=== PATIENT | female | born 2005 | race Caucasian/White ===

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

== ENCOUNTER 2023-01-01 15:17 | Outpatient (REF) | payer MEDICAID, SELFPAY | END 2023-01-01 15:18 | disposition home or self-care (01) | LOC: LBN 15:17 | PROVIDERS: PCP Pediatrics; Referring Provider Pediatrics; Visit Provider Pediatrics | DX: R30.0 Dysuria (principal) | CPT/HCPCS: 87086 ==

== ENCOUNTER 2023-01-19 23:36 | Emergency (ER) | payer MEDICAID, SELFPAY ==
--- NOTE | 2023-01-19 23:30 | RT.EKG_ITS ---
APPROVED REPORT Exam: Resting ECG Reason for Exam: Chest pain Patient Location: E HR:103 bpm ECG Measurements Heart Rate 103 AXIS NC 112 P 60 QRSd 69 QRS 40 QT 315 T 59 QTc 412 Conclusion Sinus tachycardia...rate> 99
[2023-01-19 23:39] VITALS: O2SAT 62
[2023-01-19 23:40] VITALS: PULSE 115; RESP 27; O2SAT 99
[2023-01-19 23:41] VITALS: BP 101/55; BP 164/132; PULSE 105; PULSE 107; PULSE 108; RESP 18; TEMP 37.1
[2023-01-19 23:46] VITALS: BP 101/55; PULSE 103; PULSE 105; RESP 16; O2SAT 100
[2023-01-19 23:48] VITALS: RESP 24
[2023-01-19 23:50] VITALS: PULSE 115; RESP 25
[2023-01-19] MEDS: LORazepam 2 MG/ML VIAL 1 MG IVP (23:58)
[2023-01-19] MEDS: Normal Saline 1,000 ML 1000 ML IV (23:58)
[2023-01-20] VITALS (20 sets, daily range): BP systolic 83–120; BP diastolic 33–80; PULSE 76–105; RESP 16–28; O2SAT 96–99
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
[2023-01-20 00:20] LABS: Abs Immature Grans 0.03 10^3/uL (0.0-0.06); Absolute Basophil Count 0.07 10^3/uL (0.0-0.2); Absolute Eosinophil Count 0.37 10^3/uL (0.0-0.7); Absolute Lymphocyte Count 3.67 10^3/uL (1.2-3.4); Absolute Monocyte Count 0.63 10^3/uL (0.1-0.8); Absolute Neutrophil Count 6.48 10^3/uL (1.2-6.7); Basophils % 0.6; Eosinophils % 3.3; HCT 37.9 % (36.0-46.0); HGB 13.3 g/dL (11.2-15.7); Immature Grans % 0.3; Lymphocytes % 32.6; MCH 31.7 pg (27.0-33.0); MCHC 35.1 % (32.0-36.0); MCV 91 fL (80-95); MPV 9.6 fL (8.0-11.0); Monocytes % 5.6; Neutrophils % 57.6; Platelet Count 318 10^3/uL (130-400); RBC 4.19 10^6/uL (3.93-5.22); RDW 11.9 % (11.7-14.6); RDW-SD 39.2 fL; WBC 11.25 10^3/uL (4.4-10.8)
[2023-01-20 00:30] LABS: ETHANOL BLOOD < 3.0 mg/dL (<10)
[2023-01-20 00:34] LABS: HCG Qual (Serum) Negative
[2023-01-20 00:38] LABS: ALT 14 U/L (14-59); AST 14 U/L (15-37); Alkaline Phosphatase 86 U/L (46-116); BUN 10 mg/dL (7-18); Bilirubin, Total 0.5 mg/dL (0.2-1.0); CREATININE 0.7 mg/dL (0.55-1.02); Calcium 9.7 mg/dL (8.5-10.1); Chloride 100 mmol/L (98-107); Glucose 133 mg/dL (74-106); Lipase 22 U/L (16-77); Magnesium 1.8 mg/dL (1.8-2.4); Potassium 3.2 mmol/L (3.5-5.1); Sodium 136 mmol/L (136-145); Total Protein 7.7 g/dL (6.4-8.2)
[2023-01-20 00:39] LABS: Troponin I < 50 ng/L (<or=60)
[2023-01-20 00:52] LABS: D-Dimer 232 ng/mlFEU (<500)
[2023-01-20 01:08] LABS: Bilirubin Negative (Negative); Blood Negative (Negative); Clarity Clear (Clear); Glucose Negative (Negative); Ketones Negative (Negative); Leukocyte Esterase Negative (Negative); Nitrite Negative (Negative); Urobilinogen 0.2 mg/dL (Up to 0.2); pH 5.5 (5-8)
[2023-01-20 01:17] LABS: *AMPHETAMINES SCREEN URINE Negative (Negative); *BARBITURATES SCREEN URINE Negative (Negative); *BENZODIAZEPINES SCREEN URINE Negative (Negative); Cannabinoids THC Positive (Negative); Cocaine Screen,Urine Negative (Negative); METHADONE URINE SCREEN Negative (Negative); OPIATES URINE SCREEN Negative (Negative)
[2023-01-20 01:18] LABS: Tricyclic Antidepressants Negative (Negative)
== END 2023-01-20 01:40 | disposition home or self-care (01) ==
LOC: ER 01-20 01:59
PROVIDERS: Emergency Provider Emergency Medicine; PCP Pediatrics
DX: E87.6 Hypokalemia (principal); T50.905A Adverse effect of unspecified drugs, medicaments and biological substances, initial encounter; F41.0 Panic disorder [episodic paroxysmal anxiety]
CPT/HCPCS: 80053; 80307; 83690; 93005; 96360; 96374; 99284; 80320; 81003; 83735; 84484; 84703; 85025; 85379; 93010; J2060

== ENCOUNTER 2023-01-25 09:35 | Outpatient (REF) | payer MEDICAID, SELFPAY | END 2023-01-25 09:36 | disposition home or self-care (01) | LOC: LBN 09:35 | PROVIDERS: PCP Pediatrics; Visit Provider Pediatrics | DX: R30.0 Dysuria (principal) | CPT/HCPCS: 87086 ==

== ENCOUNTER 2023-01-27 10:34 | Emergency (ER) | payer MEDICAID, SELFPAY ==
[2023-01-27 10:39] VITALS: BP 121/91; PULSE 93; RESP 18; TEMP 37.2; O2SAT 98
[2023-01-27 10:42] VITALS: BP 121/91; PULSE 93; RESP 18; TEMP 37.2; O2SAT 98
[2023-01-27] MEDS: Erythromycin Ophth Oint 3.5 GM TUBE OD (11:07)
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
== END 2023-01-27 11:05 | disposition home or self-care (01) ==
PROVIDERS: Emergency Provider Physician Assistant; PCP Pediatrics
DX: H01.004 Unspecified blepharitis left upper eyelid (principal); F17.290 Nicotine dependence, other tobacco product, uncomplicated
CPT/HCPCS: 99282; 99283

== ENCOUNTER 2023-02-05 16:43 | Outpatient (REF) | payer MEDICAID, SELFPAY | END 2023-02-05 16:44 | disposition home or self-care (01) | LOC: LBN 16:43 | PROVIDERS: PCP Pediatrics; Referring Provider Pediatrics; Visit Provider Pediatrics | DX: R30.0 Dysuria (principal); N30.90 Cystitis, unspecified without hematuria | CPT/HCPCS: 87086 ==

== ENCOUNTER → 2023-02-18 00:56 | Outpatient (CLI) | payer MEDICAID, SELFPAY ==
--- NOTE | 2023-02-18 | DI.CT_ITS ---
Exam(s) CT CHEST/ABD/PEL W EXAM: CT CHEST/ABD/PEL W CLINICAL HISTORY: BEHCET'S DISEASE M35.2 WEIGHT LOSS. TECHNIQUE: Imaging Protocol: Axial computed tomography images with coronal and sagittal reformatted images were created and reviewed CONTRAST MATERIAL: Intravenous: Omnipaque 350 Contrast volume:100 ml Oral: None COMPARISON: CT CT CHEST PE CTA from 10/13/2022 FINDINGS: CHEST: LUNGS: There are no infiltrates nor pleural effusions and there are no significant pulmonary nodules. No evidence of significant interstitial disease. No focal findings evident in the trachea and main stem bronchi. No bronchiectasis.. MEDIASTINUM: There is abnormal density filling the anterior mediastinal fat triangle. May represent thymus tissue versus more concerning finding. This is immediately exhibits normal size. there is no hilar adenopathy. No Damaris tracheal adenopathy. No subcarinal adenopathy. There is no supraclavicul ar adenopathy. There is no axillary adenopathy. CARDIAC: Heart size is normal. There is no pericardial effusion.Caliber of thoracic aorta is within normal limits. OSSEOUS: No significant osseous lesions.No fractures.. ABDOMEN: There is no ascites. No mesenteric masses. LIVER: There are no focal hepatic lesions nor dilatation of intrahepatic ducts. Some fatty parenchym al change is noted in the medial right hepatic lobe adjacent to the inter lobar fissure, a common fin ding. There is no generalized steatosis of the liver. GALLBLADDER/BILIARY: No obvious gallbladder pathology. zz PANCREAS: No evidence of pancreatic mass nor dilatation of the pancreatic duct. SPLEEN: Spleen is not enlarged. There are no intrasplenic lesions. Splenic and portal veins are laguna nt. ADRENALS: There are no significant adrenal masses. KIDNEYS: No calculi nor hydronephrosis. No solid renal masses. No cysts evident. ABDOMINAL AORTA: Abdominal aorta is not enlarged. LYMPH NODES: There is no retroperitoneal nor paraaortic adenopathy. ABDOMINAL WALL: No evidence of significant anterior abdominal wall nor inguinal hernia. GI: There is abnormal appearance of the sigmoid colon which exhibits a continuous colitis pattern thr oughout its length. This does not appear to affect the proximal 2/3 of the colon. There also a few intrapelvic small bowel loops which appear slightly irregular, possible enteritis. There is no free fluid. No free air. No abscess. There is no evidence of small-bowel obstruction.. PELVIS: LYMPH NODES: There is no intrapelvic nor inguinal adenopathy. GI: No evidence of appendicitis.No evidence of sigmoid diverticulitis. URINARY BLADDER: No calculi nor masses evident REPRODUCTIVE: Uterus size is normal. No ovarian masses seen. OSSEOUS: No for fractures. No osseous lesions. There is anterolisthesis L5 upon S1 related to bilat eral pars defects at the L5 level. IMPRESSION: 1. The main finding here is a severe colitis pattern involving the entire sigmoid; with less involvem ent of the colon above this level. There may also be a mild enteritis pattern involving small bowel loops in the pelvis. There is no evidence of small-bowel obstruction. There is no obvious ascites. 2. There is abnormal density in the anterior mediastinal fat triangle. In this age this may probably represent thymus remnant tissue. There is no hilar, paratracheal, nor subcarinal adenopathy. 3. No pulmonary findings nor pleural effusions. 4. Anterolisthesis L5 upon S1 due to bilateral pars defects at L5 level RADIATION DOSE DELIVERED: Total DLP DATA REPOSITORY: All CT scans at this facility are submitted to the National Radiology Data Registry (NRDR) Dose Index Registry (DIR) with the [employer] ([employer]). RADIATION OPTIMIZATION: All CT scans at this facility use at least one of these dose optimization te chniques: automated exposure control; mA and/or kV adjustment per patient size (includes targeted exa ms where dose is matched to clinical indication); or iterative reconstruction.
[2023-02-18] MEDS: Barium Sulfate 2% W/V-Berry Smoothie 450 ML BTL 900 ML PO (09:41)
[2023-02-18] MEDS: Omnipaque 350 MG/ML 100 ML BTL IJ (11:45)
== END ==
PROVIDERS: PCP Pediatrics; Visit Provider Internal Medicine Rheumatology
DX: K52.89 Other specified noninfective gastroenteritis and colitis (principal); M43.16 Spondylolisthesis, lumbar region
CPT/HCPCS: 74177; 71260; J3490

== ENCOUNTER 2023-04-09 07:25 | Outpatient (REF) | payer MEDICAID, SELFPAY ==
[2023-04-10 08:07] LABS: Clarity Sl Cloudy (Clear)
[2023-04-10 08:12] LABS: Specific Gravity 1.035 (1.005-1.025)
[2023-04-10 08:14] LABS: Bacteria Negative HPF (Negative); C & S Indicated? C&S Done As Ordered; Casts Negative LPF (Negative); Crystals Many Amorphous HPF (Negative); Epithelial Cells Few HPF (Negative); Mucus Trace (Negative); WBC 20-50 HPF (0-5)
== END 2023-04-09 07:26 | disposition home or self-care (01) ==
LOC: LBN 07:25
PROVIDERS: PCP Pediatrics; Visit Provider Pediatrics
DX: R30.0 Dysuria (principal); N30.80 Other cystitis without hematuria
CPT/HCPCS: 81003; 81015; 87086

== ENCOUNTER 2023-10-18 12:37 | Outpatient (CLI) | payer MEDICAID, SELFPAY ==
[2023-10-18 12:28] LABS: Abs Immature Grans 0.02 10^3/uL (0.0-0.06); Absolute Basophil Count 0.05 10^3/uL (0.0-0.2); Absolute Eosinophil Count 0.25 10^3/uL (0.0-0.7); Absolute Monocyte Count 0.87 10^3/uL (0.1-0.8); Absolute Neutrophil Count 5.25 10^3/uL (1.2-6.7); Basophils % 0.5 %; Eosinophils % 2.6 %; HCT 39.7 % (36.0-46.0); HGB 13.3 g/dL (11.2-15.7); Immature Grans % 0.2 %; Lymphocytes % 33.2 %; MCH 30.7 pg (27.0-33.0); MCHC 33.5 % (32.0-36.0); MCV 92 fL (80-95); MPV 9.1 fL (8.0-11.0); Neutrophils % 54.5 %; Platelet Count 287 10^3/uL (130-400); RBC 4.33 10^6/uL (3.93-5.22); RDW 12.9 % (11.7-14.6); RDW-SD 43.6 fL; WBC 9.64 10^3/uL (4.4-10.8)
[2023-10-18 12:43] LABS: *AMPHETAMINES SCREEN URINE Negative (Negative); *BARBITURATES SCREEN URINE Negative (Negative); *BENZODIAZEPINES SCREEN URINE Negative (Negative); Cannabinoids THC Positive (Negative); Cocaine Screen,Urine Positive (Negative); METHADONE URINE SCREEN Negative (Negative); OPIATES URINE SCREEN Negative (Negative)
[2023-10-18 12:44] LABS: Tricyclic Antidepressants Negative (Negative)
[2023-10-18 13:08] LABS: Hemoglobin A1C 5.5 % (<5.7)
[2023-10-18 13:16] LABS: ALT 18 U/L (14-59); AST 14 U/L (15-37); Albumin 3.8 g/dL (3.4-5.0); Alkaline Phosphatase 92 U/L (46-116); Anion Gap 8.3 mmol/L (3-11); BUN 6 mg/dL (7-18); Bilirubin, Total 0.57 mg/dL (0.2-1.0); CO2 28.7 mmol/L (21.0-32.0); CREATININE 0.7 mg/dL (0.55-1.02); Calcium 9.7 mg/dL (8.5-10.1); Calculated LDL 87 mg/dL (<100); Chloride 102 mmol/L (98-107); Cholesterol 152 mg/dL (<200); Glucose 96 mg/dL (74-106); HDL Cholesterol 57 mg/dL (40-60); Potassium 3.8 mmol/L (3.5-5.1); Sodium 139 mmol/L (136-145); TSH (W/Ref FT4) 1.68 uIU/mL (0.36-3.74); Total Protein 7.7 g/dL (6.4-8.2); Triglyceride 43 mg/dL (<150); Vitamin B12 472 pg/mL (193-986); Vitamin D 25 Total 33.7 ng/mL (30-100)
[2023-10-19 10:37] LABS: Syphilis Serology (RPR) Negative (Negative)
[2023-10-19 15:10] LABS: Fentanyl Scr w/Rfx Confirm Positive ng/mL (<1)
[2023-10-25 13:12] LABS: Fentanyl Confirmation >40 ng/mL (<2); Norfentanyl Confirmation >200 ng/mL (<10)
== END 2023-10-18 12:38 | disposition home or self-care (01) ==
LOC: LBO 12:37
PROVIDERS: PCP Pediatrics; Visit Provider Nurse Practitioner Family
DX: F11.90 Opioid use, unspecified, uncomplicated (principal); I10 Essential (primary) hypertension; E78.5 Hyperlipidemia, unspecified; Z00.00 Encounter for general adult medical examination without abnormal findings
CPT/HCPCS: 36415; 80053; 80061; 80307; 80354; 82306; 82607; 83036; 84443; 85025; 86592

== ENCOUNTER 2023-11-17 14:54 | Emergency (ER) | payer MEDICAID, SELFPAY ==
[2023-11-17 15:02] VITALS: BP 113/91; PULSE 116; RESP 12; TEMP 37; O2SAT 98
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
[2023-11-17] MEDS: Polymyxin B/Trimethoprim Ophth Soln 10 ML BTL OU (15:17)
--- OUTSIDE RECORDS SUMMARY | 2023-11-17 15:26 | XMS_ITS | Encounter Summary ---
Author Organization [facility] [place] [address] Care Team Providers Care Information Clerk Cashier Name Role Phone Ben Nevarez MD Primary Care Provider Encounter Details Date Type Department Care Team (Latest Contact Info) Description 11/26/2022 7:00 AM EDT - 11/26/2022 11:59 PM EDT Hospital En[place] [id number] Mild intermittent asthma without complication Discharge Disposition: Home Social History Tobacco Use Types Packs/Day Years Used Date Smoking Tobacco: Never Smokeless Tobacco: Never Comments:smokes marajuana Sex and Gender Information Value Date Recorded Sex Assigned at Not on file Gender Identity Not on file Sexual Orientation Not on file documented as of this encounter Medications at Time of Discharge Medication Sig Dispensed Refills Start Date End Date acetaminophen (Tylenol) 500 mg Tablet Take 1,000 mg by mouth every 6 hours as needed for Pain. albuteroL (Ventolin HFA) 90 mcg/actuation HFA Aerosol InhalerIndications:Mild intermittent asthma without complication Inhale 2 puffs into the lungs every 4 hours as needed for Wheezing. 1 each 1 11/10/2022 triamcinolone acetonide (KENALOG) 0.1 % Paste Place 1 each onto teeth 2 times daily. 5 g 12 04/10/2020 buPROPion SR (Wellbutrin SR) 100 mg SR 12 hr tablet Take 100 mg by mouth daily. 10/23/2022 05/06/2023 sucralfate (Carafate) 100 mg/mL Suspension Take 10 mLs by mouth 4 times daily. 420 mL 11/05/2022 05/06/2023 melatonin 10 mg Tablet, Multiphasic Release Bedtime 02/08/2020 05/06/19 24 Vyvanse 30 mg Capsule TAKE ONE CAPSULE BY MOUTH EVERY MORNING 02/03/2021 05/06/2023 omeprazole (PriLOSEC) [address] capsuleIndications:Mild intermittent asthma without complication Take 1 capsule by mouth daily. 30 capsule 1 11/10/2022 02/12/2023 lidocaine (Xylocaine) 5 % Ointment Three times a day 04/24/2020 05/06/2023 ondansetron ODT (Zofran-ODT) 4 mg Tablet, Rapid Dissolve Every 8 hours, as needed 05/24/2020 05/06/2023 sertraline (ZOLOFT) 100 mg Tablet TAKE ONE TABLET BY MOUTH ONCE DAILY 01/23/2021 05/06/2023 methylPREDNISolone (Medrol, Filiberto,) 4 mg Tablets, Dose Pack Use as directed on product package. 21 tablet 11/27/2020 05/06/2023 Diclofenac Sodium (VOLTAREN XR) 100 mg Tablet Sustained Release 24 hr Take 1 tablet by mouth daily. 30 tablet 3 06/04/2020 05/06/2023 gabapentin (Neurontin) 300 mg Capsule Take 1 capsule by mouth 3 times daily. 90 capsule 12 05/14/2020 05/06/2023 predniSONE (Deltasone) 10 mg Tablet Take 1 tablet by mouth daily. For 3 days then 5mg for 3 days then stop 100 tablet 1 04/30/2020 05/06/2023 gabapentin (Neurontin) 100 mg Capsule Take 2 capsules by mouth 3 times daily. 180 capsule 12 04/30/2020 05/06/2023 gabapentin (Neurontin) 100 mg Capsule Take 1 capsule by mouth 3 times daily. 90 capsule 12 04/10/2020 05/06/2023 Xarelto 15 mg Tablet TK 1 T PO BID FOR 20 DAYS 02/12/2020 05/06/2023 documented as of this encounter Plan of Treatment Not on file documented as of this encounter Procedures Procedure Name Priority Date/Time Associated Diagnosis Comments COMMON PULMONARY FUNCTION TEST Routine 11/26/2022 7:14 AM EDT Mild intermittent asthma without complication documented in this encounter Results * Pulmonary Function Testing (11/26/2022 7:14 AM EDT) FVC Actual Pre-BD 4.39 L COMPAS PFT FVC Pre-BD % of Predicted 135 % COMPAS PFT FVC Predicted 3.26 L COMPAS PFT FVC Pre-BD Z-Score 2.73 COMPAS PFT FVC Lower Limits of Normal 2.61 L COMPAS PFT FEV1 Actual Pre-BD 3.77 L COMPAS PFT FEV1 Pre-BD % of Predicted 130 % COMPAS PFT FEV1 Predicted 2.89 L COMPAS PFT FEV1 Pre-BD Z-Score 2.67 COMPAS PFT FEV1 Lower Limits of Normal 2.32 L COMPAS PFT FEV1 / FVC Actual Pre-BD 86 % COMPAS PFT FEV1/FVC Pre-BD Z-Score -0.48 COMPAS PFT FEV1 / FVC LLN 78 % COMPAS PFT FYT14-17 Actual Pre-BD 4.32 L/s COMPAS PFT [id number] Pre-BD % of Predicted 120 % COMPAS PFT [id number] Predicted 3.59 L/s COMPAS PFT [id number] Pre-BD Z-Score 0.92 COMPAS PFT FVC Actual Post-BD 4.37 L COMPAS PFT FVC Post-BD % of Predicted 134 % COMPAS PFT FVC Post-BD Z-Score 2.68 COMPAS PFT FEV1 Actual Post-BD 3.88 L COMPAS PFT FEV1 Post-BD % of Predicted 134 % COMPAS PFT FEV1 Post-BD Z-Score 3.01 COMPAS PFT FEV1 / FVC Actual Post-BD 89 % COMPAS PFT FEV1 / FVC LLN 78 % COMPAS PFT [id number] Actual Post-BD 4.94 L/s COMPAS PFT [id number] Post-BD % of Predicted 138 % COMPAS PFT [id number] Post-BD Z-Score 1.66 COMPAS PFT DLCO Hb Actual Pre-BD 22.72 mL/min/mmHg COMPAS PFT DLCO Hb Pre-BD % of Predicted 119 % COMPAS PFT DLCO Hb Pre-BD Z-Score 1.10 COMPAS PFT DLCO Hb Predicted 19.02 mL/min/mmHg COMPAS PFT DLCO UNC ACT PRE-BD 22.72 mL/min/mmHg COMPAS PFT DLCO UNC PRE-BD % of PRED 119 % COMPAS PFT DLCO UNC PRE-BD Z-SCORE 1.10 % COMPAS PFT DLCO UNC Predicted 19.02 mL/min/mmHg COMPAS PFT DLCO/VA Actual Pre-BD 4.46 mL/min/mmHg /L COMPAS PFT DLCO/VA Pre-BD % of Predicted 90 % COMPAS PFT DLCO/VA Pre-BD Z-Score -0.72 COMPAS PFT DLCO/VA Predicted 4.97 mL/min/mmHg /L COMPAS PFT Narrative COMPAS PFT - 11/26/2022 7:14 AM EDT FINDINGS: FEV1, FVC, and FEV1/VC are within normal limits. After administration of bronchodilator the FVC and FEV1 are not significantly changed. Diffusion capacity is normal. IMPRESSION: Normal spirometry. No significant response to inhaled bronchodilator. No diffusion impairment. Procedure Note Toño Meyer MD - 11/26/2022 FINDINGS: FEV1, FVC, and FEV1/VC are within normal limits. Afteradministration of bronchodilator the FVC and FEV1 are not significantly changed. Diffusioncapacity is normal. IMPRESSION: Normal spirometry. No significant response to inhaledbronchodilator. No diffusion impairment. Kayleigh Joselito [place] PFT ORDERABLES COMPAS PFT documented in this encounter Visit Diagnoses Diagnosis Mild intermittent asthma without complication Unspecified asthma documented in this encounter Care Teams Information Clerk Cashier Relationship Specialty Start Date End Date Ben Nevarez MD [address] [place] [address] PCP - General Pediatrics 11/20/15 documented as of this encounter
--- OUTSIDE RECORDS SUMMARY | 2023-11-17 15:26 | XMS_ITS | Clinical Summary ---
Author Organization [facility] [address] Care Team Providers Care Scholastic Aptitude Test Grader Name Role Phone Ben Nevarez MD Primary Care Provider Allergies Active Allergy Reactions Criticality Noted Date Comments Penicillins Rash 05/12/2011 Unclassified Drug Medium 09/08/2011 Dial soap gives her a burn on her skin at contact Medications Medication Sig Dispensed Refills Start Date End Date Status acetaminophen (Tylenol) 500 mg Tablet Take 1,000 mg by mouth every 6 hours as needed for Pain. Active triamcinolone acetonide (KENALOG) 0.1 % Paste Place 1 each onto teeth 2 times daily. 5 g 12 04/10/2020 Active Additional Information Patient taking differently: (No dose reported), Dental 2 TIMES DAILY, Reported on 05/06/2023 albuteroL (Ventolin HFA) 90 mcg/actuation HFA Aerosol InhalerIndications:Mi ld intermittent asthma without complication Inhale 2 puffs into the lungs every 4 hours as needed for Wheezing. 1 each 1 11/10/2022 Active Additional Information Patient not taking.Reported on 04/15/2023 Vyvanse 50 mg capsule Take 50 mg by mouth every morning. Active ferrous sulfate EC (FeroSul) 325 mg (65 mg iron) DR tablet Take 1 tablet by mouth daily. 04/01/2023 Active cyanocobalamin, vitamin B-12, (Vitamin B-12) 2,500 mcg tablet Take 1 tablet by mouth daily. chewable Active EX-LAX, SENNOSIDES, ORAL Take by mouth. coated Active methadone (Dolophine) 10 mg tablet Take 50 mg by mouth every 8 hours. Active Active Problems Problem Noted Date Diagnosed Date Behcet's syndrome 11/26/2022 Assessment & Plan (11/26/2022 1:50 PM EDT): I have done a literature review today regarding cardiac involvement in Bechet syndrome. While cardiac involvement is rare, it can manifest as disease in the epicardial vessels or in the microvasculature. Myocardial infarction is less common and accelerated atherosclerosis is not characterized as an aspect of the disease as it would be in other autoimmune syndromes. I discussed options for evaluation. While there is every chance that this is noncardiac, I do think we need to exclude a cardiac etiology. The most likely lesion would be in the microvasculature. I have ordered a PET stress test which will assess for epicardial disease in the perfusion imaging and assess for microvascular disease through flow reserve. If this is positive I will refer the patient back to rheumatology for intensification of therapy for Behcet's. If negative, she can be reassured. Follow-up will be as needed. GERD (gastroesophageal reflux disease) 2 Overview (09/08/2011): Primary manifestations are cough and pneumonia Much better since being on Zantac History of migraine headaches 06/16/2011 Overview (06/16/2011): Controlled with Singulair Cough 05/12/2011 Overview (09/08/2011): Persistent despite appropriate asthma therapy Resolved with treatment of GERD Asthma 05/12/2011 Nasal congestion 05/12/2011 Immunizations Name Administration Dates Next Due Influenza Trivalent w/Preservative 01/01/2012, Social History Tobacco Use Types Packs/Day Years Used Date Smoking Tobacco: Never Smokeless Tobacco: Never Tobacco Cessation:Counseling Given: Not Answered Comments:smokes marajuana Sex and Gender Information Value Date Recorded Sex Assigned at Not on file Gender Identity Not on file Sexual Orientation Not on file Last Filed Vital Signs Vital Sign Reading Time Taken Comments Blood Pressure 100/73 04/15/2023 1:37 PM EST Pulse 78 04/15/2023 1:37 PM EST Temperature 36.8 ??C (98.2 ??F) 01/20/2023 8:02 AM ED T Respiratory Rate 16 11/09/2022 9:56 AM EDT Oxygen Saturation 97% 04/15/2023 1:37 PM EST Inhaled Oxygen Concentration - - Weight 49.9 kg (110 lb) 05/06/2023 1:24 PM EST Height 149.9 cm (4' 11.02) 04/15/2023 1:[address] Body Mass Index 22.21 04/15/2023 1:37 PM EST Plan of Treatment Health Maintenance Due Date Last Done Comments Pneumococcal Vaccine: At-Ris k 5-64yrs (1 of 2 - PCV) 2009 Chlamydia Screening 2018 HPV vaccine (1 - 3-dose series) 2018 HIV screen 2021 Hepatitis C Screening 2021 Hepatitis B vaccine (0-59 yrs) (1) 2022 Tdap adult 2022 Tetanus vaccine 2022 Covid-19 Vaccine (1 - 2022- season) 2022 Influenza (Flu) vaccine (1 o f 1 - Influenza standard series) 12/12/2023 01/01/2012, 04/28/2011 Care Teams Scholastic Aptitude Test Grader Relationship Specialty Start Date End Date Ben Nevarez MD [address] [place] [address] PCP - General Pediatrics 11/20/15
--- OUTSIDE RECORDS SUMMARY | 2023-11-17 15:26 | XMS_ITS | Encounter Summary ---
[place] [address] Care Team Providers Care Clinical Pharmacist Name Role Phone Ben Nevarez MD Primary Care Provider [phone] Encounter Details Date Type Department Care Team (Late st Contact Info) Description 02/18/2023 Ancillary Procedure [place] [id number] Ben Nevarez MD [address] [place] [address] [place] [address] Social History Tobacco Use Types Packs/Day Years Used Date Smoking Tobacco: Never Smokeless Tobacco: Never Comments:smokes marajuana Sex and Gender Information Value Date Recorded Sex Assigned at Not on file Gender Identity Not on file Sexual Orientation Not on file documented as of this encounter Plan of Treatment Not on file documented as of this encounter Procedures Procedure Name Priority Date/Time Associated Diagnosis Comments FILM LIBRARY STORAGE ONLY CT CHEST ABDOMEN PELVIS Routine 02/18/2023 12:00 AM EST documented in this encounter Results * Film Library- Storage Only CT Chest Abdomen Pelvis (02/18/2023 12:00 AM EST) Narrative [facility] - 02/19/2023 2:56 AM EST This exam is auto-finalizing. It's purpose is for storage only. Ben Nevarez MD IMG FILM LIBRARY OR DERABLES Performing Organization Address City/State/[facility] Co de Phone Number [place], [place] documented in this encounter Visit Diagnoses Not on filedocumented in this encounter Care Teams Clinical Pharmacist Relationship Specialty Start Date End Date Ben Nevarez MD [address] [place] [address] PCP - General Pediatrics 11/20/15 documented as of this encounter
--- OUTSIDE RECORDS SUMMARY | 2023-11-17 15:26 | XMS_ITS | Encounter Summary ---
Author Organization [facility] [place] [address] Care Team Providers Care Social Secretary Name Role Phone Ben Nevarez MD Primary Care Provider Encounter Details Date Type Department Care Team (Latest Contact Info) Description 04/15/2023 Travel Social History Tobacco Use Types Packs/Day Years Used Date Smoking Tobacco: Never Smokeless Tobacco: Never Comments:smokes marajuana Sex and Gender Information Value Date Recorded Sex Assigned at Not on file Gender Identity Not on file Sexual Orientation Not on file documented as of this encounter Plan of Treatment Not on file documented as of this encounter Visit Diagnoses Not on filedocumented in this encounter Care Teams Social Secretary Relationship Specialty Start Date End [place] [address] PCP - General Pediatrics 11/20/15 documented as of this encounter
--- OUTSIDE RECORDS SUMMARY | 2023-11-17 15:26 | XMS_ITS | Encounter Summary ---
[place] [address] Care Team Providers Care Director Weights And Measures Name Role Phone Ben Nevarez MD Primary Care Provider [phone] Encounter Details Date Type Department Care Team (Latest Contact Info) Description 12/29/2022 Travel Social History Tobacco Use Types Packs/Day [...] on filedocumented in this encounter Care Teams Director Weights And Measures Relationship Specialty Start Date End Date [place] [address] PCP - General Pediatrics 11/20/15 documented as of this encounter
--- OUTSIDE RECORDS SUMMARY | 2023-11-17 15:26 | XMS_ITS | Encounter Summary ---
[place] [address] Care Team Providers Care Nitroglycerin Supervisor Name Role Phone Ben Nevarez MD Primary Care Provider [phone] Reason for Visit * Reason Onset Date Comments Other 11/10/2022 Pulmonary Rxs Encounter Details Date Type Department Care Team (Late st Contact Info) Description 11/10/2022 [place] [phone] Nae Reina RN Other (Pulmonary Rxs) Social History Tobacco Use Types Packs/Day Years Used Date Smoking Tobacco: Never Smokeless Tobacco: Never Comments:smokes marajuana Sex and Gender Information Value Date Recorded Sex Assigned at Not on file Gender Identity Not on file Sexual Orientation Not on file documented as of this encounter Miscellaneous Notes * Telephone Encounter - Nae Reina RN - 11/10/2022 4:33 PM EDT New Rx sent, x2, to pharmacy under Dr. Yee's name for insurance purposes: Albuterol HFA Omeprazole Attempted to call pt to notify. No answer. Nae Reina RN Department of Pulmonary 5C, [facility] / Pager: [phone] * Telephone Encounter - Nae Reina RN - 11/10/2022 4:33 PM EDT Copied from CRM #[id number]. Topic: Specialty Dept CRMs - Medication Issues >> Nov 09, 2022 2:27 PM Taylor Sofia wrote: Medication Issues Specialist Joselito/ Mejia Relationship (if other than patient-full name): Tino Rodrigues- brooks Reason for call: Medication Issue (if symptom based used Triage Subtopic) Message/information for the nurse: Need new script with provider approved for [place] medicaid. Name of Medication: albuteroL (Ventolin HFA) 90 mcg/actuation HFA Aerosol Inhaler Issue with the medication: Dr Ba cannot order for [place] medicaid per pharmacy. documented in this encounter Plan of Treatment Not on file documented as of this encounter Visit Diagnoses Not on filedocumented in this encounter Care Teams Nitroglycerin Supervisor Relationship Specialty Start Date End Date Ben Nevarez MD [address] [place] [address] PCP - General Pediatrics 11/20/15 documented as of this encounter
--- OUTSIDE RECORDS SUMMARY | 2023-11-17 15:26 | XMS_ITS | Encounter Summary ---
Author Organization [facility] Address [place] [id number] Care Team Providers Care Skein Straightener Name Role Phone Ben Nevarez MD Primary Care Provider Reason for Referral * Diagnostic Test (Routine) - Closed Specialty Diagnoses / Procedures Referred By Contac t Referred To Contact Radiology Diagnoses Chest pain, unspecified type Procedures NM PET CT Cardiac Pharmacologic Stress and Rest Dexter Mullen MD [facility] [place] [address] [place] [address] Referral ID Status Reason Start Date Expiration Date V isits Requested Visits Authorized [id number] Closed Specialty Service Requested 11/26/2022 05/25/2024 1 1 * Diagnostic Test (Routine) - Closed Specialty Diagnoses / Procedures Referred By Contac t Referred To Contact Radiology Diagnoses Chest pain, unspecified type Procedures NM PET CT Cardiac Pharmacologic Stress CT Component Dexter Mullen MD [facility] [place] [address] [facility] [email or web address] [address] Referral ID Status Reason Start Date Expiration Date V isits Requested Visits Authorized [id number] Closed Specialty Service Requested 11/26/2022 05/25/2024 1 1 * Diagnostic Test (Routine) - Closed Specialty Diagnoses / Procedures Referred By Brendan moore Referred To Contact Cardiology Diagnoses Chest pain, unspecified type Procedures Nuclear Pharmacologic Stress Cardiology (PET CT Mobile) Dexter Mullen MD [facility] [place] [address] [facility] [place] [address] Referral ID Status Reason Start Date Expiration Date V isits Requested Visits Authorized [id number] Closed Specialty Service Requested 11/26/2022 11/26/2023 1 1 Reason for Visit * Consultation (Urgent) - Closed Specialty Diagnoses / Procedures Referred By Brendan moore Referred To Contact Cardiology Diagnoses Chest pain 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 Arpit Cormier MD [facility] [place] [address] [facility] [address] [place] [phone] Referral ID Status Reason Start Date Expiration Date V isits Requested Visits Authorized [id number] Closed Consult, Test & Treat 11/05/2022 11/05/2023 1 1 Encounter Details Date Type Department Care Team (Late st Contact Info) Description 11/26/2022 1:00 PM EDT Office Visit Cardiology at [address] [phone] Dexter Mullen MD [facility] [place] [address] Chest pain, unspecified type; Behcet's syndrome Social History Tobacco Use Types Packs/Day Years Used Date Smoking Tobacco: Never Smokeless Tobacco: Never Tobacco Cessation:Counseling Given: Not Answered Comments:smokes socorro Sex and Gender Information Value Date Recorded Sex Assigned at Not on file Gender Identity Not on file Sexual Orientation Not on file documented as of this encounter Last Filed Vital Signs Vital Sign Reading Time Taken Comments Blood Pressure 113/80 11/26/2022 1:10 PM EDT Pulse 72 11/26/2022 1:10 PM EDT Temperature - - Respiratory Rate - - Oxygen Saturation 99% 11/26/2022 1:10 PM EDT Inhaled Oxygen Concentration - - Weight 51.7 kg (114 lb) 11/26/2022 1:10 PM EDT Height 149.9 cm (4' 11) 11/26/2022 1:10 PM EDT Body Mass Index 23.03 11/26/2022 1:10 PM EDT documented in this encounter Patient Instructions * Patient Instructions* Dexter Mullen MD - 11/26/2022 1:00 PM EDT I have ordered a PET stress test for you. We should have results available the following day documented in this encounter Progress Notes * Dexter Mullen MD - 11/26/2022 1:00 PM EDT Images from the original note were not included. [facility] [id number] CARDIOLOGY OUTPATIENT PROGRESS NOTE PRIMARY CARE PROVIDER: Ben Nevarez MD REFERRING PROVIDER: Arpit Cormier PROBLEM LIST: Patient Active Problem List Diagnosis Behcet's syndrome GERD (gastroesophageal reflux disease) Primary manifestations are cough and pneumonia Much better since being on Zantac History of migraine headaches Controlled with Singulair Cough Persistent despite appropriate asthma therapy Resolved with treatment of GERD Asthma Nasal congestion MEDICATIONS: Current Outpatient Medications Medication Sig Dispense Refill albuteroL (Ventolin HFA) 90 mcg/actuation HFA Aerosol Inhaler Inhale 2 puffs into the lungs every 4hours as needed for Wheezing. 1 each 1 omeprazole (PriLOSEC) [address] capsule Take 1 capsule by mouth daily. 30 capsule 1 Vyvanse 30 mg Capsule TAKE ONE CAPSULE BY MOUTH EVERY MORNING acetaminophen (Tylenol) 500 mg Tablet Take 1,000 mg by mouth every 6 hours as needed for Pain. buPROPion SR (Wellbutrin SR) 100 mg SR 12 hr tablet Take 100 mg by mouth daily. sucralfate (Carafate) 100 mg/mL Suspension Take 10 mLs by mouth 4 times daily. (Patient not taking:Reported on 11/26/2022) 420 mL 0 lidocaine (Xylocaine) 5 % Ointment Three times a day melatonin 10 mg Tablet, Multiphasic Release Bedtime ondansetron ODT (Zofran-ODT) 4 mg Tablet, Rapid Dissolve Every 8 hours, as needed sertraline (ZOLOFT) 100 mg Tablet TAKE ONE TABLET BY MOUTH ONCE DAILY methylPREDNISolone (Medrol, Filiberto,) 4 mg Tablets, Dose Pack Use as directed on product package. (Patient not taking: Reported on 03/03/2021) 21 tablet 0 Diclofenac Sodium (VOLTAREN XR) 100 mg Tablet Sustained Release 24 hr Take 1 tablet by mouth daily.(Patient not taking: Reported on 03/03/2021) 30 tablet 3 gabapentin (Neurontin) 300 mg Capsule Take 1 capsule by mouth 3 times daily. (Patient not taking: Reported on 07/02/2020) 90 capsule 12 predniSONE (Deltasone) 10 mg Tablet Take 1 tablet by mouth daily. For 3 days then 5mg for 3 days then stop (Patient not taking: Reported on 05/14/2020) 100 tablet 1 gabapentin (Neurontin) 100 mg Capsule Take 2 capsules by mouth 3 times daily. (Patient not taking: Reported on 07/02/2020) 180 capsule 12 gabapentin (Neurontin) 100 mg Capsule Take 1 capsule by mouth 3 times daily. (Patient not taking: Reported on 05/14/2020) 90 capsule 12 triamcinolone acetonide (KENALOG) 0.1 % Paste Place 1 each onto teeth 2 times daily. (Patient not taking: Reported on 07/02/2020) 5 g 12 Xarelto 15 mg Tablet TK 1 T PO BID FOR 20 DAYS No current facility-administered medications for this visit. Subjective: Patient ID: Elvia Rodrigues is a 17 y.o. patient of Ben Nevarez MD. HPI: This is a 17-year-old female whom I am asked to see for possible involvement of coronary arteries based on Behcet's syndrome and manifested by chest pain. She has been seen in the past by multiple medical specialists including rheumatology who have confirmed the presence of Behcet's syndrome. Her main manifestation in the past has been vaginal ulcers which have been characteristic of the disease. She has fairly minimal oral ulcers. She has had some skin nodules as well. Recently she has had worsening shortness of breath and chest discomfort. She was seen in the emergency room for this. CT scan showed cysts in the lungs, which been felt by pulmonary to be consistent with a manifestation of Behcet's. She has been seen by cardiology in the past as well. This was for shortness of breath and for general assessment. 2 years ago she had an echocardiogram that was entirely normal. Her pain is present primarily nocturnally and often at rest. It manifests as chest pain at times. It can occur with exertion. She does not exercise at all despite being only 17 years old. She does not go to school. 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 She is otherwise not worked recently. She unfortunately smokes and vapes. She has been instructed by pulmonary medicine in no uncertain terms to stop thisbehavior and I have amplified their advice. Her pain can last as long as several hours or short as a few seconds. It is worse when laying down and sitting up. It does not vary with the breathing cycle. It is made mildly worse with exertion but this is complicated by the fact that she usually feels better when she stands or sits. In the emergency room EKG and troponin were unremarkable. REVIEW OF SYSTEMS: Vaginal ulcers, chest pain, shortness of breath, skin rashes Family History: No family history on file. Social History: Social History Socioeconomic History Marital status: Single Spouse name: Not on file Number of children: Not on file Years of education: Not on file Highest education level: Not on file Occupational History Not on file Tobacco Use Smoking status: Never Smokeless tobacco: Never Tobacco comments: smokes marajuana Vaping Use Vaping Use: Some days Substances: Nicotine Devices: Disposable, Pre-filled or refillable cartridge Substance and Sexual Activity Alcohol use: Not on file Drug use: Not on file Sexual activity: Not on file Other Topics Concern Not on file Social History Narrative Not on file Social Determinants of Health Financial Resource Strain: Not on file Food Insecurity: Not on file Transportation Needs: Not on file Physical Activity: Not on file Housing Stability: Not on file Objective: PHYSICAL EXAM: BP 113/80 (BP Location (NBP): Left arm, Patient Position: Sitting, BP Cuff Sizes: Adult (25-34 cm)) Pulse 72 Ht 149.9 cm (4' 11) Wt 51.7 kg (114 lb) SpO2 99% BMI 23.03 kg/m?? , Body mass index is 23.03 kg/m??. General: Pleasant. No distress. Skin: Warm and dry. HEENT: Anicteric sclera. Neck: JVP not elevated. No AJR. No carotid bruits. Chest: Clear to auscultation Heart: No heave. Regularly regular rhythm. Normal S1 and S2. No gallops. No murmurs. Abdomen: Nondistended. Soft. Nontender. Extremities: No edema. PNEUMATIC TESTER: Normal mentation. Psych: Appropriate affect. Labs: Lab Results Component Value Date WBC 9.0 11/05/2022 WBC 9.0 04/10/2020 WBC 9.0 04/10/2020 HGB 14.0 11/05/2022 HGB 12.6 02/14/2020 PLATELET 305 11/05/2022 PLATELET 420 (H) 02/14/2020 NA 140 04/08/2021 NA 136 02/14/2020 K 4.1 04/08/2021 K 4.2 02/14/2020 CL 106 04/08/2021 CL 104 02/14/2020 CO2 23 04/08/2021 CO2 22 02/14/2020 BUN 11 04/08/2021 BUN 16 02/14/2020 CREATININE 0.84 04/08/2021 CREATININE 0.95 (H) 02/14/2020 I have reviewed her EKG and troponins. They are normal. Assessment and Plan: Behcet's syndrome I have done a literature review today regarding cardiac involvement in Bechet syndrome. While cardiac involvement is rare, it can manifest as disease in the epicardial vessels or in the microvasculature. Myocardial infarction is less common and accelerated atherosclerosis is not characterized as anaspect of the disease as it would be [...] be reassured. Follow-up will be as needed. Patient Instructions I have ordered a PET stress test for you. We should have results available the following day Thank you for the opportunity to participate in this patient's cardiovascular care. All questions were answered and I look forward to the next visit. Dexter Mullen MD A total of 60 minutes were spent on this visit including preparation, record review, time with the patient and documentation. documented in this encounter Miscellaneous Notes * Assessment & Plan Note - Dexter Mullen MD - 11/26/2022 1:50 PM EDT Associated Problem(s): Behcet's syndrome I have done a literature review today regarding cardiac involvement in Bechet syndrome. While cardiac involvement is rare, it can manifest as disease in the epicardial vessels or in the microvasculature. Myocardial infarction is less common and accelerated atherosclerosis is not characterized as anaspect of the disease as it would be [...] be reassured. Follow-up will be as needed. documented in this encounter Plan of Treatment Not on file documented as of this encounter Results * NM PET CT Cardiac Pharmacologic Stress and Rest (12/29/2022 9:03 AM EDT) Anatomical Region Laterality Modality Positron Emissio n Tomography (PET) Impressions 12/29/2022 6:05 PM EDT No ischemia or scar. ?? Normal coronary flow reserve. Left ventricular function is normal. Preliminary report signed by: Brooklyn Bennett at 12/29/2022 5:39 PM I have personally reviewed the image(s) and the resident's interpretation and agree with the findings, Ventura Abbasi MD at 12/29/2022 6:05 PM Thank you for letting us participate in the care of this patient. ??If you are a health care provider and have any questions regarding this report, please contact the number below. ??For patients who have questions please contact the health medicare coordinator that requested your imaging first. ? Electronically signed by: Ventura Abbasi MD, [facility] ([phone]), at 12/29/2022 6:05 PM Narrative 12/29/2022 6:05 PM EDT EXAMINATION: NM PET CT CARDIAC PHARMACOLOGIC STRESS AND REST, NM PET CT CARDIAC PHARMACOLOGIC STRESS CT COMPONENT CLINICAL HISTORY: chest pain,possible vasculitis TECHNIQUE: During rest, 30 mCi of Rubidium-82 was administered intravenously. PET images of the heart were obtained with reconstruction in the short, vertical long and horizontal long axis. The patient then received regadenoson intravenously at a dose of 0.4 mg. Immediately following, 30 mCi of Rubidium-82 was administered intravenously. Images of the heart were then again obtained with PET reconstruction. A low-dose CT scan was acquired for the purpose of attenuation correction COMPARISON: CTA chest 10/13/2022 FINDINGS: No fixed or reversible perfusion defects are present. Functional analysis: Myocardial function: There is normal wall thickening and wall motion. Rest Left ventricular ejection fraction: 55% Stress Left ventricular ejection fraction: 62% Coronary flow reserve LAD territory: 2.85 Coronary flow reserve Circumflex territory: 2.37 Coronary flow reserve RCA territory: 3.05 Coronary flow reserve total: 2.[address] FINDINGS: Normal CT within the limitations of this noncontrast study. Procedure Note Ventura Abbasi MD - 12/29/2022 EXAMINATION: NM PET CT CARDIAC PHARMACOLOGIC STRESS AND REST, NM PET CTCARDIAC PHARMACOLOGIC STRESS CT COMPONENT CLINICAL HISTORY: chest pain,possible vasculitis TECHNIQUE: During rest, 30 mCi of Rubidium-82 was administeredintravenously. PET images of the heart were obtained with reconstruction in the short,vertical long and horizontal long axis. The patient then received regadenoson intravenously at a dose of 0.4 mg. Immediately following, 30 mCi of Rubidium-82 was administeredintravenously. Images of the heart were then again obtained with PET reconstruction. A low-dose CT scan was acquired for the purpose of attenuationcorrection COMPARISON: CTA chest 10/13/2022 FINDINGS: No fixed or reversible perfusion defects are present. Functional analysis: Myocardial function: There is normal wall thickening and wall motion. Rest Left ventricular ejection fraction: 55% Stress Left ventricular ejection fraction: 62% Coronary flow reserve LAD territory: 2.85 Coronary flow reserve Circumflex territory: 2.37 Coronary flow reserve RCA territory: 3.05 Coronary flow reserve total: 2.[address] FINDINGS: Normal CT within the limitations of this noncontrast study. IMPRESSION No ischemia or scar. Normal coronary flow reserve. Left ventricular function is normal. Preliminary report signed by: Brooklyn Bennett at 12/29/2022 5:39 PM I have personally reviewed the image(s) and the resident's interpretationand agree with the findings, Ventura Abbasi MD at 12/29/2022 6:05 PM Thank you for letting us participate in the care of this patient. If youare a health care provider and have any questions regarding this report,please contact the number below. For patients who have questions please contactthe health medicare coordinator that requested your imaging first. Electronically signed by: Ventura Abbasi MD, [facility]([phone]), at 12/29/2022 6:05 PM Dexter Mullen MD IMG PET ORDERABLES * NM PET CT Cardiac Pharmacologic Stress CT Component (12/29/2022 9:03 AM EDT) Anatomical Region Laterality Modality Positron Emissio n Tomography (PET) Impressions 12/29/2022 6:05 PM EDT No ischemia or scar. ?? Normal coronary flow reserve. Left ventricular function is normal. Preliminary report signed by: Brooklyn Bennett at 12/29/2022 5:39 PM I have personally reviewed the image(s) and the resident's interpretation and agree with the findings, Ventura Abbasi MD at 12/29/2022 6:05 PM Thank you for letting us participate in the care of this patient. ??If you are a health care provider and have any questions regarding this report, please contact the number below. ??For patients who have questions please contact the health medicare coordinator that requested your imaging first. ? Electronically signed by: Ventura Abbasi MD, [facility] ([phone]), at 12/29/2022 6:05 PM Narrative 12/29/2022 6:05 PM EDT EXAMINATION: NM PET CT CARDIAC PHARMACOLOGIC STRESS AND REST, NM PET CT CARDIAC PHARMACOLOGIC STRESS CT COMPONENT CLINICAL HISTORY: chest pain,possible vasculitis TECHNIQUE: During rest, 30 mCi of Rubidium-82 was administered intravenously. PET images of the heart were obtained with reconstruction in the short, vertical long and horizontal long axis. The patient then received regadenoson intravenously at a dose of 0.4 mg. Immediately following, 30 mCi of Rubidium-82 was administered intravenously. Images of the heart were then again obtained with PET reconstruction. A low-dose CT scan was acquired for the purpose of attenuation correction COMPARISON: CTA chest 10/13/2022 FINDINGS: No fixed or reversible perfusion defects are present. Functional analysis: Myocardial function: There is normal wall thickening and wall motion. Rest Left ventricular ejection fraction: 55% Stress Left ventricular ejection fraction: 62% Coronary flow reserve LAD territory: 2.85 Coronary flow reserve Circumflex territory: 2.37 Coronary flow reserve RCA territory: 3.05 Coronary flow reserve total: 2.[address] FINDINGS: Normal CT within the limitations of this noncontrast study. Procedure Note Ventura Abbasi MD - 12/29/2022 EXAMINATION: NM PET CT CARDIAC PHARMACOLOGIC STRESS AND REST, NM PET CTCARDIAC PHARMACOLOGIC STRESS CT COMPONENT CLINICAL HISTORY: chest pain,possible vasculitis TECHNIQUE: During rest, 30 mCi of Rubidium-82 was administeredintravenously. PET images of the heart were obtained with reconstruction in the short,vertical long and horizontal long axis. The patient then received regadenoson intravenously at a dose of 0.4 mg. Immediately following, 30 mCi of Rubidium-82 was administeredintravenously. Images of the heart were then again obtained with PET reconstruction. A low-dose CT scan was acquired for the purpose of attenuationcorrection COMPARISON: CTA chest 10/13/2022 FINDINGS: No fixed or reversible perfusion defects are present. Functional analysis: Myocardial function: There is normal wall thickening and wall motion. Rest Left ventricular ejection fraction: 55% Stress Left ventricular ejection fraction: 62% Coronary flow reserve LAD territory: 2.85 Coronary flow reserve Circumflex territory: 2.37 Coronary flow reserve RCA territory: 3.05 Coronary flow reserve total: 2.[address] FINDINGS: Normal CT within the limitations of this noncontrast study. IMPRESSION No ischemia or scar. Normal coronary flow reserve. Left ventricular function is normal. Preliminary report signed by: Brooklyn Bennett at 12/29/2022 5:39 PM I have personally reviewed the image(s) and the resident's interpretationand agree with the findings, Ventura Abbasi MD at 12/29/2022 6:05 PM Thank you for letting us participate in the care of this patient. If youare a health care provider and have any questions regarding this report,please contact the number below. For patients who have questions please contactthe health medicare coordinator that requested your imaging first. Electronically signed by: Ventura Abbasi MD, [facility]([phone]), at 12/29/2022 6:05 PM Dexter Mullen MD IMG PET ORDERABLES * Nuclear Pharmacologic Stress Cardiology (PET CT Mobile) (12/29/2022 8:52 AM EDT) Anatomical Region Laterality Modality Other Dexter Mullen MD CARDIAC SERVICES O RDERABLES documented in this encounter Visit Diagnoses Diagnosis Chest pain, unspecified type Behcet's syndrome Chest pain, unspecified type documented in this encounter Care Teams Skein Straightener Relationship Specialty Start Date End Date Ben Nevarez MD [address] [place] [address] PCP - General Pediatrics 11/20/15 documented as of this encounter
--- OUTSIDE RECORDS SUMMARY | 2023-11-17 15:26 | XMS_ITS | Encounter Summary ---
Author Organization [facility] Address [facility] [place] [address] Care Team Providers Care Reverse Unit Operator Name Role Phone Ben Nevarez MD Primary Care Provider [phone] Reason for Referral * Consultation (Routine) - Closed Specialty Diagnoses / Procedures Referred By Contac t Referred To Contact Neurology Diagnoses Hypermobility arthralgia Arpit Cormier MD [facility] [place] [address] Referral ID Status Reason Start Date Expiration Date V isits Requested Visits Authorized [id number] Closed Consult, Test & Treat 04/15/2023 10/12/2023 1 1 * Physical Therapy (Routine) - Closed Specialty Diagnoses / Procedures Referred By Contac t Referred To Contact Physical Therapy Diagnoses Hypermobility arthralgia Arpit Cormier MD [facility] [place] [address] Referral ID Status Reason Start Date Expiration Date V isits Requested Visits Authorized [id number] Closed Evaluate and Treat 04/15/2023 10/12/2023 1 1 Encounter Details Date Type Department Care Team (Latest Contact Info) Description 04/15/2023 1:30 PM EST Office Visit Pediatric Rheumatology at [facility] [place] [address] Arpit Cormier MD [facility] [place] [address] Hypermobility arthralgia Social History Tobacco Use Types Packs/Day Years [...] Pulse 78 04/15/2023 1:37 PM EST Temperature - - Respiratory Rate - - Oxygen Saturation 97% 04/15/2023 1:37 PM EST Inhaled Oxygen Concentration - - Weight 50.7 kg (111 lb 12.8 oz) 04/15/2023 1:37 PM EST Height 149.9 cm (4' 11.02) 04/15/2023 1:[address] Body Mass Index 22.57 04/15/2023 1:37 PM EST documented in this encounter Progress Notes * Arpit Cormier MD - 04/15/2023 1:30 PM EST Is a [facility] The patient is a 18-year-old female with 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 I saw her last for chest pain in October 2022 that I thought was esophageal spasm and treated with Carafate that problem resolved but now she is seeing me for a series of other problems She has poor sleep and profound fatigue and is scheduled for sleep study in [facility] My exam was notable for hypermobility since her last visit she has been been symptomatic with bilateral knee pain that is preventing her from long distance walking and uses a wheelchair when it is available she also has woken up up to 3 times a night with numbness and tingling in her hands which responds to maneuvers that changed in the orientation of her hands but she does not shake them and thenumbness extends up her forearm On exam she is hypermobile but has normal strength sensation and reflexes Tinel's is negative as isPhalen's test I also did Adson's test for thoracic outlet and that was negative I referred her to physical therapy locally I referred her to [facility] for neurologic evaluation I think she either has carpal tunnel that I could not demonstrate or thoracic outlet but she would benefitfrom either imaging or EMG or both. In the interim I started her on 50 mg of Lyrica at bedtime withthe possibility of adjusting the dose either up or down I will follow-up by video in 3 months and hopefully we can get her functionally capable of holding a job documented in this encounter Plan of Treatment Scheduled Referrals Name Type Priority Associated Diagnoses Orde r Schedule Referral to Physical Therapy Outpatient Referral Routine Hypermobility arthralgia Ordered: 04/15/2023 Referral to Neurology Outpatient Referral Routine Hypermobility arthralgia Ordered: 04/15/2023 documented as of this encounter Visit Diagnoses Diagnosis Hypermobility arthralgia Pain in joint, site unspecified documented in this encounter Care Teams Reverse Unit Operator Relationship Specialty Start Date End Date Ben Nevarez MD [address] [place] [address] PCP - General Pediatrics 11/20/15 documented as of this encounter
--- OUTSIDE RECORDS SUMMARY | 2023-11-17 15:26 | XMS_ITS | Encounter Summary ---
Author Organization [facility] Address [facility] [place] [address] Care Team Providers Care Employment Program Representative Name Role Phone Ben Nevarez MD Primary Care Provider [phone] Reason for Visit * Reason Onset Date Comments Medication Refill 03/24/2023 Encounter Details Date Type Department Care Team (Late st Contact Info) Description 03/24/2023 Refill [place] [address] Arpit Cormier MD [facility] [place] [address] Social History Tobacco Use Types Packs/Day Years Used Date Smoking Tobacco: Never Smokeless Tobacco: Never Comments:smokes marajuana Sex and Gender Information Value Date Recorded Sex Assigned at Not on file Gender Identity Not on file Sexual Orientation Not on file documented as of this encounter Miscellaneous Notes * Telephone Encounter - Bailee Hernández - 03/24/2023 4:06 PM EST NAME OF MEDICATION AND DOSE: potassium chloride ER (Klor-Con, K-Tab) 10 mEq ER tablet - dose and frequency as stated in medication list. Must be a 90 day supply for insurance to cover prescription PHARMACY NAME:[id number] - [place] - [address] [facility] PHONE: [phone] Caller/Patient aware of 1-2 business day process. documented in this encounter Plan of Treatment Not on file documented as of this encounter Visit Diagnoses Not on filedocumented in this encounter Care Teams Employment Program Representative Relationship Specialty Start Date End Date Ben Nevarez MD [address] [facility] [place] [address] PCP - General Pediatrics 11/20/15 documented as of this encounter
--- OUTSIDE RECORDS SUMMARY | 2023-11-17 15:26 | XMS_ITS | Encounter Summary ---
Author Organization Replaced By [facility] Address [place] [id number] Care Team Providers Care Email Marketing Manager Name Role Phone Ben Nevarez MD Primary Care Provider [phone] Reason for Referral * Diagnostic Test (Routine) - Closed Specialty Diagnoses / Procedures Referred By Contac t Referred To Contact Cardiology Diagnoses Chest pain, unspecified type Procedures Nuclear Pharmacologic Stress Cardiology (PET CT Mobile) Dexter Mullen MD [facility] [place] [address] [facility] [place] [address] Referral ID Status Reason Start Date Expiration Date V isits Requested Visits Authorized [id number] Closed Specialty Service Requested 11/26/2022 11/26/2023 1 1 Reason for Visit * Diagnostic Test (Routine) - Closed Specialty Diagnoses / Procedures Referred By Contac t Referred To Contact Cardiology Diagnoses Chest pain, unspecified type Procedures Nuclear Pharmacologic Stress Cardiology (PET CT Mobile) Dexter Mullen MD [facility] [place] [address] [facility] [place] [address] Referral ID Status Reason Start Date Expiration Date V isits Requested Visits Authorized [id number] Closed Specialty Service Requested 11/26/2022 11/26/2023 1 1 Encounter Details Date Type Department Care Team (Latest Contact Info) Description 12/29/2022 8:10 AM EDT - 12/29/2022 11:59 PM EDT Hospital Encounter [place] [id number] Dexter Mullen MD [facility] [place] [address] Chest pain, unspecified type Discharge Disposition: Home Social History Tobacco Use Types Packs/Day Years Used Date Smoking Tobacco: Never Smokeless Tobacco: Never Comments:smokes marajuana Sex and Gender Information Value Date Recorded Sex Assigned at Not on file Gender Identity Not on file Sexual Orientation Not on file documented as of this encounter Last Filed Vital Signs Vital Sign Reading Time Taken Comments Blood Pressure 106/77 12/29/2022 8:10 AM EDT Pulse 77 12/29/2022 8:10 AM EDT Temperature - - Respiratory Rate - - Oxygen Saturation 100% 12/29/2022 8:10 AM EDT Inhaled Oxygen Concentration - - Weight 51.7 kg (114 lb) 12/29/2022 8:10 AM EDT Height 149.9 cm (4' 11.02) 12/29/2022 8:10 AM E DT Body Mass Index 23.01 12/29/2022 8:10 AM EDT documented in this encounter Medications at Time of Discharge [...] Procedure Name Priority Date/Time Associated Diagnosis Comments NUCLEAR PHARMACOLOGIC STRESS CARDIOLOGY (PET CT MOBILE) Routine 12/29/2022 8:52 AM EDT Chest pain, unspecified type documented in this encounter Results * Nuclear Pharmacologic Stress Cardiology (PET CT Mobile) (12/29/2022 8:52 AM EDT) Anatomical Region Laterality Modality Other Dexter Mullen MD [facility] documented in this encounter Visit Diagnoses Diagnosis Chest pain, unspecified type documented in this encounter Care Teams Email Marketing Manager Relationship Specialty Start Date End Date Ben Nevarez MD [address] [place] [address] PCP - General Pediatrics 11/20/15 documented as of this encounter
--- OUTSIDE RECORDS SUMMARY | 2023-11-17 15:26 | XMS_ITS | Encounter Summary ---
Author Organization [facility] Address [facility] [place] [address] Care Team Providers Care Hydroelectric Systems Technician Name Role Phone Ben Nevarez MD Primary Care Provider [phone] Encounter Details Date Type Department Care Team (Late st Contact Info) Description 05/06/2023 1:30 PM EST Office [place] [address] Jillian Valladares APRN [facility] [place] [address] Hand numbness; Behcet's syndrome; Hypermobility of joint Social History Tobacco Use Types Packs/Day Years Used Date Smoking Tobacco: Never Smokeless Tobacco: Never Comments:smokes marajuana Sex and Gender Information Value Date Recorded Sex Assigned at Not on file Gender Identity Not on file Sexual Orientation Not on file documented as of this encounter Last Filed Vital Signs Vital Sign Reading Time Taken Comments Blood Pressure - - Pulse - - Temperature - - Respiratory Rate - - Oxygen Saturation - - Inhaled Oxygen Concentration - - Weight 49.9 kg (110 lb) 05/06/2023 1:24 PM EST Height - - Body Mass Index 22.21 04/15/2023 1:37 PM EST documented in this encounter Progress Notes * Jillian Valladares APRN - 05/06/2023 1:30 PM EST Rheumatology Follow-Up Visit ID: Elvia Rodrigues is 18 y.o. female presenting for follow up of Behcet's and hypermobility arthralgias and transfer of care. 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 Chronic constipation currently treated with Ex-Lax and MiraLAX. CT abdomen pelvis 12/2022 at [facility] for evaluation of extensive weight loss showed findings consistent with sigmoid colitis which Elvia and her mom attributed to recurrent use of fleets enema which has been discontinued. Last OV: 04/15/2023 Arpit Cormier MD. Interval History: This is my first meeting with this patient. She is accompanied by her mother. Overall doing well regarding shots. No recurrence of oral or vaginal ulcers. 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 Primary issue at this time is left hand numbness and tingling which is positional with laying down and dramatically affects her sleep. No other sleep issues. Dr. Cormier ordered PT for her hand. She has wrist braces that she tries to wear at night but they are big, bulky, and uncomfortable. Ankle brace for hypermobility. PT appointment next week at [facility] for her hands. Neuro eval at [facility] pending and I gave Arjun's mother a copy of the referral. The other AM woke with greyish ashy cold left hand. Painful, couldn't use it well. Fingers were swollen. 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 She is followed by pulmonology at [facility]. Recurrent UTIs but also some component of interstitial cystitis by history. Social history: Elvia is adopted and reports a large percentage . She graduated from high school and currently works for [employer]. She loves to swim. Review of Systems: General: Denies fever, chills, night sweats, fatigue, malaise. HEENT: Denies dysphagia, dysphonia, swollen glands. Cardiovascular: Denies chest pain, palpitations Pulmonary: Denies shortness of breath, hemoptysis GI: Denies nausea, vomiting, abdominal pain, melena, stephany blood in stool. Chronic constipation. : Denies hematuria. See interval history. MS: See Interval History Neuro: Denies focal deficits except as noted in interval history. Skin: Denies rheumatologic rash Psych: Stable mood, sleeps reasonably well Physical Examination: Wt 49.9 kg (110 lb) BMI 22.21 kg/m?? General: Well developed, well nourished, alert and oriented female in no acute distress HEENT: No scleral injection, no icterus Neck: Supple, no lymphadenopathy Heart: Regular rate and rhythm, no murmur/rub/gallop Lungs: Clear to auscultation (no wheezes, rales, rubs) with expected respiratory excursion Neuro: Gait even and co-ordinated. Speech clearly articulated. No obvious deficits. Skin: no rheumatologic rashes Extremities: Hands: No synovitis, tenderness, swelling; full fist and claw; no MCP compression tenderness. I wasunable to reproduce pain or numbness or tingling during exam. Wrists: No synovitis, tenderness, swelling Elbows: no tenderness or swelling Cervical Spine: Nontender. Gentle traction of the septal bones while supine reported as feeling very good in her neck. No muscle tenderness.. Knees: No tenderness or swelling Ankles: No tenderness or swelling Feet: No MTP compression tenderness Assessment/Recommendations: History of Behcet's: This is a quiet and no treatment indicated at this time. Hypermobility: There were some features of EDS type III with widespread hypermobility, stretch cornejo, and flat feet. Reviewed options for physical activity with focus on swimming which she enjoys. Paresthesias L>R hand: Neuro referral and PT referral in process per Josue Cormier MD. She has from wrist splints that are somewhat bulky and I recommended she try using some light neoprene compression gloves or wristlets at bedtime. Neck traction pillow may be helpful. C-spine x-ray ordered with requisition provided and she will get this done at [facility] at her convenience. Follow-up 4 months via telehealth, sooner as needed. Minutes spent today associated with the office visit including during the visit, chart review, consultation with Josue Cormier MD, and documentation: 50 Jillian Valladares APRN CC: Ben Nevarez MD documented in this encounter Plan of Treatment Scheduled Orders Name Type Priority Associated Diagnoses Orde r Schedule XR Cervical Spine 2 or 3 Views Imaging Routine Hand numbness Expected: 05/06/2023, Expires: 11/05/2023 documented as of this encounter Visit Diagnoses Diagnosis Hand numbness Disturbance of skin sensation Behcet's syndrome Hypermobility of joint Other joint derangement, not elsewhere classified, unspecified site documented in this encounter Care Teams Hydroelectric Systems Technician Relationship Specialty Start Date End Date Ben Nevarez MD [address] [place] [address] [place] [address] PCP - General Pediatrics 11/20/15 documented as of this encounter
--- OUTSIDE RECORDS SUMMARY | 2023-11-17 15:26 | XMS_ITS | Encounter Summary ---
Author Organization [facility] Address [facility] [place] [address] Care Team Providers Care Coke Handling Supervisor Name Role Phone Ben Nevarez MD Primary Care Provider [phone] Encounter Details Date Type Department Care Team (Late st Contact Info) Description 01/20/2023 8:00 AM EDT Office Visit [place] [address] Arpit Cormier MD [facility] [place] [address] Behcet's disease Social History Tobacco Use Types Packs/Day Years Used Date Smoking Tobacco: Never Smokeless Tobacco: Never Comments:smokes marajuana Sex and Gender Information Value Date Recorded Sex Assigned at Not on file Gender Identity Not on file Sexual Orientation Not on file documented as of this encounter Last Filed Vital Signs Vital Sign Reading Time Taken Comments Blood Pressure 112/78 01/20/2023 8:02 AM EDT Pulse 94 01/20/2023 8:02 AM EDT Temperature 36.8 ??C (98.2 ??F) 01/20/2023 8:02 AM ED T Respiratory Rate - - Oxygen Saturation - - Inhaled Oxygen Concentration - - Weight 49.9 kg (109 lb 14.4 oz) 01/20/2023 8:02 AM EDT Height 149.9 cm (4' 11.02) 01/20/2023 8:02 AM E DT Body Mass Index 22.19 01/20/2023 8:02 AM EDT documented in this encounter Progress Notes * Arpit Cormier MD - 01/20/2023 8:00 AM EDT Is a [facility] The patient is a 18-year-old [...] and is scheduled for sleep study in [facility] She has a cough that is mildly productive hot and cold flashes and on physical exam she has wheezescrackles and rhonchi mainly on the left side I sent her for a chest x-ray and prescribed a Z-Filiberto. Labs yesterday revealed an elevated white blood cell count which I think is probably related to this She also has a 40 pound weight loss which is unexplained her appetite is good and she eats unrestricted. Because of this I ordered a CT chest abdomen and pelvis but I wanted it done after the currentpulmonary infection is resolved She also had mild hypokalemia of 3.2 I prescribed 10 mEq of potassium but I do not have an explanation for it lastly I refilled her Zofran to have as a rescue if she needs it She denies oral or vaginal ulcers On exam she is relatively healthy looking BP 112/78 Pulse 94 Temp 36.8 ??C (98.2 ??F) Ht 149.9 cm (02.11) Wt 49.9 kg (109 lb 14.4oz) BMI 22.19 kg/m?? 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 which probably adds to the joint pain that she complains of I will follow-up in 3 months unless she needs a sooner evaluation documented in this encounter Miscellaneous Notes * Addendum Note - Arpit Cormier MD - 01/20/2023 8:00 AM EDTAddended by: ARPIT CORMIER on: 01/20/2023 09:13 AM Modules accepted: Orders documented in this encounter Plan of Treatment Not on file documented as of this encounter Procedures Procedure Name Priority Date/Time Associated Diagnosis Comments DRAEK AB BY IFA Routine 01/20/2023 9:22 AM EDT Behcet's disease CRP, ACUTE INFLAMMATION Routine 01/20/2023 9:22 AM EDT Behcet's disease HC MELISSA PANEL Routine 01/20/2023 9:22 AM EDT Behcet's disease HEMOGRAM Routine 01/20/2023 9:22 AM EDT Behcet's disease DIFFERENTIAL, AUTOMATED Routine 01/20/2023 9:22 AM EDT Behcet's disease IRON AND TIBC Routine 01/20/2023 9:22 AM EDT Behcet's disease SEDIMENTATION RATE Routine 01/20/2023 9: 22 AM EDT Behcet's disease CBC (WITH DIFF) Routine 01/20/2023 9:22 AM EDT Behcet's disease COMPREHENSIVE METABOLIC PANEL Routine 01/20/2023 9:22 AM EDT Behcet's disease documented in this encounter Results * (ABNORMAL) Differential, Automated (01/20/2023 9:22 AM EDT) Neutrophil % 60.8 % [facility] Neutrophil Absolute 6.83(H) 1.70 - 6.10 x10(3)/[facility] Lymph % 28.9 % [facility] Lymphocytes Abs 3.2 0.9 - 3.2 x10(3)/[facility] Monocyte % 7.2 % [facility] Monocyte Abs 0.8 0.3 - 0.9 x10(3)/[facility] Eos % 2.4 % [facility] Eosinophils Abs 0.3 0.0 - 0.4 x10(3)/[facility] Basophil % 0.5 % [facility] Baso Absolute 0.1 0.0 - 0.1 x10(3)/[facility] Immature Gran % 0.20 % [facility] Comment: Immature granulocytes(IG's)percentage and absolute count will include metamyelocytes, myelocytes, and promyelocytes. Blood smears from CBCs yielding IG's will be scanned manually for concordance. If this scan disagrees with the automated IG or if promyelocytes are noted, a manual differential will be performed. Immature Gran Absolute 0.02 0.00 - 0.04 x10(3)/[facility] Blood 01/20/2023 9:22 AM EDT 01/20/2023 9:26 AM EDT Narrative Resulting Agency Comment Spec In Lab Arpit Cormier MD HEMATOLOGY ORDERABLE S [facility] [place] [address] * (ABNORMAL) Hemogram (01/20/2023 9:22 AM EDT) White Blood Cell 11.2(H) 4.0 - 9.5 x10(3)/ L [facility] Red Blood Cell 4.07 4.00 - 5.21 x10(6)/[facility] Hemoglobin 12.8 11.7 - 15.5 g/dL [facility] Hematocrit 37.4 35.7 - 45.8 % [facility] Mean Cell Volume 91.9 82.6 - 94.4 fL [facility] Mean Cell Hemoglobin 31.4 27.1 - 32.0 pg [facility] Mean Cell Hemoglobin Concentration 34.2 31.7 - 35.0 g/dL [facility] Platelet 341 145 - 357 x10(3)/mc L [facility] RDW Standard Deviation 40.7 37.0 - 46.0 fL [facility] RDW coefficient of variation 11.9 11.5 - 14.1 % [facility] Mean Platelet Volume 9.4 7.6 - 12.9 fL [facility] NRBC% auto 0.0 % [facility] NRBC Absolute 0.000 0.000 - 0.000 x10(3)/mc L [facility] Blood 01/20/2023 9:22 AM EDT 01/20/2023 9:26 AM EDT Narrative Resulting Agency Comment Spec In Lab Arpit Cormier MD HEMATOLOGY ORDERABLE S [facility] [place] [address] * Extractable Nuclear Antigen (MELISSA) Ab (01/20/2023 9:22 AM EDT) SS-A/Ro Ab 0.50 <=10.00 unit/mL [facility] Comment: <7 negative 7-10 equivocal >10 positive The SS-A antibody result was generated using fluoroenzyme immunoassay on the Maxtaa 250 analyzer. the semi-quantitative test is designed to detect IgG antibodies in human serum that are reactive to the SS-A (Ro) protein. Please note that as of 02/03/2022 that this testing is performed by the [facility] Laboratory at [facility]. This change in testing location is associated with a change in testing method and reference intervals. Please review the results of this test in association with the posted reference intervals. SS-B/La Ab <0.40 <=10.00 unit/mL [facility] Comment: <7 negative 7-10 equivocal >10 positive The SS-B antibody result was generated using fluoroenzyme immunoassay on the Phadia 250 analyzer. the semi-quantitative test is designed to detect IgG antibodies in human serum that are reactive to the SS-B (La) protein. Please note that as of 02/03/2022 that this testing is performed by the [facility] Laboratory at [facility]. This change in testing location is associated with a change in testing method and reference intervals. Please review the results of this test in association with the posted reference intervals. Scl-70 Ab <0.60 <=10.00 unit/mL [facility] Comment: <7 negative 7-10 equivocal >10 positive The Scl-70 antibody result was generated using fluoroenzyme immunoassay on the Phadia 250 analyzer. the semi-quantitative test is designed to detect IgG antibodies in human serum that are reactive to the Scl-70 protein. Please note that as of 02/03/2022 that this testing is performed by the [facility] Laboratory at [facility]. This change in testing location is associated with a change in testing method and reference intervals. Please review the results of this test in association with the posted reference intervals. Sm (Hernández) Ab <0.70 <=10.00 unit/mL [facility] Comment: <7 negative 7-10 equivocal >10 positive The Sm antibody result was generated using fluoroenzyme immunoassay on the Phadia 250 analyzer. the semi-quantitative test is designed to detect IgG antibodies in human serum that are reactive to the Sm protein. Please note that as of 02/03/2022 that this testing is performed by the [facility] Laboratory at [facility]. This change in testing location is associated with a change in testing method and reference intervals. Please review the results of this test in association with the posted reference intervals. U1RNP Ab 1.20 <=10.00 unit/mL [facility] Comment: <5 negative 5-10 equivocal >10 positive The U1RNP antibody result was generated using fluoroenzyme immunoassay on the Phadia 250 analyzer. the semi-quantitative test is designed to detect IgG antibodies in human serum that are reactive to the U1RNP protein. Please note that as of 02/03/2022 that this testing is performed by the [facility] Laboratory at [facility]. This change in testing location is associated with a change in testing method and reference intervals. Please review the results of this test in association with the posted reference intervals. Centromere Ab 0.40 <=10.00 unit/mL [facility] Comment: <7 negative 7-10 equivocal >10 positive The CENP antibody result was generated using fluoroenzyme immunoassay on the Maxtaa 250 analyzer. the semi-quantitative test is designed to detect IgG antibodies in human serum that are reactive to the Centromere B protein. Please note that as of 02/03/2022 that this testing is performed by the [facility] Laboratory at [facility]. This change in testing location is associated with a change in testing method and reference intervals. Please review the results of this test in association with the posted reference intervals. Sheila-1 Ab <0.30 <=10.00 unit/mL [facility] Comment: <7 negative 7-10 equivocal >10 positive The Sheila-1 antibody result was generated using fluoroenzyme immunoassay on the Maxtaa 250 analyzer. the semi-quantitative test is designed to detect IgG antibodies in human serum that are reactive to the Sheila-1 protein. Please note that as of 02/03/2022 that this testing is performed by the [facility] Laboratory at [facility]. This change in testing location is associated with a change in testing method and reference intervals. Please review the results of this test in association with the posted reference intervals. Blood 01/20/2023 9:22 AM EDT 01/20/2023 12:00 PM EDT Narrative Resulting Agency Comment Spec In Lab Arpit Cormier MD LAB SEND OUT ORDERAB LES [facility] [place] [address] * DRAKE Ab by IFA (01/20/2023 9:22 AM EDT) DRAKE Ab Screen Test ?Result ? Flag ??Unit ??RefValue Antinuclear Ab, HEp-2 ? <1:80 (Negative) ? <1:80 (Negative) ??Substrate, S ? ADDITIONAL INFORMATION --------- ?Method: Immunofluorescence using HEp-2 cellular substrate. ?Test Performed by: ?[facility] ?[address] [place] [address] ?Plier Worker: Alen Schmitt M.D. Ph.D.; CLIA# [id number] [facility] Blood 01/20/2023 9:22 AM EDT 01/20/2023 11:16 AM EDT Narrative Resulting Agency Comment Spec In Lab Arpit Cormier MD CHEMISTRY ORDERABLES Performing Organization Address [facility] Co de Phone Number [facility] [place] [address] * CRP, acute inflammation (01/20/2023 9:22 AM EDT) Pathologist [facility] C-Reactive Protein 4.1 <=4.9 mg/L [facility] Blood 01/20/2023 9:22 AM EDT 01/20/2023 9:26 AM EDT Narrative Resulting Agency Comment Spec In Lab Arpit Cormier MD CHEMISTRY ORDERABLES Performing Organization Address [facility] Co de Phone Number [facility] [place] [address] * Sedimentation rate (01/20/2023 9:22 AM EDT) Pathologist [facility] Sedimentation Rate Automated 12 2 - 37 mm/hr [facility] Comment: Effective March 22, 2019 new capillary photometric technology has resulted in a change in reference ranges. It is recommended that each ESR result be reviewed with its own age appropriate reference range. Blood 01/20/2023 9:22 AM EDT 01/20/2023 9:26 AM EDT Narrative Resulting Agency Comment Spec In Lab Arpit Cormier MD HEMATOLOGY ORDERABLE S [facility] [place] [address] * Iron and TIBC (01/20/2023 9:22 AM EDT) Iron 85 30 - 150 mcg/dL [facility] TIBC 267 250 - 450 mcg/dL [facility] Iron Saturation 32 20 - 50 % [facility] Blood 01/20/2023 9:22 AM EDT 01/20/2023 9:26 AM EDT Narrative Resulting Agency Comment Spec In Lab Arpit Cormier MD CHEMISTRY ORDERABLES Performing Organization Address [facility] Co de Phone Number [facility] [place] [address] * (ABNORMAL) Comprehensive metabolic panel (non-fasting) (01/20/2023 9:22 AM EDT) Glucose 106 65 - 199 mg/dL [facility] Comment:Diabetes: >=200 mg/d L plus symptoms Blood Urea Nitrogen 8 8 - 18 mg/dL [facility] Creatinine 0.64(L) 0.70 - 1.20 mg/dL [facility] Sodium 136 135 - 145 mmol/L [facility] Potassium 3.5 3.5 - 5.0 mmol/L [facility] Comment: Please note: ??Patients with WBC >100,000 may have falsely elevated Potassium levels. ??For accurate Potassium quantification in these patients send serum separator tube (gold top) for subsequent determinations. ??Contact the Clinical Chemistry Laboratory if there are any questions. Chloride 100 98 - 107 mmol/L [facility] Carbon Dioxide 24 22 - 31 mmol/L [facility] Anion Gap 12 5 - 15 mmol/L [facility] Calcium 9.4 8.5 - 10.5 mg/dL [facility] Protein, Total 6.9 6.1 - 8.0 g/dL [facility] Albumin 4.6 3.2 - 5.2 g/dL [facility] Aspartate Aminotransferase 12 0 - 30 unit/L [facility] Alanine Aminotransferase 9 0 - 30 unit/L [facility] Alkaline Phosphatase 79 35 - 105 unit/L [facility] Bilirubin, Total 0.5 0.2 - 1.3 mg/dL [facility] Est Glomerular Filtration Rate 130 >=60 mL/min/1. 73 m?? [facility] Comment: This patient's estimated GFR was calculated using the 2020 CKD-EPI equation. The estimated GFR can vary from the measured GFR by up to 30% in the absence of rapidly changing kidney function. Assessment of the estimated GFR is not appropriate when creatinine concentrations are rapidly changing. For clinical situations in which a more precise estimate of GFR is necessary, consider alternative methods of GFR estimation such as a 24-hour urine creatinine clearance. Assignment of CKD stage 1-5 for patients with an eGFR near the transition point between stages may be based on clinical assessment of muscle mass and symptoms in addition to eGFR. Blood 01/20/2023 9:22 AM EDT 01/20/2023 9:26 AM EDT Narrative Resulting Agency Comment Spec In Lab Arpit Cormier MD CHEMISTRY ORDERABLES Performing Organization Address City/State/[facility] Co de Phone Number [facility] [place] [address] * XR Chest PA & Lateral (Generic) (01/20/2023 9:15 AM EDT) Anatomical Region Laterality Modality Chest N/A Digital Radiogra phy Impressions 01/20/2023 10:19 AM EDT No acute cardiopulmonary findings. I have personally reviewed the image(s) and the resident's interpretation and agree with the findings, Cheri Colorado MD at 01/20/2023 10:19 AM Thank you for letting us participate in the care of this patient. ??If you are a health care provider and have any questions regarding this report, please contact the number below. ??For patients who have questions please contact the health primary health care nurse that requested your imaging first. ? Electronically signed by: Cheri Colorado MD, [facility] ??([phone]), at 01/20/2023 10:19 AM Narrative 01/20/2023 10:19 AM EDT EXAMINATION: XR CHEST PA AND LATERAL (GENERIC) CLINICAL HISTORY: pneumonia TECHNIQUE: PA and lateral views of the chest COMPARISON: CT chest PE 10/13/2022 FINDINGS: No pneumothorax or pleural effusion. Lungs are clear. Cardiomediastinal silhouette is stable when compared to prior. Procedure Note Cheri Colorado MD - 01/20/2023 EXAMINATION: XR CHEST PA AND LATERAL (GENERIC) CLINICAL HISTORY: pneumonia TECHNIQUE: PA and lateral views of the chest COMPARISON: CT chest PE 10/13/2022 FINDINGS: No pneumothorax or pleural effusion. Lungs are clear. Cardiomediastinal silhouette is stable when compared to prior. IMPRESSION No acute cardiopulmonary findings. I have personally reviewed the image(s) and the resident's interpretationand agree with the findings, Cheri Colorado MD at 01/20/2023 10:19 AM Thank you for letting us participate in the care of this patient. If youare a health care provider and have any questions regarding this report,please contact the number below. For patients who have questions please contactthe health primary health care nurse that requested your imaging first. 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
--- OUTSIDE RECORDS SUMMARY | 2023-11-17 15:26 | XMS_ITS | Encounter Summary ---
Author Organization [facility] Address [facility] [place] [address] Care Team Providers Care Vat House Laborer Name Role Phone Ben Nevarez MD Primary Care Provider Encounter Details Date Type Department Care Team (Latest Contact Info) Description 01/20/2023 8:59 AM EDT - 01/20/2023 11:59 PM EDT Hospital Encounter XRay at [address] [place] [address] Arpit Cormier MD [facility] [place] [address] Behcet's disease Discharge Disposition: Home Social History Tobacco Use [...] CAPSULE BY MOUTH EVERY MORNING 02/03/2021 05/06/2023 triamcinolone acetonide (Kenalog) 0.1 % Paste Place 1 each onto teeth 2 times daily. 5 g 12 01/20/2023 05/06/2023 ondansetron ODT (Zofran-ODT) 4 mg disintegrating tablet Take 1 tablet by mouth every 8 hours as needed for Nausea. 20 tablet 01/20/2023 05/06/2023 potassium chloride ER (Klor-Con, K-Tab) 10 mEq ER tablet Take 1 tablet by mouth daily. 30 tablet 3 01/20/2023 03/24/2023 azithromycin (Zithromax Z-Filiberto) 250 mg tablet Take 1 tablet by mouth daily. Day1:take 2 tablets daily, Day 2-5:Take one tablet daily 6 tablet 01/20/2023 05/06/2023 cyclobenzaprine (Flexeril) 5 mg tablet Take 1 tablet by mouth nightly. May increase to 2 tablets if needed 30 tablet 01/20/2023 05/06/2023 omeprazole (PriLOSEC) [address] capsuleIndications:Mild [...] Procedure Name Priority Date/Time Associated Diagnosis Comments XR CHEST PA AND LATERAL Routine 01/20/2023 9:15 AM EDT Behcet's disease documented in this encounter Results * XR Chest PA & Lateral (Generic) [...] who have questions please contact the health special needs caregiver that requested your imaging first. ? Electronically signed by: Cheri Colorado MD, [facility] ??([phone]), at 01/20/2023 10:19 AM Narrative 01/20/2023 10:19 [...] patients who have questions please contactthe health special needs caregiver that requested your imaging first. Electronically signed by: Cheri Colorado MD, [facility]([phone]), at 01/20/2023 10:19 AM Arpit Cormier MD IMG DX ORDERABLES documented in this encounter Visit Diagnoses Diagnosis Behcet's disease Behcet's syndrome documented in this encounter Care Teams Vat House Laborer Relationship Specialty Start Date End Date Ben Nevarez MD [address] [place] [address] [place] [address] PCP - General Pediatrics 11/20/15 documented as of this encounter
--- OUTSIDE RECORDS SUMMARY | 2023-11-17 15:26 | XMS_ITS | Encounter Summary ---
Author Organization [facility] Address [facility] [place] [address] Care Team Providers Care Housing Court Judge Name Role Phone Ben Nevarez MD Primary Care Provider [phone] Reason for Visit * Reason Comments Medication Refill omeprazole Encounter Details Date Type Department Care Team (Late st Contact Info) Description 02/06/2023 [place] [address] Kayleigh Yee MD [facility] [place] [address] Mild intermittent asthma without complication Social History Tobacco Use Types Packs/Day Years Used Date Smoking Tobacco: Never Smokeless Tobacco: Never Comments:smokes marajuana Sex and Gender Information Value Date Recorded Sex Assigned at Not on file Gender Identity Not on file Sexual Orientation Not on file documented as of this encounter Miscellaneous Notes * Telephone Encounter - John Manjarrez - 02/09/2023 12:59 PM EDT Mother of patient calling in she states patient is out of medication , and is going out of town tomorrow please call once completed documented in this encounter Plan of Treatment Not on file documented as of this encounter Visit Diagnoses Diagnosis Mild intermittent asthma without complication Unspecified asthma documented in this encounter Care Teams Housing Court Judge Relationship Specialty Start Date End Date Ben Nevarez [place] [address] PCP - General Pediatrics 11/20/15 documented as of this encounter
--- OUTSIDE RECORDS SUMMARY | 2023-11-17 15:26 | XMS_ITS | Encounter Summary ---
[place] [address] Care Team Providers Care Billing Machine Operator Name Role Phone Ben Nevarez MD Primary Care Provider [phone] Encounter Details Date Type Department Care Team (Late st Contact Info) Description 01/20/2023 Telephone [place] [address] Irina Childers RN Social History Tobacco Use Types Packs/Day Years Used Date Smoking Tobacco: Never Smokeless Tobacco: Never Comments:smokes marajuana Sex and Gender Information Value Date Recorded Sex Assigned at Not on file Gender Identity Not on file Sexual Orientation Not on file documented as of this encounter Miscellaneous Notes * Telephone Encounter - Irina Childers RN - 01/20/2023 11:24 AM EDT Call returned to Kristina from [facility] radiology regarding message left with the call center. Kristina was informed that per Dr. Cormier, he wants to keep that order as is because he ordered the imaging for a 40lb weight loss. Kristina verbalized understanding. * Telephone Encounter - Irina Childers RN - 01/20/2023 10:42 AM EDT Copied from [facility] #[id number]. Topic: Specialty Dept CRMs - Orders >> Jan 20, 2023 10:01 AM Bentley Salmon wrote: Orders Request Specialist: Dr. Cormier Relationship (if other than patient-full name): Kristina [facility] states the radiologist looked at the diagnosis for the abdomen pelvis with contrast and would like it changed to a CTA of the chestfor pulmonary embolism. Kristina [place] CT[place] 83097 and the CPT code for the abdomen pelvisis 80024 Type of Request: [x] Send orders Type/Name of Order: Imaging If Labs and Imaging list name of specific test(s): CTA of the chest for pulmonary embolism Date of Lab/Imaging/Testing Appt: n/a Date of Provider Appt: n/a Appt Type with Provider: Other: n/a Patient Requesting to Have Orders Sent to Facility Outside of D-H: Yes If Yes, Name of Facility: [facility] Address: [address] [place] [address] Phone #:[phone] Fax #: [phone] documented in this encounter Plan of Treatment Not on file documented as of this encounter Visit Diagnoses Not on filedocumented in this encounter Care Teams Billing Machine Operator Relationship Specialty Start Date End Date Ben Nevarez MD [address] [place] [address] PCP - General Pediatrics 11/20/15 documented as of this encounter
--- OUTSIDE RECORDS SUMMARY | 2023-11-17 15:26 | XMS_ITS | Encounter Summary ---
[place] [address] Care Team Providers Care Sander Machine Name Role Phone Ben Nevarez MD Primary Care Provider [phone] Reason for Visit * Reason Onset Date Comments Triage 01/15/2023 Encounter Details Date Type Department Care Team (Late st Contact Info) Description 01/15/2023 Telephone [place] [address] Jose Angel Ferris, intake coordinator Social History Tobacco Use Types Packs/Day Years Used Date Smoking Tobacco: Never Smokeless Tobacco: Never Comments:smokes marajuana Sex and Gender Information Value Date Recorded Sex Assigned at Not on file Gender Identity Not on file Sexual Orientation Not on file documented as of this encounter Miscellaneous Notes * Telephone Encounter - Jose Angel Ferris RN - 01/15/2023 10:23 AM EDT Copied from [facility] #[id number]. Topic: Specialty Dept CRMs - Triage >> Jan 15, 2023 9:33 AM Norman Stearns wrote: Triage Message Specialist: Arpit Cormier MD-------[facility] Relationship (if other than patient-full name): Tino Rodirgues - [facility] Symptom: really bad bad and cold flashes Has patient experienced symptom before yes If patient has experienced symptom before, when was the last time this occurred since last visit Is patient currently having symptom yes When did symptom begin last night again 01/14/23 Additional Comments: MOC states she has also lost a lot of weight over the summer , when summer started she was 126 and now she is 109, I would also like to discuss with the provider the recent test results from her hot braider and lead simulation modeling engineer and we recently saw her PCP who said she needs to FUV with MD Cormier rather soon - [facility] also explains that 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 Mom calls back and we discussed the message above. She states Elvia was seen last Wednesday by PCP and she was advised that she should see Dr. 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 Mom reports that Elvia is having Hot and Cold Flashes, Night Sweats, and significant Fatigue. Reports all occur on a daily basis. Reports weight down to 109#. Reports that Elvia does seem stressed and anxious and [facility]. Mom would like Elvia to see Dr. Cormier. I advised that I will check with Dr. Cormier for his availability and how soon he thinks Elvia should be seen. Reports Cardiovascular work up was ok as far as she is aware. Reports Pulmonary not ok, PFT's and CT ok. Arpit Cormier MD sent to Jose Angel Ferris RN Caller: Unspecified (Today, 9:34 AM) I asked Nazanin to put her on for 8AM on RTC and LM for Mom to make sure Elvia was scheduled. documented in this encounter Plan of Treatment Not on file documented as of this encounter Visit Diagnoses Not on filedocumented in this encounter Care Teams Sander Machine Relationship Specialty Start Date End Date Ben Nevarez MD [address] [place] [address] PCP - General Pediatrics 11/20/15 documented as of this encounter
--- OUTSIDE RECORDS SUMMARY | 2023-11-17 15:26 | XMS_ITS | Encounter Summary ---
[place] [address] Care Team Providers Care Art Educator Name Role Phone Ben Nevarez MD Primary Care Provider Encounter Details Date Type Department Care Team (Late st Contact Info) Description 05/25/2023 Telephone [place] [address] Irina Childers, RN Social History Tobacco Use Types Packs/Day Years Used Date Smoking Tobacco: Never Smokeless Tobacco: Never Comments:smokes marajuana Sex and Gender Information Value Date Recorded Sex Assigned at Not on file Gender Identity Not on file Sexual Orientation Not on file documented as of this encounter Miscellaneous Notes * Telephone Encounter - Jillian Valladares APRN - 05/25/2023 11:00 AM EST Order re-written again and epic chat to [facility] to resend. [facility] radiology and patient rescheduled to another day. Jillian Valladares APRN * Telephone Encounter - Irina Childers RN - 05/25/2023 8:56 AM EST Copied from [facility] #[id number]. Topic: Specialty Dept CRMs - Orders >> May 25, 2023 8:49 AM Phillip Yadav wrote: Orders Request Specialist: Jillian Valladares Relationship (if other than patient-full name): Radiology at [facility] Type of Request: [x] Input orders Type/Name of Order: Imaging If Labs and Imaging list name of specific test(s): XR cervical spine 4 to 5 views (per [facility] protocol) Date of Lab/Imaging/Testing Appt: NA Date of Provider Appt:09/14/23 Appt Type with Provider: AJYDA Patient Requesting to Have Orders Sent to Facility Outside of D-H: Yes If Yes, Name of Facility: [facility] Address: [place], [place] Phone #: [phone] Fax #: [phone] Orders were written incorrectly as 6 or more views. Orders need to read XR cervical spine 4 to 5 views (per [facility] protocol). Please re-send as soon as possible documented in this encounter Plan of Treatment Scheduled Orders Name Type Priority Associated Diagnoses Orde r Schedule XR Cervical Spine 4 or 5 Views Imaging Routine Hand numbness Hypermobility of joint Expected: 05/25/2023, Expires: 11/24/2023 documented as of this encounter Visit Diagnoses Diagnosis Hand numbness Disturbance of skin sensation Hypermobility of joint Other joint derangement, not elsewhere classified, unspecified site documented in this encounter Care Teams Art Educator Relationship Specialty Start Date End Date Ben Nevarez MD [address] [place] [address] PCP - General Pediatrics 11/20/15 documented as of this encounter
--- OUTSIDE RECORDS SUMMARY | 2023-11-17 15:26 | XMS_ITS | Encounter Summary ---
[place] [address] Care Team Providers Care Hydrogen Power Plant Manager Name Role Phone Ben Nevarez MD Primary Care Provider [phone] Encounter Details Date Type Department Care Team (Latest Contact Info) Description 01/20/2023 Travel Social History Tobacco Use Types Packs/Day [...] on filedocumented in this encounter Care Teams Hydrogen Power Plant Manager Relationship Specialty Start Date End Date [place] [address] PCP - General Pediatrics 11/20/15 documented as of this encounter
--- OUTSIDE RECORDS SUMMARY | 2023-11-17 15:26 | XMS_ITS | Encounter Summary ---
[place] [address] Care Team Providers Care Technology Education Teacher Name Role Phone Ben Nevarez MD Primary Care Provider Reason for Visit * Reason Onset Date Comments Other 05/24/2023 Encounter Details Date Type Department Care Team (Late st Contact Info) Description 05/24/2023 Telephone [place] [address] Irina Childers RN Other Social History Tobacco Use Types Packs/Day Years Used Date Smoking Tobacco: Never Smokeless Tobacco: Never Comments:smokes marajuana Sex and Gender Information Value Date Recorded Sex Assigned at Not on file Gender Identity Not on file Sexual Orientation Not on file documented as of this encounter Miscellaneous Notes * Telephone Encounter - Jillian Valladares APRN - 05/25/2023 8:39 AM EST New order written. Radiology at [facility] notified to expect the order. * Telephone Encounter - Iman Delaney - 05/25/2023 8:09 AM EST Jennifer from [facility] Radiology called to ask the corrected order be paper faxed, not electronic, as soon as possible. Patient has a 10:00 am appointment today. * Telephone Encounter - Irina Childers RN - 05/24/2023 1:57 PM EST Copied from [facility] #[id number]. Topic: Specialty Dept CRMs - Orders >> May 24, 2023 1:48 PM Kylie Leigh wrote: Orders Request Specialist: Jillian Valladares APRN Relationship (if other than patient-full name): Karan, Radiology at [facility] Type of Request: [x] Input orders (correct current orders) Type/Name of Order: Imaging If Labs and Imaging list name of specific test(s): XR Cervical Spine 4 or 5 views (per [facility] protocol) Date of Lab/Imaging/Testing Appt: n/a Date of Provider Appt: 09.14.23 Appt Type with Provider: JAYDA Patient Requesting to Have Orders Sent to Facility Outside of D-H: Yes If Yes, Name of Facility: [facility] Address: [place], [place] Phone #: [phone] Fax #: [phone] documented in this encounter Plan of Treatment Scheduled Orders Name Type Priority Associated Diagnoses Orde r Schedule XR Cervical Spine 6 or More Views Imaging Routine Hand numbness Hypermobility of joint Expected: 05/25/2023, Expires: 11/24/2023 documented as of this encounter Visit Diagnoses Diagnosis Hand numbness Disturbance of skin sensation Hypermobility of joint Other joint derangement, not elsewhere classified, unspecified site documented in this encounter Care Teams Technology Education Teacher Relationship Specialty Start Date End Date Ben Nevarez MD [address] [address] PCP - General Pediatrics 11/20/15 documented as of this encounter
--- OUTSIDE RECORDS SUMMARY | 2023-11-17 15:26 | XMS_ITS | Encounter Summary ---
Author Organization Pending [facility] [place] [address] Care Team Providers Care Director Of Loss Prevention Name Role Phone Ben Nevarez MD Primary Care Provider Encounter Details Date Type Department Care Team (Latest Contact Info) Description 05/06/2023 Travel Social History Tobacco Use Types Packs/Day [...] filedocumented in this encounter Care Teams Director Of Loss Prevention Relationship Specialty Start Date End [place] [address] PCP - General Pediatrics 11/20/15 documented as of this encounter
--- OUTSIDE RECORDS SUMMARY | 2023-11-17 15:26 | XMS_ITS | Encounter Summary ---
Author Organization [facility] Address [place] [address] Care Team Providers Care Decommissioning Well Site Manager Name Role Phone Ben Nevarez MD Primary Care Provider Reason for Referral * Diagnostic Test (Routine) - Closed Specialty Diagnoses / Procedures Referred By Contac t Referred To Contact Radiology Diagnoses Chest pain, unspecified type Procedures NM PET CT Cardiac Pharmacologic Stress and Rest Dexter Mullen MD [facility] [place] [address] [place] [address] Referral ID Status Reason Start Date Expiration Date V isits Requested Visits Authorized [id number] Closed Specialty Service Requested 11/26/2022 05/25/2024 1 1 * Diagnostic Test (Routine) - Closed Specialty Diagnoses / Procedures Referred By Contac t Referred To Contact Radiology Diagnoses Chest pain, unspecified type Procedures NM PET CT Cardiac Pharmacologic Stress CT Component Dexter Mullen MD [facility] [place] [address] [facility] [place] [address] Referral ID Status Reason Start Date Expiration Date V isits Requested Visits Authorized [id number] Closed Specialty Service Requested 11/26/2022 05/25/2024 1 1 Reason for Visit * Diagnostic Test (Routine) - Closed Specialty Diagnoses / Procedures Referred By Contac t Referred To Contact Radiology Diagnoses Chest pain, unspecified type Procedures NM PET CT Cardiac Pharmacologic Stress and Rest Dexter Mullen MD [facility] [place] [address] [place] [address] Referral ID Status Reason Start Date Expiration Date V isits Requested Visits Authorized [id number] Closed Specialty Service Requested 11/26/2022 05/25/2024 1 1 Encounter Details Date Type Department Care Team (Latest Contact Info) Description 12/29/2022 7:13 AM EDT - 12/29/2022 8:09 AM EDT Hospital Encounter [place] [address] Dexter Mullen MD [facility] [place] [address] Chest pain, unspecified type Discharge Disposition: Home [...] Procedure Name Priority Date/Time Associated Diagnosis Comments NM PET CT CARDIAC PHARMACOLOGIC STRESS CT COMPONENT Routine 12/29/2022 9:03 AM EDT Chest pain, unspecified type NM PET CT CARDIAC PHARMACOLOGIC STRESS Routine 12/29/2022 9:03 AM EDT Chest pain, unspecified type documented in this encounter Results * NM PET CT [...] who have questions please contact the health career law clerk that requested your imaging first. ? Electronically signed by: Ventura Abbasi MD, [facility] ([phone]), at 12/29/2022 6:05 PM Narrative 12/29/2022 6:05 [...] Note Ventura Abbasi MD - 12/29/2022 EXAMINATION: MS PET CT CARDIAC PHARMACOLOGIC STRESS AND REST, MS PET CTCARDIAC PHARMACOLOGIC STRESS CT COMPONENT CLINICAL [...] patients who have questions please contactthe health career law clerk that requested your imaging first. Electronically signed by: Ventura Abbasi MD, [facility]([phone]), at 12/29/2022 6:05 PM Dexter Mullen MD [...] who have questions please contact the health career law clerk that requested your imaging first. ? Electronically signed by: Ventura Abbasi MD, [facility] ([phone]), at 12/29/2022 6:05 PM Narrative 12/29/2022 6:05 PM EDT EXAMINATION: MS PET CT CARDIAC PHARMACOLOGIC STRESS AND REST, MS PET CT CARDIAC PHARMACOLOGIC STRESS CT COMPONENT [...] Note Ventura Abbasi MD - 12/29/2022 EXAMINATION: MS PET CT CARDIAC PHARMACOLOGIC STRESS AND REST, MS PET CTCARDIAC PHARMACOLOGIC STRESS CT COMPONENT CLINICAL [...] patients who have questions please contactthe health career law clerk that requested your imaging first. Electronically signed by: Ventura Abbasi MD, [facility]([phone]), at 12/29/2022 6:05 PM Dexter Mullen MD IMG PET ORDERABLES documented in this encounter Visit Diagnoses Diagnosis Chest pain, unspecified type documented in this encounter Administered Medications Inactive Administered Medications - up to 3 most recent administrations Medication Order MAR Action Action Date Dose Rate Site regadenoson (Lexiscan) injection 0.4 mg 0.4 mg, Intravenous, ONCE, 1 dose, On Wed12/29/22 at 0845, Radiology Contrast, Routine Given 12/29/2022 8:37 AM EDT 0.4 mg rubidium (Rb-82) (Cardiogen) injection 1-50 mCi 1-50 mCi, Intravenous, 2 TIMES DAILY PRN, Starting on Wed12/29/22 at 0828, Until Wed12/30/22 at 0435, Per Protocol, Radiology Contrast, Routine Given 12/29/2022 8:38 AM EDT 30.1 mCi Right Arm Given 12/29/2022 8:27 AM EDT 30 mCi Ri ght Arm documented in this encounter Care Teams Decommissioning Well Site Manager Relationship Specialty Start Date End Date Ben Nevarez MD [address] [place] [address] PCP - General Pediatrics 11/20/15 documented as of this encounter
--- OUTSIDE RECORDS SUMMARY | 2023-11-17 15:26 | XMS_ITS | Encounter Summary ---
Author Organization [facility] Address [facility] [place] [address] Care Team Providers Care Die Stamping Press Operator Name Role Phone Ben Nevarez MD Primary Care Provider [phone] Reason for Referral * Consultation (Routine) - Closed Specialty Diagnoses / Procedures Referred By Brendan moore Referred To Contact Rheumatology Diagnoses Behcet's disease Hypermobility arthralgia Arpit Cormier MD [facility] [place] [address] Garland Pérez MD [facility] [place] [address] Referral ID Status Reason Start Date Expiration Date V isits Requested Visits Authorized [id number] Closed Consult, Test & Treat 04/16/2023 04/15/2024 1 1 Encounter Details Date Type Department Care Team (Late st Contact Info) Description 04/16/2023 Orders Only [place] [address] Arpit Cormier MD [facility] [place] [address] Behcet's disease; Hypermobility arthralgia Social History Tobacco Use Types Packs/Day Years Used Date Smoking Tobacco: Never Smokeless Tobacco: Never Comments:smokes marajuana Sex and Gender Information Value Date Recorded Sex Assigned at Not on file Gender Identity Not on file Sexual Orientation Not on file documented as of this encounter Plan of Treatment Scheduled Referrals Name Type Priority Associated Diagnoses Order Schedule Referral to Rheumatology Outpatient Referral Routine Behcet's disease Hypermobility arthralgia Ordered: 04/16/2023 documented as of this encounter Visit Diagnoses Diagnosis Behcet's disease Behcet's syndrome Hypermobility arthralgia Pain in joint, site unspecified documented in this encounter Care Teams Die Stamping Press Operator Relationship Specialty Start Date End Date Ben Nevarez MD [address] [place] [address] PCP - General Pediatrics 11/20/15 documented as of this encounter
--- OUTSIDE RECORDS SUMMARY | 2023-11-17 15:26 | XMS_ITS | Encounter Summary ---
[place] [address] Care Team Providers Care Freedom Of Information Officer Name Role Phone Ben Nevarez MD Primary Care Provider [phone] Reason for Visit * Reason Onset Date Comments Medication Problem 04/16/2023 Encounter Details Date Type Department Care Team (Late st Contact Info) Description 04/16/2023 [place] [id number] Jose Angel Ferris fisher swordfish Problem Social History Tobacco Use Types Packs/Day Years Used Date Smoking Tobacco: Never Smokeless Tobacco: Never Comments:smokes marajuana Sex and Gender Information Value Date Recorded Sex Assigned at Not on file Gender Identity Not on file Sexual Orientation Not on file documented as of this encounter Miscellaneous Notes * Telephone Encounter - Jose Angel Ferris RN - 04/23/2023 11:58 AM EST Patient referred to Dr. Pérez. * Telephone Encounter - Iman Delaney Felipe - 04/16/2023 2:42 PM EST The patient and the patients Mom, Tino, called to check the status on a call back. Tino stated they would really like to get an answer before the weekend. ++++++++++++++++++++++++++++++++++++++++++++++++++++++++++++++++++++++++++++++++ ++++++++++++++++++++++++++++++++++++++++++++ I discussed this patient with Dr. Cormier and he feels that [place] would be best served in Adult Rheumatology. Dr. Cormier advises to cancel the Lyrica order. I called Jese to cancel the order for Lyrica. Ysabel took the verbal order to cancel. Mom states 5 capsules were released to them, I advised to destroy the medication as there could be an interaction with Lyrica and Methadone. I advised Mom that will place referral to Adult Rheumatology. Mom asks if they should move forward with Neurology referral, I advised her to follow through with it at this time. Mom wonders if there is a replacement for Lyrica and I advised I will check with Dr. Cormier. Mom would like to know when the referral will be reviewed by a new [employer] Manager? I advised I do not know the answer to this question. * Telephone Encounter - Jose Angel Ferris RN - 04/16/2023 9:17 AM EST Copied from [facility] #[id number]. Topic: Specialty Dept CRMs - Medication Issues >> Apr 16, 2023 8:54 AM Norman Storey wrote: Medication Issues Specialist Arpit Cormier MD------ [facility] Rheumatology Relationship (if other than patient-full name): Tino Rodrigues MOC with No NH on file at this time, MOC was advised on NH form information Reason for call: Medication Issue (if symptom based used Triage Subtopic) Message/information for the nurse: the FOC picked up the medication and didn't ask [facility] forpossible interaction matters also states Patient goes to a Methadone clinic in [facility] daily to get medication Name of Medication: pregabalin (Lyrica) 50 mg capsule [[id number]---- & Methadone 40 Mg from Issue with the medication: Patients and MOC states they are concerned that there may be a possible negative interaction are looking it up ++++++++++++++++++++++++++++++++++++++++++++++++++++++++++++++++++++++++++++++++ ++++++++++++++++++++ +++++++++++++++++++++++++++++++++++++++++++++++++++++++++++++++++++++++++++++ Reviewed EMR and [facility]. See below. Opioid Agonists: MANAGER LEASING Depressants may enhance the MANAGER LEASING depressant effect of Opioid Agonists. Management: Avoid concomitant use of opioid agonists and benzodiazepines or other MANAGER LEASING depressants when possible. These agents should only be combined if alternative treatment options are inadequate. If combined, limit the dosages and duration of each drug. Risk D: Consider therapy modification Will ask Dr. Cormier if he wishes to make any changes to treatment at this time. Arpit Cormier MD sent to Jose Angel Ferris RN Caller: Unspecified (Today, 8:55 AM) I was unaware she was on methadone. It is not in her chart. I called and spoke with Elvia and she states she is on the Methadone for Substance Abuse Recovery [facility]. She advised when nurse checked her in, that information was given to the nurse. Elvia states she hopes to be tapering off the Methadone in the next few months. Elvia would like me to share information with her Mom as well. I advised I will need a personal registration representative form in EMR in order to do that. I will ask [employer] to send form to Elvia via [facility] if this is possible. Advised I will ask Dr. Cormier if she can take the Lyrica while taking Methadone. Elvia states she spoke with Pediatric nurse today and was advised it was ok to take the Lyrica. Elvia has not taken any Lyrica yet. documented in this encounter Plan of Treatment Not on file documented as of this encounter Visit Diagnoses Not on filedocumented in this encounter Care Teams Freedom Of Information Officer Relationship Specialty Start Date End Date Ben Nevarez MD [address] [place] [address] PCP - General Pediatrics 11/20/15 documented as of this encounter"
--- OUTSIDE RECORDS SUMMARY | 2023-11-17 15:26 | XMS_ITS | Encounter Summary ---
Author Organization [place] [address] Care Team Providers Care Locomotive Switch Operator Name Role Phone Ben Nevarez MD Primary Care Provider [phone] Encounter Details Date Type Department Care Team (Latest Contact Info) Description 11/26/2022 Travel Social History Tobacco Use Types Packs/Day [...] on filedocumented in this encounter Care Teams Locomotive Switch Operator Relationship Specialty Start Date End Date [place] [address] PCP - General Pediatrics 11/20/15 documented as of this encounter
--- OUTSIDE RECORDS SUMMARY | 2023-11-17 15:27 | XMS_ITS | Encounter Summary ---
Author Organization [facility] Address [facility] [place] [address] Care Team Providers Care Senior Accounts Payable Specialist Name Role Phone Ben Nevarez MD Primary Care Provider [phone] Reason for Referral * Consultation (Routine) - Duplicate Referral Specialty Diagnoses / Procedures Referred By Contac t Referred To Contact Dermatology Diagnoses Genital ulcer, female Arpit Cormier MD [facility] [place] [address] Cierra López MD [facility] [address] [facility] [address] Referral ID Status Reason Start Date Expiration Date Visits Requested Visits Authorized [id number] Duplicate Referral Consult, Test & Treat 0 03/22/2021 1 1 Encounter Details Date Type Department Care Team (Late st Contact Info) Description 03/22/2020 [place] [address] Arpit Cormier MD [facility] [place] [address] Genital ulcer, female Social History Tobacco Use Types Packs/Day Years Used Date Smoking Tobacco: Never Smokeless Tobacco: Never Comments:no ETS exposure Sex and Gender Information Value Date Recorded Sex Assigned at Not on file Gender Identity Not on file Sexual Orientation Not on file documented as of this encounter Plan of Treatment Scheduled Referrals Name Type Priority Associated Diagnoses Order Schedule Referral to Dermatology Outpatient Referral Routine Genital ulcer, female Ordered: 03/22/2020 documented as of this encounter Visit Diagnoses Diagnosis Genital ulcer, female Other specified disorders of female genital organs documented in this encounter Care Teams Senior Accounts Payable Specialist Relationship Specialty Start Date End Date Ben Nevarez MD [address] [place] [address] PCP - General Pediatrics 11/20/15 documented as of this encounter
--- OUTSIDE RECORDS SUMMARY | 2023-11-17 15:27 | XMS_ITS | Encounter Summary ---
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 Arpit Cormier MD [facility] [place] [address] [facility] Pedi Nephrology [address] [place] [phone] Referral ID Status Reason Start Date Expiration Date V isits Requested Visits Authorized [id number] Closed Consult, Test & Treat 11/27/2020 11/27/2021 1 1 Encounter Details Date Type Department Care Team (Late st Contact Info) Description 11/27/2020 Orders [place] [address] Arpit Cormier MD [facility] [place] [address] Behcet's disease Social History Tobacco Use Types Packs/Day Years Used Date Smoking Tobacco: Never Smokeless Tobacco: Never Comments:no ETS exposure Sex and Gender Information Value Date Recorded Sex Assigned at Not on file Gender Identity Not on file Sexual Orientation Not on file documented as of this encounter Plan of Treatment Scheduled Referrals Name Type Priority Associated Diagnoses Order Schedule Referral to Pediatric Nephrology Outpatient Referral Routine Behcet's disease Ordered: 11/27/2020 documented as of this encounter 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
--- OUTSIDE RECORDS SUMMARY | 2023-11-17 15:27 | XMS_ITS | Encounter Summary ---
Author Organization [facility] Address [facility] [place] [address] Care Team Providers Care Mother Superior Name Role Phone Ben Nevarez MD Primary Care Provider [phone] Reason for Visit * Consultation (Urgent) - Closed Specialty Diagnoses / Procedures Referred By Contact Referred To Contact Pediatric Rheumatology Diagnoses Single subsegmental pulmonary embolism without acute cor pulmonale Other specified noninflammatory disorders of vulva and perineum Ben Nevarez MD [address] [place] [address] [place] [address] [facility] [address] [place] [address] Referral ID Status Reason Start Date Expiration Date V isits Requested Visits Authorized [id number] Closed Consult, Test & Treat Connection Center PCP Updated and/or Approved 02/12/2020 02/11/2021 6 6 Encounter Details Date Type Department Care Team (Latest Contact Info) Description 02/14/2020 10:00 AM EST Office Visit [place] [address] Arpit Cormier MD [facility] [place] [address] Pulmonary embolism, unspecified chronicity, unspecified pulmonary embolism type, unspecified whether acute cor pulmonale present Social History Tobacco Use Types Packs/Day Years Used Date Smoking Tobacco: Never Smokeless Tobacco: Never Comments:no ETS exposure Sex and Gender Information Value Date Recorded Sex Assigned at Not on file Gender Identity Not on file Sexual Orientation Not on file documented as of this encounter Last Filed Vital Signs Vital Sign Reading Time Taken Comments Blood Pressure 105/74 02/14/2020 10:10 AM EST Pulse 101 02/14/2020 10:10 AM EST Temperature - - Respiratory Rate - - Oxygen Saturation - - Inhaled Oxygen Concentration - - Weight 65.5 kg (144 lb 6.4 oz) 02/14/20 20 10:10 AM EST Height 151.6 cm (4' 11.69) 02/14/2020 10:10 AM EST Body Mass Index 28.5 02/14/2020 10:10 AM EST Body Mass Index Percentile 93.49% 02/13 10:10 AM EST Growth Chart: [facility] (Girls, 2- 20 Years) documented in this encounter Progress Notes * Arpit Cormier MD - 02/14/2020 10:00 AM EST Is a new patient consultation seen at the request of Ben Nevarez on [facility] birthdate 2005 The patient is a 15-year-old adopted female who is been cared for by her adoptive parents since age1 months with 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 About 10 days ago she developed fever to 102.7 along with myalgias arthralgias and headache mild runny nose and a cough which was evaluated with a Covid test that was negative subsequent to that she developed vaginal pain with blistering and inflammation that is been followed by [facility] [facility] they treated her with Valtrex and Bactrim for vulvovaginal cellulitis On of last week she was admitted to the hospital because of acute shortness of breath and palpitations and found to have an elevated D-dimer and a CT angiogram was read as a probable subsegmental PE she was treated with Lovenox and then Xarelto and discharged home at home she was well except for one episode of pink eye that was not very uncomfortable Her family history is unknown her past medical history is otherwise unremarkable ??? Xarelto 15 mg Tablet ??? sulfamethoxazole-trimethoprim DS (Bactrim DS) 800-160 mg Tablet ??? lidocaine (XYLOCAINE) 5 % Ointment ??? valACYclovir (VALTREX) 1 gram Tablet ??? acetaminophen (Tylenol) 500 mg Tablet ??? montelukast (SINGULAIR) 5 mg chewable tablet ??? Levalbuterol Tartrate (XOPENEX HFA) 45 mcg/Actuation inhaler ??? Budesonide (PULMICORT FLEXHALER) 90 mcg/Inhalation AePB ??? ranitidine (ZANTAC) 75 mg tablet ??? pediatric multivitamin (FLINTSTONES MULTIVITAMIN) chewable tablet ??? polyethylene glycol (MIRALAX) 17 gram packet On exam she is healthy-appearing but very uncomfortable from the vaginal lesions necessitating a wheelchair to get here BP 105/74 Pulse 101 Ht 151.6 cm (4' 11.69) Wt 65.5 kg (144 lb 6.4 oz) BMI 28.50 kg/m?? 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 her neck was unremarkable back exam was negative chest she had a loud P2 or a widely split S2 I am not sure her abdomen was benign her extremities were hypermobile and there was mild erythema of both toes with the operated one being obviously postop Laboratory data that came with her included elevated white blood cell counts on several occasions to 16,000 with a mild left shift elevated sedimentation rate to 22 elevated CRP to 7 but otherwise a negative work-up She is referred for the possibility of Behcet's which is a very rare disease in children and usually has oral ulcers is a prominent manifestation and more chronic vaginal ulcers rather than vulvar cellulitis but I do believe she has an underlying autoimmune disease I just do not know which one and I am going to do extensive blood testing She is scheduled to see hematology oncology presumably for the clotting disorder and I think she probably should have an echocardiogram I will follow-up by my DH in 2 weeks or earlier if the labs are abnormal and then in person in 1 month I did not put her on any medication documented in this encounter Plan of Treatment Not on file documented as of this encounter Procedures Procedure Name Priority Date/Time Associated Diagnosis Comments HC COVID-19 IGG Routine 02/14/2020 11:18 AM EST Pulmonary embolism, unspecified chronicity, unspecified pulmonary embolism type, unspecified whether acute cor pulmonale present HC C-REACTIVE PROTEIN Routine 02/14/2020 11:18 AM EST Pulmonary embolism, unspecified chronicity, unspecified pulmonary embolism type, unspecified whether acute cor pulmonale present HC DRVVT RATIO Routine 02/14/2020 11:18 AM EST Pulmonary embolism, unspecified chronicity, unspecified pulmonary embolism type, unspecified whether acute cor pulmonale present SILICA CLOTTING TIME Routine 02/14/2020 11:18 AM EST Pulmonary embolism, unspecified chronicity, unspecified pulmonary embolism type, unspecified whether acute cor pulmonale present DRVVT Routine 02/14/2020 11:18 AM EST Pulmonary embolism, unspecified chronicity, unspecified pulmonary embolism type, unspecified whether acute cor pulmonale present HC LYME DISEASE, KIKE Routine 0 11:18 AM EST Pulmonary embolism, unspecified chronicity, unspecified pulmonary embolism type, unspecified whether acute cor pulmonale present HC PCH EXTRACTABLE NUCLEAR ANTIGEN Routine 02/14/2020 11:18 AM EST Pulmonary embolism, unspecified chronicity, unspecified pulmonary embolism type, unspecified whether acute cor pulmonale present HC PCH ANTINEUTROPHIL CYTOPLASMIC ABS Routine 02/14/2020 11:18 AM EST Pulmonary embolism, unspecified chronicity, unspecified pulmonary embolism type, unspecified whether acute cor pulmonale present HC VENIPUNCTURE Routine 02/14/2020 11:18 AM EST Pulmonary embolism, unspecified chronicity, unspecified pulmonary embolism type, unspecified whether acute cor pulmonale present HC MYELOPEROXIDASE AUTOANTIBODIES Routine 02/14/2020 11:18 AM EST Pulmonary embolism, unspecified chronicity, unspecified pulmonary embolism type, unspecified whether acute cor pulmonale present HEMOGRAM Routine 02/14/2020 11:18 AM EST Pulmonary embolism, unspecified chronicity, unspecified pulmonary embolism type, unspecified whether acute cor pulmonale present DIFFERENTIAL, AUTOMATED Routine 02/14/20 20 11:18 AM EST Pulmonary embolism, unspecified chronicity, unspecified pulmonary embolism type, unspecified whether acute cor pulmonale present HC CARDIOLIPIN ANTIBODIES Routine 02/14/2020 11:18 AM EST Pulmonary embolism, unspecified chronicity, unspecified pulmonary embolism type, unspecified whether acute cor pulmonale present HC ESR-SEDIMENTATION RATE, BLOOD Routine 02/14/2020 11:18 AM EST Pulmonary embolism, unspecified chronicity, unspecified pulmonary embolism type, unspecified whether acute cor pulmonale present HC CBC,PLT & AUTO DIFF Routine 0 11:18 AM EST Pulmonary embolism, unspecified chronicity, unspecified pulmonary embolism type, unspecified whether acute cor pulmonale present HC COMPLEMENT,C3 SERUM Routine 0 11:18 AM EST Pulmonary embolism, unspecified chronicity, unspecified pulmonary embolism type, unspecified whether acute cor pulmonale present HC COMPLEMENT C4, PLASMA Routine 02/14/2020 11:18 AM EST Pulmonary embolism, unspecified chronicity, unspecified pulmonary embolism type, unspecified whether acute cor pulmonale present HC ANTINUCLEAR ANTIBODY,SERUM Routine 02/14/2020 11:18 AM EST Pulmonary embolism, unspecified chronicity, unspecified pulmonary embolism type, unspecified whether acute cor pulmonale present HC CREATINE PHOSPHOKINASE, SERUM Routine 02/14/2020 11:18 AM EST Pulmonary embolism, unspecified chronicity, unspecified pulmonary embolism type, unspecified whether acute cor pulmonale present COMPREHENSIVE METABOLIC PANEL Routine 02/14/2020 11:18 AM EST Pulmonary embolism, unspecified chronicity, unspecified pulmonary embolism type, unspecified whether acute cor pulmonale present documented in this encounter Results * (ABNORMAL) Differential, Automated (02/14/2020 11:18 AM EST) Neutrophil % 52.9 % [facility] Neutrophil Absolute 4.63 1.50 - 8.00 x10(3)/mc L [facility] Lymph % 34.7 % [facility] Lymphocytes Abs 3.0 1.2 - 5.2 x10(3)/mc L [facility] Monocyte % 8.7 % [facility] Monocyte Abs 0.8 0.2 - 1.0 x10(3)/mc L [facility] Eos % 1.4 % [facility] Eosinophils Abs 0.1 0.0 - 0.4 x10(3)/mc L [facility] Basophil % 0.6 % [facility] Baso Absolute 0.0 0.0 - 0.1 x10(3)/mc L [facility] Immature Gran % 1.70 % [facility] Comment: Immature granulocytes(IG's)percentage and absolute count will include metamyelocytes, myelocytes, and promyelocytes. Blood smears from CBCs yielding IG's will be scanned manually for concordance. If this scan disagrees with the automated IG or if promyelocytes are noted, a manual differential will be performed. Immature Gran Absolute 0.15(H) 0.00 - 0.04 x10(3)/mc L [facility] Blood specimen (specimen) 02/14/2020 11:18 AM EST 02/14/2020 11:29 AM EST Narrative Resulting Agency Comment Spec In Lab Arpit Cormier MD HEMATOLOGY ORDERABLE S [facility] [place] [address] * (ABNORMAL) Hemogram (02/14/2020 11:18 AM EST) White Blood Cell 8.7 4.5 - 13.0 x10(3)/mc L [facility] Red Blood Cell 4.18 4.10 - 5.10 x10(6)/mc L [facility] Hemoglobin 12.6 12.0 - 16.0 gm/dL [facility] Hematocrit 37.7 36.0 - 46.0 % [facility] Mean Cell Volume 90.2 76.0 - 98.0 fL [facility] Mean Cell Hemoglobin 30.1 25.0 - 35.0 pg [facility] Mean Cell Hemoglobin Concentration 33.4 32.0 - 36.5 gm/dL [facility] Platelet 420(H) 145 - 370 x10(3)/mc L [facility] RDW Standard Deviation 41.2 37.0 - 46.0 fL [facility] RDW coefficient of variation 12.7 0.0 - 14.5 % [facility] Mean Platelet Volume 8.6 7.6 - 12.9 fL [facility] NRBC% auto 0.0 % [facility] NRBC Absolute 0.000 0.000 - 0.000 x10(3)/mc L [facility] Blood specimen (specimen) 02/14/2020 11:18 AM EST 02/14/2020 11:29 AM EST Narrative Resulting Agency Comment Spec In Lab Arpit Cormier MD HEMATOLOGY ORDERABLE S Performing Organization Address City/[facility]/ZIP Co de Phone Number [facility] [place] [address] * Silica Clotting Time (02/14/2020 11:18 AM EST) Silica Clotting Time 0.90 <=1.16 ratio [facility] Comment: A result greater than 1.16 TR is consistent with the presence of lupus anticoagulant. Values of 1.16 to 1.24 in this assay are not definitively positive or negative for the presence of a lupus anticoagulant. The SCT ratio may be falsely elevated in patients on anticoagulants, especially heparins and direct oral anticoagulants. An abnormal test result in an anticoagulated patient must therefore be interpreted with caution, and repeat testing after discontinuing anticoagulation may be appropriate. Blood specimen (specimen) 02/14/2020 11:18 AM EST 02/14/2020 11:29 AM EST Narrative Resulting Agency Comment Spec In Lab Arpit Cormier MD HEMATOLOGY ORDERABLE S Performing Organization Address [facility]/ZIP Co de Phone Number [facility] [place] [address] * (ABNORMAL) dRVVT (02/14/2020 11:18 AM EST) Pathologist [facility] dRVVT 1.96(H) <=1.20 IU/mL [facility] Blood specimen (specimen) 02/14/2020 11:18 AM EST 02/14/2020 11:29 AM EST Narrative Resulting Agency Comment Spec In Lab Arpit Cormier MD HEMATOLOGY ORDERABLE S [facility] [place] [address] * Proteinase-3 Antibody (02/14/2020 11:18 AM EST) Proteinase 3 Antibody <2.0 <=20.0 unit(s) [facility] Blood specimen (specimen) 02/14/2020 11:18 AM EST 02/14/2020 2:00 PM EST Narrative Resulting Agency Comment Spec In Lab Arpit Cormier MD IMMUNOLOGY ORDERABLE S Performing Organization Address [facility] Co de Phone Number [facility] [place] [address] * Myeloperoxidase Ab (02/14/2020 11:18 AM EST) Myeloperoxidase Antibody <2.0 <=20.0 unit(s) [facility] Blood specimen (specimen) 02/14/2020 11:18 AM EST 02/14/2020 2:00 PM EST Narrative Resulting Agency Comment Spec In Lab Arpit Cormier MD IMMUNOLOGY ORDERABLE S Performing Organization Address [facility] de Phone Number [facility] [place] [address] * Cytoplasmic Neutrophilic Ab (02/14/2020 11:18 AM EST) Pathologist [facility] C-Anca (AUGUST) Negative Negative [facility] Comment: Test Performed by: [facility] [place] [address] Policy Manager: Alen Schmitt M.D. Ph.D.; CLIA# [id number] P-Anca (AUGUST) Negative Negative [facility] Comment: Negative for cANCA and pANCA patterns by immunofluorescence. ADDITIONAL INFORMATION This test was developed and its performance characteristics determined by [facility] in a manner consistent with CLIA requirements. This test has not been cleared or approved by the U.S. Food and Drug Administration. Test Performed by: [facility] [place] [address] Policy Manager: Alen Schmitt M.D. Ph.D.; CLIA# [id number] Blood specimen (specimen) 02/14/2020 11:18 AM EST 02/14/2020 2:12 PM EST Narrative Resulting Agency Comment Spec In Lab Arpit Cormier MD LAB SEND OUT ORDERAB LES [facility] [place] [address] * C4 Complement (02/14/2020 11:18 AM EST) Complement C4 26 8 - 44 mg/dL [facility] Blood specimen (specimen) 02/14/2020 11:18 AM EST 02/14/2020 11:29 AM EST Narrative Resulting Agency Comment Spec In Lab Arpit Cormier MD CHEMISTRY ORDERABLES Performing Organization Address City/[facility]/ZIP Co de Phone Number [facility] [place] [address] * C3 Complement (02/14/2020 11:18 AM EST) Complement C3 155 90 - 161 mg/dL [facility] Blood specimen (specimen) 02/14/2020 11:18 AM EST 02/14/2020 11:29 AM EST Narrative Resulting Agency Comment Spec In Lab Arpit Cormier MD CHEMISTRY ORDERABLES Performing Organization Address [facility]/ZIP Co de Phone Number [facility] [place] [address] * CK (02/14/2020 11:18 AM EST) Creatine Kinase 44 0 - 250 unit/L [facility] Blood specimen (specimen) 02/14/2020 11:18 AM EST 02/14/2020 11:29 AM EST Narrative Resulting Agency Comment Spec In Lab Arpit Cormier MD CHEMISTRY ORDERABLES Performing Organization Address City/[facility]/ZIP Co de Phone Number [facility] [place] [address] * COVID-19 Antibody (02/14/2020 11:18 AM EST) SARS-CoV-2 Nucleocap Ab Not Detected Not Detected [facility] Comment: Results cannot be used to diagnose acute SARS-CoV-2 (Severe acute respiratory syndrome coronavirus 2, also known as 2019 novel coronavirus or 2019-nCoV) infection. A ? Not Detected? result does not rule out SARS-CoV-2 infection, particularly in those who have been in contact with the virus. Follow-up testing with a molecular diagnostic test to SARS-CoV-2 should be considered for individuals with symptoms of active SARS-CoV-2 infection. A ? Detected? result cannot be interpreted as conclusive evidence of protective immunity to the SARS-CoV-2 virus. Detection may be due to past or present infection with nxp-BGGC-XdY-2 coronavirus strains, such as coronavirus HKU1, NL63, OC43, or 229E. This test was performed using the Elecsys Jmki-UPLA-RmZ-2 total antibody test on the [employer] Cisco e801 analyzer. This serology test is available following FDA Emergency Use Authorization, however it has not been reviewed by the FDA, nor is it FDA cleared or approved. The performance characteristics of this test were determined by the Department of Pathology and Laboratory Medicine at [facility]. The laboratory is certified under the Clinical Laboratory Improvement Amendments of 1988 (CLIA), 42 U.S.C. ?? 263a, to perform high complexity tests. Results should not be used as the sole basis to diagnose or exclude SARS-CoV-2 infection, to inform infection status, or to screen donated blood. Blood specimen (specimen) 02/14/2020 11:18 AM EST 02/14/2020 11:29 AM EST Arpit Cormier MD CHEMISTRY ORDERABLES Performing Organization Address City/[facility]/ZIP Co de Phone Number [facility] [place] [address] * Lyme IgG & IgM Antibody (02/14/2020 11:18 AM EST) Lyme Antibody Neg Neg [facility] Blood specimen (specimen) 02/14/2020 11:18 AM EST 02/15/2020 7:55 AM EST Narrative Resulting Agency Comment Spec In Lab Arpit Cormier MD IMMUNOLOGY ORDERABLE S [facility] [place] [address] * (ABNORMAL) Cardiolipin Antibody Screen (02/14/2020 11:18 AM EST) Cardiolipin Antibody IgG <9.4 <=14.9 GPL unit(s) [facility] Comment: Ranges ?? GPL ------ ?? --- Negative ?? <=14.9 Indeterminate ??15.0 - 20.0 Low/Medium Positive 20.1 - 80.0 High Positive ??>80.0 Cardiolipin Antibody IgM 20.8(H) <=12.5 MPL unit(s) [facility] Comment: Ranges ?? MPL ------ ?? --- Negative ?? <=12.5 Indeterminate ??12.6 - 20.0 Low/Medium Positive 20.1 - 80.0 High Positive ??>80.0 Blood specimen (specimen) 02/14/2020 11:18 AM EST 02/14/2020 2:00 PM EST Narrative Resulting Agency Comment Spec In Lab Arpit Cormier MD IMMUNOLOGY ORDERABLE S [facility] [place] [id number] * Extractable Nuclear Antigen (MELISSA) Ab (02/14/2020 11:18 AM EST) MELISSA Ab Test ?Result ?Flag ??Unit ??RefValue Ab to Extractable Nuclear Ag Eval,S ??SS-A/Ro Ab, IgG, S ?<0.2 ?U ? <1.0 (Negative) ??SS-B/La Ab, IgG, S ?<0.2 ?U ? <1.0 (Negative) ??Sm Ab, IgG, S ? <0.2 ?U ? <1.0 (Negative) ??ROCK WORKER Ab, IgG, S ?<0.2 ?U ? <1.0 (Negative) ??Scl 70 Ab, IgG, S ? <0.2 ?U ? <1.0 (Negative) ??Sheila 1 Ab, IgG, S ? <0.2 ?U ? <1.0 (Negative) ?Test Performed by: ?[facility] [address] ?[address] [place] [address] ?Policy Manager: Alen Schmitt M.D. Ph.D.; IA# [id number] [facility] Blood specimen (specimen) 02/14/2020 11:18 AM EST 02/14/2020 2:12 PM EST Narrative Resulting Agency Comment Spec In Lab Arpit Cormier MD LAB SEND OUT ORDERAB LES [facility] [place] [address] * DRAKE (MC/CGP/APD/NLH) (02/14/2020 11:18 AM EST) DRAKE Neg Neg [facility] Comment:Anti-nuclear antibod ies were tested using an indirect immunofluorescent assay. Blood specimen (specimen) 02/14/2020 11:18 AM EST 02/14/2020 2:00 PM EST Narrative Resulting Agency Comment Spec In Lab Arpit Cormier MD LAB SEND OUT ORDERAB LES Performing Organization Address [facility] de [facility] Number [facility] [place] [address] * CRP, acute inflammation (02/14/2020 11:18 AM EST) C-Reactive Protein 4.2 <=4.9 mg/L [facility] Blood specimen (specimen) 02/14/2020 11:18 AM EST 02/14/2020 11:29 AM EST Narrative Resulting Agency Comment Spec In Lab Arpit Cormier MD CHEMISTRY ORDERABLES Performing Organization Address [facility] de [facility] Number [facility] [place] [address] * Sedimentation rate (02/14/2020 11:18 AM EST) Sedimentation Rate Automated 29 2 - 37 mm/hr [facility] Comment: Effective March 22, 2019 new capillary photometric technology has resulted in a change in reference ranges. It is recommended that each ESR result be reviewed with its own age appropriate reference range. Blood specimen (specimen) 02/14/2020 11:18 AM EST 02/14/2020 11:29 AM EST Narrative Resulting Agency Comment Spec In Lab Arpit Cormier MD HEMATOLOGY ORDERABLE S Performing Organization Address [facility] Co de Phone Number [facility] [place] [address] * (ABNORMAL) Comprehensive metabolic panel (non-fasting) (02/14/2020 11:18 AM EST) Glucose 118 65 - 199 mg/dL [facility] Comment:Diabetes: >=200 mg/d L plus symptoms Blood Urea Nitrogen 16 10 - 20 mg/dL [facility] Creatinine 0.95(H) 0.50 - 0.89 mg/dL [facility] Sodium 136 135 - 145 mmol/L [facility] Potassium 4.2 3.5 - 5.0 mmol/L [facility] Comment: Please note: ??Patients with WBC >100,000 may have falsely elevated Potassium levels. ??For accurate Potassium quantification in these patients send serum separator tube (gold top) for subsequent determinations. ??Contact the Clinical Chemistry Laboratory if there are any questions. Chloride 104 98 - 107 mmol/L [facility] Carbon Dioxide 22 22 - 31 mmol/L [facility] Anion Gap 10 5 - 15 mmol/L [facility] Calcium 9.4 8.5 - 10.5 mg/dL [facility] Protein, Total 7.3 6.4 - 8.3 gm/dL [facility] Albumin 4.2 3.2 - 5.2 gm/dL [facility] Aspartate Aminotransferase 35(H) 5 - 30 unit/L [facility] Alanine Aminotransferase 64(H) 0 - 25 unit/L [facility] Alkaline Phosphatase 82 45 - 87 unit/L [facility] Bilirubin, Total 0.3 <=1.0 mg/dL [facility] Est Glomerular Filtration Rate See note >=60 mL/min/1. 73 m?? [facility] Comment: The eGFR for patients less than 18 years of age should be calculated using the Quiroz formula. GFR = (0.413 x Height in cm)/serum creatinine. The eGFR was calculated using the CKD-EPI equation. As with all creatinine based estimates of kidney function, eGFR values calculated with the CKD-EPI equation are not accurate in patients with acute kidney failure, extremes of body mass or the acutely ill. http://Visitar/[email or web address] eGFR See note >=60 mL/min/1. 73 m?? [facility] Comment: The eGFR for patients less than 18 years of age should be calculated using the Quiroz formula. GFR = (0.413 x Height in cm)/serum creatinine. The eGFR was calculated using the CKD-EPI equation. As with all creatinine based estimates of kidney function, eGFR values calculated with the CKD-EPI equation are not accurate in patients with acute kidney failure, extremes of body mass or the acutely ill. [email or web address] Blood specimen (specimen) 02/14/2020 11:18 AM EST 02/14/2020 11:29 AM EST Narrative Resulting Agency Comment Spec In Lab Arpit Cormier MD CHEMISTRY ORDERABLES Performing Organization Address City/State/[facility] Co de Phone Number [facility] [place] [phone] documented in this encounter Visit Diagnoses Diagnosis Pulmonary embolism, unspecified chronicity, unspecified pulmonary embolism type, unspecified whether acute cor pulmonale present documented in this encounter Care Teams Mother Superior Relationship Specialty Start Date End Date Ben Nevarez MD [address] [place] [address] PCP - General Pediatrics 11/20/15 documented as of this encounter
--- OUTSIDE RECORDS SUMMARY | 2023-11-17 15:27 | XMS_ITS | Encounter Summary ---
Author Organization [facility] Address [facility] [place] [address] Care Team Providers Care Door Machine Operator Name Role Phone Ben Nevarez MD Primary Care Provider [phone] Encounter Details Date Type Department Care Team (Latest Contact Info) Description 05/14/2020 11:30 AM EST TH Visit (TeleHealth) Pediatric [place] [address] Arpit Cormier MD [facility] [place] [address] [address] Chronic midline low back pain, unspecified whether sciatica present Social History Tobacco Use Types Packs/Day Years Used Date Smoking Tobacco: Never Smokeless Tobacco: Never Comments:no ETS exposure Sex and Gender Information Value Date Recorded Sex Assigned at Not on file Gender Identity Not on file Sexual Orientation Not on file documented as of this encounter Progress Notes * Arpit Cormier MD - 05/14/2020 11:30 AM EST Is a follow-up appointment for Elvia??Lilia??birthdate 2005 ?? 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 Today the had the following issues first she had multiple oral ulcers for which I prescribed Kenalog and Orabase after reviewing the pictures on their cell phone which were fairly characteristic of Behcet's with a well-circumscribed border that was pale and an excavated crater they did not leave scars ?? She saw hematology oncology at the thought she had a provoked PE and recommended Xarelto for 3 months with a repeat CT and evaluation for possible further therapy. ??My work-up included a positive IgM anticardiolipin which is typically found in an infectious circumstance ?? She had an echocardiogram which was entirely normal ?? She saw dermatology but was unable to connect with Dr. López and the appointment will be made by video in the near future. ??Since her vaginal source of healed the photographs that they have on their cell phone will be useful ?? In the interim since I saw her last she had another flare of vaginal/perineal inflammation that wastreated with 20 mg of prednisone for which she is still on. It generated a prompt resolution but she remains on nitrofurantoin for a urinary tract infection and metronidazole to prevent fungal infection with the prednisone she only has 1 more day of prednisone 20 and I suggested that she taper moregradually. She remains on Xarelto and MiraLAX as needed ?? Her major complaint was back pain which is been constant and 3/8 the vaginal/perineal issues. She had a work-up which included x-rays that I do not have access to but they were read as normal she is B 27 - I asked them to do an MRI of her pelvis which was read is entirely normal they only commented on the soft tissue so I decided to repeat her imaging that I never had access to including a lumbar spinesacroiliac joints and coccygeal views since her pain is now significant to the point where she is needing 900 mg of gabapentin a day at least She had one episode of watery diarrhea for no apparent reason no blood or mucus in it does not haveconstipation or constant abdominal pain so I thought about GI consultation but she wanted to wait till her mother was available to make that decision I increased her gabapentin to 303 times a day and as above did the imaging and I will have her return visit in 3 weeks video documented in this encounter Plan of Treatment Not on file documented as of this encounter Visit Diagnoses Diagnosis Chronic midline low back pain, unspecified whether sciatica present documented in this encounter Care Teams Door Machine Operator Relationship Specialty Start Date End Date Ben Nevarez MD [address] [address] PCP - General Pediatrics 11/20/15 documented as of this encounter
--- OUTSIDE RECORDS SUMMARY | 2023-11-17 15:27 | XMS_ITS | Encounter Summary ---
[place] [address] Care Team Providers Care Enterostomal Therapy Nurse Name Role Phone Ben Nevarez MD Primary Care Provider [phone] Reason for Visit * Reason Onset Date Comments Follow-up 12/02/2020 Encounter Details Date Type Department Care Team (Late st Contact Info) Description 12/02/2020 Telephone [place] [phone] Jose Angel Ferris, RN Follow-up Social History Tobacco Use Types Packs/Day Years Used Date Smoking Tobacco: Never Smokeless Tobacco: Never Comments:no ETS exposure Sex and Gender Information Value Date Recorded Sex Assigned at Not on file Gender Identity Not on file Sexual Orientation Not on file documented as of this encounter Miscellaneous Notes * Telephone Encounter - Jose Angel Ferris RN - 12/02/2020 9:35 AM EDT Images from the original note were not included. Mom calls to update that Elvia is doing much better after starting Steroid. I spoke with Mom and Elvia is still doing well. Steroids are done. She will check in weekly overnext 2 weeks or sooner if symptoms return. Still waiting for Nephrology appointment. December 03, 2020 Arpit Cormier MD to Me ?? 12:18 PM Excellent. I think the nephrology is not urgent. 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
--- OUTSIDE RECORDS SUMMARY | 2023-11-17 15:27 | XMS_ITS | Encounter Summary ---
Author Organization [facility] [address] Care Team Providers Care Corporate Executive Name Role Phone Ben Nevarez MD Primary Care Provider [phone] Reason for Visit * Reason Onset Date Comments Follow-up 11/27/2020 Encounter Details Date Type Department Care Team (Late st Contact Info) Description 11/27/2020 [place] [phone] Jose Angel Ferris, RN Follow-up Social History Tobacco Use Types Packs/Day Years Used Date Smoking Tobacco: Never Smokeless Tobacco: Never Comments:no ETS exposure Sex and Gender Information Value Date Recorded Sex Assigned at Not on file Gender Identity Not on file Sexual Orientation Not on file documented as of this encounter Miscellaneous Notes * Telephone Encounter - Jose Angel Ferris RN - 11/27/2020 2:35 PM EDT Mom calls to advise that Elvia is having some issues that may be related to Behcet's. Reports for last month Elvia has been having pain with Urination and blood in her urine. ReportsU/A was not conclusive and she was treated with Bactrim for a week, with no resolution of symptoms. Reports another U/A was done and urine showed blood and now elevated wbc's . States was put on another antibiotic but again results not conclusive. Provider was going to discuss with PCP about Nephrology referral for Elvia. Ultrasound of Bladder was negative per Mom. Mom would like to know what Dr. Cormier thinks of this situation, and does he need to see her beforeshe gets sent off to Nephrology or is Nephrology where she needs to go? Arpit Cormier MD sent to Jose Angel Ferris RN Caller: Unspecified (Today, ??9:45 AM) She doesn't have an appt to nephrology yet. Does she want to try a course of steroids? I spoke with Mom and she will have Elvia try the steroids if that's what Dr. Cormier thinks is needed. Would like Rx to go to [facility] in [place]. Mom will have her start right away and check in with me on Wednesday. Mom wants to know if Nephrology appointment needed at this time. Mom also reports that Urine output is good and she is encouraging Elvia to drink more fluids. Denies any fevers or chills. Arpit Cormier MD sent to Jose Angel Ferris RN Caller: Unspecified (Yesterday, ??9:45 AM) Rx medrol dose pack referral to ped nephrology placed Notified Mom and she will check in on Wednesday. documented in this encounter Plan of Treatment Not on file documented as of this encounter Visit Diagnoses Not on filedocumented in this encounter Care Teams Corporate Executive Relationship Specialty Start Date End Date Ben Nevarez [place] [address] PCP - General Pediatrics 11/20/15 documented as of this encounter
--- OUTSIDE RECORDS SUMMARY | 2023-11-17 15:27 | XMS_ITS | Encounter Summary ---
Author Organization [facility] Address [facility] [place] [address] Care Team Providers Care Irradiated Fuel Handler Name Role Phone Ben Nevarez MD Primary Care Provider [phone] Reason for Visit * Reason Comments Allergy Testing Encounter Details Date Type Department Care Team (Late st Contact Info) Description 03/03/2021 4:00 PM EST [place] [address] Jillian Chew MD [facility] [address] [place] [address] Need for COVID-19 vaccine; Adverse effect of vaccine, initial encounter Social History Tobacco Use Types Packs/Day Years Used Date Smoking Tobacco: Never Smokeless Tobacco: Never Comments:smokes marajuana Sex and Gender Information Value Date Recorded Sex Assigned at Not on file Gender Identity Not on file Sexual Orientation Not on file documented as of this encounter Last Filed Vital Signs Vital Sign Reading Time Taken Comments Blood Pressure - - Pulse 65 03/03/2021 4:12 PM EST Temperature - - Respiratory Rate - - Oxygen Saturation 100% 03/03/2021 4:12 PM EST Inhaled Oxygen Concentration - - Weight - - Height - - Body Mass Index - - documented in this encounter Progress Notes * Ben Lau MD - 03/03/2021 4:00 PM EST Allergy/Immunology Clinic Note CC: Vaccine reaction (Pfizer #2) HPI: Elvia Rodrigues is a 16 y.o. 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 Patient received Pfizer #1 on 06/29/20 without complication. After Pfizer #2 (07/20/2020), she was initially fine, then developed acute onset dizziness with presyncope, palpitations, and general malaise while eating ~45 minutes after immunization. Given concern for pulmonary embolism given recent history, she presented with mom to ED at [facility]. There, she reports ongoing palpitations and low BP (does not recall specific BP) but EKG was normal and she was discharged after several hours of observation. Since this, denies ongoing symptoms and has received meningococcal and flu vaccines without complication. Otherwise has been well and at baseline, no recent illness, injury, or health status change. Behcet's has been well-controlled with no flares since August 2020. Previous health problems including PE without evidence of DVT in 01/2020 as well as possible UTI prompting hospitalization in 05/2020 have resolved. No other complaints or concerns noted at this time. ROS (bolded are positive) fever, chills, night sweats, weight loss, vision changes, itchy eyes, ear pain, runny nose, cough, SOB, CP, palpitations, abd pain, n/v/d/c, hematuria, dysuria, hematochezia, melena, rash, joint pains, numbness, tingling, anxiety, depression, difficulty sleeping. ENVIRONMENTAL HISTORY Occupation: Student Exposed to chemicals or hazardous fumes at work: No Type of home: House Heating system: Forced hot air Central A/C: No Wood stove: Yes Pests inside home: No Known mold, mildew, or water damage: No Pets: 1 cat, 2 dogs Farm animals on property: 2 chickens PMH notable for asthma, mild, no current action plan. Other PMH and PSH non-contributory. ??? sertraline (ZOLOFT) 100 mg Tablet ??? acetaminophen (Tylenol) 500 mg Tablet ??? Vyvanse 30 mg Capsule ??? methylPREDNISolone (Medrol, Filiberto,) 4 mg Tablets, Dose Pack ??? Diclofenac Sodium (VOLTAREN XR) 100 mg Tablet Sustained Release 24 hr ??? gabapentin (Neurontin) 300 mg Capsule ??? predniSONE (Deltasone) 10 mg Tablet ??? gabapentin (Neurontin) 100 mg Capsule ??? gabapentin (Neurontin) 100 mg Capsule ??? triamcinolone acetonide (KENALOG) 0.1 % Paste ??? Xarelto 15 mg Tablet Allergies Allergen Reactions ??? Unknown [Unclassified Drug] Dial soap gives her a burn on her skin at contact ??? Penicillins Rash No family history on file. Patient is adopted and is not aware of family history. Social History Socioeconomic History ??? Marital status: Single Spouse name: Not on file ??? Number of children: Not on file ??? Years of education: Not on file ??? Highest education level: Not on file Occupational History ??? Not on file Tobacco Use ??? Smoking status: Never Smoker ??? Smokeless tobacco: Never Used ??? Tobacco comment: smokes marajuana Vaping Use ??? Vaping Use: Some days Substance and Sexual Activity ??? Alcohol use: Not on file ??? Drug use: Not on file ??? Sexual activity: Not on file Other Topics Concern ??? Not on file Social History Narrative ??? Not on file Social Determinants of Health Financial Resource Strain: Not on file Food Insecurity: Not on file Transportation Needs: Not on file Physical Activity: Not on file Housing Stability: Not on file PHYSICAL EXAM: Pulse 65 SpO2 100% Gen: awake, alert, no acute distress HEENT: normocephalic, atraumatic. Conjunctiva not injected or icteric. No discharge. No eyelid edema. CVS: RRR, no m/r/g LUNGS: CTAB, no wheezing or rales, breathing unlabored ABD: soft, non-tender, non-distended, bowel sounds present SKIN: no rashes, normal color, no mottling EXTREMITIES: warm and well-perfused, normal bulk, symmetric ROM, no edema NEURO: EOMI, no dysarthria PSYCH: normal grooming, appropriate mood and affect, normal volume/quantity/tone of speech, normal thought process and content ASSESSMENT AND PLAN: 16 y.o. female with Behcet's disease c/b PE w/out DVT who presents for reaction to Pfizer #2 in 07/2020. Suspect vasovagal reaction 2/2 noxious stimuli of vaccination as opposed to true allergic reaction, in the absence of anaphylaxis, rash, or respiratory symptoms. Patient can receive booster at [facility] or other site per preference (would recommend medical center with nursing and/or physician present), given low risk of severe reaction. Plan: - No contraindication to Pfizer booster. - Patient can schedule with vaccine clinic at [facility] if desired. - Otherwise can receive booster elsewhere per preference. Recommend medical center. MD note provided. Follow-up: As needed Orders: No orders of the defined types were placed in this encounter. Ben Lau MD PGY-1, Internal Medicine 03/03/21 * Jillian Chew MD - 03/03/2021 4:00 PM EST I have seen and examined the patient and reviewed the resident's above history and physical exam and I agree with the details as written. The assessment and plan were formulated in discussion with meand I agree with them as documented. Will also add: A/P: 16 yo F with dizziness, presyncope, palpitations, malaise after Pfizer COVID vaccine dose #1. I think her symptoms are most c/w either a vasovagal or reflex response vs nonspecific inflammatory response that we sometimes see with COVID vaccines. She did not have associated symptoms of rash, hives, itching, feeling hot and flushed, SOB, wheezing, angioedema that typically accompany an allergic or anaphylactoid response. She was counseled that most patients with these nonspecific sort of inflammatory reactions to COVIDvaccination have gone on to tolerate subsequent doses of the vaccine and offered to provide her 2ndPfizer vaccine in the Allergy clinic for monitoring. I would not recommend any allergy testing based on these symptoms and testing to the vaccines is not known to be reliable. With her symptoms pattern we would only recommend that she can receive future vaccines under observation. Pt would prefer not to drive all the way to our clinic for this and would prefer to do this locally. Her symptoms were not severe enough that I think she must get her booster in the allergy clinic - I think any medical center would be fine for her to get her booster (such as a local hospital or pcpclinic) as long as she can be monitored for sx for one hour after. Provided note allowing patient to get vaccine locally. Jillian Chew MD documented in this encounter Plan of Treatment Not on file documented as of this encounter Visit Diagnoses Diagnosis Need for COVID-19 vaccine Adverse effect of vaccine, initial encounter documented in this encounter Care Teams Irradiated Fuel Handler Relationship Specialty Start Date End Date Ben Nevarez MD [address] [place] [address] PCP - General Pediatrics 11/20/15 documented as of this encounter
--- OUTSIDE RECORDS SUMMARY | 2023-11-17 15:27 | XMS_ITS | Encounter Summary ---
Author Organization [facility] Address [facility] [place] [address] Care Team Providers Care Dietetic Assistant Name Role Phone Ben Nevarez MD Primary Care Provider [phone] Reason for Visit * Consultation (Urgent) - Closed Specialty Diagnoses / Procedures Referred By Brendan moore Referred To Contact Pulmonology Diagnoses Behcet's disease Arpit Cormier MD [facility] [place] [address] [facility] [address] [place] [id number] Referral ID Status Reason Start Date Expiration Date V isits Requested Visits Authorized [id number] Closed Consult, Test & Treat 11/05/2022 11/05/2023 1 1 Encounter Details Date Type Department Care Team (Late st Contact Info) Description 11/09/2022 10:00 AM EDT [place] [phone] Kayleigh Yee MD [facility] [place] [address] Behcet's disease; Mild intermittent asthma without complication; Abnormal CT scan of lung; History of nicotine vaping; Mild cannabis use disorder Social History Tobacco Use Types Packs/Day Years Used Date Smoking Tobacco: Never Smokeless Tobacco: Never Comments:smokes socorro Sex and Gender Information Value Date Recorded Sex Assigned at Not on file Gender Identity Not on file Sexual Orientation Not on file documented as of this encounter Last Filed Vital Signs Vital Sign Reading Time Taken Comments Blood Pressure 99/66 11/09/2022 9:56 AM EDT Pulse 85 11/09/2022 9:56 AM EDT Temperature 35.6 ??C (96.1 ??F) 11/09/2022 9:56 AM ED T Respiratory Rate 16 11/09/2022 9:56 AM EDT Oxygen Saturation 100% 11/09/2022 9:56 AM EDT Inhaled Oxygen Concentration - - Weight 51.9 kg (114 lb 6.4 oz) 11/09/2022 9:56 A M EDT Height - - Body Mass Index 22.46 11/05/2022 3:59 PM EDT documented in this encounter Progress Notes * Britt Ba MD - 11/09/2022 10:00 AM EDT Images from the original note were not included. PULMONARY AND CRITICAL CARE MEDICINE PATIENT NAME: Elvia Rodrigues : 2005 MEDICAL RECORD: [id number] DATE OF SERVICE: 11/09/2022 PRIMARY CARE PHYSICIAN: Ben Nevarez MD OUTPATIENT NEW PATIENT NOTE Chief Complaint: Chest discomfort in the setting of abnormal CT chest imaging. Subjective: Elvia Rodrigues is a 17 y.o. female with a past medical history of Behcets, h/o PE s/p anticoagulation, anxiety/ depression, GERD, and asthma who was referred to pulmonology clinic for abnormal CTchest imaging. She states that she began to feel chest tightness with L arm numbness/ tingling and presyncope. She presented to the ED in early September with work up negative including abnormal vitals, EKG, and labs. CT PE negative for embolism but noted multiple small bilateral pulmonary cysts. Placedon low dose PO prednisone without relief and has since stopped. She has since continued to have episodes of chest discomfort/ tightness at night. She denies associated dyspnea, wheezing, cough, reflux, or daytime symptoms. She has not identified a pattern and may go days to weeks without an episodeto having them nightly. Denies provoking or relieving factors but has not tried OTC analgesics nor applying heat/ ice to her chest. Denies anxiety triggers. She does endorse vaping nicotine and smoking marijuana daily. She is without environmental or occupational exposures to chemicals or fumes. Prior history of asthma from a young age on nebulizers with transition to inhaled Pulmicort and albuterol. Symptoms with great improvement around age 12 and was placed ranitidine for reflux symptoms during that time. She has since not required and inhalers, no longer on ranitidine, and was very recently started Carafate QID for reflux. Follows with Dr. Cormier for Behcets and is not currently on therapies. Notable Past Family/Social/Medical/Surgical History: None Review of Systems: General: No fevers/chills no weight gain/loss. Skin: No rash or eruptions. HEENT: No headache or vision changes. Lymph: no glandular swelling or pain in the neck, or armpits. CV: Denies chest pain but endorses chest tightness without palpitations. Notes lightheadedness withpresyncope on initial episode but not subsequent. Respiratory: No cough, shortness of breath or pleuritic pain. GI: No Nausea or vomiting, no abdominal pain, no diarrhea or constipation, no bleeding. : No dysuria or hematuria. Endo: No change in thirst. No polyuria, no change in temperature tolerance. Neuro: No further numbness other than above or weakness. Psych: Notes fluctuant mood for the past few weeks since initiating Welbutrin. Allergies: Allergies Allergen Reactions Unknown [Unclassified Drug] Dial soap gives her a burn on her skin at contact Penicillins Rash Medications: Current Outpatient Medications Medication Sig Dispense Refill buPROPion SR (Wellbutrin SR) 100 mg SR 12 hr tablet Take 100 mg by mouth daily. sucralfate (Carafate) 100 mg/mL Suspension Take 10 mLs by mouth 4 times daily. 420 mL 0 melatonin 10 mg Tablet, Multiphasic Release Bedtime Vyvanse 30 mg Capsule TAKE ONE CAPSULE BY MOUTH EVERY MORNING acetaminophen (Tylenol) 500 mg Tablet Take 1,000 mg by mouth every 6 hours as needed for Pain. lidocaine (Xylocaine) 5 % Ointment Three times a day ondansetron ODT (Zofran-ODT) 4 mg Tablet, Rapid [...] No current facility-administered medications for this visit. Objective: Patient Vitals for the past 24 hrs: Temp Pulse Resp BP SpO2 11/09/22 0956 35.6 ??C (96.1 ??F) 85 16 99/66 100 % Gen: Well developed in no acute distress. HEENT: Eye movements intact. Mucus membranes moist. Pulm: Without work of breathing or accessory muscle use. Lung sounds clear to auscultation bilaterally. No wheezes, crackles, or rhonci. Card: normal rate, regular rhythm, no murmurs, rubs, or gallops. Extremities: Warm, without edema. Neuro: Grossly intact. Facial movements are symmetrical. Pt moves all extremities. PFTS: Without prior for review. Imaging: (Images personally reviewed) CT chest 10/2022 with multiple small peripheral cysts bilaterally in R middle/ lower and left lower lung lobes new in comparison to CT chest 01/2020. Without evident pulmonary embolism. Assessment: Elvia Rodrigues is a 17 y.o. female with a past medical history of Behcets, h/o PE, anxiety/ depression, GERD, and asthma who was referred to pulmonology clinic for abnormal CT chest imaging. Her symptoms have been without consistent pattern or identified triggers leading a broad differential. CT chest without PE on imaging but has suffered prior vascular complications from Behcets and unable to fully assess possible pulmonary aneurysm on imaging. Same imaging with new pulmonary cysts which are not significant enough to explain symptoms but are abnormal. Reported daily vaping and marijuanause which could be explanatory for their existance. She also notes a history of asthma as a child without current wheeze or coughing, is not currently utilizing inhalers, but may manifest as chest tightness. Lastly, her history of reflux may be contributing as well and only recently started Carafate with prior success of ranitidine. Plan: Will order PFTs with pre and post bronchodilator Prescribed Albuterol inhaler PRN for symptoms to assess responsiveness and support of asthma contribution Trial daily PPI Will have re-evaluation of CT chest by radiology with close pulmonary vasculature evaluation for aneurysm in the setting of Behcet's Discussed in length complete cessation of vaping and marijuana use. Continue to follow pulmonary cysts and monitor for progression. Note to be sent to Ben Nevarez MD and Arpit Cormier MD Follow-up with me in 6 months Britt Ba MD Pulmonary and Critical Care PGY-4 Pager [phone] 11/09/2022 10:09 AM * Kayleigh Yee MD - 11/09/2022 10:00 AM EDT I have seen and examined the patient, providing iverson components as outlined below. I have reviewed the fellow note by Dr. Britt Ba below; my evaluation of the patient is below and includes any corrections or additions: Briefly, Elvia is a 17-year-old female with past medical history of Behcet's disease who presents today for an initial evaluation of chest tightness. The patient's chest tightness has been fairly sporadic without any precipitating factors. She denies any associated wheezing or trouble breathing with this. She does not describe any chest pains. Interestingly, she has a history of asthma which was diagnosed when she was a child and was on scheduled nebulizer therapy till 6 years of age after which she was switched to inhaler treatment. She thinks she was only on albuterol as needed once the switch was made. She did well from an asthma standpoint and eventually outgrew it completely. She has also had issues with acid reflux in the past which has been well controlled on ranitidine in the past but after her symptoms resolved, the medication was stopped altogether without any issues. On review of her CT chest today, I was able to see some scattered pulmonary cysts which are unlikely contributing to her current symptoms. I do think that the cysts noted on her CT chest are likely related to her history of vaping and marijuana inhalation. We did recommend getting PFTs pre and postbronchodilators and diffusion to make sure that her lung function is normal. On review of literature, I was unable to find any cystic lung disease associated with Behcet's disease. Common pulmonary manifestations with Behcet's disease including pulmonary thrombosis and pulmonary artery aneurysms were not noted on the current CTPA. However, we will get a second radiology read to confirm that. Other known pulmonary manifestations from Behcet's disease could include organizing pneumonia, though, no evidence of that was seen on the CT chest either. We have strongly recommended quitting vaping andmarijuana use. Her current symptoms of sporadic chest tightness could be related to heartburn/acid reflux and hence I recommended starting Prilosec for a trial period of 1 month. The other possibility is mild intermittent asthma and hence we will also prescribe an albuterol inhaler which she will use during these episodes to see if it is beneficial. Though, coronary thrombosis seems less likely given her symptomatology, she already has an urgent referral placed to cardiology for further evaluation. She will follow-up with in 6 months to make sure that her symptoms have not worsened. Vitals stable On my exam, the patient was well-appearing. Pulmonary exam was unremarkable with clear breath sounds bilaterally. S1-S2 were normal. No murmurs. Abdomen was soft, nontender, bowel sounds were present. No lower extremity edema was noted. No clubbing or cyanosis. Neurologically she was alert, awake, oriented x3. No focal deficits. Acute Problems Abnormal CT chest Chest tightness History of pulmonary embolism (was on anticoagulation in the past) Bechet's disease History of nicotine vaping History of marijuana use Kayleigh Yee MD Staff Physician Pulmonary and Critical Care Medicine 11:25 AM 11/09/2022 documented in this encounter Plan of Treatment Not on file documented as of this encounter Results * Pulmonary Function Testing [...] / FVC LLN 78 % COMPAS PFT [id number] Actual Pre-BD 4.32 L/s COMPAS PFT [id number] Pre-BD % of Predicted 120 % COMPAS PFT [id number] Predicted 3.59 L/s COMPAS PFT [id number] Pre-BD Z-Score 0.92 COMPAS PFT FVC Actual [...] / FVC LLN 78 % COMPAS PFT [id number] Actual Post-BD 4.94 L/s COMPAS PFT [id number] Post-BD % of Predicted 138 % COMPAS PFT [id number] Post-BD Z-Score 1.66 COMPAS PFT DLCO Hb [...] Kayleigh Joselito [place] PFT ORDERABLES COMPAS PFT * Request For 2nd Read CT Chest (11/09/2022 12:10 PM EDT) Anatomical Region Laterality Modality Chest SO Impressions 11/09/2022 12:36 PM EDT No pulmonary artery aneurysm Thank you for letting us participate in the care of this patient. ??If you are a health care provider and have any questions regarding this report, please contact the number below. ??For patients who have questions please contact the health critical care nurse practitioner that requested your imaging first. ? Electronically signed by: Dexter Sanchez MD, [facility] ??([phone]), at 11/09/2022 12:36 PM Narrative 11/09/2022 12:36 PM EDT EXAMINATION: REQUEST FOR 2ND READ CT CHEST CLINICAL HISTORY: CT chest negative for PE. Requesting re-evaluation for the presence pulmonary aneurysm in the setting of Behcets.; [place] [facility] [place] of exam [id number]; I believe a reinterpretation of this exam may alter care of Patient. Yes TECHNIQUE: Chest CTA with intravenous contrast. Sagittal and coronal multiplanar reformations and 3-D MIP images were submitted COMPARISON: None FINDINGS: CTA: The contrast bolus is satisfactory. No filling defect in the pulmonary artery or its branches. No pulmonary artery aneurysm. The heart is normal in size. No pericardial effusion. Aorta normal in course and caliber. There is a common trunk of the brachiocephalic and left common carotid arteries. The lungs are clear. Scattered nonspecific air trapping in the lower lobes. Central bronchi are patent. No pleural effusion or pneumothorax. Bones and soft tissues are unremarkable. Procedure Note Dexter Sanchez MD - 11/09/2022 EXAMINATION: REQUEST FOR 2ND READ CT CHEST CLINICAL HISTORY: CT chest negative for PE. Requesting re-evaluation forthe presence pulmonary aneurysm in the setting of Behcets.; [facility] Date of exam 20221013; I believe a reinterpretation of this exam mayalter care of Patient. Yes TECHNIQUE: Chest CTA with intravenous contrast. Sagittal and coronal multiplanar reformations and 3-D MIP images were submitted COMPARISON: None FINDINGS: CTA: The contrast bolus is satisfactory. No filling defect in thepulmonary artery or its branches. No pulmonary artery aneurysm. The heart is normalin size. No pericardial effusion. Aorta normal in course and caliber. Thereis a common trunk of the brachiocephalic and left common carotid arteries. The lungs are clear. Scattered nonspecific air trapping in the lowerlobes. Central bronchi are patent. No pleural effusion or pneumothorax. Bones and soft tissues are unremarkable. IMPRESSION No pulmonary artery aneurysm Thank you for letting us participate in the care of this patient. If youare a health care provider and have any questions regarding this report,please contact the number below. For patients who have questions please contactthe health critical care nurse practitioner that requested your imaging first. Kayleigh Joselito [facility] OUTSIDE INTERPRE TATION ORDERABLES documented in this encounter Visit Diagnoses Diagnosis Behcet's disease Behcet's syndrome Mild intermittent asthma without complication Unspecified asthma Abnormal CT scan of lung Other nonspecific abnormal finding of lung field History of nicotine vaping Mild cannabis use disorder Behcet's disease Behcet's syndrome Mild intermittent asthma without complication Unspecified asthma documented in this encounter Care Teams Dietetic Assistant Relationship Specialty Start Date End Date Ben Nevarez MD [address] [place] [address] PCP - General Pediatrics 11/20/15 documented as of this encounter
--- OUTSIDE RECORDS SUMMARY | 2023-11-17 15:27 | XMS_ITS | Encounter Summary ---
Author Organization [place] [address] Care Team Providers Care Openstack Developer Name Role Phone Ben Nevarez MD Primary Care Provider [phone] Reason for Referral * Consultation (Urgent) - Closed Specialty Diagnoses / Procedures Referred By Brendan moore Referred To Contact Pulmonology Diagnoses Behcet's disease Arpit Cormier MD [facility] [address] [facility] Pulmonology [address] [place] [phone] Referral ID Status Reason Start Date Expiration Date V isits Requested Visits Authorized [id number] Closed Consult, Test & Treat 11/05/2022 11/05/2023 1 1 * Consultation (Urgent) - Closed Specialty Diagnoses / Procedures Referred By Brendan moore Referred To Contact Cardiology Diagnoses Chest pain 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 Arpit Cormier MD [facility] [address] [facility] Cardiology [address] [place] [phone] Referral ID Status Reason Start Date Expiration Date V isits Requested Visits Authorized [id number] Closed Consult, Test & Treat 11/05/2022 11/05/2023 1 1 Encounter Details Date Type Department Care Team (Late st Contact Info) Description 11/05/2022 4:00 PM EDT Office Visit Pediatric [place] [phone] [facility] [place] [address] Behcet's disease Social History Tobacco Use Types [...] Sign Reading Time Taken Comments Blood Pressure 86/60 11/05/2022 3:59 PM EDT Pulse 85 11/05/2022 3:59 PM EDT Temperature 36.9 ??C (98.4 ??F) 11/05/2022 3:59 PM ED T Respiratory Rate - - Oxygen Saturation 98% 11/05/2022 3:59 PM EDT RA Inhaled Oxygen Concentration - - Weight 52.4 kg (115 lb 8 oz) 11/05/2022 3:59 PM EDT Height 152 cm (4' 11.84) 11/05/2022 3:59 PM EDT Body Mass Index 22.68 11/05/2022 3:59 PM EDT documented in this encounter Progress Notes * Arpit Cormier MD - 11/05/2022 4:00 PM EDT Is a follow-up appointment for Elvia Rodrigues birthdate 2005 The patient is a 17-year-old female with 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 She is now in physical therapy and is taking 300 mg three times a day of gabapentin without improvement so it was tapered off Pediatric hematology has discontinued her Xarelto She has been asymptomatic for 2 years from her Bechet's but in September she developed an intercurrent illness characterized by nausea and vomiting and then on September 17 she developed chest pain the chest pain was intermittent and that resolved for several weeks and then she had a flare of it in October associated with near syncope diaphoresis radiation to her left arm which precipitated a ER visit during which she had an EKG that was normal and a CT PE protocol which was negative for PE but apparently onthe CT scan they saw a lesion that they think is assessed she was not treated and was referred to pulmonary and cardiology neither of which the appointments have happened yet since that episode she has had some polyarthralgias a rash on her lower extremities fatigue and a 4 pound weight loss. She has also had some burning when she urinates but no vaginal ulcers nor any oral ulcers nor any eye symptoms. The vast majority of her chest pain occurs when she is recumbent and trying to go to sleep and her sleep has been disturbed by this Her interim history includes an episode of Bartonella (cat scratch fever) from a kitten that involved her right cervical lymph nodes and periorbital area and resolved On exam she is healthy-appearing not in discomfort now BP (!) 86/60 (BP Location (NBP): Right arm, Patient Position: Sitting, BP Cuff Sizes: Adult (25-34 cm)) Pulse 85 Temp 36.9 ??C (98.4 ??F) (Oral) Ht 152 cm (4' 11.84) Wt 52.4 kg (115 lb 8 oz) SpO2 98% Comment: RA BMI 22.68 kg/m?? Her HEENT exam showed normal conjunctiva and sclera her funduscopic exam was entirely normal bilaterally her pharynx was benign there is no erythema her mucous membranes were moist there is no lymphadenopathy or thyromegaly her chest is clear heart exam was unremarkable her abdomen was benign and her extremities are hypermobile she had mild folliculitis but no synovitis or enthesitis Pressure over her costochondral margins did not generate pain or reproduce the symptoms that she was having she had no fibromyalgia tender points and epigastric tenderness was not elicited Her meds currently are bupropion and Vyvanse but neither of them can be implicated in her current symptoms While it is possible that she has coronary artery disease or even a coronary artery thrombus or a pulmonary embolism that was not seen on the CT scan I think those are unlikely my best guess is that this is esophageal spasm and has a diagnostic test I gave her a trial of Carafate. Because she wantsher care to be centralized at her request I put in an urgent consult to cardiology and pulmonary here She will message me with the results of the Carafate and I had her do some labs today that are pending at the time of this dictation documented in this encounter Plan of Treatment Scheduled Referrals Name Type Priority Associated Diagnoses Order Schedule Referral to Cardiology Outpatient Referral Urgent Behcet's disease Ordered: 11/05/2022 Referral to Pulmonology Outpatient Referral Urgent Behcet's disease Ordered: 11/05/2022 documented as of this encounter Procedures Procedure Name Priority Date/Time Associated Diagnosis Comments CRP, ACUTE INFLAMMATION Routine 11/05/2022 5:09 PM EDT Behcet's disease HEMOGRAM Routine 11/05/2022 5:09 PM EDT Behcet's disease DIFFERENTIAL, AUTOMATED Routine 11/05/2022 5:09 PM EDT Behcet's disease CARDIOLIPIN ANTIBODY SCREEN Routine 11/05/2022 5:09 PM EDT Behcet's disease SEDIMENTATION RATE Routine 11/05/2022 5: 09 PM EDT Behcet's disease CBC (WITH DIFF) Routine 11/05/2022 5:09 PM EDT Behcet's disease TSH Routine 11/05/2022 5:09 PM EDT Behcet's disease T4, FREE Routine 11/05/2022 5:09 PM EDT Behcet's disease documented in this encounter Results * Differential, Automated (11/05/2022 5:09 PM EDT) Neutrophil % 54.4 % [facility] Neutrophil Absolute 4.91 1.70 - 6.10 x10(3)/[facility] Lymph % 32.9 % [facility] Lymphocytes Abs 3.0 0.9 - 3.2 x10(3)/[facility] Monocyte % 7.2 % [facility] Monocyte Abs 0.6 0.3 - 0.9 x10(3)/[facility] Eos % 4.5 % [facility] Eosinophils Abs 0.4 0.0 - 0.4 x10(3)/[facility] Basophil % 0.7 % [facility] Baso Absolute 0.1 0.0 - 0.1 x10(3)/[facility] Immature Gran % 0.30 % [facility] Comment: Immature granulocytes(IG's)percentage and absolute count will include metamyelocytes, myelocytes, and promyelocytes. Blood smears from CBCs yielding IG's will be scanned manually for concordance. If this scan disagrees with the automated IG or if promyelocytes are noted, a manual differential will be performed. Immature Gran Absolute 0.03 0.00 - 0.04 x10(3)/[facility] Blood 11/05/2022 5:09 PM EDT 11/05/2022 5:16 PM EDT Narrative Resulting Agency Comment Spec In Lab Arpit Cormier MD HEMATOLOGY ORDERABLE S [facility] [place] [address] * Hemogram (11/05/2022 5:09 PM EDT) White Blood Cell 9.0 4.0 - 9.5 x10(3)/[facility] Red Blood Cell 4.39 4.00 - 5.21 x10(6)/[facility] Hemoglobin 14.0 11.7 - 15.5 g/dL [facility] Hematocrit 41.0 35.7 - 45.8 % [facility] Mean Cell Volume 93.4 82.6 - 94.4 fL [facility] Mean Cell Hemoglobin 31.9 27.1 - 32.0 pg [facility] Mean Cell Hemoglobin Concentration 34.1 31.7 - 35.0 g/dL [facility] Platelet 305 145 - 357 x10(3)/[facility] RDW Standard Deviation 41.8 37.0 - 46.0 fL [facility] RDW coefficient of variation 12.1 11.5 - 14.1 % [facility] Mean Platelet Volume 9.0 7.6 - 12.9 fL [facility] NRBC% auto 0.0 % [facility] NRBC Absolute 0.000 0.000 - 0.000 x10(3)/[facility] Blood 11/05/2022 5:09 PM EDT 11/05/2022 5:16 PM EDT Narrative Resulting Agency Comment Spec In Lab Arpit Cormier MD HEMATOLOGY ORDERABLE S Performing Organization Address City/[facility]/ZIP Co de Phone Number [facility] [address] * Cardiolipin Antibody Screen (11/05/2022 5:09 PM EDT) Cardiolipin Antibody IgG <0.5 <=9.9 GPL-U/mL [facility] Cardiolipin Antibody IgM 4.5 <=9.9 MPL-U/mL [facility] Blood 11/05/2022 5:09 PM EDT 11/06/2022 7:28 AM EDT Narrative Resulting Agency Comment Spec In Lab Arpit Cormier MD IMMUNOLOGY ORDERABLE S [facility] [address] * T4, free (11/05/2022 5:09 PM EDT) Free T4 1.08 0.93 - 1.70 ng/dL [facility] Comment: Reference Interval (ng/dL): Females: ??First Trimester: 0.97-1.68 ??Second Trimester: 0.77-1.51 ??Third Trimester: 0.77-1.49 Blood 11/05/2022 5:09 PM EDT 11/05/2022 5:16 PM EDT Narrative Resulting Agency Comment Spec In Lab Arpit Cormier MD CHEMISTRY ORDERABLES [facility] [address] * TSH (11/05/2022 5:09 PM EDT) [facility] Thyroid Stimulating Hormone 0.68 0.27 - 4.20 mcIU/mL [facility] Comment: Reference Interval (mcIU/mL): Females: ??First Trimester: 0.23-3.88 ??Second Trimester: 0.22-3.90 ??Third Trimester: 0.44-4.66 Blood 11/05/2022 5:09 PM EDT 11/05/2022 5:16 PM EDT Narrative Resulting Agency Comment Spec In Lab Arpit Cormier MD CHEMISTRY ORDERABLES Performing Organization Address [facility] Co de Phone Number [facility] [address] * CRP, acute inflammation (11/05/2022 5:09 PM EDT) [facility] C-Reactive Protein <3.0 <=4.9 mg/L [facility] Blood 11/05/2022 5:09 PM EDT 11/05/2022 5:16 PM EDT Narrative Resulting Agency Comment Spec In Lab Arpit Cormier MD CHEMISTRY ORDERABLES Performing Organization Address City/[facility]/ZIP Co de Phone Number [facility] [address] * Sedimentation rate (11/05/2022 5:09 PM EDT) Sedimentation Rate Automated <3 2 - 37 mm/hr [facility] Comment: Effective March 22, 2019 new capillary photometric technology has resulted in a change in reference ranges. It is recommended that each ESR result be reviewed with its own age appropriate reference range. Blood 11/05/2022 5:09 PM EDT 11/05/2022 5:16 PM EDT Narrative Resulting Agency Comment Spec In Lab Arpit Cormier MD HEMATOLOGY ORDERABLE S [facility] [address] documented in this encounter Visit Diagnoses Diagnosis Behcet's disease Behcet's syndrome documented in this encounter Care Teams Openstack Developer Relationship Specialty Start Date End Date Ben Nevarez MD [address] [place] [address] PCP - General Pediatrics 11/20/15 documented as of this encounter
--- OUTSIDE RECORDS SUMMARY | 2023-11-17 15:27 | XMS_ITS | Encounter Summary ---
[place] [address] Care Team Providers Care Associate Faculty Name Role Phone Ben Nevarez MD Primary Care Provider [phone] Encounter Details Date Type Department Care Team (Late st Contact Info) Description 09/02/2021 Telephone Hematology [place] [phone] Kelli Person RN Social History Tobacco Use Types Packs/Day Years Used Date Smoking Tobacco: Never Smokeless Tobacco: Never Comments:smokes marajuana Sex and Gender Information Value Date Recorded Sex Assigned at Not on file Gender Identity Not on file Sexual Orientation Not on file documented as of this encounter Miscellaneous Notes * Telephone Encounter - Kelli Person RN - 09/02/2021 3:30 PM EDT TC to Dr. Nevarez regarding patient's pending wisdom teeth extractions. Elvia has a history of pulmonary embolus in 2019 that was thought to be provoked secondary to infection with an underlying diagnosis of Bechets and followed by Rheumatology. She completed a course of AC therapy with Xarelto in May 2020. Per Dr. Nevarez, she's been doing well from thrombosis standpoint with no further VTE events noted. No empiric therapy from hematology standpoint indicated for this procedure. Will review with Dr. Thakkar and forward any further recommendations to Dr. Nevarez. Kelli Person RN MSN From: Damien Rico < > Sent: Thursday, September 02, 2021 10:25 AM To: Kelli Person < > Subject: S Lilia [address] Maico Nevarez from [facility] a call in regards to Elvia. She is needing her wisdom teeth out and he is looking for some guidance on her. He can be reached on his cell# [phone]. Thanks, Damien documented in this encounter Plan of Treatment Not on file documented as of this encounter Visit Diagnoses Not on filedocumented in this encounter Care Teams Associate Faculty Relationship Specialty Start Date End Date Ben Nevarez MD [address] [place] [address] [address] [facility] [facility] [address] PCP - General Pediatrics 11/20/15 documented as of this encounter
--- OUTSIDE RECORDS SUMMARY | 2023-11-17 15:27 | XMS_ITS | Encounter Summary ---
Author Organization [place] [address] Care Team Providers Care Department Traffic Freight Router Name Role Phone Ben Nevarez MD Primary Care Provider [phone] Reason for Referral * Diagnostic Test (Routine) - Closed Specialty Diagnoses / Procedures Referred By Contac t Referred To Contact Cardiology Diagnoses Arthralgia, unspecified joint Procedures Echocardiogram Transthoracic([facility]) Ventura Thakkar [facility] [place] [address] [facility] [place] [address] Referral ID Status Reason Start Date Expiration Date V isits Requested Visits Authorized [id number] Closed Specialty Service Requested 03/13/2020 03/13/2021 1 1 Reason for Visit * Diagnostic Test (Routine) - Closed Specialty Diagnoses / Procedures Referred By Contac t Referred To Contact Cardiology Diagnoses Arthralgia, unspecified joint Procedures Echocardiogram Transthoracic([facility] or [place]) Ventura Thakkar [facility] [place] [address] [facility] [place] [address] Referral ID Status Reason Start Date Expiration Date V isits Requested Visits Authorized [id number] Closed Specialty Service Requested 03/13/2020 03/13/2021 1 1 Encounter Details Date Type Department Care Team (Latest Contact Info) Description 03/13/2020 1:00 PM EST - 03/13/2020 11:59 PM EST Hospital Encounter Non-Invasive Cardiology Lab [facility] [place] [id number] Ventura Thakkar, [facility] [place] [address] Arthralgia, unspecified joint Discharge Disposition: Home Social History Tobacco Use [...] every 6 hours as needed for Pain. melatonin 10 mg Tablet, Multiphasic Release Bedtime 02/08/2020 05/06/19 24 Xarelto 15 mg Tablet TK 1 T PO BID FOR 20 DAYS 02/12/2020 05/06/2023 documented as of this encounter Plan of Treatment Not on file documented as of this encounter Procedures Procedure Name Priority Date/Time Associated Diagnosis Comments ECHO COMPLETE Routine 03/13/2020 2:25 PM EST Arthralgia, unspecified joint documented in this encounter Results * ECHO COMPLETE (03/13/2020 2:25 PM EST) Anatomical Region Laterality Modality Other 03/15/2020 Narrative 03/15/2020 7:09 PM EST Procedure: ?Pediatric Echocardiogram Patient: ?ELODIA Jama ?(Age): 2005(15y) ? Med Rec#: ? [id number] ?Sex: ?F ? Site Loc: ? DH ?Ht / Wt: ??152(cm)/65(kg) Pt. Loc: ?Echo Lab ?BSA: ?1.68 ([facility]) Study Date: ?? 03/13/2020 ?Pt. Type: Study Quality: ? Referring: JUNIE Reading: Giovani Campbell ([id number]) Inorganic Chemistry Professor: Corrie Flores RDCS, FASE Diagnosis: *Personal history of pulmonary embolism (Z86.711) Rhythm: ? Sinus BP: ? 93/59 SUMMARY: 1. No anatomic abnormality was seen with complete standard exam. Right ventricular systolic pressure is normal and there are no signs of right ventricular strain. 2. Left and right ventricular chamber size, wall thickness and systolic performance appear normal. 3. The estimated right ventricular systolic pressure by the tricuspid regurgitation is 15 mm Hg plus right atrial pressure (RAP). 4. Normal valvar structure and function. 5. The main and branch pulmonary arteries are normal in size and configuration, without narrowing or dilatation. 6. The aortic arch is normal in size, intact, without narrowing, dilatation or a coarctation. 7. There is no pericardial or pleural effusion noted. 8. See remainder of report for additional findings. FINDINGS: ? 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 Venous Connections ?Three veins drain normally to the left atrium; the left upper pulmonary vein is not well visualized. Atrial Septum ?The interatrial septum is intact with no evidence of an atrial septal defect or patent foramen ovale. Atria ?The right and left atria are of normal size. Av Valves ?The tricuspid valve annulus is normal size. ?There is laminar flow through the tricuspid valve. ?There is physiologic tricuspid regurgitation. ?The estimated right ventricular systolic pressure by the tricuspid regurgitation is 15 mm Hg plus right atrial pressure (RAP). ?The mitral valve is normal in structure with no stenosis or regurgitation. Outflow Tracts ?The right and left ventricular outflow tracts have normal size and geometry, without obstruction or narrowing. Ventricles ?The right ventricle has normal chamber size, wall thickness and systolic function. ?The left ventricle has normal chamber size, wall thickness and systolic function. Ventricular Septum ?The interventricular septum is intact with no evidence of a ventricular septal defect. Semilunar Valves ?The pulmonary valve annulus size is normal. ?There is physiologic pulmonary valve insufficiency. ?The aortic valve is normal with three leaflets, no stenosis, or insufficiency. Aortic Pulmonary Root ?The pulmonary root and sinuses are normal without dilatation or stenosis. ??The aorta sinuses of Valsalva and sinotubular junction are normal without stenosis or dilation. Thoracic Arteries ?The main and branch pulmonary arteries are normal in size and configuration, without narrowing or dilatation. ?There is no patent ductus arteriosus. ?The aortic arch is normal in size, intact, without narrowing, dilatation or a coarctation. ?There is a left sided aortic arch. Coronary Arteries ?The left main coronary artery originates normally from the left coronary sinus. ?The right coronary artery originates normally from the right coronary sinus. Not confirmed with color flow. Effusion ?There is no pericardial or pleural effusion noted. Chambers MM ? Value(Units) ?? Range ? Z Score IVSd MM ?7 ??mm ?(6.50 - 12.02) ?-1.6 ?? LVPWd MM ? 7 ??mm ?(6.38 - 11.01) ?- 1.5 ?? LVEDd dim MM ? 41 ??mm ? (41.77 - 55.71) ?-2.2 ?? LVEDd dim MM / BSA ? 24.43 ??mm/m2 ?? -?? LVEDs dim MM ? 26 ??mm ? (24.88 - 38.07) ?-1.7 ?? LVEDs dim MM / BSA ? 15.49 ??mm/m2 ?? -?? LV FS MM ? 36.59 ??% ? -?? EF (Teichholz) MM ?66.85 ??% ? -?? [place] / Sys Function ? Value(Units) ?? Range ? Z Score MV E-wave Vmax ? 0.9 ??cm/s ?-?? MV dec time ?198 ??ms ?-?? MV A-wave Vmax ? 0.4 ??cm/s ?-?? MV E:A ratio ? 2.25 ??ratio ?-?? LV septal e' Vmax ?0.15 ??cm/s ? -?? LV lateral e' Vmax ? 0.26 ??cm/s ? -?? LV average e' Vmax ? 0.21 ??cm/s ? -?? LV E:e' septal ratio ? 6 ??ratio ? -?? LV E:e' lateral ratio ?3.46 ??ratio ?-?? LV average E:e' ratio ?4.39 ??ratio ?-?? Aortic Valve ? Value(Units) ?? Range ? Z Score AV peak gradient ? 1.14 ??mm Hg ?-?? LVOT Vmax ?1 ??m/s ? -?? LVOT peak gradient ? 4 ??mm Hg ? -?? Tricuspid Valve ? Value(Units) ?? Range ? Z Score TR Vmax ?1.9 ??m/s ? -?? TR peak gradient ? 14.44 ??mm Hg ?? -?? RVSP ? 15 ? mm Hg ? Pulmonary Valve / RV ? Value(Units) ?? Range ? Z Score PV monse diam 2D ? 20.8 ??mm ? (17.39 - 34.24) ?-1.2 ?? PAEDP ?1 ??mm Hg ? -?? Aorta ? Value(Units) ?? Range ? Z Score AV monse diam 2D ? 16.9 ??mm ? (16.79 - 23.40) ?-1.9 ?? Ao root diam 2D ?26 ??mm ? (21.59 - 32.56) ?-0.4 ?? Ao root diam (2D) / BSA ??15.49 ??mm/m2 ?? -?? Ao STJ diam ?22.4 ??mm ? (18.02 - 26.45) ?0.1 ?? Asc Ao diam (LAX) ?29 ??mm ? (19.28 - 29.37) ?1.9 ?? All Z scores are estimated Measurement Trending Name ? 03/13/2020 ? PAEDP ?1 This report has been electronically signed by: Giovani Campbell MD ? 03/15/2020 19:08:22 Images reviewed and interpretation verified [facility] Cardiac Ultrasound Laboratory Procedure Note Giovani Campbell DO - 03/15/2020 Procedure: Pediatric Echocardiogram Patient: ELODIA Jama (Age): 2005(15y) Med Rec#: [id number] Sex: F [place] Loc[place] [facility] [place] Ht / Wt: 152(cm)/65(kg) Pt. Loc: Echo Lab BSA: 1.68 ([facility]) Study Date: 03/13/2020 Pt. Type: Study Quality: Referring: JUNIE Reading: Giovani Campbell ([id number]) Inorganic Chemistry Professor: Corrie Flores RDCS, FASE Diagnosis: *Personal history of pulmonary embolism (Z86.711) Rhythm: Sinus BP: 93/59 SUMMARY: 1. No anatomic abnormality was seen with complete standard exam. Right ventricular systolic pressure is normal and there are no signs of right ventricular strain. 2. Left and right ventricular chamber size, wall thickness and systolic performance appear normal. 3. The estimated right ventricular systolic pressure by the tricuspid regurgitation is 15 mm Hg plus right atrial pressure (RAP). 4. Normal valvar structure and function. 5. The main and branch pulmonary arteries are normal in size and configuration, without narrowing or dilatation. 6. The aortic arch is normal in size, intact, without narrowing, dilatation or a coarctation. 7. There is no pericardial or pleural effusion noted. 8. See remainder of report for additional findings. 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 Venous Connections Three veins drain normally to the left atrium; the left upper pulmonary vein is not well visualized. Atrial Septum The interatrial septum is intact with no evidence of an atrial septal defect or patent foramen ovale. Atria The right and left atria are of normal size. Av Valves The tricuspid valve annulus is normal size. There is laminar flow through the tricuspid valve. There is physiologic tricuspid regurgitation. The estimated right ventricular systolic pressure by the tricuspid regurgitation is 15 mm Hg plus right atrial pressure (RAP). The mitral valve is normal in structure with no stenosis or regurgitation. Outflow Tracts The right and left ventricular outflow tracts have normal size and geometry, without obstruction or narrowing. Ventricles The right ventricle has normal chamber size, wall thickness and systolic function. The left ventricle has normal chamber size, wall thickness and systolic function. Ventricular Septum The interventricular septum is intact with no evidence of a ventricular septal defect. Semilunar Valves The pulmonary valve annulus size is normal. There is physiologic pulmonary valve insufficiency. The aortic valve is normal with three leaflets, no stenosis, or insufficiency. Aortic Pulmonary Root The pulmonary root and sinuses are normal without dilatation or stenosis. The aorta sinuses of Valsalva and sinotubular junction are normal without stenosis or dilation. Thoracic Arteries The main and branch pulmonary arteries are normal in size and configuration, without narrowing or dilatation. There is no patent ductus arteriosus. The aortic arch is normal in size, intact, without narrowing, dilatation or a coarctation. There is a left sided aortic arch. Coronary Arteries The left main coronary artery originates normally from the left coronary sinus. The right coronary artery originates normally from the right coronary sinus. Not confirmed with color flow. Effusion There is no pericardial or pleural effusion noted. Chambers MM Value(Units) Range Z Score IVSd MM 7 mm (6.50 - 12.02) ??-1.6 LVPWd MM 7 mm (6.38 - 11.01) ??-1.5 LVEDd dim MM 41 mm (41.77 - 55.71) -2.2 LVEDd dim MM / BSA 24.43 mm/m2 -?? LVEDs dim MM 26 mm (24.88 - 38.07) -1.7 LVEDs dim MM / BSA 15.49 mm/m2 -?? LV FS MM 36.59 % -?? EF (Teichholz) MM 66.85 % -?? [place] / Sys Function Value(Units) Range Z Score MV E-wave Vmax 0.9 cm/s -?? MV dec time 198 ms -?? MV A-wave Vmax 0.4 cm/s -?? MV E:A ratio 2.25 ratio -?? LV septal e' Vmax 0.15 cm/s -?? LV lateral e' Vmax 0.26 cm/s -?? LV average e' Vmax 0.21 cm/s -?? LV E:e' septal ratio 6 ratio -?? LV E:e' lateral ratio 3.46 ratio -?? LV average E:e' ratio 4.39 ratio -?? Aortic Valve Value(Units) Range Z Score AV peak gradient 1.14 mm Hg -?? LVOT Vmax 1 m/s -?? LVOT peak gradient 4 mm Hg -?? Tricuspid Valve Value(Units) Range Z Score TR Vmax 1.9 m/s -?? TR peak gradient 14.44 mm Hg -?? RVSP 15 mm Hg Pulmonary Valve / RV Value(Units) Range Z Score PV monse diam 2D 20.8 mm (17.39 - 34.24) -1.2 PAEDP 1 mm Hg -?? Aorta Value(Units) Range Z Score AV monse diam 2D 16.9 mm (16.79 - 23.40) -1.9 Ao root diam 2D 26 mm (21.59 - 32.56) -0.4 Ao root diam (2D) / BSA 15.49 mm/m2 -?? Ao STJ diam 22.4 mm (18.02 - 26.45) 0.1 Asc Ao diam (LAX) 29 mm (19.28 - 29.37) 1.9 All Z scores are estimated Measurement Trending Name 03/13/2020 PAEDP 1 This report has been electronically signed by: Giovani Campbell MD 03/15/2020 19:08:22 Images reviewed and interpretation verified [facility] Cardiac Ultrasound Laboratory Ventura Thakkar DO ECHO ORDERABLES documented in this encounter Visit Diagnoses Diagnosis Arthralgia, unspecified joint documented in this encounter Care Teams Department Traffic Freight Router Relationship Specialty Start Date End Date [place] [address] PCP - General Pediatrics 11/20/15 documented as of this encounter
--- OUTSIDE RECORDS SUMMARY | 2023-11-17 15:27 | XMS_ITS | Encounter Summary ---
[place] [address] Care Team Providers Care Fountain Supervisor Name Role Phone Ben Nevarez MD Primary Care Provider [phone] Encounter Details Date Type Department Care Team (Late st Contact Info) Description 05/14/2020 Telephone [place] [address] Jose Angel Ferris RN Social History Tobacco Use Types Packs/Day Years Used Date Smoking Tobacco: Never Smokeless Tobacco: Never Comments:no ETS exposure Sex and Gender Information Value Date Recorded Sex Assigned at Not on file Gender Identity Not on file Sexual Orientation Not on file documented as of this encounter Miscellaneous Notes * Telephone Encounter - Jose Angel Ferris RN - 05/14/2020 9:26 AM EST Message MRI negative ----- Message ----- From: Department, Radiology Sent: 05/13/2020 ??11:02 AM EST To: Arpit Cormier MD I sent a [facility] message to Dad. documented in this encounter Plan of Treatment Not on file documented as of this encounter Visit Diagnoses Not on filedocumented in this encounter Care Teams Fountain Supervisor Relationship Specialty Start Date End Date Ben Nevarez MD [address] [place] [address] PCP - General Pediatrics 11/20/15 documented as of this encounter
--- OUTSIDE RECORDS SUMMARY | 2023-11-17 15:27 | XMS_ITS | Encounter Summary ---
Author Organization [facility] Address [facility] [place] [address] Care Team Providers Care Business Banking Sales Assistant Name Role Phone Ben Nevarez MD Primary Care Provider [phone] Reason for Referral * Consultation (Urgent) - Closed Specialty Diagnoses / Procedures Referred By Contac t Referred To Contact Dermatology Diagnoses Genital ulcer, female Arpit Cormier MD [facility] [place] [address] Cierra López MD [facility] DR KENTRELL [place] [address] Referral ID Status Reason Start Date Expiration Date V isits Requested Visits Authorized [id number] Closed Consult, Test & Treat 04/24/2020 04/24/2021 1 1 Encounter Details Date Type Department Care Team (Late st Contact Info) Description 04/24/2020 Orders [place] [address] Arpit Cormier MD [facility] [place] [address] Genital ulcer, female Social History Tobacco Use [...] Outpatient Referral Routine Genital ulcer, female Ordered: 04/24/2020 documented as of this encounter Visit Diagnoses Diagnosis Genital ulcer, female Other specified disorders of female genital organs documented in this encounter Care Teams Business Banking Sales Assistant Relationship Specialty Start Date End Date [place] Nevarez [place] [address] PCP - General Pediatrics 11/20/15 documented as of this encounter
--- OUTSIDE RECORDS SUMMARY | 2023-11-17 15:27 | XMS_ITS | Encounter Summary ---
[place] [address] Care Team Providers Care Instrumentation Specialist Name Role Phone Ben Nevarez MD Primary Care Provider [phone] Encounter Details Date Type Department Care Team (Late st Contact Info) Description 04/15/2021 Telephone Pediatric Nephrology at [address] [address] Samantha Meek RN Social History Tobacco Use Types Packs/Day Years Used Date Smoking Tobacco: Never Smokeless Tobacco: Never Comments:smokes marajuana Sex and Gender Information Value Date Recorded Sex Assigned at Not on file Gender Identity Not on file Sexual Orientation Not on file documented as of this encounter Miscellaneous Notes * Telephone Encounter - Samantha Meek RN - 04/15/2021 10:37 AM EST Result letter sent to home address. * Telephone Encounter - Samantha Meek RN - 04/15/2021 10:24 AM EST ----- Message from Jim Moses DO sent at 04/12/2021 9:13 AM EST ----- Labs are stable. No iron at this time Thanks Simon documented in this encounter Plan of Treatment Not on file documented as of this encounter Visit Diagnoses Not on filedocumented in this encounter Care Teams Instrumentation Specialist Relationship Specialty Start Date End Date Ben Nevarez MD [address] [facility] [place] [address] PCP - General Pediatrics 11/20/15 documented as of this encounter
--- OUTSIDE RECORDS SUMMARY | 2023-11-17 15:27 | XMS_ITS | Encounter Summary ---
[place] [address] Care Team Providers Care Production Maintenance Mechanic Name Role Phone Ben Nevarez MD Primary Care Provider [phone] Encounter Details Date Type Department Care Team (Late st Contact Info) Description 11/29/2020 Telephone Pediatric Nephrology at [address] [address] January Barnes RN Social History Tobacco Use Types Packs/Day Years Used Date Smoking Tobacco: Never Smokeless Tobacco: Never Comments:no ETS exposure Sex and Gender Information Value Date Recorded Sex Assigned at Not on file Gender Identity Not on file Sexual Orientation Not on file documented as of this encounter Miscellaneous Notes * Telephone Encounter - January Barnes RN - 11/29/2020 4:22 PM EDT 11/29/20 Return call to Tino (mother) who was calling to make sure that Pediatric Nephrology had all information necessary to get Elvia scheduled for an appointment. Mother is advised that PCP was contacted today and they will be forwarding lab and imaging reports. Once all information is reviewed mother will be contacted to schedule appointment with Dr. Moses. Mother verbalizes understanding and is without further questions at this time. Evonne Barnes RN * Telephone Encounter - January Barnes RN - 11/29/2020 4:20 PM EDT ----- Message from Seda Goldstein sent at 11/29/2020 3:56 PM EDT ----- Regarding: referral Tino called, worried about her daughters referral. She is hoping a nurse could reach out and talk to her briefly about what you may need for the referral and just to calm her nerves about her daughter. Tino can be reached at [phone]. Would really like to talk before the weekend wait documented in this encounter Plan of Treatment Not on file documented as of this encounter Visit Diagnoses Not on filedocumented in this encounter Care Teams Production Maintenance Mechanic Relationship Specialty Start Date End Date [place] Nev[place] [address] PCP - General Pediatrics 11/20/15 documented as of this encounter
--- OUTSIDE RECORDS SUMMARY | 2023-11-17 15:27 | XMS_ITS | Encounter Summary ---
Author Organization [facility] [place] [address] Care Team Providers Care Garage Door Service Technician Name Role Phone Ben Nevarez MD Primary Care Provider +1 [phone] Reason for Referral * Diagnostic Test (Routine) - Closed Specialty Diagnoses / Procedures Referred By Contac t Referred To Contact Radiology Diagnoses Genital ulcer, female Procedures MRI Pelvis Soft Tissue (GI KERFER MACHINE OPERATOR) wwo Contrast MRI Pelvis Soft Tissue (GI KERFER MACHINE OPERATOR) w Contrast Arpit Cormier MD [facility] [address] [place] [address] Referral ID Status Reason Start Date Expiration Date V isits Requested Visits Authorized [id number] Closed Specialty Service Requested 04/30/2020 10/28/2021 1 1 Encounter Details Date Type Department Care Team (Latest Contact Info) Description 04/30/2020 11:30 AM EST TH Visit (TeleHealth) [place] [address] Arpit Cormier MD [facility] [place] [address] Genital ulcer, female Social History Tobacco Use Types Packs/Day Years Used Date Smoking Tobacco: Never Smokeless Tobacco: Never Comments:no ETS exposure Sex and Gender Information Value Date Recorded Sex Assigned at Not on file Gender Identity Not on file Sexual Orientation Not on file documented as of this encounter Progress Notes * Arpit Cormier MD - 04/30/2020 11:30 AM EST Is a follow-up appointment for Elvia Rodrigues birthdate 2005 ?? The patient is a 15-year-old [...] CT and evaluation for possible further therapy. My work-up included a positive IgM anticardiolipin which is typically found in an infectious circumstance ?? She had an echocardiogram which was entirely normal ?? She saw dermatology but was unable to connect with Dr. López and the appointment will be made by video in the near future. Since her vaginal source of healed the photographs that they have on their cell phone will be useful In the interim since I saw her [...] remains on Xarelto and MiraLAX as needed Her major complaint was back pain which is been constant and 3/8 the vaginal/perineal issues. She had a work-up which included x-rays that I do not have access to but they were read as normal she is B 27 - I decided to pursue this with an MRI of her pelvis. I do have a concern that it might be Crohn's that can present similarly especially since she is HLA B 51 - She saw ophthalmology and aside from astigmatism she had no inflammation in her eyes All follow-up after the MRI by message and she has an appointment in May by video documented in this encounter Plan of Treatment Not on file documented as of this encounter Results * MRI Pelvis Soft Tissue (GI KERFER MACHINE OPERATOR) wwo Contrast (05/10/2020 7:10 PM EST) Anatomical Region Laterality Modality Pelvis Magnetic Resonan ce Impressions 05/13/2020 10:57 AM EST 1. ??No inflammatory process in the pelvis. 2. ??Trace free fluid in the pelvis, likely physiologic. I have personally reviewed the image(s) and the resident's interpretation and agree with the findings, Jim Live MD at 05/13/2020 10:57 AM Thank you for letting us participate in the care of this patient. For questions regarding this report, please contact the number below. ? 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 COMPARISON: None FINDINGS: Reproductive structures: Normal uterus, cervix and vagina. No adnexal masses. Trace fluid in the endometrial cavity and free fluid in the pelvis, likely physiologic. GI tract: No bowel or rectal wall thickening or dilatation. No adjacent inflammation. No perianal fistula. Perineum and ischioanal fossa: Normal signal; no fluid collection. Lymph nodes: No adenopathy. Marrow signal: Normal for age. The sacroiliac joints are partially imaged but appear normal as well. Procedure Note Jim Live MD - 05/13/2020 EXAMINATION: MRI PELVIS SOFT TISSUE (GI KERFER MACHINE OPERATOR) WWO CONTRAST CLINICAL HISTORY: back pain pelvic inflammation oral ulcers Behcetsversus Crohns TECHNIQUE: Multisequence, multiplanar high-resolution MRI of the pelviswas performed prior to and following the intravenous administration of 13mlDotarem. COMPARISON: None FINDINGS: Reproductive structures: Normal uterus, cervix and vagina. No adnexalmasses. Trace fluid in the endometrial cavity and free fluid in the pelvis,likely physiologic. GI tract: No bowel or rectal wall thickening or dilatation. No adjacent inflammation. No perianal fistula. Perineum and ischioanal fossa: Normal signal; no fluid collection. Lymph nodes: No adenopathy. Marrow signal: Normal for age. The sacroiliac joints are partially imagedbut appear normal as well. IMPRESSION 1. No inflammatory process in the pelvis. 2. Trace free fluid in the pelvis, likely physiologic. I have personally reviewed the image(s) and the resident's interpretationand agree with the findings, Jim Live MD at 05/13/2020 10:57 AM Thank you for letting us participate in the care of this patient. Forquestions regarding this report, please contact the number below. Arpit Cormier MD IM MRI ORDERABLES documented in this encounter Visit Diagnoses Diagnosis Genital ulcer, female Other specified disorders of female genital organs Genital ulcer, female Other specified disorders of female genital organs documented in this encounter Care Teams Garage Door Service Technician Relationship Specialty Start Date End Date Ben Nevarez MD [address] [place] [address] [place] [address] PCP - General Pediatrics 11/20/15 documented as of this encounter
--- OUTSIDE RECORDS SUMMARY | 2023-11-17 15:27 | XMS_ITS | Encounter Summary ---
[place] [address] Care Team Providers Care Dog Licenser Name Role Phone Ben Nevarez MD Primary Care Provider [phone] Encounter Details Date Type Department Care Team (Late st Contact Info) Description 02/06/2021 Telephone Psychiatry [place] [phone] Carolyn Magdaleno Social History Tobacco Use Types Packs/Day Years Used Date Smoking Tobacco: Never Smokeless Tobacco: Never Comments:no ETS exposure Sex and Gender Information Value Date Recorded Sex Assigned at Not on file Gender Identity Not on file Sexual Orientation Not on file documented as of this encounter Miscellaneous Notes * Telephone Encounter - Carolyn Magdaleno - 02/06/2021 2:53 PM EDT [facility] [place] confirm that we received the intake packet via fax today. She was also interested in scheduling. Callback is [phone]. She is in a meeting until 4 this afternoon. Thank you documented in this encounter Plan of Treatment Not on file documented as of this encounter Visit Diagnoses Not on filedocumented in this encounter Care Teams Dog Licenser Relationship Specialty Start Date End Date Ben Nevarez MD [address] [place] [address] PCP - General Pediatrics 11/20/15 documented as of this encounter
--- OUTSIDE RECORDS SUMMARY | 2023-11-17 15:27 | XMS_ITS | Encounter Summary ---
Author Organization [facility] [place] [address] Care Team Providers Care Vehicle Trimmer Name Role Phone Ben Nevarez MD Primary Care Provider [phone] Encounter Details Date Type Department Care Team (Latest Contact Info) Description 11/09/2022 Travel Social History Tobacco Use Types Packs/Day [...] on filedocumented in this encounter Care Teams Vehicle Trimmer Relationship Specialty Start Date End Date [place] [address] PCP - General Pediatrics 11/20/15 documented as of this encounter
--- OUTSIDE RECORDS SUMMARY | 2023-11-17 15:27 | XMS_ITS | Encounter Summary ---
Author Organization [facility] Address [facility] [place] [address] Care Team Providers Care Straightener Gun Parts Name Role Phone Ben Nevarez MD Primary Care Provider [phone] Encounter Details Date Type Department Care Team (Latest Contact Info) Description 06/04/2020 1:00 PM EST TH Visit (TeleHealth) Pediatric [place] [address] Arpit Cormier MD [facility] [place] [address] Behcet's disease; Chronic midline low back pain, unspecified whether sciatica present Social History Tobacco Use Types Packs/Day Years Used Date Smoking Tobacco: Never Smokeless Tobacco: Never Comments:no ETS exposure Sex and Gender Information Value Date Recorded Sex Assigned at Not on file Gender Identity Not on file Sexual Orientation Not on file documented as of this encounter Progress Notes * Arpit Cormier MD - 06/04/2020 1:00 PM EST Is a follow-up appointment for Elvia Rodrigues birthdate 2005 The patient is a 15-year-old female with a 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
--- OUTSIDE RECORDS SUMMARY | 2023-11-17 15:27 | XMS_ITS | Encounter Summary ---
[place] [address] Care Team Providers Care Business Operations Consultant Name Role Phone Ben Nevarez MD Primary Care Provider Encounter Details Date Type Department Care Team (Late st Contact Info) Description 06/25/2020 Telephone [place] [address] Zarina Silvestre Social History Tobacco Use Types Packs/Day Years Used Date Smoking Tobacco: Never Smokeless Tobacco: Never Comments:no ETS exposure Sex and Gender Information Value Date Recorded Sex Assigned at Not on file Gender Identity Not on file Sexual Orientation Not on file documented as of this encounter Miscellaneous Notes * Telephone Encounter - Zarina Silvestre - 06/25/2020 8:49 AM EDT VM left with pt's mother to discuss setting up appt for pt documented in this encounter Plan of Treatment Not on file documented as of this encounter Visit Diagnoses Not on filedocumented in this encounter Care Teams Business Operations Consultant Relationship Specialty Start Date End Date Ben Nevarez MD [address] [place], [place] [address] [address] PCP - General Pediatrics 11/20/15 documented as of this encounter
--- OUTSIDE RECORDS SUMMARY | 2023-11-17 15:27 | XMS_ITS | Encounter Summary ---
[place] [address] Care Team Providers Care Staffing Executive Name Role Phone Ben Nevarez MD Primary Care Provider Encounter Details Date Type Department Care Team (Late st Contact Info) Description 11/06/2022 Telephone [place] [phone] Dotty Kamara Social History Tobacco Use Types Packs/Day Years [...] on filedocumented in this encounter Care Teams Staffing Executive Relationship Specialty Start Date End [place] [address] PCP - General Pediatrics 11/20/15 documented as of this encounter
--- OUTSIDE RECORDS SUMMARY | 2023-11-17 15:27 | XMS_ITS | Encounter Summary ---
Author Organization [facility] Address [facility] [place] [address] Care Team Providers Care Dairy Feed Worker Name Role Phone Ben Nevarez MD Primary Care Provider [phone] [phone] Encounter Details Date Type Department Care Team (Late st Contact Info) Description 07/02/2020 2:00 PM EDT TH Visit (TeleHealth) [place] [address] Arpit Cormier MD [facility] [place] [address] Behcet's disease Social History Tobacco Use Types Packs/Day Years Used Date Smoking Tobacco: Never Smokeless Tobacco: Never Comments:no ETS exposure Sex and Gender Information Value Date Recorded Sex Assigned at Not on file Gender Identity Not on file Sexual Orientation Not on file documented as of this encounter Progress Notes * Arpit Cormier MD - 07/02/2020 2:00 PM EDT Is a follow-up appointment for Elvia Rodrigues birthdate 2005 ?? 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 ?? 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 She is now in physical therapy and is taking 300 mg three times a day of gabapentin without improvement so it was tapered off ?? Pediatric hematology has discontinued her Xarelto ?? Her Behcet's appears to be inactive she has no oral or vaginal ulcers ?? And I started her on diclofenac now that she is off the anticoagulation ?? We discussed Otezla (apremilast) and they were a bit reluctant because of history of depression Christina was reluctant because she is having no active disease at present ?? On the diclofenac and physical therapy she is doing much better from her back and she has had no recurrences of her Behcet's specifically no oral or vaginal ulcers. Lastly she has had no cough chest pain or shortness of breath We will follow-up in 4 months documented in this encounter Plan of Treatment Not on file documented as of this encounter Visit Diagnoses Diagnosis Behcet's disease Behcet's syndrome documented in this encounter Care Teams Dairy Feed Worker Relationship Specialty Start Date End Date Ben Nevarez MD [address] [place] [address] PCP - General Pediatrics 11/20/15 documented as of this encounter
--- OUTSIDE RECORDS SUMMARY | 2023-11-17 15:27 | XMS_ITS | Encounter Summary ---
Author Organization [facility] [place] [address] Care Team Providers Care Bmw Sales Consultant Name Role Phone Ben Nevarez MD Primary Care Provider Encounter Details Date Type Department Care Team (Latest Contact Info) Description 04/10/2020 2:41 PM EST - 04/10/2020 11:59 PM EST [place] [phone] Discharge Disposition: Home Social History Tobacco Use [...] every 6 hours as needed for Pain. triamcinolone acetonide (KENALOG) 0.1 % Paste Place 1 each onto teeth 2 times daily. 5 g 12 04/10/2020 melatonin 10 mg Tablet, Multiphasic Release Bedtime 02/08/2020 05/06/19 gabapentin (Neurontin) 100 mg Capsule Take 1 capsule by mouth 3 times daily. 90 capsule 12 04/10/2020 05/06/2023 Xarelto 15 mg Tablet TK 1 T PO BID FOR 20 DAYS 02/12/2020 05/06/2023 documented as of this encounter Plan of Treatment Not on file documented as of this encounter Visit Diagnoses Not on filedocumented in this encounter Care Teams Bmw Sales Consultant Relationship Specialty Start Date End [place] [address] PCP - General Pediatrics 11/20/15 documented as of this encounter
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
--- OUTSIDE RECORDS SUMMARY | 2023-11-17 15:27 | XMS_ITS | Encounter Summary ---
[place] [address] Care Team Providers Care Material Dispatcher Name Role Phone Ben Nevarez MD Primary Care Provider Encounter Details Date Type Department Care Team (Late st Contact Info) Description 06/16/2021 Telephone Psychiatry [place] [phone] Radha Ann Social History Tobacco Use Types Packs/Day Years [...] on filedocumented in this encounter Care Teams Material Dispatcher Relationship Specialty Start Date End Date [place] [address] PCP - General Pediatrics 11/20/15 documented as of this encounter
--- OUTSIDE RECORDS SUMMARY | 2023-11-17 15:27 | XMS_ITS | Encounter Summary ---
Author Organization [facility] [place] [address] Care Team Providers Care Stacker And Sorter Operator Name Role Phone Ben Nevarez MD Primary Care Provider [phone] Reason for Visit * Reason Onset Date Comments Results 05/21/2020 Encounter Details Date Type Department Care Team (Late st Contact Info) Description 05/21/2020 Telephone [place] [phone] [place] Thakkar DO [facility] [place] [address] Results Social History Tobacco Use Types Packs/Day Years Used Date Smoking Tobacco: Never Smokeless Tobacco: Never Comments:no ETS exposure Sex and Gender Information Value Date Recorded Sex Assigned at Not on file Gender Identity Not on file Sexual Orientation Not on file documented as of this encounter Miscellaneous Notes * Telephone Encounter - [place] Thakkar DO - 05/21/2020 12:03 PM EST Pediatric Hematology/Oncology Telephone Encounter Date of encounter: 05/21/20 Caller/Called: Tino mother I also called and left a message with PMD. 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 She has been on xarelto since January 2020. Repeat CT completed on 05/14/20 has been reviewed by meka results will be scanned into eD. The CT shows no evidence of pulmonary embolus and discussed that she can discontinue anticoagulation. At this time, there is no indication to do further workup, but advised mother to discuss with Elvia and father and call our clinic if desires a follow up visit. Reviewed signs and symptoms of DVT and PE that would warrant prompt evaluation. Also encouraged to continue healthy lifestyle with exercise, plenty of water for hydration, and taking breaks during long travel >2 hours. I also encouraged to avoid use of tobacco products. At this time, OCPs is nota complete contraindication, but advised if desires hormonal control for menses or contraceptives to avoid estrogen containing options. A/P: ?? Discontinue anticoagulation ?? No follow up at this time; if family desires further workup they will call for appointment ?? Advised to call if any questions or concerns Betty Thakkar Pediatric Hematology/Oncology Pager: [phone] documented in this encounter Plan of Treatment Not on file documented as of this encounter Visit Diagnoses Not on filedocumented in this encounter Care Teams Stacker And Sorter Operator Relationship Specialty Start Date End Date Ben Nevarez MD [address] [place] [address] PCP - General Pediatrics 11/20/15 documented as of this encounter
--- OUTSIDE RECORDS SUMMARY | 2023-11-17 15:27 | XMS_ITS | Encounter Summary ---
[place] [address] Care Team Providers Care Boilermaker Name Role Phone Ben Nevarez MD Primary Care Provider [phone] [phone] Encounter Details Date Type Department Care Team (Late st Contact Info) Description 08/13/2020 Tele[place] [address] Zarina Silvestre Social History Tobacco Use Types Packs/Day Years Used Date Smoking Tobacco: Never Smokeless Tobacco: Never Comments:no ETS exposure Sex and Gender Information Value Date Recorded Sex Assigned at Not on file Gender Identity Not on file Sexual Orientation Not on file documented as of this encounter Miscellaneous Notes * Telephone Encounter - Zarina Silvestre - 08/13/2020 10:42 AM EDT Patient's mother calling to let Dr. Cormier know patient is having a flare up, just in her mouth andthey do have the paste and they will use it but wanted to let him know as he previously requested they do - stated its only in her mouth CB # [phone] documented in this encounter Plan of Treatment Not on file documented as of this encounter Visit Diagnoses Not on filedocumented in this encounter Care Teams Boilermaker Relationship Specialty Start Date End Date Ben Nevarez MD [address] [place] [address] PCP - General Pediatrics 11/20/15 documented as of this encounter
--- OUTSIDE RECORDS SUMMARY | 2023-11-17 15:27 | XMS_ITS | Encounter Summary ---
[place] [address] Care Team Providers Care Public Housing Manager Name Role Phone Ben Nevarez MD Primary Care Provider [phone] Encounter Details Date Type Department Care Team (Late st Contact Info) Description 06/26/2020 Telephone [place] [address] Jose Angel Ferris RN Social History Tobacco Use Types Packs/Day Years Used Date Smoking Tobacco: Never Smokeless Tobacco: Never Comments:no ETS exposure Sex and Gender Information Value Date Recorded Sex Assigned at Not on file Gender Identity Not on file Sexual Orientation Not on file documented as of this encounter Miscellaneous Notes * Telephone Encounter - Jose Angel Ferris RN - 06/26/2020 4:18 PM EDT Drafted a letter for this patient for Covid Vaccine. documented in this encounter Plan of Treatment Not on file documented as of this encounter Visit Diagnoses Not on filedocumented in this encounter Care Teams Public Housing Manager Relationship Specialty Start Date End Date Ben Nevarez MD [address] [place], [place] [address] [address] PCP - General Pediatrics 11/20/15 documented as of this encounter
--- OUTSIDE RECORDS SUMMARY | 2023-11-17 15:27 | XMS_ITS | Encounter Summary ---
[place] [address] Care Team Providers Care Azure Architect Name Role Phone Ben Nevarez MD Primary Care Provider [phone] Reason for Referral * Diagnostic Test (Routine) - Closed Specialty Diagnoses / Procedures Referred By Contac t Referred To Contact Cardiology Diagnoses Arthralgia, unspecified joint Procedures Echocardiogram Transthoracic([facility]) Ventura Th[place]kar [place] [address] Health [place] [address] Referral ID Status Reason Start Date Expiration Date V isits Requested Visits Authorized [id number] Closed Specialty Service Requested 03/13/2020 03/13/2021 1 1 Reason for Visit * Consultation (Urgent) - Closed Specialty Diagnoses / Procedures Referred By Contac t Referred To Contact Pediatric Oncology Diagnoses Single subsegmental pulmonary embolism without acute cor pulmonale [place] [address] [facility]c [address] [place] [address] Referral ID Status Reason Start Date Expiration Date V isits Requested Visits Authorized [id number] Closed Consult, Test & Treat Connection Center PCP Updated and/or Approved 02/12/2020 02/11/2021 1 1 Encounter Details Date Type Department Care Team (Late st Contact Info) Description 03/13/2020 11:00 AM EST Office Visit Pediatric Oncology at [facility] [place] [address] Ventura Thakkar [place] [address] Kelli Person RN Arthralgia, unspecified joint (Primary Dx) Social History Tobacco Use Types Packs/Day Years Used Date Smoking Tobacco: Never Smokeless Tobacco: Never Comments:no ETS exposure Sex and Gender Information Value Date Recorded Sex Assigned at Not on file Gender Identity Not on file Sexual Orientation Not on file documented as of this encounter Last Filed Vital Signs Vital Sign Reading Time Taken Comments Blood Pressure - - Pulse 91 03/13/2020 11:02 AM EST Temperature 36.7 ??C (98.1 ??F) 03/13/2020 1 1:02 AM EST Respiratory Rate 20 03/13/2020 11:0 2 AM EST Oxygen Saturation 100% 03/13/2020 11: 02 AM EST Inhaled Oxygen Concentration - - Weight 65.4 kg (144 lb 2.9 oz) 03/13/20 20 11:02 AM EST Height 152 cm (4' 11.84) 03/13/2020 11 :02 AM EST Body Mass Index 28.31 03/13/2020 11:02 AM EST Body Mass Index Percentile 93.11% 03/13 11:02 AM EST Growth Chart: CDC (Girls, 2- 20 Years) documented in this encounter Progress Notes * Ventura Thakkar DO - 03/13/2020 11:00 AM EST Images from the original note were not included. Pediatric Hematology Outpatient Note Date of Encounter: Referral: Ben Nevarez MD [place] [facility] [place] [address] Chief Complaint: Zafar Rodrigues is a/an 15 y.o. female with pulmonary embolus that is currently on anticoagulation medication that presents for follow up visit. History Zafar is present with her mother for today's visit. She was diagnosed with PE after having imaging completed at [facility] that was read as, essentially negative CT angiogram of the chest, indeterminate findings probably artifactual regarding a couple of subsegmental vessels in left lower lobe, small emboli not absolutelyexcluded. Subsequent ultrasound of lower extremities and upper extremities bilaterally were completed and negative for deep venous thrombosis. She has been on anticoagulation therapy for approximately 1 month now and denies any complications.She denies any shortness of breath, no increased work of breathing, no chest pains, no increased bruising, and no bleeding. Findings on chest CT were after having chest pains in the setting of fever, labial ulcerations, myalgias, headaches, and fatigue. 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 She denies any recent fevers and that the ulcerations have completely resolved. She denies any complications taking her medications: Xarelto. Review of Symptoms: Review of Systems Constitutional: Negative. Respiratory: Negative. Genitourinary: Negative. Gastrointestinal: Negative. HENT: Negative. Psychiatric/Behavioral: Negative. Hematologic/Lymphatic: Negative. Allergic/Immunologic: Negative. Musculoskeletal: Negative. Endocrine: Negative. Cardiovascular: Negative. Neurological: Negative. Skin: Negative. Medical History: No past medical history on file. 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 Unknown [Unclassified Drug] Dial soap gives her a burn on her skin at contact ??? Penicillins Rash Medications: Current Outpatient Medications: ??? Xarelto 15 mg Tablet, TK 1 T PO BID FOR 20 DAYS, Disp: , Rfl: ??? acetaminophen (Tylenol) 500 mg Tablet, Take 1,000 mg by mouth every 6 hours as needed for Pain., Disp: , Rfl: Family History: No family history on file. Physical Exam: Vitals Office Visit from 03/13/[address] On[address] at [facility] Weight - Scale 65.4 kg (144 lb 2.9 oz) Height 152 cm (4' 11.84) BSA (Calculated - sq m) 1.66 sq meters BMI (Calculated) 28.3 Temp 36.7 ??C (98.1 ??F) Temp src Temporal Heart Rate 91 Heart Rate Source Monitor Resp 20 BP Location Right arm Patient Position Sitting SpO2 100 % Physical Exam General: Alert and well appearing with no clinical signs of distress; cooperative on exam HEENT: Normocephalic; EOMI, PERRL; nares patent; moist mucus membranes with no oral lesions; Neck is supple with no palpable adenopathy CV: Regular rate and rhythm; no murmur appreciated Pulm: Clear to auscultation bilaterally; No wheezing, rales, or rhonchi GI: Abdomen is soft and non-tender; no masses, no HSM; good bowel sounds Skin: warm and well perfused; no skin lesions; no bleeding or bruising MSK: full range of motion in upper and lower extremities; no abnormal gait; no edema Neuro: Cranial nerves are intact with no noted focal deficits Labs/Imaging: No new labs Assessment/Plan: Zafar Rodrigues is a/an 15 y.o. female that presents today for follow up after start of anticoagulation medication for PE. She is doing well with no acute concerns today. Discussed this is likely provoked from illness that preceded incident. 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 As per last note from Dr. Cormier, an ECHO was recommended. I put in order for ECHO and scheduled following today's visit as the family does not live close to hospital/clinic campus. Advised to avoid tobacco products, no NSAIDs, and no OCPs. Discussed importance to hydration and stopping to take breaks with long travel. Blood clots may form in blood vessels in the arms, legs, lungs, or head. Symptoms of blood clots may include swelling, pain or redness in the arms or legs, shortness of breath, chest pain or tightness, fast heart rate, headaches, numbness in your face, eye pain or swelling, and changes in vision. Discussed to call and seek prompt medical attention if development of these symptoms. Plan: - Continue xarelto for minimum 3 months duration - Family will work with PMD to coordinate follow up CT in ~ 2 months locally and fax results to me - Discussed follow up plan based on imaging; if CT is clear will likely advise to discontinue anticoagulation Follow Up: - No current follow; will arrange based on results of Chest CT in ~ 2 months at which time she would have completed 3 months of anticoagulation. - Advised to call clinic office if any concerns or questions. 45 of this 60 minute visit was spent in face to face discussion as reflected above. documented in this encounter Plan of Treatment Not on file documented as of this encounter Results * ECHO COMPLETE (03/13/2020 2:25 PM EST) Anatomical Region Laterality Modality Other 03/15/2020 Narrative 03/15/2020 7:09 PM EST Procedure: ?Pediatric Echocardiogram Patient: ?ELODIA BENRALCarrington Jama ?(Age): 2005(15y) ? Med Rec#: ? [id number] ?Sex: ?F ? Site Loc: ? [facility] ?Ht / Wt: ??152(cm)/65(kg) Pt. Loc: ?Echo Lab ?BSA: ?1.68 ([facility]) Study Date: ?? 03/13/2020 ?Pt. Type: Study Quality: ? Referring: JUNIE Reading: Giovani Campbell ([id number]) Administrative Judge: Corrie Flores RDCS, FASE Diagnosis: *Personal history [...] Value(Units) ?? Range ? Z Score PV mones diam 2D ? 20.8 ??mm ? (17.39 [...] 03/15/2020 19:08:22 Images reviewed and interpretation verified [facility]ound [facility] Procedure Note Giovani Campbell DO - 03/15/2020 Procedure: Pediatric Echocardiogram Patient: ELODIA Jama DOB(Age): 2005(15y) Med Rec#: [id number] Sex: F Site Loc: [facility] Ht / Wt: 152(cm)/65(kg) Pt. Loc: Echo Lab BSA: 1.68 ([facility] Study Date: 03/13/2020 Pt. Type: Study Quality: Referring: CHELYDJ Reading: Giovani Campbell ([id number]) Administrative Judge: Corrie Flores RDCS, FASE Diagnosis: *Personal history [...] 03/15/2020 19:08:22 Images reviewed and interpretation verified [facility] Ventura Thakkar DO ECHO ORDERABLES documented in this encounter Visit Diagnoses Diagnosis Arthralgia, unspecified joint- Primary Arthralgia, unspecified joint documented in this encounter Care Teams Azure Architect Relationship Specialty Start Date End Date Ben Nevarez MD [address] [place] [address] PCP - General Pediatrics 11/20/15 documented as of this encounter
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
--- OUTSIDE RECORDS SUMMARY | 2023-11-17 15:27 | XMS_ITS | Encounter Summary ---
Author Organization [facility] Address [facility] [place] [address] Care Team Providers Care Sterile Processing Technologist Name Role Phone Ben Nevarez MD Primary Care Provider [phone] Encounter Details Date Type Department Care Team (Late st Contact Info) Description 10/13/2022 Ancillary Procedure [place] [id number] Kayleigh Yee MD [facility] [place] [address] Social History Tobacco Use Types Packs/Day Years [...] Comments FILM LIBRARY STORAGE ONLY CT CHEST Routine 10/13/2022 12:00 AM EDT documented in this encounter Results * Film Library- Storage Only CT Chest (10/13/2022 12:00 AM EDT) Narrative [facility] - 11/06/2022 12:53 PM EDT This exam is auto-finalizing. It's purpose is for storage only. Kayleigh Yee MD IM FILM LIBRARY ORD ERABLES [place], [place] documented in this encounter Visit Diagnoses Not on filedocumented in this encounter Care Teams Sterile Processing Technologist Relationship Specialty Start Date End Date Ben Nevarez MD [address] [place] [address] PCP - General Pediatrics 11/20/15 documented as of this encounter
--- OUTSIDE RECORDS SUMMARY | 2023-11-17 15:27 | XMS_ITS | Encounter Summary ---
[place] [address] Care Team Providers Care First Line Production Supervisor Name Role Phone Ben Nevarez MD Primary Care Provider [phone] Encounter Details Date Type Department Care Team (Late st Contact Info) Description 09/02/2021 [place] [address] Emily Drake Social History Tobacco Use Types Packs/Day Years Used Date Smoking Tobacco: Never Smokeless Tobacco: Never Comments:smokes marajuana Sex and Gender Information Value Date Recorded Sex Assigned at Not on file Gender Identity Not on file Sexual Orientation Not on file documented as of this encounter Miscellaneous Notes * Telephone Encounter - Emily Drake - 09/02/2021 8:58 AM EDT Patients primary care Dr Nevarez calls to consult about patient having hx of PE and she needs surgery. Looking to confirm plan of care. documented in this encounter Plan of Treatment Not on file documented as of this encounter Visit Diagnoses Not on filedocumented in this encounter Care Teams First Line Production Supervisor Relationship Specialty Start Date End Date Ben Nevarez MD [address] [place] [address] [place] [address] PCP - General Pediatrics 11/20/15 documented as of this encounter
--- OUTSIDE RECORDS SUMMARY | 2023-11-17 15:27 | XMS_ITS | Encounter Summary ---
Author Organization Formerly [facility] Address [facility] [place] [address] Care Team Providers Care Needle Leader Name Role Phone Ben Nevarez MD Primary Care Provider [phone] Encounter Details Date Type Department Care Team (Late st Contact Info) Description 11/27/2020 Orders [place] [address] Arpit Cormier MD [facility] [place] [address] Social History Tobacco Use Types Packs/Day Years [...] on filedocumented in this encounter Care Teams Needle Leader Relationship Specialty Start Date End Date Ben Nevarez MD [address] [place] [address] [address] [place], [place] [id number] PCP - General Pediatrics 11/20/15 documented as of this encounter
--- OUTSIDE RECORDS SUMMARY | 2023-11-17 15:27 | XMS_ITS | Encounter Summary ---
Author Organization Formerly [facility] [place] [address] Care Team Providers Care Web Content Producer Name Role Phone Ben Nevarez MD Primary Care Provider [phone] Reason for Visit * Consultation (Routine) - Closed Specialty Diagnoses / Procedures Referred By Brendan moore Referred To Contact Pediatric Nephrology Diagnoses Behcet's disease Arpit Cormier MD [facility] [place] [address] [place] [address] [facility] [address] [place] [address] Referral ID Status Reason Start Date Expiration Date V isits Requested Visits Authorized [id number] Closed Consult, Test & Treat 11/27/2020 11/27/2021 1 1 Encounter Details Date Type Department Care Team (Late st Contact Info) Description 04/08/2021 9:30 AM EST Office [place] [address] Jim Moses, DO [address] [facility] [place] [address] Behcets syndrome Social History Tobacco Use Types Packs/Day Years Used Date Smoking Tobacco: Never Smokeless Tobacco: Never Comments:smokes socorro Sex and Gender Information Value Date Recorded Sex Assigned at Not on file Gender Identity Not on file Sexual Orientation Not on file documented as of this encounter Last Filed Vital Signs Vital Sign Reading Time Taken Comments Blood Pressure 90/66 04/08/2021 9:24 AM EST Pulse 90 04/08/2021 9:24 AM EST Temperature - - Respiratory Rate - - Oxygen Saturation - - Inhaled Oxygen Concentration - - Weight 59.2 kg (130 lb 9.6 oz) 04/08/2021 9:24 A M EST Height 151.6 cm (4' 11.69) 04/08/2021 9:[address] Body Mass Index 25.78 04/08/2021 9:24 AM EST Body Mass Index Percentile 85.05% 04/08/2021 9:2 4 AM EST Growth Chart: [facility] (Girls, 2- 20 Years) documented in this encounter Patient Instructions * Patient Instructions* Jim Moses, DO - 04/08/2021 9:30 AM EST Elvia's Plan: Will send off renal function and iron levels today Will get urine when not around menses, can to it locally. Well check for crystals, protein and calcium Will follow for urinary changes, high blood pressure and change in renal function The anti-inflammatory diet (See sheets). I would recommend increasing fruits and vegetables up to at least 5 servings per day, use olive oil or canola oil only, increase grains and keep noodles al dente. Smoothies are a great way to increase your fruit intake. You could add ground flax seed to it to add the [place] 3???s. We can discuss the elimination diet in the future if you would like or see no improvement. Elimination diet includes avoiding foods you may be sensitive to and don't digest well. Foods to avoid include those with wheat (gluten), dairy, soy, and corn. You may also avoid nuts, citrus and eggs too. Avoid these foods for 4-6 weeks, during which time also avoid sugars, coffee and tea; and alcohol. After the elimination period, restart one of the foods for one week at a time, then move on tothe next for the next week.. Remember to think of your food as part of your healing process. Vitamin D3: 2000 Units/day Fish oil/krill oil/flaxseed: If possible take 2-4grams per day. We want the highest dose of DHA/EPAas possible, as close to 1-2gms per day. Therefore, I would start with about 2 caps per day and increase to twice a day if tolerated or about 1 tsp of the oil. KiddOmega from Cal[employer], 1 tsp a day, from nDreams or Health Warrior, ClearGistomeHuupy Utuado-3 (350 mg of EPA and 230 mg of DHA per packet) are ones I commonly used in children. Also consider Barleans flavored omega 3???s or [employer] Jorge chewables. If you choose to use flaxseed oil, you will need to double the dose. Also, you can add 2 teaspoons to 2 tablespoons of ground flaxseed to your food every day. To avoid GI side effe cts, freeze the capsules, get enteric coated capsules and /or take with food. Do not get gummies, they have very little to no fish oil in them. Exercise every day as previously discussed, in particular yoga/yovany chi/walking/dancing. For yoga there are a number of videos or teachers. If you need help finding a teacher please call the office. To start, I usually recommend one full class a week and practice 10 to 15 min. a day. Remember to thank your body for all of its wellness as you start your daily training. See the following books: Driven to Distraction by Dr. Brian Torrez and ADHD without Drugs by Dr. Glenn Redmond. Relaxation online and CD resources http://www.mindfulnesstapes.com/ Dr Ignacio George's mindfulness meditation tapes http://www.NetScaler.[employer]/pmr.htm Guide to progressive muscle relaxation http://www.MeriTaleem.[employer]/health/yoga/ME33477 5 Yoga poses for stress management http://www.PathoQuestchinetwork.org/ Connecting students with teachers in the area. www.Ro[employer]i [employer].com Search for meditation, relaxation, guided visualization or yoga. Keep sifting through until you find what you like and then write it down so you can revisit. http://www.[facility].edu/files/webfm-uploads/documents/outreach/im/module_medi tation_patient.pdf Handout on types of meditation/CDs: Breathing: the Master Og to Self-Healing (Dago Bergman) Relieve Anxiety (Gustavo Coffman), also Deep Sleep (Meghna) For Breath work consider: http://doasone.com/Default.aspx Botanicals/Supplements can be beneficial in treating the above. Please see the botanical and supplement recommendations as indicated below. Botanicals/Supplements Recommend Zinc 20-50 mg a day. It comes in Lozenges, pils and chewable. I commonly use Immune Z from [employer] Recommend iron levels and possible Iron 2 mg/kg per day with Vitamin C 250-500 mg a day based on Ferritin and transferrin saturation Recommend: L-Theanine, 100-400 mg twice a day. I commonly use Calm by [employer] as a fruit punch flavored spray. or If you want to consider CBD oil, I typically start with a low dose. For younger children it's about2-1/2-5 mg twice a day and increase from there. For older children I start with 5-10 mg twice a day. Two of the more common ones I use are called AlertMe or Elite Daily. You need to give it some time, at least 1-2 weeks to see the response, and then adjust the dose accordingly. A website that I use as a straightforward teaching website on CBD/hemp is below. https://www.Ingenic.com/articles/cydj-bnl-jqvm-and-benefits Or Valerian root, hops lemon balm and chamomile tea can be helpful. For a Valerian root combination, Iwould recommend Good Night or Ex stress by [address] at [employer]. Start with 1/2 the adult dose. For a tincture I commonly use Hop to Bed from [employer] documented in this encounter Progress Notes * Jim Moses DO - 04/08/2021 9:30 AM EST Pediatric Nephrology/Integrative Medicine Consult Elvia Rodrigues is an 16 y.o. female with behcet, ADHD, anxiety/depression and hematuria/dysuria/possible UTI who we are seeing for integrative techniques regarding the above. Referred by Ben Nevarez MD * Please note: speech recognition soft underwood was used to generate this report. Although it is proofed for any obvious mistakes, please excuse any spelling or incorrect grammar that may have been missed. HISTORY OF PRESENT ILLNESS Elvia comes in in referred consultation regarding the above. She has an interesting history. 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 Her condition has gone into a remission. For the most part things have improved dramatically. She is also grappling with some degree of depression and ADHD. She was sent to us because of possible urinary tract infections, some pain with urination, and some degree of hematuria. The symptoms have improved significantly.We had extensive discussion today regarding her underlying condition, the hematuria and urinary tract infections. We talked about nutrition, exercise and movement, stress reduction techniques, and how to improve her long-term outcome. At this point all of her other symptoms have improved. We will monitor her closely for any signs of infections or hematuria. Her underlying condition can have some degree of hematuria from ulcers in the genitourinary area. It can also cause quite a bit of dysuria.So far we have not seen any active nephritis or other concerns. Denies any other neurologic, rheumatologic, GI, pulmonary, cardiac, urologic, or musculoskeletal issues. Past Medical History: Past Medical History: Diagnosis Date ??? ADHD ??? Behcet's disease ??? Depression ??? Pulmonary embolism Patient Active Problem List Diagnosis Code ??? Cough R05.9 ??? Asthma J45.909 ??? Nasal congestion R09.81 ??? History of migraine headaches Z86.69 ??? GERD (gastroesophageal reflux disease) K21.9 Family History No family history on file. Current Outpatient Medications on File Prior to Visit Medication Sig Dispense Refill ??? lidocaine (Xylocaine) 5 % Ointment Three times a day ??? melatonin 10 mg Tablet, Multiphasic Release Bedtime ??? ondansetron ODT (Zofran-ODT) 4 mg Tablet, Rapid Dissolve Every 8 hours, as needed ??? Vyvanse 30 mg Capsule TAKE ONE CAPSULE BY MOUTH EVERY MORNING ??? sertraline (ZOLOFT) 100 mg Tablet TAKE ONE TABLET BY MOUTH ONCE DAILY ??? acetaminophen (Tylenol) 500 mg Tablet Take 1,000 mg by mouth every 6 hours as needed for Pain. ??? methylPREDNISolone (Medrol, Filiberto,) 4 mg Tablets, Dose Pack Use as directed on product package. (Patient not taking: Reported on 03/03/2021) 21 tablet 0 ??? Diclofenac Sodium (VOLTAREN XR) 100 mg Tablet Sustained Release 24 hr Take 1 tablet by mouth daily. (Patient not taking: Reported on 03/03/2021) 30 tablet 3 ??? gabapentin (Neurontin) 300 mg Capsule Take 1 capsule by mouth 3 times daily. (Patient not taking: Reported on 07/02/2020) 90 capsule 12 ??? predniSONE (Deltasone) 10 mg Tablet Take 1 tablet by mouth daily. For 3 days then 5mg for 3 days then stop (Patient not taking: Reported on 05/14/2020) 100 tablet 1 ??? gabapentin (Neurontin) 100 mg Capsule Take 2 capsules by mouth 3 times daily. (Patient not taking: Reported on 07/02/2020) 180 capsule 12 ??? gabapentin (Neurontin) 100 mg Capsule Take 1 capsule by mouth 3 times daily. (Patient not taking: Reported on 05/14/2020) 90 capsule 12 ??? triamcinolone acetonide (KENALOG) 0.1 % Paste Place 1 each onto teeth 2 times daily. (Patient not taking: Reported on 07/02/2020) 5 g 12 ??? Xarelto 15 mg Tablet TK 1 T PO BID FOR 20 DAYS No current facility-administered medications on file prior to visit. The above Medications and Supplements Are As per Report from the Family and the Patient. Allergies Allergen Reactions ??? Unknown [Unclassified Drug] Dial soap gives her a burn on her skin at contact ??? Penicillins Rash PHYSICAL EXAM Constitutional: BP 90/66 Pulse 90 Ht 151.6 cm (4' 11.69) Wt 59.2 kg (130 lb 9.6 oz) BMI 25.78 kg/m?? General Appearance: alert, well appearing and in no distress HEENT: normocephalic, atrumatic, conjunctiva clear, no periorbital edema, moist mucous membranes and oropharynx clear Neck: supple and no adenopathy or masses, no thyroid enlargement Examination of Abdomen: soft, nontender, non-distended, no masses, bowel sounds normal and no hepatosplenomegaly Extremities: no edema, warm and well perfused, bilaterally and pulses full and equal all extremities Neurologic: no gross deficit Skin: normal ASSESSMENT Elvia is a 16 y.o. female with Patient Active Problem List Diagnosis Code ??? Cough R05.9 ??? Asthma J45.909 ??? Nasal congestion R09.81 ??? History of migraine headaches Z86.69 ??? GERD (gastroesophageal reflux disease) K21.9 Sent to us for hematuria and possible UTI's Elvia comes in in referred consultation regarding the above. She has an interesting history. 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 Her condition has gone into a remission. For the most part things have improved dramatically. She is also grappling with some degree of depression and ADHD. She was sent to us because of possible urinary tract infections, some pain with urination, and some degree of hematuria. The symptoms have improved significantly.We had extensive discussion today regarding her underlying condition, the hematuria and urinary tract infections. We talked about nutrition, exercise and movement, stress reduction techniques, and how to improve her long-term outcome. At this point all of her other symptoms have improved. We will monitor her closely for any signs of infections or hematuria. Her underlying condition can have some degree of hematuria from ulcers in the genitourinary area. It can also cause quite a bit of dysuria.So far we have not seen any active nephritis or other concerns. Anxiety: Anxiety has become widespread in the pediatric population. Ultimately, some degree of anxiety is expected and healthy. The symptoms associated with anxiety can be quite variable and include fatigue, headaches, abdominal pain, irritability, shortness of breath, tachycardia, and a myriad of other complaints. We are seeing that somewhere between 20 and 30% of all children are dealing with significant anxiety. Our approach is to use stress reduction techniques such as mind-body therapies, breathing exercises, and stress reducing exercises such as yoga and walking. In addition, we will use nutrition to help improve the symptoms. There are a number of herbs and supplements such as omega-3 fats, Vitamin D, B vitamins, and what are known as nervine herbs that can be incorporated into thetherapy. Sleep can be affected and we will work on good sleep hygiene. I strongly recommend the useof stress reducing exercises like yoga and yovany chi. There are also a number of other options as indicated below. Attention deficit/hyperactivity disorder: Attention deficit has been much more frequently diagnosedrecently. The numbers of patients who have been diagnosed since the 1970s has increased exponentially. There clearly is a genetic predisposition and environmental factors very likely also play a role. These factors include nutrition, electronics, and changes/stressors in children's day-to-day livesthat have increased or changed more recently. Our goal is to have the children see that attention deficit is actually a gift that allows them to think differently and can actually have a very positive impact in life. One of the major issues the children deal with is the ADD/OCD conflict that occurs commonly within school systems, with parents, and in the child's day-to-day life. These children commonly also have anxiety, depression, learning disabilities, and difficulty with social interactions. We take a multifaceted approach to try and improve/kuldip their attention deficit rather than tryingto get rid of it. We work with nutrition (in particular increasing the phytonutrients and decreasing the glycemic load), stress reduction exercise, mind-body therapies to decreased anxiety, supplements such as omega-3 fats, vitamin D, zinc, iron, ginseng plus ginkgo combinations and occasionally herbal combinations to help them with sleep at night. We also look at other integrative approaches such as the use of acupuncture and neurofeedback. Please see below. From an integrative standpoint, we take a mind body spirit approach and we look at multiple principles including treatment of the acute process, decreasing chronic flares, changing from a disease to a wellness model, and decreasing side effects of medications. Obviously there are multiple approaches that we can take for Elvia regarding all of her different illnesses. Fortunately some of these overlap. We have multiple modalities available to us including conventional medicine, whole systems such as traditional [place] medicine, Ayurvedic medicine, Western medicine and homeopathy, nutrition, exercise, supplements, botanical medicine, mind body therapies, energy medicine, manual manipulation, and spirituality. I think there are a number of things that we can do for Elvia to help as indicated below. PLAN I recommend the following plan for Elvia: Elvia's Plan: Will send off renal function and iron levels today Will get urine when not around menses, can to it locally. Well check for crystals, protein and calcium Will follow for urinary changes, high blood pressure and change in renal function The anti-inflammatory diet (See sheets). I would recommend increasing fruits and vegetables up to at least 5 servings per day, use olive oil or canola oil only, increase grains and keep noodles al dente. Smoothies are a great way to increase your fruit intake. You could add ground flax seed to it to add the [place] 3???s. We can discuss the elimination diet in the future if you would like or see no improvement. Elimination diet includes avoiding foods you may be sensitive to and don't digest well. Foods to avoid include those with wheat (gluten), dairy, soy, and corn. You may also avoid nuts, citrus and eggs too. Avoid these foods for 4-6 weeks, during which time also avoid sugars, coffee and tea; and alcohol. After the elimination period, restart one of the foods for one week at a time, then move on tothe next for the next week.. Remember to think of your food as part of your healing process. Vitamin D3: 2000 Units/day Fish oil/krill oil/flaxseed: If possible take 2-4grams per day. We want the highest dose of DHA/EPAas possible, as close to 1-2gms per day. Therefore, I would start with about 2 caps per day and increase to twice a day if tolerated or about 1 tsp of the oil. KiddOmega from [employer], 1 tsp a day, from [employer]Dreams or [employer], [employer] Utu[place]-3 (350 mg of EPA and 230 mg of DHA per packet) are ones I commonly used in children. Also consider [place] flavored omega 3???s or [employer] chewables. If you choose to use flaxseed oil, you will need to double the dose. Also, you can add 2 teaspoons to 2 tablespoons of ground flaxseed to your food every day. To avoid GI side effe cts, freeze the capsules, get enteric coated capsules and /or take with food. Do not get gummies, they have very little to no fish oil in them. Exercise every day as previously discussed, in particular yoga/yovany chi/walking/dancing. For yoga there are a number of videos or teachers. If you need help finding a teacher please call the office. To start, I usually recommend one full class a week and practice 10 to 15 min. a day. Remember to thank your body for all of its wellness as you start your daily training. See the following books: Driven to Distraction by Dr. Brian Torrez and ADHD without Drugs by Dr. Glenn Redmond. Relaxation online and CD resources http://www.mindfulnesstapes.com/ Dr Ignacio George's mindfulness meditation tapes http://www.[employer]/pmr.htm Guide to progressive muscle relaxation http://www.[employer]/health/yoga/BY50417 5 Yoga poses for stress management http://www.[employer].org/ Connecting students with teachers in the area. www.[employer].com Search for meditation, relaxation, guided visualization or yoga. Keep sifting through until you find what you like and then write it down so you can revisit. http://www.[facility].edu/files/webfm-uploads/documents/outreach/im/module_medi tation_patient.pdf Handout on types of meditation/CDs: Breathing: the Master Og to Self-Healing (Dago Bergman) Relieve Anxiety (Gustavo Coffman), also Deep Sleep (Meghna) For Breath work consider: http://doasone.com/Default.aspx Botanicals/Supplements can be beneficial in treating the above. Please see the botanical and supplement recommendations as indicated below. Botanicals/Supplements Recommend Zinc 20-50 mg a day. It comes in Lozenges, pils and chewable. I commonly use Immune Z from Cynthia Vera Sian's Plan Recommend iron levels and possible Iron 2 mg/kg per day with Vitamin C 250-500 mg a day based on Ferritin and transferrin saturation Recommend: L-Theanine, 100-400 mg twice a day. I commonly use Calm by Cynthia [employer] as a fruit punch flavored spray. or If you want to consider CBD oil, I typically start with a low dose. For younger children it's about2-1/2-5 mg twice a day and increase from there. For older children I start with 5-10 mg twice a day. Two of the more common ones I use are called AlertMe or Elite Daily. You need to give it some time, at least 1-2 weeks to see the response, and then adjust the dose accordingly. A website that I use as a straightforward teaching website on CBD/hemp is below. https://www.[employer]genic.[employer]/articles/ebew-pbm-qbrw-and-benefits Or Valerian root, hops lemon balm and chamomile tea can be helpful. For a Valerian root combination, Iwould recommend Good Night or Ex stress by [employer] [address] at [employer]. Start with 1/2 the adult dose. For a tincture I commonly use Hop to Bed from [employer] I had an extensive visit (90 minutes) with Elvia and her family. I outlined the above issues. 80minutes of the time was spent counseling regarding the above. They appear to understand and agree with the plan. I asked them to come back in 3-6 months. Jim Moses, DO CC:Ben Nevarez MD ADD Ref. Range 02/14/2020 11:18 04/10/2020 11:14 04/10/2020 11:14 05/10/2020 19:10 11/22/2020 00:00 04/08/2021 10:53 WBC Latest Ref Range: 4.5 - 13.0 x10(3)/mcL 8.7 9.0 9.0 RBC Latest Ref Range: 4.10 - 5.10 x10(6)/mcL 4.18 Hemoglobin Latest Ref Range: 12.0 - 16.0 gm/dL 12.6 Hematocrit Latest Ref Range: 36.0 - 46.0 % 37.7 MCV Latest Ref Range: 76.0 - 98.0 fL 90.2 MCH Latest Ref Range: 25.0 - 35.0 pg 30.1 MCHC Latest Ref Range: 32.0 - 36.5 gm/dL 33.4 RDWSD Latest Ref Range: 37.0 - 46.0 fL 41.2 RDWCV Latest Ref Range: 0.0 - 14.5 % 12.7 Platelets Latest Ref Range: 145 - 370 x10(3)/mcL 420 (H) MPV Latest Ref Range: 7.6 - 12.9 fL 8.6 nRBC % Auto Latest Units: % 0.0 nRBC Abs Auto Latest Ref Range: 0.000 - 0.000 x10(3)/mcL 0.000 Neutr Abs (ANC) Latest Ref Range: 1.50 - 8.00 x10(3)/mcL 4.63 Neutrophils % Latest Units: % 52.9 Immature Gran % Latest Units: % 1.70 Lymphocytes % Latest Units: % 34.7 Monocytes % Latest Units: % 8.7 Eosinophils % Latest Units: % 1.4 Basophils % Latest Units: % 0.6 Doris Gran Abs Latest Ref Range: 0.00 - 0.04 x10(3)/mcL 0.15 (H) Lymphocytes Abs Latest Ref Range: 1.2 - 5.2 x10(3)/mcL 3.0 Monocyte Abs Latest Ref Range: 0.2 - 1.0 x10(3)/mcL 0.8 Eosinophils Abs Latest Ref Range: 0.0 - 0.4 x10(3)/mcL 0.1 Basophils Abs Latest Ref Range: 0.0 - 0.1 x10(3)/mcL 0.0 Sed Rate Latest Ref Range: 2 - 37 mm/hr 29 dRVVT Latest Ref Range: <=1.20 IU/mL 1.96 (H) Silica Clotting Time Latest Ref Range: <=1.16 ratio 0.90 Cardiolipin IgG Latest Ref Range: <=14.9 GPL unit(s) <9.4 Cardiolipin IgM Latest Ref Range: <=12.5 MPL unit(s) 20.8 (H) Sodium Latest Ref Range: 135 - 145 mmol/L 136 140 Potassium Latest Ref Range: 3.5 - 5.0 mmol/L 4.2 4.1 Chloride Latest Ref Range: 98 - 107 mmol/L 104 106 CO2 Latest Ref Range: 22 - 31 mmol/L 22 23 Anion Gap Latest Ref Range: 5 - 15 mmol/L 10 11 BUN Latest Ref Range: 10 - 20 mg/dL 16 11 Creatinine Latest Ref Range: 0.50 - 0.89 mg/dL 0.95 (H) 0.84 Estimated GFR Latest Ref Range: >=60 mL/min/1.73 m?? See note 101 eGFR Latest Ref Range: >=60 mL/min/1.73 m?? See note Calcium Latest Ref Range: 8.5 - 10.5 mg/dL 9.4 9.3 Glucose Lvl Latest Ref Range: 65 - 199 mg/dL 118 79 CK, Total Latest Ref Range: 0 - 250 unit/L 44 Total Protein Latest Ref Range: 6.1 - 8.0 g/dL 7.3 7.1 Albumin Latest Ref Range: 3.2 - 5.2 g/dL 4.2 4.5 Total Bilirubin Latest Ref Range: 0.2 - 1.3 mg/dL 0.3 0.4 Alk Phos Latest Ref Range: 45 - 87 unit/L 82 82 AST Latest Ref Range: 5 - 30 unit/L 35 (H) 9 ALT Latest Ref Range: 0 - 25 unit/L 64 (H) 6 Iron Latest Ref Range: 20 - 160 mcg/dL 98 TIBC Latest Ref Range: 194 - 372 mcg/dL 272 Iron Saturation Latest Ref Range: 20 - 50 % 36 Ferritin Latest Ref Range: 36 - 92 ng/mL 116 (H) DRAKE Latest Ref Range: Neg Neg C-ANCA Latest Ref Range: Negative Negative P-ANCA Latest Ref Range: Negative Negative MPO Ab Latest Ref Range: <=20.0 unit(s) <2.0 PR3 Ab Latest Ref Range: <=20.0 unit(s) <2.0 C3 Complement Latest Ref Range: 90 - 161 mg/dL 155 C4 Complement Latest Ref Range: 8 - 44 mg/dL 26 MELISSA Ab Unknown ... HLA-B27 Unknown Negative HLA-B27 Interp Unknown HLA B27 antigen w... CRP Latest Ref Range: <=4.9 mg/L 4.2 Lyme Screening Antibody Latest Ref Range: Neg Neg SARS-CoV-2 Nucleocap Ab Latest Ref Range: Not Detected Not Detected Misc Quest Unknown FLEXITEST 2 MRI PELVIS SOFT TISSUE (GI WINDOWS SECURITY ANALYST) WWO CONTRAST Unknown Rpt FILM LIBRARY STORAGE ONLY ULTRASOUND STUDY Unknown Rpt documented in this encounter Plan of Treatment Not on file documented as of this encounter Procedures Procedure Name Priority Date/Time Associated Diagnosis Comments HC VENIPUNCTURE Routine 04/08/2021 10:53 AM EST Behcets syndrome HC FERRITIN, SERUM Routine 04/08/2021 10 :53 AM EST Behcets syndrome COMPREHENSIVE METABOLIC PANEL Routine 04/08/2021 10:53 AM EST Behcets syndrome documented in this encounter Results * Iron and TIBC (04/08/2021 10:53 AM EST) Iron 98 20 - 160 mcg/dL [facility] TIBC 272 194 - 372 mcg/dL [facility] Iron Saturation 36 20 - 50 % [facility] Blood 04/08/2021 10:5 3 AM EST 04/08/2021 11:13 AM EST Narrative Resulting Agency Comment Spec In Lab Jim Jauergui [employer] CHEMISTRY ORDERABLES Performing Organization Address [facility] Co de Phone Number [facility] [place] [address] * (ABNORMAL) Ferritin (04/08/2021 10:53 AM EST) Pathologist [facility] Ferritin 116(H) 36 - 92 ng/mL [facility] Comment: Pediatric reference ranges not verified at [facility] [place], interpret with caution. Reference ranges for females greater than 50 years of age approach values for men, i.e., 30-400 ng/mL. Blood 04/08/2021 10:5 3 AM EST 04/08/2021 11:13 AM EST Narrative Resulting Agency Comment Spec In Lab Jim Jauregui [employer] CHEMISTRY ORDERABLES Performing Organization Address [facility] Co de Phone Number [facility] [place] [address] * Comprehensive metabolic panel (non-fasting) (04/08/2021 10:53 AM EST) Pathologist [facility] Glucose 79 65 - 199 mg/dL [facility] Comment:Diabetes: >=200 mg/d L plus symptoms Blood Urea Nitrogen 11 10 - 20 mg/dL [facility] Creatinine 0.84 0.50 - 0.89 mg/dL [facility] Sodium 140 135 - 145 mmol/L [facility] Potassium 4.1 3.5 - 5.0 mmol/L [facility] Comment: Please note: ??Patients with WBC >100,000 may have falsely elevated Potassium levels. ??For accurate Potassium quantification in these patients send serum separator tube (gold top) for subsequent determinations. ??Contact the Clinical Chemistry Laboratory if there are any questions. Chloride 106 98 - 107 mmol/L [facility] Carbon Dioxide 23 22 - 31 mmol/L [facility] Anion Gap 11 5 - 15 mmol/L [facility] Calcium 9.3 8.5 - 10.5 mg/dL [facility] Protein, Total 7.1 6.1 - 8.0 g/dL [facility] Albumin 4.5 3.2 - 5.2 g/dL [facility] Aspartate Aminotransferase 9 5 - 30 unit/L [facility] Alanine Aminotransferase 6 0 - 25 unit/L [facility] Alkaline Phosphatase 82 45 - 87 unit/L [facility] Bilirubin, Total 0.4 0.2 - 1.3 mg/dL [facility] Est Glomerular Filtration Rate 101 >=60 mL/min/1. 73 m?? [facility] Comment: This patient? s estimated glomerular filtration rate (eGFR) is between 101 mL/min/1.73 m2 (patients with less muscle mass) and 118 mL/min/1.73 m2 (patients with more muscle mass) as determined by the CKD-EPI equation. Assessment of eGFR is not appropriate when creatinine concentrations are rapidly changing. For clinical decisions where creatinine clearance will affect therapy, a 24-hour urine creatinine clearance may be advised. Assignment of CKD stage 1 - 5 for patients with an eGFR near the transition point between stages may be based on clinical assessment of muscle mass and symptoms in addition to eGFR. Blood 04/08/2021 10:5 3 AM EST 04/08/2021 11:13 AM EST Narrative Resulting Agency Comment Spec In Lab Jim Moses DO CHEMISTRY ORDERABLES [facility] [place] [address] documented in this encounter Visit Diagnoses Diagnosis Behcets syndrome Behcet's syndrome documented in this encounter Care Teams Web Content Producer Relationship Specialty Start Date End Date Ben Nevarez MD [address] [place] [address] PCP - General Pediatrics 11/20/15 documented as of this encounter
--- OUTSIDE RECORDS SUMMARY | 2023-11-17 15:27 | XMS_ITS | Encounter Summary ---
Author Organization [facility] Address [facility] [place] [address] Care Team Providers Care Sales And Marketing Executive Name Role Phone Ben Nevarez MD Primary Care Provider [phone] Reason for Visit * Reason Comments Skin Lesion * Consultation (FABIANA) - Closed Specialty Diagnoses / Procedures Referred By Contac t Referred To Contact Dermatology Diagnoses Other specified noninflammatory disorders of vulva and perineum Other specified dermatitis HX OF GENITAL ULCERATIONS- CLARIFY DIAGNOSIS AND TREATMENT, POSSIBLE BEHCETS Ben Nevarez MD [address] [place] [address] [place] [address] [facility] Dermatology [address] [place] [address] Referral ID Status Reason Start Date Expiration Date V isits Requested Visits Authorized [id number] Closed Consult, Test & Treat [facility] PCP Updated and/or Approved 03/04/2020 03/04/2021 6 6 Encounter Details Date Type Department Care Team (Late Contact Info) Description 04/09/2020 10:45 AM EST Office Visit Dermatology at [facility] [address] [place] [address] Nae Almeida MD [facility] [address] [place] [address] Genital ulcer, female Social History Tobacco Use Types Packs/Day Years Used Date Smoking Tobacco: Never Smokeless Tobacco: Never Comments:no ETS exposure Sex and Gender Information Value Date Recorded Sex Assigned at Not on file Gender Identity Not on file Sexual Orientation Not on file documented as of this encounter Progress Notes * Nae Almeida - 04/09/2020 10:45 AM EST Images from the original note were not included. DERMATOLOGY - NEW PATIENT NOTE Date of service: 04/09/2020 Elvia Rodrigues : 2005, 15 y.o. Chief Complaint: Chief Complaint Patient presents with ??? Skin Lesion HPI: Elvia Rodrigues is a 15 y.o. female referred by Ben Nevarez with the following concerns: Genital lesions started in mid January associated with chills ,headache, and fever. She complained of sores in the genital area with swelling. Saw gynocologist [facility], where they did a culture and blood work. She later developed trouble breathing and chest konstantin and went to the hospital and had a pulmonary embolism in her left lung. Genital area was swollen with several large puss filled lesions. She later developed lesions in the mouth. Since around February, the genital area and mouth have cleared. She denies a history of previous genital or oral ulcers. No known history of HSV, patient's adoptive mother does get cold sores. She reports a history of trouble with her vision, has been seen by opthalmology in the past. She also reports daily pain in the tailbone area. She has previously hadknee and hand pain. 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 Relevant Skin History: - Skin cancer (including type): no Relevant Social History: - adopted - quit smoking 2017 Meds: Current Outpatient Medications Medication Sig Dispense Refill ??? Xarelto 15 mg Tablet TK 1 T PO BID FOR 20 DAYS ??? acetaminophen (Tylenol) 500 mg Tablet Take 1,000 mg by mouth every 6 hours as needed for Pain. No current facility-administered medications for this visit. Allergies: Allergies Allergen Reactions ??? Unknown [Unclassified Drug] Dial soap gives her a burn on her skin at contact ??? Penicillins Rash Review of Systems: - General: Feels well, denies any recent illnesses, fevers, changes in weight, chills, or night sweats - Skin: No other skin concerns. Examination: - Constitutional: Patient was alert, well-appearing and in no noticeable distress. - Focused Exam: Skin examination of the face, mouth, and genitals was normal with the exception of the findings listed below - A nurse/MA was present and on standby during my examination. Diagnosis/Skin findings/Assessment/Plan: 1. History of Oral and Genital Ulcers Exam: Clear on exam today, no evidence of scarring. - Previous lab workup (02/14/20): CBC demonstrating elevated platelets, elevated Cardiolipin IgM, elevated AST and ALT. DRAKE negative, c-ANCA, p-ANCA, MPA ab, PR4 ab, C3, C4 are within normal limits - Inpatient labs in January revealed past EBV infection, negative CMV - Will send record requests for edge cutter and OBGYN records. These records will help determine if patient has a history of uveitis and if there are any previous viral swabs - Patient sent today for concern for Behcet Syndrome. Behcet syndrome is a rare disorder typically seen in adults that is a diagnosis of exclusion. The natural history of Behcet is recurrent episodesof genital and oral ulcerations. Recommend patient return when she has active lesion for evaluationand further testing including viral HSV swab. - Recommend patient establish with Dr. López in pediatric dermatology, will place scheduling request RTC: Telehealth appointment with Dr. López, in person evaluation with onset of new ulcerations. Note initiated by Beryl Rosen LPN. I, Beryl Rosen LPN, have performed the documentation for this encounter in the presence of and acting as a scribe for Nae Almeida MD. I performed the services which were documented by the scribe, and I agree with the accuracy of the documentation in this encounter. Nae Almeida MD Reviewed and signed by Nae Almeida MD Resident in Dermatology [facility] Patient seen in conjunction with staff newspaper inserter: Valencia Gupta MD Department of Dermatology [facility] * Valencia Gupta MD - 04/09/2020 10:45 AM EST 15 y o adopted female with history of oral and genital ulcers, history of PE, and ocular problems (?episcleritis). No cutaneous findings today, although photographs on mom's phone viewed with patient's permission showing large, 4+ cm ulcer with labial edema. ULcers occurred in the absence of known infection (including EBV and CMV which were negative for acute infection at the time of the ulcers). Overall the findings suggest possible Bechet's, although I think time will tell. If the ulcers become recurrent over time, I would favor the dx of Bechet's. I have not seen Bechet's in a patient thisyoung, and would like Dr. López (pediatric dermatology) opinion as well. This could be arranged as telehealth since there are no visible cutaneous findings at this time. If ulcers recur, an in person visit may be helpful. I directly supervised the Dermatology resident during this office visit. The resident presented thehistory and physical exam to me. I then saw and examined this patient with the resident. We reviewed the history and pertinent details and I confirmed the physical findings. I agree with the details of the history and physical exam as documented in the resident's note. VALENCIA GUPTA MD Staff Physician documented in this encounter Plan of Treatment Not on file documented as of this encounter Visit Diagnoses Diagnosis Genital ulcer, female Other specified disorders of female genital organs documented in this encounter Care Teams Sales And Marketing Executive Relationship Specialty Start Date End Date Ben Nevarez MD [address] [place] [address] [place] [address] PCP - General Pediatrics 11/20/15 documented as of this encounter
--- OUTSIDE RECORDS SUMMARY | 2023-11-17 15:27 | XMS_ITS | Encounter Summary ---
Author Organization [facility] Address [place] [id number] Care Team Providers Care Creative Guru Name Role Phone Ben Nevarez MD Primary Care Provider [phone] Reason for Referral * Diagnostic Test (Routine) - Closed Specialty Diagnoses / Procedures Referred By Contac t Referred To Contact Radiology Diagnoses Genital ulcer, female Procedures MRI Pelvis Soft Tissue (GI DOMESTIC CLEANER) wwo Contrast MRI Pelvis Soft Tissue (GI DOMESTIC CLEANER) w Contrast Arpit Cormier MD [facility] [place] [address] [place] [address] [place] [address] Referral ID Status Reason Start Date Expiration Date V isits Requested Visits Authorized [id number] Closed Specialty Service Requested 04/30/2020 10/28/2021 1 1 Reason for Visit * Diagnostic Test (Routine) - Closed Specialty Diagnoses / Procedures Referred By Contac t Referred To Contact Radiology Diagnoses Genital ulcer, female Procedures MRI Pelvis Soft Tissue (GI DOMESTIC CLEANER) wwo Contrast MRI Pelvis Soft Tissue (GI DOMESTIC CLEANER) w Contrast Arpit Cormier MD [facility] [place] [address] [place] [address] [place] [address] Referral ID Status Reason Start Date Expiration Date V isits Requested Visits Authorized [id number] Closed Specialty Service Requested 04/30/2020 10/28/2021 1 1 Encounter Details Date Type Department Care Team (Latest Contact Info) Description 05/10/2020 5:32 PM EST - 05/10/2020 11:59 PM EST Hospital Encounter MRI at [facility] [place] [address] Arpit Cormier MD [facility] [place] [address] Genital ulcer, female Discharge Disposition: Home Social History Tobacco Use [...] 10 mg Tablet, Multiphasic Release Bedtime 02/08/2020 05/06/2023 lidocaine (Xylocaine) 5 % Ointment Three times a day 04/24/2020 05/06/2023 predniSONE (Deltasone) 10 mg Tablet Take [...] Procedure Name Priority Date/Time Associated Diagnosis Comments MRI PELVIS SOFT TISSUE (GI DOMESTIC CLEANER) WWO CONTRAST Routine 05/10/2020 7:10 PM EST Genital ulcer, female documented in this encounter Results * MRI Pelvis Soft Tissue (GI DOMESTIC CLEANER) wwo Contrast (05/10/2020 7:10 PM EST) Anatomical [...] report, please contact the number below. ? Electronically signed by: Jim Live MD, [facility] ([phone]), at 05/13/2020 10:57 AM Narrative 05/13/2020 10:57 AM EST EXAMINATION: MRI PELVIS SOFT TISSUE (GI DOMESTIC CLEANER) WWO CONTRAST CLINICAL HISTORY: back pain pelvic [...] 05/13/2020 EXAMINATION: MRI PELVIS SOFT TISSUE (GI DOMESTIC CLEANER) WWO CONTRAST CLINICAL HISTORY: back pain pelvic [...] this report, please contact the number below. Electronically signed by: Jim Live MD, [facility]([phone]), at 05/13/2020 10:57 AM Arpit Cromier MD [facility] MRI ORDERABLES documented in this encounter Visit Diagnoses Diagnosis Genital ulcer, female Other specified disorders of female genital organs documented in this encounter Administered Medications Inactive Administered Medications - up to 3 most recent administrations Medication Order MAR Action Action Date Dose Rate Site gadoterate meglumine (Dotarem) (0.5 mMol/mL) injection solution 0.2 mL/kg/dose 0.2 mL/kg/dose, Intravenous, ONCE PRN, 1 dose, Starting on Wed05/10/20 at 1933, Until Wed05/10/20 at 1933, Per Protocol, Radiology Contrast, Routine Given 05/10/2020 7:33 PM EST 13 mLs documented in this encounter Care Teams Creative Guru Relationship Specialty Start Date End Date [place] [address] [address] PCP - General Pediatrics 11/20/15 documented as of this encounter
--- OUTSIDE RECORDS SUMMARY | 2023-11-17 15:27 | XMS_ITS | Encounter Summary ---
[place] [address] Care Team Providers Care Fern Gatherer Name Role Phone Ben Nevarez MD Primary Care Provider Reason for Visit * Reason Onset Date Comments Other 04/23/2020 Encounter Details Date Type Department Care Team (Late st Contact Info) Description 04/23/2020 Telephone [place] [id number] Jose Angel Ferris RN Other Social History Tobacco Use Types Packs/Day Years Used Date Smoking Tobacco: Never Smokeless Tobacco: Never Comments:no ETS exposure Sex and Gender Information Value Date Recorded Sex Assigned at Not on file Gender Identity Not on file Sexual Orientation Not on file documented as of this encounter Miscellaneous Notes * Telephone Encounter - Jose Angel Ferris RN - 04/24/2020 8:30 AM EST Mom will follow up once Elvia seen by PCP. * Telephone Encounter - Jose Angel Ferris RN - 04/23/2020 4:46 PM EST Arpit Cormier MD sent to Jose Angel Ferris RN Caller: Unspecified (Today, ??4:15 PM) ?? Needs to see PCP could be her disease or an intercurrent infection I spoke with Mom and she will call PCP now. * Telephone Encounter - Jose Angel Ferris RN - 04/23/2020 4:14 PM EST mom called and spoke with Genna, felt patient needed to be seen today, running fever? [phone] the number, but hard to read her writing Message above from French. RTC to Mom and she reports that today Elvia has developed a fever of 101.9 and chills. Reports that Kash is also experiencing some Vaginal Pain and itching. Reports no lesions present yet. Reports that she developed lesions on her Breast around [place] a[place] but cream was ordered and is now clear. Reports Elvia took Tylenol 15 minutes ago for fever and discomfort. Currently being treated for a PE and is taking Xarelto, has repeat CT in May. Mom is concernedabout fever and states this is how it all started last time. I advised Mom that I would reach out to Dr. Cormier and if I do not get back to her today then to please call the Health Center Assistant provider after 5:30 and they will contact Dr. Cormier. documented in this encounter Plan of Treatment Not on file documented as of this encounter Visit Diagnoses Not on filedocumented in this encounter Care Teams Fern Gatherer Relationship Specialty Start Date End Date Ben Nevarez MD [address] [place] [address] [place] [address] PCP - General Pediatrics 11/20/15 documented as of this encounter
--- OUTSIDE RECORDS SUMMARY | 2023-11-17 15:27 | XMS_ITS | Encounter Summary ---
Author Organization [facility] [place] [address] Care Team Providers Care Towboat Operator Name Role Phone Ben Nevarez MD Primary Care Provider [phone] Reason for Visit * Reason Onset Date Comments Abnormal Lab 02/16/2020 Encounter Details Date Type Department Care Team (Late st Contact Info) Description 02/16/2020 Telephone [place] [phone] Jose Angel Ferris RN Abnormal Lab Social History Tobacco Use Types Packs/Day Years Used Date Smoking Tobacco: Never Smokeless Tobacco: Never Comments:no ETS exposure Sex and Gender Information Value Date Recorded Sex Assigned at Not on file Gender Identity Not on file Sexual Orientation Not on file documented as of this encounter Miscellaneous Notes * Telephone Encounter - Jose Angel Ferris RN - 02/26/2020 12:41 PM EST Images from the original note were not included. February 26, 2020 Arpit Cormier MD to Me ??? Emily Drake ?? 12:21 PM Happy to do a video appt whenever it can be scheduled Arpit Cormier MD to Me ?? 12:19 PM Hold on the 81 ASA until she sees Hematology and continue on the Xarelto LM for Mom Tino to RTC and to disregard giving the ASA as we spoke of earlier today. Asked her to RTC to nurse to discuss POC. I spoke Mom and she will call to schedule a follow up visit. She will hold ASA and continue giving the Xarelto. * Telephone Encounter - Jose Angel Ferris RN - 02/26/2020 11:18 AM EST I spoke with Mom Kaila and she wants to know if they should continue with the Xarelto? Do they Increase the dose as she states previously discussed? Mom will start the ASA 81 mg daily. Elvia has follow up with Pediatric Hematology on 03/13/20 and she is wondering when she needs to see Dr. Cormier again. Is open to phone appointment. * Telephone Encounter - oJse Angel Ferris RN - 02/16/2020 11:29 AM EST Elvia Rodrigues G - 02/14/20 More Detail >> Arpit Cormier MD Sent: Thao February 15, 2020 12:32 PM To: Jose Angel Ferris RN ?? Message Take 81 mg ASA ----- Message ----- From: Alberto, Lab In [facility] Sent: 02/14/2020 ??11:48 AM EST To: Arpit Cormier MD dRVVT <=1.20 IU/mL 1.96High LM to RTC to Nurse. documented in this encounter Plan of Treatment Not on file documented as of this encounter Visit Diagnoses Not on filedocumented in this encounter Care Teams Towboat Operator Relationship Specialty Start Date End Date Ben Nevarez MD [address] [place] [address] PCP - General Pediatrics 11/20/15 documented as of this encounter
--- OUTSIDE RECORDS SUMMARY | 2023-11-17 15:27 | XMS_ITS | Encounter Summary ---
Author Organization [facility] Address [facility] [place] [address] Care Team Providers Care Heel Attacher Name Role Phone Ben Nevarez MD Primary Care Provider +1 [phone] Encounter Details Date Type Department Care Team (Late st Contact Info) Description 06/03/2021 9:00 AM EST TH Visit (TeleHealth) Psychiatry [place] [phone] Olivia Turner MD [facility] [place] [place] [address] Trauma and stressor-related disorder; ADHD (attention deficit hyperactivity disorder), combined type; CINTIA (generalized anxiety disorder); Depression, unspecified depression type; PATIENT NOT SEEN Social History Tobacco Use Types Packs/Day Years Used Date Smoking Tobacco: Never Smokeless Tobacco: Never Comments:smokes marajuana Sex and Gender Information Value Date Recorded Sex Assigned at Not on file Gender Identity Not on file Sexual Orientation Not on file documented as of this encounter Progress Notes * Olivia Turner - 06/03/2021 9:00 AM EST Elvia and her parents no-showed to their appointment today. When I called during their appointment, they admitted that they had forgotten, were on their way to [place] (but still in [place]), and were unable to find a WiFi connection. While Elvia's mother was willing to do a phone appointment, Elvia expressed frustration and displeasure about missing out on her time to talk to me, and they requested to reschedule instead. I informed them that as I will be working at another hospital from 06/09 until the end of September, rescheduling would mean that they would have to see a different CAP fellow. They agreed to this, and we rescheduled to 06/17/[address] Sinai Hester. Of note, Elvia's mother reported that Elvia failed her first semester of school and has refused to go to school for the past 2-3 weeks. They are concerned about how she will make up the first semester but believe she will still be able to graduate on time. Elvia has continued to spend a lot of time at her boyfriend's home instead of at home with her parents, and recently disappeared for a week after telling her parents that she was going out to buy something. She has been taking her medications when she is at home with her parents, but has not been bringing it to her boyfriend's home. Elvia's mother is concerned that Elvia is going backwards instead of improving. I will sign out these details and information from our first visit to Dr. Sinai Hester prior to their appointment with her. Olivia Turner MD [facility] [place] Child and Adolescent Psychiatry Fellow This patient was not seen in this encounter. * Elisha Hennessy MD - 06/03/2021 9:00 AM EST I discussed this patient's situation with the resident but did not see the patient. I discussed thepatient with the resident. documented in this encounter Plan of Treatment Not on file documented as of this encounter Visit Diagnoses Diagnosis Trauma and stressor-related disorder ADHD (attention deficit hyperactivity disorder), combined type Attention deficit disorder with hyperactivity CINTIA (generalized anxiety disorder) Generalized anxiety disorder Depression, unspecified depression type PATIENT NOT SEEN documented in this encounter Care Teams Heel Attacher Relationship Specialty Start Date End Date Ben Nevarez MD [address] [place] [address] PCP - General Pediatrics 11/20/15 documented as of this encounter
--- OUTSIDE RECORDS SUMMARY | 2023-11-17 15:27 | XMS_ITS | Encounter Summary ---
Author Organization [facility] [place] [address] Care Team Providers Care Factory Assembler Name Role Phone Ben Nevarez MD Primary Care Provider Encounter Details Date Type Department Care Team (Latest Contact Info) Description 02/09/2020 6:01 PM EDT - 02/09/2020 11:59 PM EDT Hospital [place] [phone] Discharge Disposition: Home Social History Tobacco Use Types Packs/Day Years Used Date Smoking Tobacco: Never Smokeless Tobacco: Never Comments:no ETS exposure Sex and Gender Information Value Date Recorded Sex Assigned at Not on file Gender Identity Not on file Sexual Orientation Not on file documented as of this encounter Medications at Time of Discharge Medication Sig Dispensed Refills Start Date End Date melatonin 10 mg Tablet, Multiphasic Release Bedtime 02/08/2020 05/06/19 24 sulfamethoxazole-trimeth oprim DS (Bactrim DS) 800-160 mg Tablet TAKE ONE TABLET BY MOUTH TWICE A DAY FOR 10 DAYS 02/07/2020 03/13/2020 lidocaine (XYLOCAINE) 5 % Ointment APPLY TOPICALLY TO THE AFFECTED AREA THREE TIMES A DAY NEEDED FOR PAIN 02/07/2020 03/13/2020 valACYclovir (VALTREX) 1 gram Tablet TAKE ONE TABLET BY MOUTH TWICE A DAY FOR 5 DAYS 02/07/2020 03/13/2020 montelukast (SINGULAIR) 5 mg chewable tablet Take 5 mg by mouth nightly. 03/13/2020 Levalbuterol Tartrate (XOPENEX HFA) 45 mcg/Actuation inhaler Inhale 1-2 puffs into the lungs every 4 hours as needed. 03/13/2020 Budesonide (PULMICORT FLEXHALER) 90 mcg/Inhalation AePB Inhale 2 puffs into the lungs daily. 03/13/2020 ranitidine (ZANTAC) 75 mg tablet Take 75 mg by mouth daily. 03/13/2020 pediatric multivitamin (FLINTSTONES MULTIVITAMIN) chewable tablet Take 2 tablets by mouth daily. 03/13/2020 polyethylene glycol (MIRALAX) 17 gram packet Take 17 g by mouth daily. 03/13/2020 documented as of this encounter Plan of Treatment Not on file documented as of this encounter Visit Diagnoses Not on filedocumented in this encounter Care Teams Factory Assembler Relationship Specialty Start Date End Date Ben Nevarez MD [address] [place] [address] PCP - General Pediatrics 11/20/15 documented as of this encounter
--- OUTSIDE RECORDS SUMMARY | 2023-11-17 15:27 | XMS_ITS | Encounter Summary ---
[facility] Organization [facility] [place] [address] Care Team Providers Care Dry Mill Operator Name Role Phone Ben Nevarez MD Primary Care Provider [phone] Encounter Details Date Type Department Care Team (Latest Contact Info) Description 11/09/2022 12:15 PM EDT Ancillary [place] [phone] Kayleigh Yee MD [facility] [place] [address] Behcet's disease Social History Tobacco Use Types [...] Procedure Name Priority Date/Time Associated Diagnosis Comments REQUEST FOR 2ND READ CT CHEST Routine 11/09/2022 12:10 PM EDT Behcet's disease documented in this encounter Results * Request For 2nd Read CT Chest [...] who have questions please contact the health post acute care nurse that requested your imaging first. ? Electronically signed by: Dexter Sanchez MD, [facility] ??([phone]), at 11/09/2022 12:36 PM Narrative 11/09/2022 12:36 PM EDT EXAMINATION: REQUEST FOR 2ND READ CT CHEST CLINICAL HISTORY: CT chest negative for PE. 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 Kayleigh Yee MD IMG OUTSIDE INTERPRE TATION ORDERABLES documented in this encounter Visit Diagnoses Diagnosis Behcet's disease Behcet's syndrome documented in this encounter Care Teams Dry Mill Operator Relationship Specialty Start Date End Date Ben Nevarez MD [address] [place] [address] PCP - General Pediatrics 11/20/15 documented as of this encounter
--- OUTSIDE RECORDS SUMMARY | 2023-11-17 15:27 | XMS_ITS | Encounter Summary ---
Author Organization [facility] [address] Care Team Providers Care Party Bus Driver Name Role Phone Ben Nevarez MD Primary Care Provider Encounter Details Date Type Department Care Team (Late st Contact Info) Description 11/10/2022 [place] [address] [facility] [place] [address] Mild intermittent asthma without complication Social History [...] asthma documented in this encounter Care Teams Party Bus Driver Relationship Specialty Start Date End Date Ben Nevarez MD [address] [place] [address] [place] [address] PCP - General Pediatrics 11/20/15 documented as of this encounter
--- OUTSIDE RECORDS SUMMARY | 2023-11-17 15:27 | XMS_ITS | Encounter Summary ---
Author Organization [facility] Address [facility] [address] Care Team Providers Care Blood Or Blood Bank Technician Name Role Phone Ben Nevarez MD Primary Care Provider [phone] [phone] Encounter Details Date Type Department Care Team (Late st Contact Info) Description 04/10/2020 10:00 AM EST Office Visit [place] [address] Arpit Cormier MD [facility] [place] [address] Behcet's disease Social History Tobacco Use Types Packs/Day Years Used Date Smoking Tobacco: Never Smokeless Tobacco: Never Comments:no ETS exposure Sex and Gender Information Value Date Recorded Sex Assigned at Not on file Gender Identity Not on file Sexual Orientation Not on file documented as of this encounter Last Filed Vital Signs Vital Sign Reading Time Taken Comments Blood Pressure 109/70 04/10/2020 10:08 AM EST Pulse 97 04/10/2020 10:08 AM EST Temperature - - Respiratory Rate - - Oxygen Saturation - - Inhaled Oxygen Concentration - - Weight 67.7 kg (149 lb 3.2 oz) 04/10/20 20 10:08 AM EST Height 152 cm (4' 11.84) 04/10/2020 10 :08 AM EST Body Mass Index 29.29 04/10/2020 10:08 AM EST Body Mass Index Percentile 94.43% 04/10 10:08 AM EST Growth Chart: CDC (Girls, 2- 20 Years) documented in this encounter Progress Notes * Arpit Cormier MD - 04/10/2020 10:00 AM EST Is a follow-up appointment for Elvia Rodrigues birthdate 2005 The patient is a 15-year-old female with 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 My work-up included a positive IgM anticardiolipin which is typically found in an infectious circumstance She had an echocardiogram which was entirely normal She saw dermatology but was unable to connect with Dr. López and the appointment will be made by video in the near future. Since her vaginal source of healed the photographs that they have on their cell phone will be useful Her complaints were fatigue which predates the vaginal ulcers and does not appear to be associated with a sleep disturbance and pain in her buttocks of unclear etiology I ordered laboratory studies including HLA-B27 which occasionally is associated with Behcet's and HLA B 51 which is the marker usually found in Behcet's For her pain I prescribed gabapentin which her mother takes with success I will follow-up by video in 3 months documented in this encounter Plan of Treatment Not on file documented as of this encounter Procedures Procedure Name Priority Date/Time Associated Diagnosis Comments MISCELLANEOUS LAB REQUEST Routine 04/10/2020 11:14 AM EST Behcet's disease MISC QUEST TEST-QUEST Routine 04/10/2020 11:14 AM EST HC VENIPUNCTURE Routine 04/10/2020 11:14 AM EST Behcet's disease WBC Routine 04/10/2020 11:14 AM EST documented in this encounter Results * [facility] Test-Quest (04/10/2020 11:14 AM EST) [facility] FLEXITEST 2 [facility] Comment: FLEXITEST 2 HLA-B51 DETERMINATION TESTS RESULTS--------UNITS--REF. RANGE--- B51 ?Negative SEE BELOW HLA-B51 is associated with Behcet's Disease. Only 40 to 60% of Behcet's patients carry HLA-B51, therefore a negative result does not rule out the possibility of the disease. The frequency of HLA-B51 in the general [place] population is 7%. Low resolution HLA typings are routinely performed by PCR-rSSO or PCR-SSP methodologies. This test was developed and their performance characteristics determined by [facility]. It has not been cleared or approved by the [place] Food and Drug Administration. This test is used for clinical purposes. It should not be regarded as investigational or for research. This laboratory is certified under the Clinical Laboratory Improvement Amendments (CLIA) as qualified to perform high complexity clinical laboratory testing. Test performed by: ? [facility] ? [address] ? [place] [address] ?[phone] ? Fax: ?? [phone] Histocompatibility Laboratory Michelle Siddiqui, [facility]), Floor Framer Elisha Gallego, PhD, Diplomate([facility]), Director Jim Goldberg MD, PhD, Machinist Supervisor Test Reported by [facility], [facility], [address] [place] [address] Neptali Jacinto M.D., Ph.D., Director of Laboratories , [place] [id number] Blood specimen (specimen) Venous Draw / Unknown 04/10/2020 11:14 AM EST 04/11/2020 3:04 PM EST Narrative Resulting Agency Comment Spec In Lab Arpit Comrier MD LAB SEND OUT ORDERAB LES Performing Organization Address City/[facility]/ZIP Co de Phone Number [facility] [place] [address] * WBC (04/10/2020 11:14 AM EST) White Blood Cell 9.0 4.5 - 13.0 x10(3)/mcL [facility] Blood specimen (specimen) 04/10/2020 11:14 AM EST 04/10/2020 11:23 AM EST Narrative Resulting Agency Comment Spec In Lab Arpit Cormier MD HEMATOLOGY ORDERABLE S Performing Organization Address [facility] Co de Phone Number [facility] [place] [address] * HLA-B27 (04/10/2020 11:14 AM EST) HLA-B27 Negative [facility] HLA B27 Interpretation HLA B27 antigen was not detected. Method: Flow Cytometry Reference: 1.Rodney DA, Braun FD, Gabrielle A, et al: Ankylosing spondylitis and HLA-27. Lancet 1973;1:904-907 2.Varun Swenson: HLA-B27 typing by use of flow cytofluorometr y. Clin Chem 1987;33:1619-1 623 [facility] White Blood Cell 9.0 4.5 - 13.0 x10(3)/m [facility] Blood specimen (specimen) 04/10/2020 11:14 AM EST 04/10/2020 11:23 AM EST Narrative Resulting Agency Comment Spec In Lab Arpit Cormier MD HEMATOLOGY ORDERABLE S Performing Organization Address City/[facility] Co de Phone Number [facility] [place] [address] * Miscellaneous Lab request (04/10/2020 11:14 AM EST) Label Request received in lab. [facility] Blood specimen (specimen) 04/10/2020 11:14 AM EST 04/10/2020 11:23 AM EST Narrative Resulting Agency Comment Spec In Lab Arpit Cormier MD LAB SEND OUT ORDERAB LES Performing Organization Address City/[facility] Co de Phone Number [facility] [place] [address] documented in this encounter Visit Diagnoses Diagnosis Behcet's disease Behcet's syndrome documented in this encounter Care Teams Blood Or Blood Bank Technician Relationship Specialty Start Date End Date Ben Nevarez MD [address] [place] [address] PCP - General Pediatrics 11/20/15 documented as of this encounter
--- OUTSIDE RECORDS SUMMARY | 2023-11-17 15:27 | XMS_ITS | Encounter Summary ---
[place] [address] Care Team Providers Care Receptionist Nurse Name Role Phone Ben Nevarez MD Primary Care Provider [phone] [phone] Encounter Details Date Type Department Care Team (Late st Contact Info) Description 11/22/2020 Ancillary Procedure [place] [phone] Ben Nevarez MD [address] [place] [address] [place] [address] Social History Tobacco Use Types Packs/Day Years [...] Associated Diagnosis Comments FILM LIBRARY STORAGE ONLY ULTRASOUND STUDY Routine 11/22/2020 12:00 AM EDT documented in this encounter Results * Film Library- Storage Only Ultrasound Study (11/22/2020 12:00 AM EDT) Narrative [facility] - 12/17/2020 4:18 PM EDT This exam is auto-finalizing. It's purpose is for storage only. Ben Nevarez MD IMG FILM LIBRARY OR DERABLES [place], [place] documented in this encounter Visit Diagnoses Not on filedocumented in this encounter Care Teams Receptionist Nurse Relationship Specialty Start Date End Date Ben Nevarez MD [address] [place] [address] PCP - General Pediatrics 11/20/15 documented as of this encounter
--- OUTSIDE RECORDS SUMMARY | 2023-11-17 15:28 | XMS_ITS | Encounter Summary ---
Author Organization [facility] Address [address] [place] [address] Care Team Providers Care Surgical Coordinator Name Role Phone Unavailable Primary Care Provider Unavailabl e Encounter Details Date Type Department Care Team (Latest Contact Info) Description 07/29/2023 Specialty Pharmacy [facility] [address] [place] [address] Carolyn Azul RPH Set up initial fill for Addiction Medicine, Patient Education for Addiction Medicine, Prospective Review for Addiction Medicine Social History Tobacco Use Types Packs/Day Years Used Date Smoking Tobacco: Never Assessed Interpersonal Safety Answer Date Record ed Physically Hurt Never 03/05/2020 Verbally Threaten Not on file 03/05/2020 Sex and Gender Information Value Date Recorded Sex Assigned at Not on file Gender Identity Female 04/07/2021 13:19 EST Sexual Orientation Not on file documented as of this encounter Progress Notes * Carolyn Azul RPH - 07/29/2023 1513 EDT Elvia Worley Lilia is a 18 y.o. female -- pharmacist clinical review of initial prescription for Buprenorphine ER injection Treatment information: Prescriber: Natalie Luis Prescriber Contact Info: [facility], Clinic note in Epic scans: No, Care Everywhere information available Sublingual Buprenorphine Naive: Yes Buprenorphine ER Formulation: Brixadi Initial Dose: 07/30/23: Brixadi 16 mg weekly x 1, then 8 mg x1 within 3 days of first injection. Start maintenance dose 1 week later as Brixadi 24 mg subcutaneous weekly. REMS requirements met: Yes Naloxone prescribed: N/A Treatment goals: Engage in OUD treatment, reduce cravings, avoid withdrawal symptoms Medication Management Notes: Patient will be administered the medication at [facility]. To contact the clinic call: [phone] Baseline labs: LFTs WNL 01/20/23 Current medications: Outpatient Encounter Medications as of 07/29/2023 Medication Sig buprenorphine (BRIXADI) 24 mg/0.48 mL solution, extended rel syringe Inject 24 mg into the skin once a week. 07/30/23: Brixadi 16 mg weekly x 1, then 8 mg x1 within 3 days of first injection. Start maintenance dose 1 week later as Brixadi 24 mg subcutaneous weekly. Daily Max: 24 mg buPROPion (WELLBUTRIN SR) 100 mg SR tablet Take 1 Tablet by mouth daily. ferrous sulfate 325 mg (65 mg iron) EC tablet Take 1 Tablet by mouth daily. hydrOXYzine (ATARAX) 25 mg tablet 1 Tablet every 6 hours as needed. omeprazole (PRILOSEC) 20 mg capsule Take 1 Capsule by mouth daily. ondansetron (ZOFRAN-ODT) 4 mg disintegrating tablet Take 1 Tablet by mouth every 8 hours as needed. potassium chloride CR (KLOR-CON) 10 mEq tablet Take 1 Tablet by mouth daily. pregabalin (LYRICA) 50 mg capsule Take 1 Capsule by mouth at bedtime. Daily Max: 50 mg VENTOLIN HFA 90 mcg/actuation inhaler Inhale 2 Puffs as directed every 4 hours as needed. VYVANSE 50 mg capsule Take 1 Capsule by mouth every morning. Daily Max: 50 mg zolpidem (AMBIEN) 5 mg tablet Take 1 Tablet by mouth at bedtime as needed. Daily Max: 5 mg No facility-administered encounter medications on file as of 07/29/2023. Allergies: reviewed Drug Interactions and Management Plan: Medication list source: Starteed chart review, [employer] information, and [facility] DDI with current medication list checked Drug-drug interactions identified: bupropion, hydroxyzine, pregabalin, vyvanse, zolpidem - provideraware Comorbidities: reviewed Assessment: Female of childbearing potential: N/A Coinfection/Vaccination Assessment: Vaccine Date Result HCV N/A HBV N/A HIV 10/28/22 Negative Baseline Outcome: Number of admissions at [facility] related to OUD in last 6 months: 0 Cezar RussellD (she/her) Dry Chain Operator Pharmacist [facility] Specialty Pharmacy 07/29/2023 documented in this encounter Plan of Treatment Not on file documented as of this encounter Visit Diagnoses Not on filedocumented in this encounter Historical Medications * This list may reflect changes made after this encounter. Medication Sig Dispensed Refills Start Date End Date zolpidem (AMBIEN) 5 mg tablet Take 1 Tablet by mouth at bedtime as needed. Daily Max: 5 mg 06/04/2023 pregabalin (LYRICA) 50 mg capsule Take 1 Capsule by mouth at bedtime. Daily Max: 50 mg 04/15/2023 potassium chloride CR (KLOR-CON) 10 mEq tablet Take 1 Tablet by mouth daily. 03/26/2023 ondansetron (ZOFRAN-ODT) 4 mg disintegrating tablet Take 1 Tablet by mouth every 8 hours as needed. 06/04/2023 omeprazole (PRILOSEC) 20 mg capsule Take 1 Capsule by mouth daily. 05/03/2023 VYVANSE 50 mg capsule Take 1 Capsule by mouth every morning. Daily Max: 50 mg 05/20/2023 hydrOXYzine (ATARAX) 25 mg tablet 1 Tablet every 6 hours as needed. 06/04/2023 ferrous sulfate 325 mg (65 mg iron) EC tablet Take 1 Tablet by mouth daily. 04/01/2023 buPROPion (WELLBUTRIN SR) 100 mg SR tablet Take 1 Tablet by mouth daily. 04/01/2023 VENTOLIN HFA 90 mcg/actuation inhaler Inhale 2 Puffs as directed every 4 hours as needed. 11/10/2022 buprenorphine (BRIXADI) 24 mg/0.48 mL solution, extended rel syringe Inject 24 mg into the skin once a week. 07/30/23: Brixadi 16 mg weekly x 1, then 8 mg x1 within 3 days of first injection. Start maintenance dose 1 week later as Brixadi 24 mg subcutaneous weekly. Daily Max: 24 mg added in this encounter
--- OUTSIDE RECORDS SUMMARY | 2023-11-17 15:28 | XMS_ITS | Encounter Summary ---
Author Organization [facility] Address [address] [place] [address] Care Team Providers Care Belt Worker Name Role Phone Unavailable Primary Care Provider Unavailabl e Encounter Details Date Type Department Care Team (Late st Contact Info) Description 10/28/2022 Lab Requisition [facility] Pathology & Laboratory Medicine - [facility] [address] [place] [address] Outr Resulting Lab, Provider Social History Tobacco Use Types Packs/Day Years [...] Procedure Name Priority Date/Time Associated Diagnosis Comments HIV 1/2 ANTIGEN AND ANTIBODY, 4TH GENERATION Routine 10/28/2022 15:17 EDT documented in this encounter Results * HIV 1/2 ANTIGEN AND ANTIBODY, 4TH GENERATION (10/28/2022 15:17 EDT) HIV 1 and 2 Antibody/p24 Antigen, 4th Generation Negative Negative 10/29/2022 9:50 EDT [facility] Comment:If acute HIV-1 infec tion is suspected in a high risk patient, submit plasma specimen for HIV-1 RNA quantitation test. Blood VENOUS BLOOD / Unknown 10/28/2022 15:17 EDT 10/28/2022 21:12 EDT Narrative [facility] - 10/29/2022 9:50 EDT Fourth Generation assay performed on the Siemens Centaur XPT. Provider Outr Resulting Lab IMMUNOLOGY A ND SEROLOGY ORDERABLES [facility] [address] [place] [address] documented in this encounter Visit Diagnoses Not on filedocumented in this encounter
--- OUTSIDE RECORDS SUMMARY | 2023-11-17 15:28 | XMS_ITS | Encounter Summary ---
Author Organization [facility] Address [facility] [place] [address] Care Team Providers Care Chiropractic Neurologist Name Role Phone Anne-Marie Mendes MD Primary Care Provider [phone] Reason for Visit * Reason Comments Cough tired, wheezing Encounter Details Date Type Department Care Team (Late st Contact Info) Description 05/12/2011 2:00 PM EST Office Visit [place] [address] Bladimir Levine MD [facility] [address] [place] [address] Asthma (Primary Dx); Nasal congestion; History of asthma; Cough Discharge Disposition: Home Social History Tobacco Use Types Packs/Day Years Used Date Smoking Tobacco: Never Comments:no ETS exposure Sex and Gender Information Value Date Recorded Sex Assigned at Not on file Gender Identity Not on file Sexual Orientation Not on file documented as of this encounter Last Filed Vital Signs Vital Sign Reading Time Taken Comments Blood Pressure 80/65 05/12/2011 1:27 PM EST Pulse 65 05/12/2011 1:27 PM EST Temperature - - Respiratory Rate 21 05/12/2011 1:27 PM EST Oxygen Saturation 98% 05/12/2011 1:27 PM EST Inhaled Oxygen Concentration - - Weight 23.9 kg (52 lb 11 oz) 05/12/2011 1:27 PM EST Height 119.6 cm (3' 11.09) 05/12/2011 1:[address] Body Mass Index 16.71 05/12/2011 1:27 PM EST Body Mass Index Percentile 64.04% 05/12/2011 1:2 7 PM EST Growth Chart: [facility] (Girls, 2- 20 Years) documented in this encounter Patient Instructions * Patient Instructions* Bladimir Levine MD - 05/12/2011 2:43 PM EST Allergy skin tests done for house dust mite, cat, dog, grasses, weeds, trees, molds, feathers--all negative Continue current medications for the moment Will let you know when the lab results come back--in a week or so. If you haven't heard from me by May 27, please call. documented in this encounter Progress Notes * Bladimir Levine MD - 05/12/2011 3:09 PM EST 05/12/2011 BLADIMIR LEVINE MD Zafar Clifton 6 y.o. [id number] ANNE-MARIE MENDES MD [phone] Anne-Marie Mendes CC: Chronic Cough HPI: Zafar is a 6 y.o.female for whom consultation is sought by Dr. Mendes regarding recurrent respiratory infections and chronic cough. History is obtained from parents Limited records of prior care are available and reviewed as part of the encounter. Parents report that she has had a cough since infancy. It seems to last 3-4 months, then resolve and return again. At worst it is deep and barking; more often it is less severe and associated with a runny nose. Her most recent episode began in March. It usually starts with a URI but the cough doesn't resolve. She often ends up with a sinus infection and receives antibiotics before it clears. The cough is not specifically worse day vs night, but she does need to sleep propped up on pillows silva able to breathe when she is ill. She was diagnosed with pneumonia earlier this month based on a chest xray, and was treated with Zithromax. When she exercises she becomes dyspneic before her peers. She is now playing basketball in 45 minutes sessions and her parents note that her energy level is decreased and she has difficulty breathingby the end of the session. She has been on Pulmicort nebulizers and then Flexhaler since 3 months of age. Xopenex is used as rescue. She was started on ranitidine about 3 weeks ago for a one month trial to see if it would affect her cough. She has also been on singlair since 3-4 years of age--this was prescribed for migraineheadaches and has been beneficial. Hospitalized at 3 months with RSV; required ICU stay and oxygen treatment. Just before this hospitalization she was taken into state custody and placed with her current adoptive parents for foster care. They noted that she had two prior hospitalizations, but do not know if there was a respiratory problem or other illness. She has not had any subsequent hospitalizations for respiratory illnesses. Pneumonia diagnosed 04/23/11 in ED. She has occasional morning sore throat, but does not have heartburn, water brash, chest pain or post tussive emesis. She has been better since her recent pneumonia, but parents are not sure if the ranitidine is making any difference. No spitting up or need for formula changes as an . She does sometimes snore and often wakes up tired in the AM. No daytime somnolence. She has frequent runny nose and postnasal drainage. ROS: Chronic constipation Sensitive skin: Breaks out from soaps, shampoos, lotions Otherwise negative except as in HPI Patient Active Problem List Diagnoses Code ??? Cough 786.2 ??? History of asthma V12.69E ??? Nasal congestion 478.19R Medications: Pulmicort Flexhaler 90 mcg--3 puffs daily Ranitidine 75 mg BID Singulair 4 mg daily Xopenex HFA 3 puffs prn Polyethylene glycol 17 gm daily Allergies: Penicillins: rash Prior Medical History: : Term--no other info available Immunizations: current; had flu shot on 04/28/11 Hospitalizations: at 3 months for RSV and respiratory distress Surgery: None Family History: Unknown--taken into state custody at 3 months of age and subsequently adopted by foster parents Social and Environmental History: Lives with adoptive parents in 28 year old home. Finished basement; forced hot water heat. Wood stove in use for last 2 years only. No smokers Cat,dog and fish in house; chickens outdoors Started daycare at 2 1/2 years old; now in school and after school care--2nd grade student Mother is substance abuse counselor; father is with [employer] Exam: Filed Vitals: 05/12/11 1327 BP: 80/65 Pulse: 65 Resp: 21 Height: 119.6 cm (3' 11.09) Weight: 23.9 kg (52 lb 11 oz) SpO2: 98% General: Well developed, well-nourished school aged female in no distress. Interactive and answers questions appropriately Head: Normocephalic, Eyes: Conjunctivae clear; no discharge Ears: TM's clear bilat; no erythema or bulging; landmarks visible Nose: Nasal airway patent; mucosa pink; discharge minimal, mucoid, no crusting Oropharynx: Mucous membranes moist; teeth in good repair; tonsils small and not inflamed; postnasaldrainage absent; cobblestone appearance of the posterior pharyngeal wall absent Neck: Supple; no adenopathy; no mass Chest: No increase in AP diameter or increase in work of breathing. No retractions or use of accessory muscles Lungs: Breath sounds clear; good air exchange. Rales absent; wheezes absent; rubs absent Heart/Vascular: RRR without murmur; pulses equal and full Abdomen: Soft, nontender; liver not palpable; spleen not palpable no mass Extremities: Digital clubbing absent; No joint swelling or tenderness Skin: No rash or excoriation Neurol: Grossly normal PFT: FVC 1.65 L (114% predicted); FEV 1 1.55 L (119%), FEV 1/FVC .094; FEF 25/75 2.34 L/S (136%) Interpretation: Normal study; no prior study for comparison Xray: Reviewed outside CXR from 06/15, 02/16, 04/23--all appear normal to me; some increase in central peribronchial markings on 04/23 that was minimally present before but no hyperinflation, atelectasis, infiltrate. No formal reports included with the films for review. Reports from xrays 04/15 (scanned, no films for review) showed suggestion of pneumonia/atelectsis that had disappeared by the next day Other: Allergy skin tests done to a battery of inhalant antigens; all negative, including cat, dog,feather, housedust mite, mold, grasses, weeds, trees. Results for ZAFAR CLIFTON ( ) as of 05/13/2011 20:27 Ref. Range 05/12/2011 15:25 IgG Latest Range: 572-1474 mg/dL 683 IgA Latest Range: 34-305 mg/dL 114 IgM Latest Range: 31-208 mg/dL 117 IgE No range found 30.1 S. pneumoniae IgG Ab,23 serotypes,S Serotype 1 (1) <0.3 L mcg/mL >8.2 Serotype 2(2) <0.2 L mcg/mL >7.4 Serotype 3 (3) 2.0 L mcg/mL >6.9 Serotype 4 (4) 0.8 L mcg/mL >4.1 Serotype 5 (5) <0.4 L mcg/mL >28.8 Serotype 8 (8) 0.5 L mcg/mL >13.3 Serotype 9N (9) 0.3 L mcg/mL >16.6 Serotype 12F (12) <0.1 L mcg/mL >4.3 Serotype 14 (14) <0.6 L mcg/mL >22.9 Serotype 17F (17) 3.9 L mcg/mL >44.8 Serotype 19F (19) 15.5 L mcg/mL >16.0 Serotype 20 (20) <0.2 L mcg/mL >12.1 Serotype 22F (22) 0.7 L mcg/mL >32.4 Serotype 23F (23) 3.6 L mcg/mL >49.0 Serotype 6B (26) 42.9 mcg/mL >15.3 Serotype 10A (34) 0.7 L mcg/mL >25.5 Serotype 11A (43) 0.8 L mcg/mL >9.7 Serotype 7F (51) 3.3 L mcg/mL >30.8 Serotype 15B (54) 0.2 L mcg/mL >12.8 Serotype 18C (56) 1.0 L mcg/mL >7.0 Serotype 19A (57) 2.2 L mcg/mL >28.1 Serotype 9V (68) 2.3 L mcg/mL >44.0 Serotype 33F (70) <0.2 L mcg/mL >7.5 Results for ZAFAR CLIFTON ( ) as of 05/19/2011 07:21 Ref. Range 05/12/2011 15:25 Tetanus Ab,IgG-[place] No range found 0.27 Assessment: Chronic cough and recurrent upper respiratory symptoms with normal lung function and exam; allergy skin tests not helpful and immunoglobulins normal. Tetanus antibody response is normal; pneumococcal antibody responses are generally low, although she does have >1.3 mcg.ml for 8 of the 23 serotypes, which is considered adequate at her age. Of the 7 serotypes in the PCV 7 vaccine, two were low, two had good responses, and three are not tested in this panel. Not likely to be relatedto poorly controlled asthma, given normal PFT and no hyperinflation on chest xray. GERD is a consideration, although she has no symptoms other than cough. Plan: 1. Continue current medications and asthma management 2. Wait and see if there is a superintendent marine oil terminal benefit from the ranitidine--if she stays well for more than a few weeks. 3. Should have Pneumovax 23 immunization and repeat antibody determination about a month later. Will ask Dr. Mendes's office to give vaccine and schedule appointment with us about a month later. documented in this encounter Procedure Notes * Bladimir Levine MD - 05/12/2011 3:09 PM ESTAssociated Order(s): ALLERGY SKIN TEST Procedure(s): PERCUTANEOUS TESTS W ALLERGENIC EXTRACTS, IMMEDIATE REACTION PRFM Pre-Procedure Diagnose(s): Asthma Allergy Skin Test Results Results recorded as mm wheal/mm flare 1. Histamine 12/09 9. Giant Ragweed 05/16 2. Saline Control 05/15 10. Sipsey Mix 06/12 3. Birch 08/16 11. Grass Mix 06/12 4. Cat 06/12 12. Tree Mix 06/12 5. Dog 06/12 13. Aspergillus mix 06/15 6. D. Farinae (dust mite) 06/12 14. Alternaria 06/12 7. D. Pteronyssinus (dust mite) 06/12 15. Robert 06/12 8. Austen Grass 2/2 16, Maple 2/2 34. Cladosporium 3/3 36. Helminthosporium 3/4 Mixed Feathers 3/3 Interpretation: All negative documented in this encounter Plan of Treatment Not on file documented as of this encounter Procedures Procedure Name Priority Date/Time Associated Diagnosis Comments PERCUTANEOUS TESTS W ALLERGENIC EXTRACTS, IMMEDIATE REACTION PRFM Routine 05/19/2011 7:34 AM EST Asthma IMMUNOGLOBULIN E (IGE) Routine 2 3:25 PM EST Nasal congestion Cough S PNEUMONIAE ANTIBODY IGG, 23 SEROTYPES Routine 05/12/2011 3:25 PM EST Nasal congestion Cough TETANUS TOXOID ANTIBODY, IGG Routine 05/12/2011 3:25 PM EST Nasal congestion Cough IGA Routine 05/12/2011 3:25 PM EST Nasal congestion Cough IGM Routine 05/12/2011 3:25 PM EST Nasal congestion Cough IGG Routine 05/12/2011 3:25 PM EST Nasal congestion Cough documented in this encounter Results * PERCUTANEOUS TESTS W ALLERGENIC EXTRACTS, IMMEDIATE REACTION PRFM (05/19/2011 7:34 AM EST) Narrative Bladimir Levine MD - 05/19/2011 7:34 AM EST Allergy Skin Test Results Results recorded as mm wheal/mm flare 1. ??Histamine 8/30 ?9. ??Giant Ragweed 2/4 2. ??Saline Control 2/3 ?10. ??Sipsey Mix 3/3 3. ??Birch 5/7 ?11. ??Grass Mix 3/3 4. ??Cat 3/3 ?12. ??Tree Mix 3/3 5. ??Dog 3/3 ?13. ??Aspergillus mix 3/6 6. ??D. Farinae (dust mite) 3/3 ?? 14. ??Alternaria 3/3 7. ??D. Pteronyssinus (dust mite) 3/3 ??15. ??Robert 3/3 8. ??Austen Grass 2/2 ?16, ??Maple 2/2 34. ??Cladosporium 3/3 ?36. ??Helminthosporium 3/4 Mixed Feathers ??3/3 Interpretation: ??All negative Procedure Note Bladimir Levine MD - 05/12/2011 3:09 PM EST Allergy Skin Test Results Results recorded as mm wheal/mm flare 1. Histamine 12/09 9. Giant Ragweed 05/16 2. Saline Control 05/15 10. Sipsey Mix 06/12 3. Birch 08/16 11. Grass Mix 06/12 4. Cat 06/12 12. Tree Mix 06/12 5. Dog 06/12 13. Aspergillus mix 06/15 6. D. Farinae (dust mite) 06/12 14. Alternaria 06/12 7. D. Pteronyssinus (dust mite) 06/12 15. Robert / 8. Austen Grass 2/2 16, Maple 2/2 34. Cladosporium 3/3 36. Helminthosporium 3/4 Mixed Feathers / Interpretation: All negative Bladimir Levine MD PROCEDURE/MINOR SURG ICAL ORDERABLES * Immunoglobulin E (IgE)-[place] (05/12/2011 3:25 PM EST) IgE, Total 30.1 kU/L [facility] Comment: -- REFERENCE VALUE -- Mean ??18.0 +1SD ??71.0 +2SD 280.0 Test Performed by: [facility] Dpt of Lab Med and Pathology [address] [place] [id number] Marketing Instructor: Harpreet Whalen III, M.D. Blood specimen (specimen) 05/12/2011 3:25 PM EST 05/12/2011 4:52 PM EST Bladimir Levine MD IMMUNOLOGY ORDERABLE S Performing Organization Address [facility] de Phone Number [facility] * Tetanus Toxoid Antibody, IgG (05/12/2011 3:25 PM EST) Pathologist [facility] Tetanus Ab,IgG (MAY) 0.27 IU/mL [facility] Comment: Research Use Only The minimum level of protective antibody in the normal population is between 0.01 and 0.15 IU/mL. The majority of vaccinated individuals should demonstrate protective levels of antibody > 0.15 IU/mL. Test Performed by: [facility] D[facility] of Lab Med and Pathology [address] [place] [address] Marketing Instructor: Harpreet Whalen III, M.D. Blood specimen (specimen) 05/12/2011 3:25 PM EST 05/12/2011 4:52 PM EST Bladimir Levine MD LAB SEND OUT ORDERAB LES Performing Organization Address [facility] de Phone Number [facility] * S pneumoniae Antibody IgG, 23 serotypes (05/12/2011 3:25 PM EST) [facility] S Pneumo IgG 23 (MAY) ?HI ?Expected Test ?Result ?LO ??Units ?? Values --- S. pneumoniae IgG Ab,23 serotypes,S ??Serotype 1 (1) ?<0.3 ?L ?? mcg/mL ??>8.2 ??Serotype 2(2) ? <0.2 ?L ?? mcg/mL ??>7.4 ??Serotype 3 (3) ?2.0 ? L ?? mcg/mL ??>6.9 ??Serotype 4 (4) ?0.8 ? L ?? mcg/mL ??>4.1 ??Serotype 5 (5) ?<0.4 ?L ?? mcg/mL ??>28.8 ??Serotype 8 (8) ?0.5 ? L ?? mcg/mL ??>13.3 ??Serotype 9N (9) ? 0.3 ? L ?? mcg/mL ??>16.6 ??Serotype 12F (12) ? <0.1 ?L ?? mcg/mL ??>4.3 ??Serotype 14 (14) ?<0.6 ?L ?? mcg/mL ??>22.9 ??Serotype 17F (17) ? 3.9 ? L ?? mcg/mL ??>44.8 ??Serotype 19F (19) ? 15.5 ?L ?? mcg/mL ??>16.0 ??Serotype 20 (20) ?<0.2 ?L ?? mcg/mL ??>12.1 ??Serotype 22F (22) ? 0.7 ? L ?? mcg/mL ??>32.4 ??Serotype 23F (23) ? 3.6 ? L ?? mcg/mL ??>49.0 ??Serotype 6B (26) ?42.9 ?mcg/mL ??>15.3 ??Serotype 10A (34) ? 0.7 ? L ?? mcg/mL ??>25.5 ??Serotype 11A (43) ? 0.8 ? L ?? mcg/mL ??>9.7 ??Serotype 7F (51) ?3.3 ? L ?? mcg/mL ??>30.8 ??Serotype 15B (54) ? 0.2 ? L ?? mcg/mL ??>12.8 ??Serotype 18C (56) ? 1.0 ? L ?? mcg/mL ??>7.0 ??Serotype 19A (57) ? 2.2 ? L ?? mcg/mL ??>28.1 ??Serotype 9V (68) ?2.3 ? L ?? mcg/mL ??>44.0 ??Serotype 33F (70) ? <0.2 ?L ?? mcg/mL ??>7.5 To aid in interpretation of the pneumococcal antibody results and to ensure consistency in interpretation with other immunodeficiency practices and the [facility] Practice Guidelines (on interpretation of pneumococcal vaccine responses) we suggest that the following criteria would be consistent with a normal immune response: 1) A titer of 1.3 mcg/mL antibody or more, irrespective of a 4-fold change from the pre-vaccination response, if the titer is less than 1.3 mcg/mL. 2) In children ages 2-5 years a titer of 1.3 mcg/mL or greater to >=50% of the serotypes; in adults a titer of 1.3 mcg/mL or greater to >=70% of serotypes. References: 1. Assessment and clinical interpretation of polysaccharide antibody responses. Lucia Yadav and Bobby BRIZUELA. Annals of Allergy, Asthma and Immunology, 2007, 99: 462-4. 2. Influence of age on the response to Streptococcus pneumoniae vaccine in patients with recurrent infections and normal immunoglobulin concentrations. Bobby BRIZUELA, Marilou RIGGINS, Dino JARAMILLO, FC et al, Journal of Allergy and Clinical Immunology, 1998, 102: 215-21. Test Performed by: [facility] Dpt of Lab Med and Pathology [address] [place] [address] Marketing Instructor: Harpreet Whalen III, M.D. CERNER MILLENNIUM Blood specimen (specimen) 05/12/2011 3:25 PM EST 05/12/2011 4:52 PM EST Bladimir Levine MD LAB SEND OUT ORDERAB LES Performing Organization Address [facility] de Phone Number [facility]ILA ME[facility]ERI[facility] * IgM (05/12/2011 3:25 PM EST) IgM 117 31 - 208 mg/dL CERNER MILLENNIUM Blood specimen (specimen) 05/12/2011 3:25 PM EST 05/12/2011 3:29 PM EST Bladimir Levine MD CHEMISTRY ORDERABLES Performing Organization Address [facility] Co de Phone Number CERKERVIN MEYERIUM * IgA (05/12/2011 3:25 PM EST) IgA 114 34 - 305 mg/dL CERNER MILLENNIUM Blood specimen (specimen) 05/12/2011 3:25 PM EST 05/12/2011 3:29 PM EST Bladimir Levine MD CHEMISTRY ORDERABLES Performing Organization Address [facility] Phone Number CERKERVIN MEYERIUM * IgG (05/12/2011 3:25 PM EST) Immunoglobulin G 683 572 - 1474 mg/dL CERNER MILLENNIUM Blood specimen (specimen) 05/12/2011 3:25 PM EST 05/12/2011 3:29 PM EST Bladimir Levine MD CHEMISTRY ORDERABLES [facility] documented in this encounter Visit Diagnoses Diagnosis Asthma- Primary Unspecified asthma Nasal congestion Other diseases of nasal cavity and sinuses History of asthma Personal history of other diseases of respiratory system Cough documented in this encounter Care Teams Chiropractic Neurologist Relationship Specialty Start Date End Date Anne-Marie Mendes MD [address] [place] [address] PCP - General 03/04/10 11/19/15 documented as of this encounter
--- OUTSIDE RECORDS SUMMARY | 2023-11-17 15:28 | XMS_ITS | Encounter Summary ---
Author Organization [facility]ly [facility] [place] [address] Care Team Providers Care Fire Sprinkler Apparatus Inspector Name Role Phone Anne-Marie Cruz MD Primary Care Provider [phone] Encounter Details Date Type Department Care Team (Late st Contact Info) Description 06/21/2005 Orders Only [place] [address] Gracie Levine MD [facility] [place] [address] Social History Tobacco Use Types Packs/Day Years Used Date Smoking Tobacco: Never Assessed Sex and Gender Information Value Date Recorded Sex Assigned at Not on file Gender Identity Not on file Sexual Orientation Not on file documented as of this encounter Plan of Treatment Not on file documented as of this encounter Procedures Procedure Name Priority Date/Time Associated Diagnosis Comments FILM LIBRARY STORAGE ONLY DX CHEST Routine 06/21/2005 12:05 PM EST documented in this encounter Results * FILM LIBRARY- STORAGE ONLY DX CHEST (06/21/2005 12:05 PM EST) 06/21/2005 12:0 5 PM EST Narrative [facility] - 09/05/2013 1:43 PM EDT This is a non-reportable exam. Procedure Note Herrera Fernandez - 09/05/2013 This is a non-reportable exam. Gracie Levine MD [facility] FILM LIBRARY ORD ERABLES DH RAD [address] [employer] [place] [address] documented in this encounter Visit Diagnoses Not on filedocumented in this encounter Care Teams Fire Sprinkler Apparatus Inspector Relationship Specialty Start Date End Date Anne-Marie Cruz MD [address] [place] [address] PCP - General 03/04/10 11/19/15 documented as of this encounter
--- OUTSIDE RECORDS SUMMARY | 2023-11-17 15:28 | XMS_ITS | Encounter Summary ---
Author Organization [facility] Address [facility] [place] [address] Care Team Providers Care Practice Performance Manager Name Role Phone Ben Nevarez MD Primary Care Provider [phone] Encounter Details Date Type Department Care Team (Late st Contact Info) Description 02/09/2020 Notes [place] [address] Lianne Mera MD [facility] DR PEDIATRIC HEMATOLOGY/[place] [address] Social History Tobacco Use Types Packs/Day Years Used Date Smoking Tobacco: Never Smokeless Tobacco: Never Comments:no ETS exposure Sex and Gender Information Value Date Recorded Sex Assigned at Not on file Gender Identity Not on file Sexual Orientation Not on file documented as of this encounter Progress Notes * Lianne Mera MD - 02/09/2020 2:45 PM EDT Images from the original note were not included. 02/09/[address] Ben Nevarez to discuss new diagnosis of PE for his patient Elvia Rodrigues. Briefly, Elvia is a 15 y/o with h/o asthma who presented to the ER with chest pain and shortnessof breath. She did not have any wheezing. This in the setting of recent new diagnosis of painful labial ulcerations (currently being workup and treated). She had tachcardia to 120s and tachypnea withRR 20s. DDimer was elevated. CT angiogram was performed and demonstrated a small PE in left lower lobe. She was started on Lovenox 60mg BID (weight 60kg). Dopplers of upper and lower extremity negative for DVT. I reviewed CTA with pediatric radiology here at . He agreed with finding of small subsegmental PEin L lower lobe. Based on CT findings, anticoagulation is appropriate. I agree with plan for Lovenox 1mg/kg (60mg) BID. We discussed obtaining antiXa (Lovenox) level and dosing based on level with goal 0.6-1. I have included the following guidelines for dose adjustment. Overall plan for anticoagulation for at least3 months. - Start Lovenox 1mg/kg (60mg) SQ between 6-8pm tonight (at a time convenient for family to administer at home). - Obtain anti-Xa level 3-4 hours after 2nd or 3rd dose of Lovenox. Recommend obtaining level duringthe day if possible. - Goal level 0.6-1. Adjust dose as per the following: Advised them to instruct patient to avoid NSAIDs while on Lovenox due to increased risk for bleeding. ?? Once patient at therapeutic level, recommend rechecking level in 1 week (after discharge home) to make sure they remain therapeutic. We would plan to see patient in hematology in around 1 month. Would not recommend thrombophilia testing at this time in the setting of acute thrombus, but given this is an unprovoked thrombus this will likely be recommended in the future. Lianne Mera MD Pediatric Hematology/ Oncology Pager [phone] 02/09/20 3:00 PM documented in this encounter Plan of Treatment Not on file documented as of this encounter Visit Diagnoses Not on filedocumented in this encounter Care Teams Practice Performance Manager Relationship Specialty Start Date End Date Ben Nevarez MD [address] [place] [address] PCP - General Pediatrics 11/20/15 documented as of this encounter
--- OUTSIDE RECORDS SUMMARY | 2023-11-17 15:28 | XMS_ITS | Encounter Summary ---
Author Organization [facility] Address [address] [place] [address] Care Team Providers Care Meter Shop Supervisor Name Role Phone Unavailable Primary Care Provider Unavailabl e Encounter Details Date Type Department Care Team (Late st Contact Info) Description 10/11/2021 Lab Requisition [facility] Pathology & Laboratory Medicine - [facility] [address] [place] [address] Outr Resulting Lab, Provider Social History Tobacco [...] Procedure Name Priority Date/Time Associated Diagnosis Comments CORTISOL Routine 10/11/2021 8:05 EDT documented in this encounter Results * CORTISOL (10/11/2021 8:05 EDT) Cortisol 18 See Note ug/dL 10/12/2021 19:37 EDT [facility] Comment: NOTE: Reference Ranges (from OCD IFU): Collected Before 10:00 AM: ??4 - 23 ug/dL Collected After 5:00 PM: ?2 - 14 ug/dL The results of this assay can be falsely elevated due to the consumption of Biotin. Blood VENOUS BLOOD / Unknown 10/11/2021 8:05 EDT 10/12/2021 18:29 EDT Provider Outr Resulting Lab CHEMISTRY & BLOOD GAS ORDERABLES [facility] [address] [place] [address] documented in this encounter Visit Diagnoses Not on filedocumented in this encounter
--- OUTSIDE RECORDS SUMMARY | 2023-11-17 15:28 | XMS_ITS | Encounter Summary ---
Author Organization [facility] Address [address] [place] [address] Care Team Providers Care Room Service Associate Name Role Phone Unavailable Primary Care Provider Unavailabl e Encounter Details Date Type Department Care Team (Late st Contact Info) Description 10/11/2021 Lab Requisition [facility] Pathology & Laboratory Medicine - [facility] [address] [place] [address] Outr Resulting Lab, Provider Social History Tobacco [...] Procedure Name Priority Date/Time Associated Diagnosis Comments GIARDIA AND CRYPTOSPORIDIUM ANTIGENS Routine 10/11/2021 2:05 EDT documented in this encounter Results * GIARDIA AND CRYPTOSPORIDIUM ANTIGENS (10/11/2021 2:05 EDT) Giardia and Cryptosporidium Cryptosporidium Antigen Neg and Giardia Antigen Neg Cryptosporidium Antigen Neg and Giardia Antigen Neg 13:30 EDT [facility] Feces SPECIMEN FROM RECTUM / Unknown Stool Collect / Unknown 10/11/2021 2:05 EDT 10/12/2021 22:39 EDT Provider Outr Resulting Lab MICROBIOLOGY - GENERAL ORDERABLES [facility] [address] [place] [address] documented in this encounter Visit Diagnoses Not on filedocumented in this encounter
--- OUTSIDE RECORDS SUMMARY | 2023-11-17 15:28 | XMS_ITS | Encounter Summary ---
Author Organization [facility] Address [address] [place] [address] Care Team Providers Care Yarder Puncher Name Role Phone Unavailable Primary Care Provider Unavailabl e Encounter Details Date Type Department Care Team (Late st Contact Info) Description 10/11/2021 Lab Requisition [facility] Pathology & Laboratory Medicine - [facility] [address] [place] [address] Outr Resulting Lab, Provider Social History Tobacco [...] Procedure Name Priority Date/Time Associated Diagnosis Comments THYROID ANTIBODIES Routine 10/11/2021 8:05 EDT documented in this encounter Results * THYROID ANTIBODIES (10/11/2021 8:05 EDT) Anti-Thyroglobulin <15 <=60 U/mL 2021 9:14 EDT [facility] Thyroperoxidase Ab <28 <=60 U/mL 2021 9:14 EDT [facility] Blood VENOUS BLOOD / Unknown 10/11/2021 8:05 EDT 10/12/2021 18:29 EDT Provider Outr Resulting Lab CHEMISTRY & BLOOD GAS ORDERABLES [facility] [address] [place] [address] documented in this encounter Visit Diagnoses Not on filedocumented in this encounter
--- OUTSIDE RECORDS SUMMARY | 2023-11-17 15:28 | XMS_ITS | Encounter Summary ---
Author Organization [facility] Address [address] [place] [address] Care Team Providers Care Cut Out Operator Name Role Phone Unavailable Primary Care Provider Unavailabl e Encounter Details Date Type Department Care Team (Late st Contact Info) Description 07/20/2020 Results Only Imaging [facility] [address], [place] [id number] Brannon Curiel MD [address] [place] [address] Social History Tobacco Use Types Packs/Day Years [...] Procedure Name Priority Date/Time Associated Diagnosis Comments EKG 12-LEAD 07/20/2020 16:28 EDT documented in this encounter Results * EKG 12-LEAD (07/20/2020 16:28 EDT) 07/20/2020 16:2 8 EDT Narrative [facility] - 07/20/2020 16:28 EDT ? [facility] ? Test Date: ?2020-07-20 16:28:44 Pat Name: ? ZAFAR HAMELIN ? Department: ?Room: ? Gender: ? F ?Chair Caner: ?? WG : ?2005 ? Requested By: Order Number: ?Reading MD: ?? Janusz Lischke, MD ? Measurements Intervals ?[place] ? Rate: ? 78 ? P: ?45 SD: ? 108 ?QRS: ?24 QRSD: ? 78 ? T: ?23 QT: ? 366 ? QTc: ?417 ? Interpretive Statements Sinus rhythm with short SD without pre-excitation Otherwise normal ECG No previous ECG available for comparison Electronically Signed On 07-21-2020 18:21:55 EDT by Janusz Avila MD [email or web address] Procedure Note Janusz Avila MD - 07/22/2020 [facility] Test Date: 2020-07-20 16:28:44 Pat Name: ZAFAR RODRIGUES Department: Room: Gender: F Chair Caner: : 2005 Requested By: Order Number: Reading MD: Janusz Avila MD Measurements Intervals [place] Rate: 78 P: 45 SD: 108 QRS: 24 QRSD: 78 T: 23 QT: 366 QTc: 417 Interpretive Statements Sinus rhythm with short SD without pre-excitation Otherwise normal ECG No previous ECG available for comparison Electronically Signed On 07-21-2020 18:21:55 EDT by Janusz Avila MD [email or web address] Brannon Curiel MD CARDIAC ECG ORDERABL ES [facility] [address] [place] [address] documented in this encounter Visit Diagnoses Not on filedocumented in this encounter
--- OUTSIDE RECORDS SUMMARY | 2023-11-17 15:28 | XMS_ITS | Encounter Summary ---
[place] [address] Care Team Providers Care Office Aide Name Role Phone Ben Nevarez MD Primary Care Provider [phone] Encounter Details Date Type Department Care Team (Late st Contact Info) Description 02/08/2020 Ancillary Procedure [place] [address] Ben Nevarez MD [address] [place] [address] [address] [place], [place] [address] Social History Tobacco Use Types Packs/Day Years [...] Procedure Name Priority Date/Time Associated Diagnosis Comments COVID-19 PCR Routine 02/09/2020 6:30 AM EDT FILM LIBRARY STORAGE ONLY CT CHEST Routine 02/08/2020 12:00 AM EDT documented in this encounter Results * COVID-19 PCR (02/09/2020 6:30 AM EDT) SARS-CoV-2 RNA Not Detected Not Detected [facility] Comment: This result should be interpreted in combination with the clinical observations, patient history and epidemiological information in making a final diagnosis. For testing of asymptomatic individuals, assay performance characteristics and clinical utility have not been evaluated. Testing for SARS-CoV-2 (Severe acute respiratory syndrome coronavirus 2, formerly known as 2019 novel coronavirus or 2019-nCoV) to aid in the diagnosis of COVID-19 is performed using the [employer] RealTime SARS-CoV-2 Assay as authorized by the FDA Emergency Use Authorization (EUA). This EUA assay is intended for In-vitro Diagnostic (IVD) use with respiratory specimens such as nasopharyngeal swabs collected from individuals during the acute phase of infection. This assay is performed based on the instructions for use provided by [employer], [employer]. and additional guidance provided by CDC and FDA. Testing is performed in the [facility] Laboratory within the Department of Pathology and Laboratory Medicine at [facility], certified under the Clinical Laboratory Improvement Amendments of 1988 (CLIA), 42 U.S.C. 263a, to perform high complexity tests. Assay performance has been verified according to clinical laboratory regulatory requirements for use with specimens collected from individuals suspected of COVID-19. Test results are provided above. A result of ? Not Detected? indicates that the viral RNA target is not present above the limit of detection, but does not preclude SARS-CoV-2 infection. False negative results may occur if a specimen is improperly collected, transported or handled; if amplification inhibitors are present; or if inadequate numbers of viral particles are present in the specimen. When a diagnostic test is negative, the possibility of a false negative result should be considered in the context of a patient? s recent exposures and the presence of clinical signs and symptoms consistent with COVID-19. A result of ? Detected? indicates that RNA from SARS-CoV-2 was detected and the patient is infected. As required or requested by public health authorities, positive specimens may be sent for additional testing. Positive and negative predictive values for this test are highly dependent on disease prevalence. A result of ? Invalid? indicates that neither the viral RNA targets nor the internal control target was detected. An invalid result suggests the presence of inhibitors. Recollection and re-testing is recommended in the case of an invalid result. CDC COVID-19 criteria for testing on human specimens and clinical management guidance information are available at the CDC Coronavirus Disease 2019 (COVID-19) webpage under ? Information for Healthcare Professionals? (https://www.cdc.gov/coronavirus/2019-ncov/hcp/index.html) Additional information about this and other EUA tests can be found in provider and patient fact sheets at the following FDA website: https://www.fda.gov/medical-devices/npyzmecrnuv-fkvcyga-0268-kzhwg-01-hcdjrgfmv- use-a qahrkhhqofqsy-gwrscah-mjygqjq/chlnr-cxkigjgcgnz-niww SARS-CoV-2 RNA Source CREATIVE GURU Swab [facility] Nasopharyngeal swab (specimen) Other / Unknown 02/09/2020 6:30 AM EDT 02/12/2020 1:36 PM EST Narrative Resulting Agency Comment Spec In Lab Ben Nevarez MD MOLECULAR ORDERABLE S Performing Organization Address [facility] Co de Phone Number [facility] [place] [place] [address] * Film Library- Storage Only CT Chest (02/08/2020 12:00 AM EDT) Narrative RAD - 02/09/2020 1:05 PM EDT This exam is auto-finalizing. It's purpose is for storage only. Ben Nevarez MD IMG FILM LIBRARY OR DERABLES Performing Organization Address [facility] Co de Phone Number [place], [place] documented in this encounter Visit Diagnoses Not on filedocumented in this encounter Care Teams Office Aide Relationship Specialty Start Date End Date Ben Nevarez MD [address] [place] [address] PCP - General Pediatrics 11/20/15 documented as of this encounter
--- OUTSIDE RECORDS SUMMARY | 2023-11-17 15:28 | XMS_ITS | Encounter Summary ---
Author Organization [facility] Address [address] [place] [address] Care Team Providers Care Automation Machine Operator Name Role Phone Unavailable Primary Care Provider Unavailabl e Encounter Details Date Type Department Care Team (Late st Contact Info) Description 10/18/20[address] Lab Requisition [facility] Pathology & Laboratory Medicine - [facility] [address] [place] [address] Outr Resulting Lab, Provider Social History Tobacco [...] Procedure Name Priority Date/Time Associated Diagnosis Comments SYPHILIS SEROLOGY Routine 10/18/2023 11: 35 EDT documented in this encounter Results * SYPHILIS SEROLOGY (10/18/2023 11:35 EDT) Syphilis Serology Negative Negative 10/19/2023 10:32 EDT [facility] Blood VENOUS BLOOD / Unknown 10/18/2023 11:35 EDT 10/18/2023 16:58 EDT Provider Outr Resulting Lab IMMUNOLOGY A ND SEROLOGY ORDERABLES [facility] [address] [place], [place] [address] documented in this encounter Visit Diagnoses Not on filedocumented in this encounter
--- OUTSIDE RECORDS SUMMARY | 2023-11-17 15:28 | XMS_ITS | Encounter Summary ---
Author Organization [facility] Address [address] [place] [address] Care Team Providers Care Diet Tech Name Role Phone Unavailable Primary Care Provider Unavailabl e Encounter Details Date Type Department Care Team (Late st Contact Info) Description 10/28/2022 Lab Requisition [facility] Pathology & Laboratory Medicine - [facility] [address] [place] [address] Outr Resulting Lab, Provider Social History Tobacco [...] Procedure Name Priority Date/Time Associated Diagnosis Comments ANTI NUCLEAR AB (DRAKE), IFA Routine 10/28/2022 15:17 EDT documented in this encounter Results * (ABNORMAL) ANTI NUCLEAR AB (DRAKE), IFA (10/28/2022 15:17 EDT) DRAKE Interpretation Positive(A) Negative 10/29/2022 14:12 EDT [facility] DRAKE Titer and Pattern 1 1:80 Speckled 10/29/2022 14:12 EDT [facility] Blood VENOUS BLOOD / Unknown 10/28/2022 15:17 EDT 10/28/2022 21:12 EDT Narrative [facility] - 10/29/2022 14:12 EDT Results were obtained with the INOVA NOVA Lite HEp-2 DRAKE Kit by indirect immunofluorescence. Provider Outr Resulting Lab IMMUNOLOGY A ND SEROLOGY ORDERABLES Performing Organization Address City/State/[facility] Co de Phone Number [facility] [address] [place] [address] documented in this encounter Visit Diagnoses Not on filedocumented in this encounter
--- OUTSIDE RECORDS SUMMARY | 2023-11-17 15:28 | XMS_ITS ---
Author Organization [facility] Address [address] [place] [address] Care Team Providers Care Court Monitor Name Role Phone Unavailable Primary Care Provider Unavailabl e Addiction Medicine Status:Discharged (Closed) Start date:09/01/2023 Enrollment date:09/01/2023 End date:10/28/2023 Close reason:Unable to reach patient Linked medications:buprenorphine (Active) Linked problems:Opioid use disorder (Active) Overview [facility] [phone] Continued Care and Services Coordination
--- OUTSIDE RECORDS SUMMARY | 2023-11-17 15:28 | XMS_ITS | Encounter Summary ---
Author Organization [facility] Address [address] [place] [address] Care Team Providers Care Car Pusher Name Role Phone Unavailable Primary Care Provider Unavailabl e Encounter Details Date Type Department Care Team (Late st Contact Info) Description 01/16/2020 Lab Requisition [facility] Pathology & Laboratory Medicine - [facility] [address] [place] [address] Outr Resulting Lab, Provider Social History Tobacco [...] Procedure Name Priority Date/Time Associated Diagnosis Comments HOLD SST Today 01/16/2020 11:55 EDT HOLD SST Today 01/16/2020 11:55 EDT KEVIN-DOUGLAS PANEL Today 01/16/2020 11 :55 EDT CMV IGG Today 01/16/2020 11:55 EDT ANTI NUCLEAR AB (DRAKE), IFA Today 01/16/2020 11:55 EDT documented in this encounter Results * HOLD SST (01/16/2020 11:55 EDT) Hold Hold 01/16/2020 18:01 EDT [facility] Blood VENOUS BLOOD / Unknown 01/16/2020 11:55 EDT 01/16/2020 16:56 EDT Provider Outr Resulting Lab LAB INFO SER VICE AND SUPPORT & PHONE RESULT [facility] [address] [place] [address] * HOLD SST (01/16/2020 11:55 EDT) Hold Hold 01/16/2020 18:01 EDT [facility] Blood VENOUS BLOOD / Unknown 01/16/2020 11:55 EDT 01/16/2020 16:56 EDT Provider Outr Resulting Lab LAB INFO SER VICE AND SUPPORT & PHONE RESULT Performing Organization Address [facility] Co de Phone Number [facility] [address] [place] [address] * (ABNORMAL) KEVIN-DOUGLAS PANEL (01/16/2020 11:55 EDT) Pathologist [facility] EBV VCA IgM, Antibody Negative Negative 01/17/2020 10:29 EDT [facility] Comment:Absence of detectabl e VCA IgM antibodies. EBV VCA IgG, Antibody Positive(A) Negative 01/17/2020 10:29 EDT [facility] Comment:Presence of detectab le VCA IgG antibodies. EBNA IgG Antibody Positive(A) Negative 2019 10:29 EDT [facility] Comment:Presence of detectab le EBNA IgG antibodies. 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 A negative result generally indicates that the patient is susceptible to CMV. Blood VENOUS BLOOD / Unknown 01/16/2020 11:55 EDT 01/16/2020 16:56 EDT Provider Outr Resulting Lab CHEMISTRY & BLOOD GAS ORDERABLES Performing Organization Address [facility] Co de Phone Number [facility] [address] [place] [address] * ANTI NUCLEAR AB (DRAKE), IFA (01/16/2020 11:55 EDT) DRAKE Interpretation Negative Negative 2019 15:16 EDT [facility] Blood VENOUS BLOOD / Unknown 01/16/2020 11:55 EDT 01/16/2020 16:56 EDT Narrative [facility] - 01/17/2020 15:16 EDT Results were obtained with the INOVA NOVA Lite HEp-2 DRAKE Kit by indirect immunofluorescence. Provider Outr Resulting Lab IMMUNOLOGY A ND SEROLOGY ORDERABLES Performing Organization Address [facility] Co de Phone Number [facility] [address] [place] [address] documented in this encounter Visit Diagnoses Not on filedocumented in this encounter
--- OUTSIDE RECORDS SUMMARY | 2023-11-17 15:28 | XMS_ITS | Encounter Summary ---
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 A negative result generally indicates that the patient has not been infected, but does not always rule out acute HSV infection. If clinical exposure to HSV is suspected despite a negative finding a second sample should be collected and tested no less than 4-6 weeks later. Blood VENOUS BLOOD / Unknown 02/07/2020 16:20 EDT 03/29/2020 14:16 EST Provider Outr Resulting Lab IMMUNOLOGY A ND SEROLOGY ORDERABLES [facility] [address] [place] [address] documented in this encounter Visit Diagnoses Not on filedocumented in this encounter
--- OUTSIDE RECORDS SUMMARY | 2023-11-17 15:28 | XMS_ITS | Encounter Summary ---
Author Organization [facility] Address [address] [place] [address] Care Team Providers Care Placement Manager Name Role Phone Unavailable Primary Care Provider Unavailabl e Encounter Details Date Type Department Care Team (Late st Contact Info) Description 03/06/2020 Lab Requisition [facility] Pathology & Laboratory Medicine - [facility] [address] [place] [address] Outr Resulting Lab, Provider Social History Tobacco [...] Procedure Name Priority Date/Time Associated Diagnosis Comments CHLAMYDIA/N. GONORRHOEAE AMPLIFIED NUCLEIC ACID After X-Ray 02/07/2020 16:20 EDT documented in this encounter Results * CHLAMYDIA/N. GONORRHOEAE AMPLIFIED RNA (02/07/2020 16:20 EDT) Neisseria gonorrhoeae Result Negative Negative 04/09/2020 13:37 EST [facility] Chlamydia trachomatis Result Negative Negative 04/09/2020 13:37 EST [facility] Swab ENTIRE WALL OF CERVIX / Unknown 02/07/2020 16:20 EDT 03/29/2020 14:15 EST Provider Outr Resulting Lab MICROBIOLOGY - GENERAL ORDERABLES [facility] [address] [place] [address] documented in this encounter Visit Diagnoses Not on filedocumented in this encounter
--- OUTSIDE RECORDS SUMMARY | 2023-11-17 15:28 | XMS_ITS | Encounter Summary ---
Author Organization [facility] Address [address] [place] [address] Care Team Providers Care Building Repair Maintenance Supervisor Name Role Phone Unavailable Primary Care Provider Unavailabl e Encounter Details Date Type Department Care Team (Late st Contact Info) Description 12/22/2019 Lab Requisition [facility] Pathology & Laboratory Medicine - [facility] [address] [place] [address] Outr Resulting Lab, Provider Social History Tobacco [...] Procedure Name Priority Date/Time Associated Diagnosis Comments LYME AB Routine 12/22/2019 17:10 EDT documented in this encounter Results * LYME AB (12/22/2019 17:10 EDT) Lyme Ab Negative Negative 12/25/2019 11:42 EDT [facility] Comment:New 3rd generation a ssay in use 09/20/2019 Blood VENOUS BLOOD / Unknown 12/22/2019 17:10 EDT 12/24/2019 16:16 EDT Provider Outr Resulting Lab IMMUNOLOGY A ND SEROLOGY ORDERABLES [facility] [address] [place] [address] documented in this encounter Visit Diagnoses Not on filedocumented in this encounter
--- OUTSIDE RECORDS SUMMARY | 2023-11-17 15:28 | XMS_ITS | Encounter Summary ---
Author Organization [facility] Address [address] [place] [address] Care Team Providers Care Resourcing Advisor Name Role Phone Unavailable Primary Care Provider Unavailabl e Encounter Details Date Type Department Care Team (Late st Contact Info) Description 10/12/2022 Lab Requisition [facility] Pathology & Laboratory Medicine - [facility] [address] [place] [address] Outr Resulting Lab, Provider Social History Tobacco [...] Date/Time Associated Diagnosis Comments HOLD SST Today 10/12/2022 13:08 EDT HOLD SST Today 10/12/2022 13:08 EDT LYME AB Today 10/12/2022 13:08 EDT RHEUMATOID FACTOR Today 10/12/2022 13: 08 EDT ANTI NUCLEAR AB (DRAKE), IFA Today 10/12/2022 13:08 EDT documented in this encounter Results * HOLD SST (10/12/2022 13:08 EDT) Hold Hold 10/12/2022 22:31 EDT [facility] Blood VENOUS BLOOD / Unknown 10/12/2022 13:08 EDT 10/12/2022 21:20 EDT Provider Outr Resulting Lab LAB INFO SER VICE AND SUPPORT & PHONE RESULT Performing Organization Address [facility] Co de Phone Number [facility] [address] [place] [address] * HOLD SST (10/12/2022 13:08 EDT) Hold Hold 10/12/2022 22:31 EDT [facility] Blood VENOUS BLOOD / Unknown 10/12/2022 13:08 EDT 10/12/2022 21:20 EDT Provider Outr Resulting Lab LAB INFO SER VICE AND SUPPORT & PHONE RESULT Performing Organization Address [facility] Co de Phone Number [facility] [address] [place] [address] * LYME AB (10/12/2022 13:08 EDT) Pathologist [facility] Lyme Ab Negative Negative 10/13/2022 10:57 EDT [facility] Blood VENOUS BLOOD / Unknown 10/12/2022 13:08 EDT 10/12/2022 21:20 EDT Provider Outr Resulting Lab IMMUNOLOGY A ND SEROLOGY ORDERABLES Performing Organization Address [facility] Co de Phone Number [facility] [address] [place] [address] * RHEUMATOID FACTOR (10/12/2022 13:08 EDT) Pathologist [facility] Rheumatoid Factor <8.6 <12.0 IU/mL 10/12/2022 21:56 EDT [facility] Blood VENOUS BLOOD / Unknown 10/12/2022 13:08 EDT 10/12/2022 21:20 EDT Provider Outr Resulting Lab CHEMISTRY & BLOOD GAS ORDERABLES Performing Organization Address [facility] Co de Phone Number [facility] [address] [place] [address] * ANTI NUCLEAR AB (DRAKE), IFA (10/12/2022 13:08 EDT) DRAKE Interpretation Negative Negative 2022 15:54 EDT [facility] Comment:No titer performed, DRAKE Screen is negative. Blood VENOUS BLOOD / Unknown 10/12/2022 13:08 EDT 10/12/2022 21:20 EDT Narrative [facility] - 10/13/2022 15:54 EDT Results were obtained with the INOVA NOVA Lite HEp-2 DRAKE Kit by indirect immunofluorescence. Provider Outr Resulting Lab IMMUNOLOGY A ND SEROLOGY ORDERABLES Performing Organization Address [facility] Co de Phone Number [facility] [address] [place] [address] documented in this encounter Visit Diagnoses Not on filedocumented in this encounter
--- OUTSIDE RECORDS SUMMARY | 2023-11-17 15:28 | XMS_ITS | Encounter Summary ---
Author Organization [facility] [place] [address] Care Team Providers Care Steam Table Worker Name Role Phone Anne-Marie Cruz MD Primary Care Provider [phone] Encounter Details Date Type Department Care Team (Late st Contact Info) Description 04/23/2011 Orders Only [place] [address] Gracie Levine MD [facility] [address] [place] [address] Social History Tobacco Use Types Packs/Day Years [...] FILM LIBRARY STORAGE ONLY DX CHEST Routine 04/23/2011 11:35 AM EST documented in this encounter Results * FILM LIBRARY- STORAGE ONLY DX CHEST (04/23/2011 11:35 AM EST) 04/23/2011 11:3 5 AM EST Narrative [facility] - 09/05/2013 1:43 PM EDT This is a non-reportable exam. Procedure Note Herrera Fernandez - 09/05/2013 This is a non-reportable exam. Gracie Levine MD [facility] FILM LIBRARY ORD ERABLES [facility] [address] [place] [address] documented in this encounter Visit Diagnoses Not on filedocumented in this encounter Care Teams Steam Table Worker Relationship Specialty Start Date End Date Anne-Marie Cruz MD [address] [place] [address] PCP - General 03/04/10 11/19/15 documented as of this encounter
--- OUTSIDE RECORDS SUMMARY | 2023-11-17 15:28 | XMS_ITS | Encounter Summary ---
Author Organization [facility] Address [address] [place] [address] Care Team Providers Care Chief Of Anesthesiology Name Role Phone Unavailable Primary Care Provider Unavailabl e Encounter Details Date Type Department Care Team (Late st Contact Info) Description 10/16/2022 Lab Requisition [facility] Pathology & Laboratory Medicine - [facility] [address] [place] [address] Outr Resulting Lab, Provider Social History Tobacco [...] Procedure Name Priority Date/Time Associated Diagnosis Comments ALPHA 1 ANTITRYPSIN Routine 10/13/2022 1 3:10 EDT documented in this encounter Results * ALPHA 1 ANTITRYPSIN (10/13/2022 13:10 EDT) Alpha 1 Antitrypsin 138 90 - 200 mg/dL 10/19/2022 9:59 EDT [facility] Blood VENOUS BLOOD / Unknown 10/13/2022 13:10 EDT 10/16/2022 19:13 EDT Provider Outr Resulting Lab CHEMISTRY & BLOOD GAS ORDERABLES [facility] [address] [place] [address] documented in this encounter Visit Diagnoses Not on filedocumented in this encounter
--- OUTSIDE RECORDS SUMMARY | 2023-11-17 15:28 | XMS_ITS | Encounter Summary ---
Author Organization [facility] Address [facility] [place] [address] Care Team Providers Care Knot Tier Name Role Phone Anne-Marie Mendes MD Primary Care Provider [phone] Reason for Visit * Reason Comments Follow-up Encounter Details Date Type Department Care Team (Late st Contact Info) Description 09/08/2011 4:30 PM EDT Follow-Up [place] [address] Gracie Levine MD [facility] [address] [place] [address] Nasal congestion; Cough; History of migraine headaches; GERD (gastroesophageal reflux disease); Asthma Discharge Disposition: Home Social History Tobacco Use Types Packs/Day Years Used Date Smoking Tobacco: Never Smokeless Tobacco: Never Comments:no ETS exposure Sex and Gender Information Value Date Recorded Sex Assigned at Not on file Gender Identity Not on file Sexual Orientation Not on file documented as of this encounter Last Filed Vital Signs Vital Sign Reading Time Taken Comments Blood Pressure 84/56 09/08/2011 4:16 PM EDT Pulse 80 09/08/2011 4:16 PM EDT Temperature - - Respiratory Rate - - Oxygen Saturation - - Inhaled Oxygen Concentration - - Weight 25.6 kg (56 lb 7 oz) 09/08/2011 4:16 PM E DT Height 120 cm (3' 11.24) 09/08/2011 4:16 PM EDT Body Mass Index 17.78 09/08/2011 4:16 PM EDT Body Mass Index Percentile 75.93% 09/08/2011 4:1 6 PM EDT Growth Chart: [facility] (Girls, 2- 20 Years) documented in this encounter Patient Instructions * Patient Instructions* Gracie Levine MD - 09/08/2011 4:50 PM EDT Hold morning Zantac (ranitidine) and give 75 mg at night only If she has increased cough or wheeze, resume twice daily dosing Continue the Pulmicort 2 puffs daily See new Asthma Action Plan documented in this encounter Progress Notes * Gracie Levine MD - 09/08/2011 5:35 PM EDT 09/08/2011 GRACIE LEVINE MD Elvia Jama Lilia 6 y.o. [id number] ANNE-MARIE MENDES MD [phone] Anne-Marie Mendes Interval History: Since she was last seen in June, Elvia has done very well. She has had some nasal congestion and rhinorrhea in the last week or so, but no illness. She decreased her Pulmicort Flexhaler to 2 puffs daily after the last visit, as recommended, and has not had any increased cough or wheeze. She is not having any night cough and no exercise intolerance. She is on Singulair for migraine headaches. Her dose has been increased to 5 mg for age. No problems with headache as long as she takes the Singulair. Adoptive mother is very happy with her status. ROS: Reviewed and unchanged except as above. Patient Active Problem List Diagnoses Code ??? Cough 786.2 ??? Asthma 493.90AE ??? Nasal congestion 478.19R ??? History of migraine headaches V12.49AQ ??? GERD (gastroesophageal reflux disease) 530.81S Current outpatient prescriptions ordered prior to encounter Medication Sig Dispense Refill ??? Levalbuterol Tartrate (XOPENEX HFA) 45 mcg/Actuation inhaler Inhale 1-2 puffs into the lungs every 4 hours as needed. ??? Budesonide (PULMICORT FLEXHALER) 90 mcg/Inhalation AePB Inhale 3 puffs into the lungs daily. ??? ranitidine (ZANTAC) 75 mg tablet Take 75 mg by mouth 2 times daily. ??? pediatric multivitamin (FLINTSTONES MULTIVITAMIN) chewable tablet Take 2 tablets by mouth daily. ??? polyethylene glycol (MIRALAX) 17 gram packet Take 17 g by mouth daily. Allergies Allergen Reactions ??? Unknown (Unclassified Drug) Dial soap gives her a burn on her skin at contact ??? Penicillins Rash Physical Exam: Filed Vitals: 09/08/11 1616 BP: 84/56 Pulse: 80 Height: 120 cm (3' 11.24) Weight: 25.6 kg (56 lb 7 oz) General: Well developed, well-nourished school aged female in no distress; interactive and answers questions appropriately. Eyes: Conjunctivae clear; no discharge ENT: TM's clear bilaterally; oropharynx clear; tonsils small and not inflamed; nares patent with pink nasal mucosa; clear rhinorrhea Neck: Supple without adenopathy Chest: No increased AP diameter or increased work of breathing; thorax symmetrical; good excursion. Lungs: Breath sounds equal; good air exchange; no rales or wheezes bilaterally. Cardiovascular: RSR without murmur; pulses equal and full. Abdomen: Soft and nontender; no mass or organomegaly. Extremities: No digital clubbing. Neurological: No obvious deficit Skin: No rashes or excoriations PFT: FVC 1.77 L (121%predicted); FEV 1 1.60 L (122%); FEV 1/FVC 0.90; FEF 25/75 2.21 L/S (127%) Normal study; stable Assessment: 1. Asthma, persistent, with good control 2. GERD with good response to ranitidine 3. Nasal congestion with rhinorrhea 4. History of migraine headaches, well controlled with Singulair Plan: 1. Continue Pulmicort Flexhaler 2 puffs daily 2. Xopenex MDI prn 3. Asthma Action Plan written and reviewed with mother, with copies for home and school 4. Trial of decreasing Zantac to 75 mg once daily in the evening; if she has increased cough or anywheezing, she can resume twice daily dosing. 5. Will need flu shot in the fall 6. Return in 5-6 mos; sooner prn 7. Copy of visit summary given to mother for school, to document her diagnoses and medications documented in this encounter Plan of Treatment Not on file documented as of this encounter Visit Diagnoses Diagnosis Nasal congestion Other diseases of nasal cavity and sinuses Cough History of migraine headaches Personal history of other disorders of nervous system and sense organs GERD (gastroesophageal reflux disease) Esophageal reflux Asthma Unspecified asthma documented in this encounter Care Teams Knot Tier Relationship Specialty Start Date End Date Anne-Marie Mendes MD [address] [place] [address] PCP - General 03/04/10 11/19/15 documented as of this encounter
--- OUTSIDE RECORDS SUMMARY | 2023-11-17 15:28 | XMS_ITS | Encounter Summary ---
Author Organization [facility] Address [address] [place] [address] Care Team Providers Care Turf Farmer Name Role Phone Unavailable Primary Care Provider Unavailabl e Encounter Details Date Type Department Care Team (Late st Contact Info) Description 12/02/2022 Lab Requisition [facility] Pathology & Laboratory Medicine - [facility] [address] [place] [address] Outr Resulting Lab, Provider Social History Tobacco [...] Procedure Name Priority Date/Time Associated Diagnosis Comments QUANTIFERON MITOGEN (PERFORMABLE) Today 12/01/2022 14:50 EDT QUANTIFERON TB2 (PERFORMABLE) Today 12/01/2022 14:50 EDT QUANTIFERON TB1 (PERFORMABLE) Today 12/01/2022 14:50 EDT QUANTIFERON NIL (PERFORMABLE) Today 12/01/2022 14:50 EDT QUANTIFERON INTERPRETATION (PERFORMABLE) Today 12/01/2022 14:50 EDT QUANTIFERON TB GOLD PLUS Routine 12/01/2022 14:50 EDT documented in this encounter Results * QUANTIFERON INTERPRETATION (PERFORMABLE) (12/01/2022 14:50 EDT) [facility] Quantiferon Interpretation Negative Negative 12/03/2022 12:48 EDT [facility] Comment:No interferon-gamma response to M. tuberculosis antigens was detected. ??Infection with M. tuberculosis is unlikely. A single negative result does not exclude infection with M. tuberculosis. ??In patients at high risk for M. tuberculosis infection, a second test should be considered. TB1 Ag minus Nil 0.00 IU/ml 12/04/19 12:48 EDT [facility] TB2 Ag minus Nil 0.00 IU/mL 12/04/19 12:48 EDT [facility] Blood VENOUS BLOOD / Unknown 12/01/2022 14:50 EDT 12/03/2022 12:13 EDT Narrative [facility] - 12/03/2022 12:48 EDT Results were obtained with the Qiagen QuantiFERON-TB Gold Plus CLIA. New platform in use 12/18/2020 Provider Outr Resulting Lab IMMUNOLOGY A ND SEROLOGY ORDERABLES Performing Organization Address [facility] Co de Phone Number [facility] [address] [place] [address] * QUANTIFERON MITOGEN (PERFORMABLE) (12/01/2022 14:50 EDT) Blood VENOUS BLOOD / Unknown 12/01/2022 14:50 EDT 12/02/2022 17:37 EDT Provider Outr Resulting Lab IMMUNOLOGY A ND SEROLOGY ORDERABLES Performing Organization Address City/[facility]/ZIP Co de Phone Number [facility] [address] [place] [address] * QUANTIFERON TB2 (PERFORMABLE) (12/01/2022 14:50 EDT) Blood VENOUS BLOOD / Unknown 12/01/2022 14:50 EDT 12/02/2022 17:37 EDT Provider Outr Resulting Lab IMMUNOLOGY A ND SEROLOGY ORDERABLES Performing Organization Address City/[facility] Co de Phone Number [facility] [address] [place] [address] * QUANTIFERON TB1 (PERFORMABLE) (12/01/2022 14:50 EDT) Blood VENOUS BLOOD / Unknown 12/01/2022 14:50 EDT 12/02/2022 17:37 EDT Provider Outr Resulting Lab IMMUNOLOGY A ND SEROLOGY ORDERABLES Performing Organization Address [facility] Co de Phone Number [facility] [address] [place] [address] * QUANTIFERON NIL (PERFORMABLE) (12/01/2022 14:50 EDT) Blood VENOUS BLOOD / Unknown 12/01/2022 14:50 EDT 12/02/2022 17:37 EDT Provider Outr Resulting Lab IMMUNOLOGY A ND SEROLOGY ORDERABLES Performing Organization Address [facility] Co de Phone Number [facility] [address] [place] [address] documented in this encounter Visit Diagnoses Not on filedocumented in this encounter
--- OUTSIDE RECORDS SUMMARY | 2023-11-17 15:28 | XMS_ITS | Referral Summary ---
Author Organization [facility] Address [address] [place] [address] Care Team Providers Care Airplane Electrician Name Role Phone Unavailable Primary Care Provider Unavailabl e Encounters Date Type Department Care Team Description 10/28/2023 Specialty Pharmacy [facility] [address] [place] [address] Carolyn Azul RPH 10/18/2023 Lab Requisition [facility] Pathology & Laboratory Medicine [facility] [address] [place] [address] Outr Resulting Lab, Provider 10/18/2023 Lab Requisition [facility] Pathology & Laboratory [address] [address] Outr Resulting Lab, Provider 08/31/2023 Specialty Pharmacy [facility] [address] [place] [address] Carolyn Azul RPH Set up initial fill for Addiction Medicine, Patient Education for Addiction Medicine, Prospective Review for Addiction Medicine from Last 3 Months Allergies Active Allergy Reactions Criticality Noted Date Comments Penicillin V Potassium Rash 07/29/2023 Medications Medication Sig Dispensed Refills Start Date End Date Status buprenorphine (BRIXADI) 24 mg/0.48 mL solution, extended rel syringe Inject 24 mg into the skin once a week. 07/30/23: Brixadi 16 mg weekly x 1, then 8 mg x1 within 3 days of first injection. Start maintenance dose 1 week later as Brixadi 24 mg subcutaneous weekly. Daily Max: 24 mg Active VENTOLIN HFA 90 mcg/actuation inhaler Inhale 2 Puffs as directed every 4 hours as needed. 11/10/2022 Active buPROPion (WELLBUTRIN SR) 100 mg SR tablet Take 1 Tablet by mouth daily. 04/01/2023 Active ferrous sulfate 325 mg (65 mg iron) EC tablet Take 1 Tablet by mouth daily. 04/01/2023 Active hydrOXYzine (ATARAX) 25 mg tablet 1 Tablet every 6 hours as needed. 06/04/2023 Active VYVANSE 50 mg capsule Take 1 Capsule by mouth every morning. Daily Max: 50 mg 05/20/2023 Active omeprazole (PRILOSEC) 20 mg capsule Take 1 Capsule by mouth daily. 05/03/2023 Active ondansetron (ZOFRAN-ODT) 4 mg disintegrating tablet Take 1 Tablet by mouth every 8 hours as needed. 06/04/2023 Active potassium chloride CR (KLOR-CON) 10 mEq tablet Take 1 Tablet by mouth daily. 03/26/2023 Active pregabalin (LYRICA) 50 mg capsule Take 1 Capsule by mouth at bedtime. Daily Max: 50 mg 04/15/2023 Active zolpidem (AMBIEN) 5 mg tablet Take 1 Tablet by mouth at bedtime as needed. Daily Max: 5 mg 06/04/2023 Active Active Problems Problem Noted Date Diagnosed Date Opioid use disorder 07/29/2023 Social History Tobacco Use Types Packs/Day Years Used Date Smoking Tobacco: Never Assessed Interpersonal Safety Answer Date Record ed Physically Hurt Never 03/05/2020 Verbally Threaten Not on file 03/05/2020 Sex and Gender Information Value Date Recorded Sex Assigned at Not on file Gender Identity Female 04/07/2021 13:19 EST Sexual Orientation Not on file Plan of Treatment Not on file Procedures Procedure Name Priority Date/Time Associated Diagnosis Comments FENTANYL AND METABOLITE CONFIRMATION PANEL Today 10/18/2023 11:35 EDT FENTANYL SCREEN WITH REFLEX TO CONFIRMATION, U Routine 10/18/2023 11:35 EDT SYPHILIS SEROLOGY Routine 10/18/2023 11: 35 EDT from Last 3 Months Results * (ABNORMAL) FENTANYL SCREEN WITH REFLEX TO CONFIRMATION, U (10/18/2023 11:35 EDT) Fentanyl Screen with Reflex to Confirmation, U Positive( A) <1 ng/mL 10/19/2023 15:04 EDT [facility] Comment: Trazodone is known to cross react with the Fentanyl immunoassay and may cause a false positive Urine URINE / Unknown 10/18/2023 1 1:35 EDT 10/18/2023 16:57 EDT Narrative [facility] - 10/19/2023 15:04 EDT Testing performed by: [facility] [address] [place] [address], [facility] [address] [address] Deployment Technician: Willie Fowler MD; CLIA # [id number] Provider Outr Resulting Lab URINALYSIS O RDERABLES Performing Organization Address City/[facility]/ZIP Co de Phone Number [facility] [address] [place] [address], [facility] [address] [place] [address], [facility] [phone] * SYPHILIS SEROLOGY (10/18/2023 11:35 EDT) Syphilis Serology Negative Negative 10/19/2023 10:32 EDT [facility] Blood VENOUS BLOOD / Unknown 10/18/2023 11:35 EDT 10/18/2023 16:58 EDT Provider Outr Resulting Lab IMMUNOLOGY A ND SEROLOGY ORDERABLES [facility] [address] [place] [address] * (ABNORMAL) FENTANYL AND METABOLITE CONFIRMATION PANEL (10/18/2023 11:35 EDT) Fentanyl Confirmation >40(A) <2 ng/mL 10/20/2023 11:26 EDT [facility] Norfentanyl Confirmation >200(A) <10 ng/mL 10/20/2023 11:26 EDT [facility] Urine URINE / Unknown 10/18/2023 1 1:35 EDT 10/18/2023 16:57 EDT Narrative [facility] - 10/20/2023 11:26 EDT Testing performed by: [facility] [address] [facility], [address], [place] [address] Deployment Technician: Willie Fowler MD; CLIA # [id number] Provider Outr Resulting Lab GEN LAB UNIT COLLECT ORDERABLES [facility] [address] [facility], [address] [place] [address], [facility] [phone] from Last 3 Months
--- OUTSIDE RECORDS SUMMARY | 2023-11-17 15:28 | XMS_ITS | Encounter Summary ---
Author Organization [facility] Address [address] [place] [address] Care Team Providers Care Past Due Accounts Clerk Name Role Phone Unavailable Primary Care Provider Unavailabl e Encounter Details Date Type Department Care Team (Late st Contact Info) Description 10/30/2020 Lab Requisition [facility] Pathology & Laboratory Medicine - [facility] [address] [place] [address] Outr Resulting Lab, Provider Social History Tobacco [...] Diagnosis Comments CHLAMYDIA/N. GONORRHOEAE AMPLIFIED NUCLEIC ACID Routine 10/30/2020 9:00 EDT documented in this encounter Results * CHLAMYDIA/N. GONORRHOEAE AMPLIFIED RNA (10/30/2020 9:00 EDT) Neisseria gonorrhoeae Result Negative Negative 10/31/2020 14:59 EDT [facility] Chlamydia trachomatis Result Negative Negative 10/31/2020 14:59 EDT [facility] Swab ENTIRE ENDOCERVIX / Unknown 10/30/2020 9:00 EDT 10/30/2020 22:20 EDT Provider Outr Resulting Lab MICROBIOLOGY - GENERAL ORDERABLES [facility] [address] [place] [address] documented in this encounter Visit Diagnoses Not on filedocumented in this encounter
--- OUTSIDE RECORDS SUMMARY | 2023-11-17 15:28 | XMS_ITS | Encounter Summary ---
Author Organization [facility] [place] [address] Care Team Providers Care Optical Manufacturing Technician Name Role Phone Anne-Marie Cruz MD Primary Care Provider [phone] Encounter Details Date Type Department Care Team (Late st Contact Info) Description 03/08/2007 Orders Only [place] [address] Gracie Levine MD [facility] [place] [address] Social History Tobacco Use Types Packs/Day Years [...] FILM LIBRARY STORAGE ONLY DX CHEST Routine 03/08/2007 10:50 AM EST documented in this encounter Results * FILM LIBRARY- STORAGE ONLY DX CHEST (03/08/2007 10:50 AM EST) 03/08/2007 10:5 0 AM EST Narrative [facility] - 09/05/2013 1:43 PM EDT This is a non-reportable exam. Procedure Note Herrera Fernandez - 09/05/2013 This is a non-reportable exam. Gracie Levine MD [facility] FILM LIBRARY ORD ERABLES [facility] [address] [place] [address] documented in this encounter Visit Diagnoses Not on filedocumented in this encounter Care Teams Optical Manufacturing Technician Relationship Specialty Start Date End Date Anne-Marie Cruz MD [address] [place] [address] PCP - General 03/04/10 11/19/15 documented as of this encounter
--- OUTSIDE RECORDS SUMMARY | 2023-11-17 15:28 | XMS_ITS | Encounter Summary ---
Author Organization [facility] Address [address] [place] [address] Care Team Providers Care Clinical Rn Liaison Name Role Phone Unavailable Primary Care Provider Unavailabl e Encounter Details Date Type Department Care Team (Late st Contact Info) Description 10/11/[address] [facility] Pathology & Laboratory Medicine - [facility] [address] [place] [address] Outr Resulting Lab, Provider Social History Tobacco [...] Date/Time Associated Diagnosis Comments LYME AB Routine 10/10/2021 18:21 EDT documented in this encounter Results * LYME AB (10/10/2021 18:21 EDT) Lyme Ab Negative Negative 10/13/2021 11:19 EDT [facility] Blood VENOUS BLOOD / Unknown 10/10/2021 18:21 EDT 10/12/2021 18:29 EDT Provider Outr Resulting Lab IMMUNOLOGY A ND SEROLOGY ORDERABLES [facility] [address] [place] [address] documented in this encounter Visit Diagnoses Not on filedocumented in this encounter
--- OUTSIDE RECORDS SUMMARY | 2023-11-17 15:28 | XMS_ITS | Encounter Summary ---
Author Organization [facility] Address [address] [place] [address] Care Team Providers Care Conference Services Director Name Role Phone Unavailable Primary Care Provider Unavailabl e Encounter Details Date Type Department Care Team (Late st Contact Info) Description 03/06/2020 Lab Requisition [facility] Pathology & Laboratory Medicine - [facility] [address] [place] [address] Outr Resulting Lab, Provider Social History Tobacco [...] Priority Date/Time Associated Diagnosis Comments SYPHILIS SEROLOGY After X-Ray 02/07/2020 16: 20 EDT documented in this encounter Results * SYPHILIS SEROLOGY (02/07/2020 16:20 EDT) Syphilis Serology Negative Negative 04/02/2020 13:16 EST [facility] Blood VENOUS BLOOD / Unknown 02/07/2020 16:20 EDT 03/29/2020 14:15 EST Provider Outr Resulting Lab IMMUNOLOGY A ND SEROLOGY ORDERABLES [facility] [address] [place] [address] documented in this encounter Visit Diagnoses Not on filedocumented in this encounter
--- OUTSIDE RECORDS SUMMARY | 2023-11-17 15:28 | XMS_ITS | Encounter Summary ---
Author Organization [facility] Address [address] [place] [address] Care Team Providers Care Adobe Architect Name Role Phone Unavailable Primary Care Provider Unavailabl e Encounter Details Date Type Department Care Team ([facility] st Contact Info) Description 07/29/2023 Telephone [facility] [address], [place] [address] Carolyn Azul RPH Social History Tobacco Use Types Packs/Day Years [...]
--- OUTSIDE RECORDS SUMMARY | 2023-11-17 15:28 | XMS_ITS | Encounter Summary ---
[place] [address] Care Team Providers Care Television Engineer Name Role Phone Ben Nevarez MD Primary Care Provider [phone] Encounter Details Date Type Department Care Team (Late st Contact Info) Description 02/08/2020 12:05 AM EDT Ancillary Procedure [place] [address] Ben Nevarez MD [address] [place] [address] [place] [address] Social History Tobacco Use Types Packs/Day Years [...] FILM LIBRARY STORAGE ONLY DX CHEST Routine 02/08/2020 12:05 AM EDT documented in this encounter Results * Film Library- Storage Only DX Chest (02/08/2020 12:05 AM EDT) Narrative [facility] - 02/09/2020 1:06 PM EDT This exam is auto-finalizing. It's purpose is for storage only. Ben Nevarez MD IMG FILM LIBRARY OR DERABLES Performing Organization Address City/State/[facility] Co de Phone Number [place], [place] documented in this encounter Visit Diagnoses Not on filedocumented in this encounter Care Teams Television Engineer Relationship Specialty Start Date End Date Ben Nevarez MD [address] [place] [address] PCP - General Pediatrics 11/20/15 documented as of this encounter
--- OUTSIDE RECORDS SUMMARY | 2023-11-17 15:28 | XMS_ITS | Encounter Summary ---
Author Organization [facility] Address [address] [place] [address] Care Team Providers Care C Application Developer Name Role Phone Unavailable Primary Care Provider Unavailabl e Encounter Details Date Type Department Care Team (Latest Contact Info) Description 08/31/2023 Specialty Pharmacy [facility] [address] [place] [address] Carolyn Azul RPH Set up initial fill [...]
--- OUTSIDE RECORDS SUMMARY | 2023-11-17 15:28 | XMS_ITS | Encounter Summary ---
Author Organization [facility] Address [address] [place] [address] Care Team Providers Care Clip Loading Machine Adjuster Name Role Phone Unavailable Primary Care Provider Unavailabl e Encounter Details Date Type Department Care Team (Late st Contact Info) Description 08/08/2021 Lab Requisition [facility] Pathology & Laboratory Medicine - [facility] [address] [place] [address] Outr Resulting Lab, Provider Social History Tobacco [...] Procedure Name Priority Date/Time Associated Diagnosis Comments CELIAC DISEASE PANEL Routine 08/08/2021 11:27 EDT HIGH SENSITIVITY C-REACTIVE PROTEIN (CARDIOVASCULAR DISEASE) Routine 08/08/2021 11:27 EDT documented in this encounter Results * HIGH SENSITIVITY C-REACTIVE PROTEIN (CARDIOVASCULAR DISEASE) (08/08/2021 11:27 EDT) High Sensitivity CRP 0.36 See Note mg/L 08/08/2021 21:37 EDT [facility] Comment: Reference Range: ??Low Risk: ? <1.0 mg/L ??Average Risk: ?? 1.0 - 3.0 mg/L ??High Risk: ?>3.0 mg/L ??Indeterminate*: >10.0 mg/L ??*May be an indication of another source of inflammation or infection Blood VENOUS BLOOD / Unknown 08/08/2021 11:27 EDT 08/08/2021 21:21 EDT Provider Outr Resulting Lab CHEMISTRY & BLOOD GAS ORDERABLES Performing Organization Address [facility] Co de Phone Number [facility] [address] [place] [address] * CELIAC DISEASE PANEL (08/08/2021 11:27 EDT) Tissue Transglutaminase Antibody IGA <1.2 <4.0 U/mL 08/11/2021 12:16 EDT [facility] Comment: A negative result may be due to IgA deficiency and does not rule out celiac disease. ? Negative: ??<4.0 U/mL ? Weak Positive: ??4.0 - 10.0 U/mL ? Positive: ??>10.0 U/mL Results were obtained with the FormabilioA Lite R h-tTG IgA KIKE assay on the [employer] DSX. IgA 184 85 - 499 mg/dL 08/11/2021 12:16 EDT [facility] Celiac Disease Interpretation Negative Serology. Celiac disease unlikely. Approximately 10% of patients with celiac disease are seronegative. Patients who are already adhering to a gluten-free diet may also be seronegative. If celiac disease is highly clinically suspected, referral to gastroenterology for additional evaluation is recommended. 08/11/2021 12:16 EDT [facility] Blood VENOUS BLOOD / Unknown 08/08/2021 11:27 EDT 08/08/2021 21:21 EDT Provider Outr Resulting Lab IMMUNOLOGY A ND SEROLOGY ORDERABLES Performing Organization Address [facility]/ZIP Co de Phone Number [facility] [address] [place] [address] documented in this encounter Visit Diagnoses Not on filedocumented in this encounter
--- OUTSIDE RECORDS SUMMARY | 2023-11-17 15:28 | XMS_ITS | Encounter Summary ---
Author Organization [facility] Address [address] [place] [address] Care Team Providers Care Trader Fixed Income Name Role Phone Unavailable Primary Care Provider Unavailabl e Encounter Details Date Type Department Care Team (Late st Contact Info) Description 03/06/2020 Lab Requisition [facility] Pathology & Laboratory Medicine - [facility] [address] [place] [address] Outr Resulting Lab, Provider Social History Tobacco [...] Procedure Name Priority Date/Time Associated Diagnosis Comments HSV (HERPES SIMPLEX VIRUS) MOLECULAR DETECTION, PCR After X-Ray 02/07/2020 16:20 EDT documented in this encounter Results * HERPES SIMPLEX VIRUS MOLECULAR DETECTION, PCR (02/07/2020 16:20 EDT) Herpes Simplex Virus Molecular Detection 1, PCR Negative Negative 04/02/2020 16:16 EST [facility] Herpes Simplex Virus Molecular Detection 2, PCR Negative Negative 04/02/2020 16:16 EST [facility] Swab ENTIRE VULVA / Unknown 02/07/2020 16:20 EDT 03/29/2020 14:16 EST Provider Outr Resulting Lab MICROBIOLOGY - GENERAL ORDERABLES [facility] [address] [place] [address] documented in this encounter Visit Diagnoses Not on filedocumented in this encounter
--- OUTSIDE RECORDS SUMMARY | 2023-11-17 15:28 | XMS_ITS | Encounter Summary ---
Author Organization [facility] Address [facility] [place] [address] Care Team Providers Care Esthetician Facialist Name Role Phone Anne-Marie Mendes MD Primary Care Provider [phone] Reason for Visit * Reason Comments Follow-up Encounter Details Date Type Department Care Team (Late st Contact Info) Description 06/16/2011 11:30 AM EST Follow-Up [place] [address] Gracie Levine MD [facility] [place] [address] Cough; History of asthma; Nasal congestion; History of migraine headaches Discharge Disposition: Home Social History Tobacco Use Types Packs/Day Years Used Date Smoking Tobacco: Never Comments:no ETS exposure Sex and Gender Information Value Date Recorded Sex Assigned at Not on file Gender Identity Not on file Sexual Orientation Not on file documented as of this encounter Last Filed Vital Signs Vital Sign Reading Time Taken Comments Blood Pressure 82/53 06/16/2011 11:35 AM EST Pulse 99 06/16/2011 11:35 AM EST Temperature - - Respiratory Rate 19 06/16/2011 11:3 5 AM EST Oxygen Saturation 100% 06/16/2011 11: 35 AM EST Inhaled Oxygen Concentration - - Weight 24.5 kg (54 lb 0.2 oz) 03/06/201 2 11:35 AM EST Height 119.5 cm (3' 11.05) 06/16/2011 11:35 AM EST Body Mass Index 17.16 06/16/2011 11:35 AM EST Body Mass Index Percentile 70.05% 06/15 11:35 AM EST Growth Chart: [facility] (Girls, 2- 20 Years) documented in this encounter Patient Instructions * Patient Instructions* Gracie Levine MD - 06/16/2011 12:03 PM EST Try decreasing Pulmicort to 2 puffs daily If she has problems with more cough or wheeze, resume 3 puffs daily Next step will be to try to decrease ranitidine to 75 mg once daily, but I would like to see her and get lung function test before that. documented in this encounter Progress Notes * Gracie Levine MD - 06/16/2011 12:53 PM EST 06/16/2011 GRACIE LEVINE MD Elvia Rodrigues 6 y.o. [birth year] ANNE-MARIE MENDES MD [phone] Anne-Marie Mendes Interval History: Elvia has done very well since she was last seen. She has had no cough. She did have a URI for afew days but it resolved without its usual lingering pattern. She has had no need for Xopenex. She has not had any exercise-related symptoms, even when skiing in the cold during winter break. She did receive a 23-valent Pneumovax 6 weeks ago and is here for post- immunization titers today. Reviewing her history again: She had always had Xopenex or Pulmicort, dating back to an episode of RSV bronchiolitis/pneumonia when she was 3 months old. She has had both wheezing and cough, but the recent problem has been one of persistent cough despite asthma management. Her Singulair was prescribed for migraine headaches and has controlled them well. When the Singulair was stopped transiently as a trial, the headaches returned. ROS: Reviewed and unchanged except as above. Patient Active Problem List Diagnoses Code ??? Cough 786.2 ??? History of asthma V12.69E ??? Nasal congestion 478.19R ??? History of migraine headaches V12.49AQ Current outpatient prescriptions ordered prior to encounter Medication Sig Dispense Refill ??? Budesonide (PULMICORT FLEXHALER) 90 mcg/Inhalation AePB Inhale 3 puffs into the lungs daily. ??? montelukast (SINGULAIR) 4 mg chewable tablet Take 5 mg by mouth nightly. ??? ranitidine (ZANTAC) 75 mg tablet Take 75 mg by mouth 2 times daily. ??? pediatric multivitamin (FLINTSTONES MULTIVITAMIN) chewable tablet Take 2 tablets by mouth daily. ??? polyethylene glycol (MIRALAX) 17 gram packet Take 17 g by mouth daily. ??? Levalbuterol Tartrate (XOPENEX HFA) 45 mcg/Actuation inhaler Inhale 1-2 puffs into the lungs every 4 hours as needed. Allergies: Penicillins Physical Exam: Filed Vitals: 06/16/11 1135 BP: 82/53 Pulse: 99 Resp: 19 Height: 119.5 cm (3' 11.05) Weight: 24.5 kg (54 lb 0.2 oz) SpO2: 100% General: Well developed, well-nourished school aged female in no distress; interactive and answers questions appropriately. Eyes: Conjunctivae clear; no discharge ENT: TM's clear bilaterally; oropharynx clear; tonsils minimal; nares patent with pink nasal mucosa; crusted discharge in nares Neck: Supple without adenopathy Chest: No increased AP diameter or increased work of breathing; thorax symmetrical; good excursion. Lungs: Breath sounds equal; good air exchange; no rales or wheezes bilaterally. Cardiovascular: RSR without murmur; pulses equal and full. Abdomen: Soft and nontender; no mass or organomegaly. Extremities: No digital clubbing. Neurological: No obvious deficit Skin: No rashes or excoriations Lab: Assessment: 1. History of Asthma, well controlled on current regimen 2. Migraine headaches, well controlled on Singulair 3. Clinical GERD, stable on ranitidine 4. Chronic cough, likely related to GERD and asymptomatic on GERD tx 5. History of lower than expected responses to pneumococcal antigens with otherwise normal immunologic evaluation Plan: 1. Pneumococcal post-immunization titers today 2. Continue ranitidine 75 mg BID 3. Trial of decreasing Pulmicort Flexhaler to 2 puffs daily; if she has increased cough or wheeze, resume 3 puffs 4. Continue Singulair 5 mg daily 5. Will consider stepping down to once daily dosing on ranitidine after next visit if she is stableand PFT normal 6. Return in 3 months, after school is out for the summer. 06/24/11: Test Result LO Units Values S. pneumoniae IgG Ab,23 serotypes,S Serotype 1 (1) 0.9 L mcg/mL >8.2 Serotype 2(2) 0.3 L mcg/mL >7.4 Serotype 3 (3) 2.9 L mcg/mL >6.9 Serotype 4 (4) 30.3 mcg/mL >4.1 Serotype 5 (5) 0.5 L mcg/mL >28.8 Serotype 8 (8) 1.8 L mcg/mL >13.3 Serotype 9N (9) 16.9 mcg/mL >16.6 Serotype 12F (12) 1.2 L mcg/mL >4.3 Serotype 14 (14) 112.4 mcg/mL >22.9 Serotype 17F (17) 36.1 L mcg/mL >44.8 Serotype 19F (19) 453.4 mcg/mL >16.0 Serotype 20 (20) <0.2 L mcg/mL >12.1 Serotype 22F (22) 2.1 L mcg/mL >32.4 Serotype 23F (23) 8.2 L mcg/mL >49.0 Serotype 6B (26) 403.6 mcg/mL >15.3 Serotype 10A (34) 1.1 L mcg/mL >25.5 Serotype 11A (43) 22.1 mcg/mL >9.7 Serotype 7F (51) 3.2 L mcg/mL >30.8 Serotype 15B (54) 3.3 L mcg/mL >12.8 Serotype 18C (56) 50.6 mcg/mL >7.0 Serotype 19A (57) 3.0 L mcg/mL >28.1 Serotype 9V (68) TNP mcg/mL >44.0 No result available due to non-linear dilution response for this serotype. Serotype 33F (70) 0.3 L mcg/mL >7.5 Interpretation: 15 serotypes have titer >1.3 13 serotypes had greater than 4-fold increase from baseline test This would be considered a normal response. documented in this encounter Plan of Treatment Not on file documented as of this encounter Procedures Procedure Name Priority Date/Time Associated Diagnosis Comments S PNEUMONIAE ANTIBODY IGG, 23 SEROTYPES Routine 06/16/2011 12:28 PM EST Cough documented in this encounter Results * S pneumoniae Antibody IgG, 23 serotypes (06/16/2011 12:28 PM EST) [facility] S Pneumo IgG 23 (MAY) ?HI ?Expected Test ?Result ?LO ??Units ?? Values --- S. pneumoniae IgG Ab,23 serotypes,S ??Serotype 1 (1) ?0.9 ? L ?? mcg/mL ??>8.2 ??Serotype 2(2) ? 0.3 ? L ?? mcg/mL ??>7.4 ??Serotype 3 (3) ?2.9 ? L ?? mcg/mL ??>6.9 ??Serotype 4 (4) ?30.3 ?mcg/mL ??>4.1 ??Serotype 5 (5) ?0.5 ? L ?? mcg/mL ??>28.8 ??Serotype 8 (8) ?1.8 ? L ?? mcg/mL ??>13.3 ??Serotype 9N (9) ? 16.9 ?mcg/mL ??>16.6 ??Serotype 12F (12) ? 1.2 ? L ?? mcg/mL ??>4.3 ??Serotype 14 (14) ?112.4 ? mcg/mL ??>22.9 ??Serotype 17F (17) ? 36.1 ?L ?? mcg/mL ??>44.8 ??Serotype 19F (19) ? 453.4 ? mcg/mL ??>16.0 ??Serotype 20 (20) ?<0.2 ?L ?? mcg/mL ??>12.1 ??Serotype 22F (22) ? 2.1 ? L ?? mcg/mL ??>32.4 ??Serotype 23F (23) ? 8.2 ? L ?? mcg/mL ??>49.0 ??Serotype 6B (26) ?403.6 ? mcg/mL ??>15.3 ??Serotype 10A (34) ? 1.1 ? L ?? mcg/mL ??>25.5 ??Serotype 11A (43) ? 22.1 ?mcg/mL ??>9.7 ??Serotype 7F (51) ?3.2 ? L ?? mcg/mL ??>30.8 ??Serotype 15B (54) ? 3.3 ? L ?? mcg/mL ??>12.8 ??Serotype 18C (56) ? 50.6 ?mcg/mL ??>7.0 ??Serotype 19A (57) ? 3.0 ? L ?? mcg/mL ??>28.1 ??Serotype 9V (68) ?TNP ? mcg/mL ??>44.0 No result available due to non-linear dilution response for this serotype. ??Serotype 33F (70) ? 0.3 ? L ?? mcg/mL ??>7.5 To aid in interpretation of the pneumococcal antibody results and to ensure consistency in interpretation with other immunodeficiency practices and the [facility] Practice Guidelines (on interpretation of pneumococcal vaccine [...] clinical interpretation of polysaccharide antibody responses. Lucia K and Bobby RU. Annals of Allergy, Asthma and Immunology, 2007, 99: 462-4. 2. Influence of age on the response to Streptococcus pneumoniae vaccine in patients with recurrent infections and normal immunoglobulin concentrations. Bobby BRIZUELA, Marilou RIGGINS, Dino III, FC et al, Journal of Allergy and Clinical Immunology, 1998, 102: 215-21. Test Performed by: [facility] Dpt of Lab Med and Pathology [address] [place], [place] [id number] [employer] Supervisor: Harpreet Whalen III, M.D. CERNER MILLENNIUM Blood specimen (specimen) 06/16/2011 12:28 PM EST 06/16/2011 2:23 PM EST Narrative Resulting Agency Comment Spec In Lab Gracie Levine MD LAB SEND OUT ORDERAB LES CAMILA MCCORD documented in this encounter Visit Diagnoses Diagnosis Cough History of asthma Personal history of other diseases of respiratory system Nasal congestion Other diseases of nasal cavity and sinuses History of migraine headaches Personal history of other disorders of nervous system and sense organs documented in this encounter Care Teams Esthetician Facialist Relationship Specialty Start Date End Date Anne-Marie Mendes [place] [address] PCP - General 03/04/10 11/19/15 documented as of this encounter
--- OUTSIDE RECORDS SUMMARY | 2023-11-17 15:28 | XMS_ITS | Clinical Summary ---
Author Organization [facility] Address [address] [place] [address] Care Team Providers Care Senior Talent Acquisition Specialist Name Role Phone Unavailable Primary Care Provider Unavailabl e Allergies Active Allergy Reactions Criticality Noted Date [...] Date Diagnosed Date Opioid use disorder 07/29/2023 Encounters Date Type Department Care Team Description 10/28/2023 Specialty Pharmacy [facility] [address] [place] [address] Carolyn Azul RPH 10/18/2023 Lab Requisition [facility] Pathology & Laboratory [address] [address] Outr Resulting Lab, Provider 10/18/2023 Lab Requisition [facility] Pathology & Laboratory [address] [address] Outr Resulting Lab, Provider 08/31/2023 Specialty Pharmacy [facility] [address] [place] [address] Carolyn Azul RPH Set up initial fill for Addiction Medicine, Patient Education for Addiction Medicine, Prospective Review for Addiction Medicine from Last 3 Months Social History Tobacco Use Types Packs/Day Years Used Date Smoking Tobacco: Never Assessed Interpersonal Safety Answer Date Record ed Physically Hurt Never 03/05/2020 Verbally Threaten Not on file 03/05/2020 Sex and Gender Information Value Date Recorded Sex Assigned at Not on file Gender Identity Female 04/07/2021 13:19 EST Sexual Orientation Not on file Plan of Treatment Health Maintenance Due Date Last Done Comments Hepatitis C Screen 2003 Hepatitis B Vaccine (1 of 3 - 19+ 3-dose series) 01/08 COVID-19 Vaccine ( season) 2022 Procedures Procedure Name Priority Date/Time Associated Diagnosis Comments FENTANYL AND METABOLITE CONFIRMATION PANEL Today 10/18/2023 11:35 EDT FENTANYL SCREEN WITH REFLEX TO CONFIRMATION, U Routine 10/18/2023 11:35 EDT SYPHILIS SEROLOGY Routine 10/18/2023 11: 35 EDT from Last 3 Months Results * (ABNORMAL) FENTANYL SCREEN WITH REFLEX TO CONFIRMATION, U (10/18/2023 11:35 EDT) Pathologist [facility] Fentanyl Screen with Reflex to Confirmation, U Positive( A) <1 ng/mL 10/19/2023 15:04 EDT [facility] Comment: Trazodone is known to cross react with the Fentanyl immunoassay and may cause a false positive Urine URINE / Unknown 10/18/2023 1 1:35 EDT 10/18/2023 16:57 EDT Narrative [facility] - 10/19/2023 15:04 EDT Testing performed by: [facility] [address] [place] [address] [address] [address] Track Repairer: Willie Fowler MD; CLIA # [id number] Provider Outr Resulting Lab URINALYSIS O RDERABLES Performing Organization Address City/[facility]/ZIP Co de Phone Number [facility] [address] [place] [address] * SYPHILIS SEROLOGY (10/18/2023 11:35 EDT) [facility] Syphilis Serology Negative Negative 10/19/2023 10:[address] [facility] Blood VENOUS BLOOD / Unknown 10/18/2023 11:35 EDT 10/18/2023 16:58 EDT Provider Outr Resulting Lab IMMUNOLOGY A ND SEROLOGY ORDERABLES [facility] [address] [place] [address] * (ABNORMAL) FENTANYL AND METABOLITE CONFIRMATION PANEL (10/18/2023 11:35 EDT) Pathologist [facility] Fentanyl Confirmation >40(A) <2 ng/mL 10/20/2023 11:26 EDT [facility] Norfentanyl Confirmation >200(A) <10 ng/mL 10/20/2023 11:26 EDT [facility] Urine URINE / Unknown 10/18/2023 1 1:35 EDT 10/18/2023 16:57 EDT Narrative [facility] - 10/20/2023 11:26 EDT Testing performed by: [facility] [address], [address], [place] [address] Track Repairer: Willie Fowler MD; CLIA # [id number] Provider Outr Resulting Lab GEN LAB UNIT COLLECT ORDERABLES [facility] [address], [address] [place] [address], [facility] [phone] from Last 3 Months
--- OUTSIDE RECORDS SUMMARY | 2023-11-17 15:28 | XMS_ITS | Encounter Summary ---
Author Organization [facility] Address [address] [place] [address] Care Team Providers Care Art Museum Aide Name Role Phone Unavailable Primary Care Provider Unavailabl e Encounter Details Date Type Department Care Team ([facility] st Contact Info) Description 07/29/2023 Telephone [facility] [address] [place], [place] [address] Carolyn Azul RPH Social History Tobacco Use [...]
--- OUTSIDE RECORDS SUMMARY | 2023-11-17 15:28 | XMS_ITS | Encounter Summary ---
Author Organization [facility] Address [facility] [place] [address] Care Team Providers Care Transportation Sales Consultant Name Role Phone Anne-Marie Cruz MD Primary Care Provider [phone] Encounter Details Date Type Department Care Team (Late st Contact Info) Description 05/06/2011 External Results XRay at [address] [place] [address] Roosevelt Shahid MD EMERGENCY DEPT [address] [place], [place] [address] [address] Social History Tobacco Use Types Packs/Day Years Used Date Smoking Tobacco: Never Assessed Sex and Gender Information Value Date Recorded Sex Assigned at Not on file Gender Identity Not on file Sexual Orientation Not on file documented as of this encounter Plan of Treatment Not on file documented as of this encounter Procedures Procedure Name Priority Date/Time Associated Diagnosis Comments DIAGNOSTIC RADIOLOGY SCAN Routine 2003 DIAGNOSTIC RADIOLOGY SCAN Routine 2003 documented in this encounter Results * Scan Doc: Diagnostic Radiology (2003) Anatomical Region Laterality Modality Other Scanning Provider MEDIA MGR SCAN EXT O RDR/RSLT * Scan Doc: Diagnostic Radiology (2003) Anatomical Region Laterality Modality Other Roosevelt Shahid MD MEDIA MGR SCAN EXT O RDR/RSLT documented in this encounter Visit Diagnoses Not on filedocumented in this encounter Care Teams Transportation Sales Consultant Relationship Specialty Start Date End Date Anne-Marie Cruz MD [address] [place] [address] PCP - General 03/04/10 11/19/15 documented as of this encounter
--- OUTSIDE RECORDS SUMMARY | 2023-11-17 15:28 | XMS_ITS ---
Author Organization [facility] Address [address] [place] [address] Care Team Providers Care Admin Asst Name Role Phone Unavailable Primary Care Provider Unavailabl e Addiction Medicine Status:Discharged (Closed) Start date:07/29/2023 Enrollment date:07/29/2023 Enrollment reason:Referred by provider End date:08/27/2023 Close reason:Unable to reach patient Linked medications:buprenorphine (Active) Linked problems:Opioid use disorder (Active) Overview [facility] Family Medicine: [phone] Continued Care and Services Coordination
--- OUTSIDE RECORDS SUMMARY | 2023-11-17 15:28 | XMS_ITS | Encounter Summary ---
Author Organization [facility] Address [address] [place] [address] Care Team Providers Care Human Resources Executive Name Role Phone Unavailable Primary Care Provider Unavailabl e Encounter Details Date Type Department Care Team (Late st Contact Info) Description 08/03/2023 Specialty Pharmacy [facility] [address] [place] [address] Carolyn Azul RPH Social History Tobacco Use [...] as of this encounter Progress Notes * Angelia Yanez - 08/03/2023 0953 EDT Elvia did not show for her 2nd dose (8mg) of brixadi and they cannot get in touch with her. Theystill have the 8mg on hand and will keep trying. * Carolyn Azul RPH - 08/03/2023 0953 EDT Elvia Rodrigues is a 18 y.o. female with OUD who was prescribed Brixadi, which was filled by [facility] Special[facility]. This patient will be discharged from [facility] Specialty pharmacy services because patient was lost to follow up. Thank you for allowing us to care for this patient. CAROLYN AZUL RPH documented in this encounter Plan of Treatment Not on file documented as of this encounter Visit Diagnoses Not on filedocumented in this encounter
--- OUTSIDE RECORDS SUMMARY | 2023-11-17 15:28 | XMS_ITS | Encounter Summary ---
Author Organization [facility] Address [address] [place] [address] Care Team Providers Care Orthotic Technician Name Role Phone Unavailable Primary Care Provider Unavailabl e Encounter Details Date Type Department Care Team (Late st Contact Info) Description 10/18/2023 Lab Requisition [facility] Pathology & Laboratory Medicine - [facility] [address] [place] [address] Outr Resulting Lab, Provider Social History Tobacco [...] Name Priority Date/Time Associated Diagnosis Comments FENTANYL SCREEN WITH REFLEX TO CONFIRMATION, U Routine 10/18/2023 11:35 EDT FENTANYL AND METABOLITE CONFIRMATION PANEL Today 10/18/2023 11:35 EDT documented in this encounter Results * (ABNORMAL) FENTANYL AND METABOLITE CONFIRMATION PANEL (10/18/2023 11:35 EDT) Fentanyl Confirmation >40(A) <2 ng/mL 10/20/2023 11:26 EDT [facility] Norfentanyl Confirmation >200(A) <10 ng/mL 10/20/2023 11:26 EDT [facility] Urine URINE / Unknown 10/18/2023 1 1:35 EDT 10/18/2023 16:57 EDT Narrative [facility] - 10/20/2023 11:26 EDT Testing performed by: [facility] [address] [place] [address] [address] [address] Canal Driver: Willie Fowler MD; CLIA # [id number] Provider Outr Resulting Lab GEN LAB UNIT COLLECT ORDERABLES Performing Organization Address City/[facility] Co de Phone Number [facility] [address] [place] [address] [phone] * (ABNORMAL) FENTANYL SCREEN WITH REFLEX TO CONFIRMATION, U (10/18/2023 11:35 EDT) Fentanyl Screen with Reflex to Confirmation, U Positive( A) <1 ng/mL 10/19/2023 15:04 EDT [facility] Comment: Trazodone is known to cross react with the Fentanyl immunoassay and may cause a false positive Urine URINE / Unknown 10/18/2023 1 1:35 EDT 10/18/2023 16:57 EDT Narrative [facility] - 10/19/2023 15:04 EDT Testing performed by: [facility] [address] [place] [address] [address], [place] [address] Canal Driver: Willie Fowler MD; CLIA # [id number] Provider Outr Resulting Lab URINALYSIS O RDERABLES Performing Organization Address City/[facility]/ZIP Co de Phone Number [facility] [address] [place] [address] [phone] documented in this encounter Visit Diagnoses Not on filedocumented in this encounter
--- OUTSIDE RECORDS SUMMARY | 2023-11-17 15:28 | XMS_ITS | Encounter Summary ---
Author Organization [facility] Address [facility] [place] [address] Care Team Providers Care Clinique Counter Manager Name Role Phone Anne-Marie Mendes MD Primary Care Provider [phone] Reason for Visit * Reason Comments Follow-up Encounter Details Date Type Department Care Team (Late st Contact Info) Description 01/12/2012 4:30 PM EDT Follow-Up [place] [address] Gracie Levine MD [facility] [address] [place] [address] Asthma; History of migraine headaches; Nasal congestion; GERD (gastroesophageal reflux disease) Discharge Disposition: Home Social History Tobacco Use Types Packs/Day Years Used Date Smoking Tobacco: Never Smokeless Tobacco: Never Comments:no ETS exposure Sex and Gender Information Value Date Recorded Sex Assigned at Not on file Gender Identity Not on file Sexual Orientation Not on file documented as of this encounter Last Filed Vital Signs Vital Sign Reading Time Taken Comments Blood Pressure 94/50 01/12/2012 4:18 PM EDT Pulse 100 01/12/2012 4:18 PM EDT Temperature - - Respiratory Rate 20 01/12/2012 4:18 PM EDT Oxygen Saturation 98% 01/12/2012 4:18 PM EDT Inhaled Oxygen Concentration - - Weight 27.8 kg (61 lb 4.6 oz) 01/12/2012 4:18 PM EDT Height 121.9 cm (3' 11.99) 01/12/2012 4:18 PM E DT Body Mass Index 18.71 01/12/2012 4:18 PM EDT Body Mass Index Percentile 82.25% 01/12/2012 4:1 8 PM EDT Growth Chart: [facility] (Girls, 2- 20 Years) documented in this encounter Patient Instructions * Patient Instructions* Gracie Levine MD - 01/12/2012 4:59 PM EDT Continue current Asthma Action Plan Hope for the best this winter! documented in this encounter Progress Notes * Gracie Levine MD - 01/12/2012 4:58 PM EDT 01/12/2012 GRACIE LEVINE MD Elvia Rodrigues 7 y.o. [id number] ANNE-MARIE MENDES MD [phone] Anne-Marie Mendes Reason for Visit: Follow up Asthma and allergic rhinitis Interval History: Elvia was last seen in August and has had an excellent summer. Mother says this is the longest she has been well in her life. Her last significant illness was in April, shortly before her first visit here. She is not having any cough or wheeze, no upper respiratory symptoms. Headaches are well controlled on daily Singulair. She is not having any night cough. She is not having any exercise intolerance. She is not having any GERD symptoms. Mother is very pleased with her status and progress. She got her flu shot in Dr. Nevarez' office on 12/31. ROS: Constitutional: neg Allergy: neg Eye: neg ENT: see above Respiratory: see above Cardiovascular: neg GI: see above Skin: neg Musculoskeletal: neg Neuro/Psych. neg Patient Active Problem List Diagnoses Code ??? Cough 786.2 ??? Asthma 493.90AE ??? Nasal congestion 478.19R ??? History of migraine headaches V12.49AQ ??? GERD (gastroesophageal reflux disease) 530.81S Current outpatient prescriptions ordered prior to encounter Medication Sig Dispense Refill ??? montelukast (SINGULAIR) 5 mg chewable tablet Take 5 mg by mouth nightly. ??? Levalbuterol Tartrate (XOPENEX HFA) 45 mcg/Actuation inhaler Inhale 1-2 puffs into the lungs every 4 hours as needed. ??? Budesonide (PULMICORT FLEXHALER) 90 mcg/Inhalation AePB Inhale 2 puffs into the lungs daily. ??? ranitidine (ZANTAC) 75 mg tablet Take 75 mg by mouth daily. ??? pediatric multivitamin (FLINTSTONES MULTIVITAMIN) chewable tablet Take 2 tablets by mouth daily. ??? polyethylene glycol (MIRALAX) 17 gram packet Take 17 g by mouth daily. Allergies Allergen Reactions ??? Unknown (Unclassified Drug) Dial soap gives her a burn on her skin at contact ??? Penicillins Rash Physical Exam: Filed Vitals: 01/12/12 1618 BP: 94/50 Pulse: 100 Resp: 20 Height: 121.9 cm (3' 11.99) Weight: 23 kg (50 lb 11.3 oz) SpO2: 98% General: Well developed, well-nourished school aged female in no distress; interactive and answers questions appropriately. Eyes: Conjunctivae clear; no discharge ENT: TM's clear bilaterally; oropharynx clear; tonsils small and not inflamed; nares patent with pink nasal mucosa; turbinates mildly boggy Neck: Supple without adenopathy Chest: No increased AP diameter or increased work of breathing; thorax symmetrical; good excursion. Lungs: Breath sounds equal; good air exchange; no rales or wheezes bilaterally. Cardiovascular: RSR without murmur; pulses equal and full. Extremities: No digital clubbing. Neurological: No obvious deficit Skin: No rashes or excoriations PFT: FVC 1.82 L (119%predicted); FEV 1 1.69 L (123%); FEV 1/FVC 0.93; FEF 25/75 2.52 L/S (139%) Normal study; stable Asthma Control Test score = 27 = excellent control Assessment: 1. Asthma, persistent, with good control 2. Allergic rhinitis 3. GERD 4. History of Migraine Headaches Plan: 1. Continue current Asthma Action Plan 2. Continue Singulair for headaches 3. Reevaluate in 6 mos; sooner prn documented in this encounter Plan of Treatment Not on file documented as of this encounter Visit Diagnoses Diagnosis Asthma Unspecified asthma History of migraine headaches Personal history of other disorders of nervous system and sense organs Nasal congestion Other diseases of nasal cavity and sinuses GERD (gastroesophageal reflux disease) Esophageal reflux documented in this encounter Care Teams Clinique Counter Manager Relationship Specialty Start Date End Date Anne-Marie Mendes MD [address] [place] [address] PCP - General 03/04/10 11/19/15 documented as of this encounter
--- OUTSIDE RECORDS SUMMARY | 2023-11-17 15:28 | XMS_ITS | Encounter Summary ---
Author Organization [facility] Address [address] [place] [address] Care Team Providers Care Apns Name Role Phone Unavailable Primary Care Provider Unavailabl e Encounter Details Date Type Department Care Team (Late st Contact Info) Description 10/11/2021 Lab Requisition [facility] Pathology & Laboratory Medicine - [facility] [address] [place] [address] Outr Resulting Lab, Provider Social History Tobacco [...] Procedure Name Priority Date/Time Associated Diagnosis Comments FECAL BACTERIAL PATHOGENS BY PCR Routine 10/11/2021 2:05 EDT OVA/PARASITE EXAM Routine 10/11/2021 2:05 EDT documented in this encounter Results * FECAL BACTERIAL PATHOGENS BY PCR (10/11/2021 2:05 EDT) Salmonella PCR Negative Negative 10/13/2021 10:39 EDT [facility] Shigella/Enteroin vasive E. coli Negative Negative 10/13/2021 10:39 EDT [facility] HN LAB CAMPYLOBACTER PCR Negative Negative 10/13/2021 10:39 EDT [facility] Shiga Toxin PCR Negative Negative 10:39 EDT [facility] Feces SPECIMEN FROM RECTUM / Unknown Stool Collect / Unknown 10/11/2021 2:05 EDT 10/12/2021 22:39 EDT Provider Outr Resulting Lab MICROBIOLOGY - GENERAL ORDERABLES Performing Organization Address City/[facility] Co de Phone Number [facility] [address] [place] [address] * OVA/PARASITE EXAM (10/11/2021 2:05 EDT) Parasite No ova and parasites seen. 10/14/2021 10:50 EDT [facility] Feces SPECIMEN FROM RECTUM / Unknown Stool Collect / Unknown 10/11/2021 2:05 EDT 10/12/2021 22:39 EDT Narrative [facility] - 10/14/2021 10:50 EDT (If Cryptosporidium, Cyclospora, or Microsporidium are suspected, specific tests must be requested.) Single negative specimen does not rule out the possibility of a parasitic infection. Provider Outr Resulting Lab MICROBIOLOGY - GENERAL ORDERABLES Performing Organization Address City/[facility] Co de Phone Number [facility] [address] [place] [address] documented in this encounter Visit Diagnoses Not on filedocumented in this encounter
--- OUTSIDE RECORDS SUMMARY | 2023-11-17 15:28 | XMS_ITS | Encounter Summary ---
[place] [address] Care Team Providers Care Metal Die Finisher Name Role Phone Ben Nevarez MD Primary Care Provider [phone] Encounter Details Date Type Department Care Team (Late st Contact Info) Description 02/09/2020 4:45 PM EDT Ancillary Procedure [place] [id number] Ben Nevarez MD [address] [place] [address] [place] [address] Social History Tobacco Use Types Packs/Day Years [...] FILM LIBRARY STORAGE ONLY ULTRASOUND STUDY Routine 02/09/2020 4:44 PM EDT documented in this encounter Results * Film Library- Storage Only Ultrasound Study (02/09/2020 4:44 PM EDT) Narrative [facility] - 02/09/2020 4:44 PM EDT This exam is auto-finalizing. It's purpose is for storage only. Ben Nevarez MD IMG FILM LIBRARY OR DERABLES Performing Organization Address City/State/[facility] Co de Phone Number [place], [place] documented in this encounter Visit Diagnoses Not on filedocumented in this encounter Care Teams Metal Die Finisher Relationship Specialty Start Date End Date Ben Nevarez MD [address] [address] PCP - General Pediatrics 11/20/15 documented as of this encounter
--- OUTSIDE RECORDS SUMMARY | 2023-11-17 15:28 | XMS_ITS | Encounter Summary ---
Author Organization [facility] [place] [address] Care Team Providers Care Gl Accountant Name Role Phone Anne-Marie Cruz MD Primary Care Provider [phone] Reason for Visit * Reason Onset Date Comments Results 06/24/2011 Encounter Details Date Type Department Care Team (Late st Contact Info) Description 06/24/2011 Telephone [place] [phone] Gracie Levine MD [facility] [address] [place] [address] Results Social History Tobacco Use Types Packs/Day Years Used Date Smoking Tobacco: Never Comments:no ETS exposure Sex and Gender Information Value Date Recorded Sex Assigned at Not on file Gender Identity Not on file Sexual Orientation Not on file documented as of this encounter Miscellaneous Notes * Telephone Encounter - Gracie Levine MD - 06/24/2011 1:30 PM EDT Post immunization pneumococcal titers returned. Protective levels for 15 serotypes and >4-fold increase in titer for 13 serotypes. This is considered a normal response and would help to rule out significant immunodeficiency. Results given to mother by telephone and also forwarded to PCP in contents of clinic note from lastweek. documented in this encounter Plan of Treatment Not on file documented as of this encounter Visit Diagnoses Not on filedocumented in this encounter Care Teams Gl Accountant Relationship Specialty Start Date End Date Anne-Marie Cruz MD [address] [place] [address] [place] [address] PCP - General 03/04/10 11/19/15 documented as of this encounter
--- OUTSIDE RECORDS SUMMARY | 2023-11-17 15:28 | XMS_ITS | Encounter Summary ---
Author Organization [facility] Address [address] [place] [address] Care Team Providers Care Infection Control Practitioner Name Role Phone Unavailable Primary Care Provider Unavailabl e Encounter Details Date Type Department Care Team (Late st Contact Info) Description 10/10/2021 Lab Requisition [facility] Pathology & Laboratory Medicine - [facility] [address] [place] [address] Outr Resulting Lab, Provider Social History Tobacco [...] Procedure Name Priority Date/Time Associated Diagnosis Comments RHEUMATOID FACTOR Routine 10/10/2021 13: 42 EDT ANTI NUCLEAR AB (DRAKE), IFA Routine 10/10/2021 13:42 EDT documented in this encounter Results * (ABNORMAL) RHEUMATOID FACTOR (10/10/2021 13:42 EDT) Rheumatoid Factor 12.9(H) <12.0 IU/mL 10/10/2021 22:18 EDT [facility] Blood VENOUS BLOOD / Unknown 10/10/2021 13:42 EDT 10/10/2021 21:56 EDT Provider Outr Resulting Lab CHEMISTRY & BLOOD GAS ORDERABLES Performing Organization Address [facility] Co de Phone Number [facility] [address] [place] [address] * ANTI NUCLEAR AB (DRAKE), IFA (10/10/2021 13:42 EDT) DRAKE Interpretation Negative Negative 2021 15:36 EDT [facility] Comment:No titer performed, DRAKE Screen is negative. Blood VENOUS BLOOD / Unknown 10/10/2021 13:42 EDT 10/10/2021 21:56 EDT Narrative [facility] - 10/14/2021 15:36 EDT Results were obtained with the INOVA NOVA Lite HEp-2 DRAKE Kit by indirect immunofluorescence. Provider Outr Resulting Lab IMMUNOLOGY A ND SEROLOGY ORDERABLES Performing Organization Address [facility] Co de Phone Number [facility] [address] [place] [address] documented in this encounter Visit Diagnoses Not on filedocumented in this encounter
--- OUTSIDE RECORDS SUMMARY | 2023-11-17 15:28 | XMS_ITS | Encounter Summary ---
Author Organization [facility] Address [address] [place] [address] Care Team Providers Care Referral Manager Name Role Phone Unavailable Primary Care Provider Unavailabl e Encounter Details Date Type Department Care Team (Late st Contact Info) Description 04/24/2020 Lab Requisition [facility] Pathology & Laboratory Medicine - [facility] [address] [place] [address] Outr Resulting Lab, Provider Social History Tobacco [...] Procedure Name Priority Date/Time Associated Diagnosis Comments ZZCOVID-19 TEST [facility] PCR Today 04/23/2020 19:45 EST COVID-19 TESTING Routine 04/23/2020 19:4 5 EST documented in this encounter Results * COVID-19 TEST [facility] PCR (04/23/2020 19:45 EST) Swab ENTIRE NASOPHARYNX / Unknown 04/23/2020 19:45 EST 04/24/2020 15:42 EST Provider Outr Resulting Lab MICROBIOLOGY - GENERAL ORDERABLES [facility] [address] [place] [address] * COVID-19 TESTING (04/23/2020 19:45 EST) COVID-19 rt-PCR Result Negative Negative 04/25/2020 15:02 EST [facility] Comment: Negative results do not preclude 2019-nCoV infection and should not be used as the sole basis for treatment or other patient management decisions. Negative results must be combined with clinical observations, patient history, and epidemiological information. This test was developed and its performance characteristics determined by [facility]. It has not been cleared or approved by the US Food and Drug Administration. FDA does not require this test to go through premarket FDA review. This test is used for clinical purposes. It should not be regarded as investigational or for research. This laboratory is certified under the Clinical Laboratory Improvement Amendments (CLIA) as qualified to perform high complexity clinical laboratory testing. This test is based on the [facility] COVID-19 Emergency Use Authorization (EUA) assay, with minor modification as defined by the FDA Performed on the Winkapp 7 Flex. Performing Lab [facility] 04/25/2020 15:02 EST [facility] Swab 04/23/2020 19:4 5 EST 04/24/2020 15:42 EST Provider Outr Resulting Lab MICROBIOLOGY - GENERAL ORDERABLES [facility] [address] [place] [address] documented in this encounter Visit Diagnoses Not on filedocumented in this encounter
--- OUTSIDE RECORDS SUMMARY | 2023-11-17 15:28 | XMS_ITS | Encounter Summary ---
Author Organization [facility] Address [address] [place] [address] Care Team Providers Care Eyeglass Frame Truer Name Role Phone Unavailable Primary Care Provider Unavailabl e Encounter Details Date Type Department Care Team (Late st Contact Info) Description 10/11/2021 Lab Requisition [facility] Pathology & Laboratory Medicine - [facility] [address] [place] [address] Outr Resulting Lab, Provider Social History Tobacco [...] 1/2 ANTIGEN AND ANTIBODY, 4TH GENERATION Routine 10/10/2021 18:21 EDT documented in this encounter Results * HIV 1/2 ANTIGEN AND ANTIBODY, 4TH GENERATION (10/10/2021 18:21 EDT) HIV 1 and 2 Antibody/p24 Antigen, 4th Generation Negative Negative 10/13/2021 10:22 EDT [facility] Comment:If acute HIV-1 infec tion is suspected in a high risk patient, submit plasma specimen for HIV-1 RNA quantitation test. Blood VENOUS BLOOD / Unknown 10/10/2021 18:21 EDT 10/12/2021 18:29 EDT Narrative [facility] - 10/13/2021 10:22 EDT Fourth Generation assay performed on the Siemens Centaur XPT. Provider Outr Resulting Lab IMMUNOLOGY A ND SEROLOGY ORDERABLES [facility] [address] [place] [address] documented in this encounter Visit Diagnoses Not on filedocumented in this encounter
--- OUTSIDE RECORDS SUMMARY | 2023-11-17 15:28 | XMS_ITS | Encounter Summary ---
Author Organization [facility] Address [address] [place] [address] Care Team Providers Care Plant Maintenance Technician Name Role Phone Unavailable Primary Care Provider Unavailabl e Encounter Details Date Type Department Care Team (Late st Contact Info) Description 10/28/2023 Specialty Pharmacy [facility] [address] [place] [address] Carolyn Azul RPH Social History Tobacco Use [...]
[2023-11-17 15:33] VITALS: BP 113/91; PULSE 116; RESP 12; TEMP 37; O2SAT 98
== END 2023-11-17 15:43 | disposition home or self-care (01) ==
LOC: ER 15:24
PROVIDERS: Emergency Provider Registered Nurse Emergency; PCP Pediatrics
DX: H10.023 Other mucopurulent conjunctivitis, bilateral (principal); F17.290 Nicotine dependence, other tobacco product, uncomplicated
CPT/HCPCS: 99283

== ENCOUNTER 2023-11-18 08:10 | Emergency (ER) | payer MEDICAID, SELFPAY ==
--- NOTE | 2023-11-18 09:13 | NUR.NOTE ---
Nursing Note: Pt seen during downtime- see downtime paperwork for charting
== END 2023-11-18 09:42 | disposition home or self-care (01) ==
LOC: ER 09:41
PROVIDERS: PCP Pediatrics
DX: K13.29 Other disturbances of oral epithelium, including tongue (principal); H92.01 Otalgia, right ear; T40.411A Poisoning by fentanyl or fentanyl analogs, accidental (unintentional), initial encounter; T40.5X1A Poisoning by cocaine, accidental (unintentional), initial encounter
CPT/HCPCS: 99281; 99282

== ENCOUNTER 2024-01-17 21:39 | Emergency (ER) | payer BC, SELFPAY ==
[2024-01-17 21:52] VITALS: BP 100/70; PULSE 98; RESP 14; TEMP 37; O2SAT 98
--- OUTSIDE RECORDS SUMMARY | 2024-01-17 22:06 | XMS_ITS | Encounter Summary ---
Author Organization [facility] Address 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 Arpit Cormier MD [facility] [place] [address] Garland Pérez MD [facility] [place] [address] Referral ID Status Reason Start Date Expiration Date V isits Requested Visits Authorized [id number] Closed Consult, Test & Treat 04/16/2023 04/15/2024 1 1 Encounter Details Date Type Department Care Team (Late st Contact Info) Description 04/16/2023 Orders Only Pediatric [place] [address] Arpit Cormier MD [facility] [place] [address] Behcet's disease; Hypermobility arthralgia Social History Tobacco [...] unspecified documented in this encounter Care Teams Supervisor Boilermaking Shop Relationship Specialty Start Date End Date Ben Nevarez MD [address] [place] [address] PCP - General Pediatrics 11/20/15 documented as of this encounter
--- OUTSIDE RECORDS SUMMARY | 2024-01-17 22:06 | XMS_ITS | Encounter Summary ---
[place] [address] Care Team Providers Care Logistics Vice President Name Role Phone Ben Nevarez MD Primary Care Provider [phone]- [phone] Encounter Details Date Type Department Care Team [...] on filedocumented in this encounter Care Teams Logistics Vice President Relationship Specialty Start Date End [place] [address] PCP - General Pediatrics 11/20/15 documented as of this encounter
--- OUTSIDE RECORDS SUMMARY | 2024-01-17 22:06 | XMS_ITS | Encounter Summary ---
[place] [address] Care Team Providers Care Tank Riveter Name Role Phone Ben Nevarez MD Primary Care Provider [phone] Reason for Visit * Reason Onset Date Comments Triage 01/15/2023 Encounter Details Date Type Department Care Team (Late st Contact Info) Description 01/15/2023 [place] [phone] Jose Angel Ferris, job developer Social History Tobacco Use Types Packs/Day Years Used Date Smoking Tobacco: Never Smokeless Tobacco: Never Comments:smokes marajuana Sex and Gender Information Value Date Recorded Sex Assigned at Not on file Gender Identity Not on file Sexual Orientation Not on file documented as of this encounter Miscellaneous Notes * Telephone Encounter - Jose Angel Ferris RN - 01/15/2023 10:23 AM EDT Copied from [facility] #[id number]. Topic: Specialty Dept CRMs - Triage >> Jan 15, 2023 9:33 AM Norman Stearns wrote: Triage Message Specialist: Arpit Cormier MD-------[facility] Relationship (if other than patient-full name): Tino Rodrigues - [facility] Symptom: really bad bad and cold flashes [...] provider the recent test results from her branch officer and toe trimmer and we recently saw her PCP who said she needs to FUV with MD Cormier rather soon - [facility] also explains that patient has a rare [...] on filedocumented in this encounter Care Teams Tank Riveter Relationship Specialty Start Date End Date Ben Nevarez MD [address] [place] [address] PCP - General Pediatrics 11/20/15 documented as of this encounter
--- OUTSIDE RECORDS SUMMARY | 2024-01-17 22:06 | XMS_ITS | Encounter Summary ---
Author Organization [facility] Address [facility] [place] [address] Care Team Providers Care Plant And Maintenance Technician Name Role Phone Ben Nevarez MD Primary Care Provider Encounter Details Date Type Department Care Team (Latest Contact Info) Description 01/20/2023 8:59 AM EDT - 01/20/2023 11:59 PM EDT Hospital Encounter XRay at [address] [place] [address] Arpit Cormier MD [facility] [address] Behcet's disease Discharge Disposition: Home Social History Tobacco Use Types Packs/Day Years Used Date Smoking Tobacco: Never Smokeless Tobacco: Never Comments:smokes marajuana Sex and Gender Information Value Date Recorded Sex Assigned at Not on file Gender Identity Not on file Sexual Orientation Not on file documented as of this encounter Medications at Time of Discharge Medication Sig Dispensed Refills Start Date End Date albuteroL (Ventolin HFA) 90 mcg/actuation HFA Aerosol InhalerIndications:Mild intermittent asthma without complication Inhale 2 puffs into the lungs every 4 hours as needed for Wheezing. 1 each 1 11/10/2022 triamcinolone acetonide (KENALOG) 0.1 % Paste Place 1 each onto teeth 2 times daily. 5 g 12 04/10/2020 acetaminophen (Tylenol) 500 mg Tablet Take 1,000 mg by mouth every 6 hours as needed for Pain. triamcinolone acetonide (Kenalog) 0.1 % Paste Place [...] mouth daily. 30 capsule 1 11/10/2022 02/12/2023 buPROPion SR (Wellbutrin SR) 100 mg SR 12 hr tablet Take 100 mg by mouth daily. 10/23/2022 05/06/2023 sucralfate (Carafate) 100 mg/mL Suspension Take 10 mLs by mouth 4 times daily. 420 mL 11/05/2022 05/06/2023 lidocaine (Xylocaine) 5 % Ointment Three times a day 04/24/2020 05/06/2023 melatonin 10 mg Tablet, Multiphasic Release Bedtime 02/08/2020 05/06/19 ondansetron ODT (Zofran-ODT) 4 mg Tablet, Rapid Dissolve Every 8 hours, as needed 05/24/2020 05/06/2023 Vyvanse 30 mg Capsule TAKE ONE CAPSULE BY MOUTH EVERY MORNING 02/03/2021 05/06/2023 sertraline (ZOLOFT) 100 mg Tablet TAKE [...] have questions please contact the health career services manager that requested your imaging first. ? Electronically signed by: Cheri Colorado MD, [facility] ??([phone]), at 01/20/2023 10:19 AM Narrative 01/20/2023 10:19 [...] who have questions please contactthe health career services manager that requested your imaging first. Electronically signed by: Cheri Colorado MD, [facility]([phone]), at 01/20/2023 10:19 AM Arpit Cormier MD IMG DX ORDERABLES documented in this encounter Visit Diagnoses Diagnosis Behcet's disease Behcet's syndrome documented in this encounter Care Teams Plant And Maintenance Technician Relationship Specialty Start Date End Date Ben Nevarez MD [address] [place] [address] [place] [address] PCP - General Pediatrics 11/20/15 documented as of this encounter
--- OUTSIDE RECORDS SUMMARY | 2024-01-17 22:06 | XMS_ITS | Encounter Summary ---
Author Organization [facility] Address [facility] [place] [address] Care Team Providers Care Rent And Miscellaneous Remittance Clerk Name Role Phone Ben Nevarez MD Primary Care Provider [phone] Reason for Visit * Reason Onset Date Comments Medication Refill 03/24/2023 Encounter Details Date Type Department Care Team (Late st Contact Info) Description 03/24/2023 Refill [place] [address] Arpit Cormier MD [facility] [place] [address] Social History Tobacco Use Types Packs/Day Years [...] prescription PHARMACY NAME:[facility] - [place] - [address] [facility] PHONE: [phone] Caller/Patient aware of 1-2 business day process. documented in this encounter Plan of Treatment Not on file documented as of this encounter Visit Diagnoses Not on filedocumented in this encounter Care Teams Rent And Miscellaneous Remittance Clerk Relationship Specialty Start Date End Date Ben Nevarez MD [address] [place] [address] PCP - General Pediatrics 11/20/15 documented as of this encounter
--- OUTSIDE RECORDS SUMMARY | 2024-01-17 22:06 | XMS_ITS | Encounter Summary ---
[place] [address] Care Team Providers Care Business Project Manager Name Role Phone Ben Nevarez MD Primary Care Provider Reason for Visit * Reason Onset Date Comments Other 05/24/2023 Encounter Details Date Type Department Care Team (Late st Contact Info) Description 05/24/2023 Telephone [place] [phone] Irina Childers RN Other Social History Tobacco [...] AM EST New order written. Radiology at [facility] notified to expect the order. * Telephone Encounter - Iman Delaney - 05/25/2023 8:09 AM EST Jennifer from [facility] Radiology called to ask the corrected order be paper faxed, not electronic, as soon as possible. Patient has a 10:00 am appointment today. * Telephone Encounter - Irina Childers RN - 05/24/2023 1:57 PM EST Copied from [facility] #[id number]. Topic: Specialty Dept CRMs - Orders >> May 24, 2023 1:48 PM Kylie Leigh wrote: Orders Request Specialist: Jillian Valladares APRN Relationship (if other than patient-full name): Karan, Radiology at [facility] Type of Request: [x] Input orders (correct current orders) Type/Name of Order: Imaging If Labs and Imaging list name of specific test(s): XR Cervical Spine 4 or 5 views (per [facility] protocol) Date of Lab/Imaging/Testing Appt: n/a Date of Provider Appt: 09.14.23 Appt Type with Provider: JAYDA Patient Requesting to Have Orders Sent to Facility Outside of [facility]-H: Yes If Yes, Name of Facility: [facility] Address: [place], [place] Phone #: [phone] Fax #: [phone] documented in this encounter Plan of Treatment [...] site documented in this encounter Care Teams Business Project Manager Relationship Specialty Start Date End Date Ben Nevarez [place] [address] PCP - General Pediatrics 11/20/15 documented as of this encounter
--- OUTSIDE RECORDS SUMMARY | 2024-01-17 22:06 | XMS_ITS | Encounter Summary ---
[place] [address] Care Team Providers Care Certified Composites Technician Name Role Phone Ben Nevarez MD Primary Care Provider [phone]- [phone] Encounter Details Date Type Department Care Team [...] on filedocumented in this encounter Care Teams Certified Composites Technician Relationship Specialty Start Date End [place] [address] PCP - General Pediatrics 11/20/15 documented as of this encounter
--- OUTSIDE RECORDS SUMMARY | 2024-01-17 22:06 | XMS_ITS | Encounter Summary ---
Author Organization [facility] [place] [address] Care Team Providers Care Fighting Vehicle Systems Maintainer Name Role Phone Ben Nevarez MD Primary [...] on filedocumented in this encounter Care Teams Fighting Vehicle Systems Maintainer Relationship Specialty Start Date End Date [place] [address] PCP - General Pediatrics 11/20/15 documented as of this encounter
--- OUTSIDE RECORDS SUMMARY | 2024-01-17 22:06 | XMS_ITS | Encounter Summary ---
Author Organization [facility] [place] [address] Care Team Providers Care Sap Technical Developer Name Role Phone Ben Nevarez MD Primary Care Provider Encounter Details Date Type Department Care Team (Latest Contact Info) Description 11/26/2022 7:00 AM EDT - 11/26/2022 11:59 PM EDT Hospital Encounter [place] [id number] Mild intermittent asthma without complication Discharge Disposition: [...] every 6 hours as needed for Pain. omeprazole (PriLOSEC) [address] capsuleIndications:Mild intermittent [...] / FVC LLN 78 % COMPAS PFT ZQL01-42 Actual Pre-BD 4.32 L/s COMPAS PFT EZL00-53 Pre-BD % of Predicted 120 % COMPAS PFT DZQ68-02 Predicted 3.59 L/s COMPAS PFT OAU53-71 Pre-BD Z-Score 0.92 COMPAS PFT FVC Actual [...] / FVC LLN 78 % COMPAS PFT DJQ14-27 Actual Post-BD 4.94 L/s COMPAS PFT JDL89-14 Post-BD % of Predicted 138 % COMPAS PFT HQT90-89 Post-BD Z-Score 1.66 COMPAS PFT DLCO Hb [...] asthma documented in this encounter Care Teams Sap Technical Developer Relationship Specialty Start Date End Date Ben Nevarez MD [address] [place] [address] PCP - General Pediatrics 11/20/15 documented as of this encounter
--- OUTSIDE RECORDS SUMMARY | 2024-01-17 22:06 | XMS_ITS | Encounter Summary ---
Author Organization [facility] [place] [address] Care Team Providers Care Tool Procurement Coordinator Name Role Phone Ben Nevarez MD Primary Care Provider +1- [phone] Encounter Details Date Type Department Care Team [...] on filedocumented in this encounter Care Teams Tool Procurement Coordinator Relationship Specialty Start Date End Date [place] [address] PCP - General Pediatrics 11/20/15 documented as of this encounter
--- OUTSIDE RECORDS SUMMARY | 2024-01-17 22:06 | XMS_ITS | Encounter Summary ---
[place] [address] Care Team Providers Care Academic Intern Name Role Phone Ben Nevarez MD Primary Care Provider +1 [phone] Encounter Details Date Type Department Care Team (Late st Contact Info) Description 01/20/2023 [place] [address] Irina Childers RN Social History Tobacco Use [...] AM EDT Call returned to Kristina from [facility] radiology regarding message left with the call center. Kristina was informed that per Dr. Cormier, he wants to keep that order as is because he ordered the imaging for a 40lb weight loss. Kristina verbalized understanding. * Telephone Encounter - Irina Childers RN - 01/20/2023 10:42 AM EDT Copied from [facility] #[id number]. Topic: Specialty Dept CRMs - Orders >> Jan 20, 2023 10:01 AM Bentley Salmon wrote: Orders Request Specialist: Dr. Cormier Relationship (if other than patient-full name): Kristina [facility]-Radiology states the radiologist looked at the diagnosis for the abdomen pelvis with contrast and would like it changed to a CTA of the chestfor pulmonary embolism. [place] [address] and [place] CPT code for the abdomen pelvisis 06720 Type of Request: [x] Send orders Type/Name of Order: Imaging If Labs and Imaging list name of specific test(s): CTA of the chest for pulmonary embolism Date of Lab/Imaging/Testing Appt: n/a Date of Provider Appt: n/a Appt Type with Provider: Other: n/a Patient Requesting to Have Orders Sent to Facility Outside of [facility]: Yes If Yes, Name of Facility: [facility] Address: [address] [place] [address] Phone #:[phone] Fax #: [phone] documented in this encounter Plan of Treatment Not on file documented as of this encounter Visit Diagnoses Not on filedocumented in this encounter Care Teams Academic Intern Relationship Specialty Start Date End Date Ben Nevarez MD [address] [place] [address] PCP - General Pediatrics 11/20/15 documented as of this encounter
--- OUTSIDE RECORDS SUMMARY | 2024-01-17 22:06 | XMS_ITS | Encounter Summary ---
[place] [address] Care Team Providers Care Assistant Manager Pt Name Role Phone Ben Nevarez MD Primary Care Provider +1- [phone] Encounter Details Date Type Department Care Team [...] on filedocumented in this encounter Care Teams Assistant Manager Pt Relationship Specialty Start Date End [place] [address] PCP - General Pediatrics 11/20/15 documented as of this encounter
--- OUTSIDE RECORDS SUMMARY | 2024-01-17 22:06 | XMS_ITS | Encounter Summary ---
Author Organization [facility] Address [place] [id number] Care Team Providers Care Building Supervisor Name Role Phone Ben Nevarez MD Primary Care Provider Reason for Referral * Diagnostic Test (Routine) - Closed Specialty Diagnoses / Procedures Referred By Contac t Referred To Contact Cardiology Diagnoses Chest pain, unspecified type Procedures Nuclear Pharmacologic Stress Cardiology (PET CT Mobile) Dexter Mullen MD [facility] [place] [address] [facility] [place] [address] Referral ID Status Reason Start Date Expiration Date V isits Requested Visits Authorized [id number] Closed Specialty Service Requested 11/26/2022 11/26/2023 1 1 Reason for Visit * Diagnostic Test (Routine) - Closed Specialty Diagnoses / Procedures Referred By Contac t Referred To Contact Cardiology Diagnoses Chest pain, unspecified type Procedures Nuclear Pharmacologic Stress Cardiology (PET CT Mobile) Dexter Mullen MD [facility] [place] [address] [facility] [place] [address] Referral ID Status Reason Start Date Expiration Date V isits Requested Visits Authorized [id number] Closed Specialty Service Requested 11/26/2022 11/26/2023 1 1 Encounter Details Date Type Department Care Team (Latest Contact Info) Description 12/29/2022 8:10 AM EDT - 12/29/2022 11:59 PM EDT Hospital Encounter Non-[place] [phone] Dexter uMllen MD [facility] [place] [address] Chest pain, unspecified type Discharge Disposition: Home [...] type documented in this encounter Care Teams Building Supervisor Relationship Specialty Start Date End Date Ben Nevarez MD [address] [place] [address] PCP - General Pediatrics 11/20/15 documented as of this encounter
--- OUTSIDE RECORDS SUMMARY | 2024-01-17 22:06 | XMS_ITS | Encounter Summary ---
Author Organization [facility] Address [place] [id number] Care Team Providers Care High Tension Tester Name Role Phone Ben Nevarez MD Primary Care Provider Reason for Referral * Diagnostic Test (Routine) - Closed Specialty Diagnoses / Procedures Referred By Contac t Referred To Contact Radiology Diagnoses Chest pain, unspecified type Procedures NM PET CT Cardiac Pharmacologic Stress and Rest Dexter Mullen MD [facility] [place] [address] [place] [address] Referral ID Status Reason Start Date Expiration Date V isits Requested Visits Authorized [id number] Closed Specialty Service Requested 11/26/2022 05/25/2024 1 1 * Diagnostic Test (Routine) - Closed Specialty Diagnoses / Procedures Referred By Contac t Referred To Contact Radiology Diagnoses Chest pain, unspecified type Procedures NM PET CT Cardiac Pharmacologic Stress CT Component Dexter Mullen MD [facility] [place] [address] [facility] [place] [address] Referral ID Status Reason Start Date Expiration Date V isits Requested Visits Authorized [id number] Closed Specialty Service Requested 11/26/2022 05/25/2024 1 1 Reason for Visit * Diagnostic Test (Routine) - Closed Specialty Diagnoses / Procedures Referred By Contac t Referred To Contact Radiology Diagnoses Chest pain, unspecified type Procedures NM PET CT Cardiac Pharmacologic Stress and Rest Dexter Mullen MD [facility] [place] [address] [place] [address] Referral ID Status Reason Start Date Expiration Date V isits Requested Visits Authorized [id number] Closed Specialty Service Requested 11/26/2022 05/25/2024 1 1 Encounter Details Date Type Department Care Team (Latest Contact Info) Description 12/29/2022 7:13 AM EDT - 12/29/2022 8:09 AM EDT Hospital En[place] [address] Dexter Mullen MD [facility] [place] [address] Chest pain, unspecified type Discharge Disposition: Home [...] who have questions please contact the health child care centre manager that requested your imaging first. ? Electronically signed by: Ventura Abbasi MD, [facility] ([phone]), at 12/29/2022 6:05 PM Narrative 12/29/2022 6:05 [...] Note Ventura Abbasi MD - 12/29/2022 EXAMINATION: [place] PET CT CARDIAC PHARMACOLOGIC STRESS AND REST, IA PET CTCARDIAC PHARMACOLOGIC STRESS CT COMPONENT CLINICAL [...] patients who have questions please contactthe health child care centre manager that requested your imaging first. Dexter Mullen MD IMG PET ORDERABLES * [...] who have questions please contact the health child care centre manager that requested your imaging first. ? Electronically signed by: Ventura Abbasi MD, [facility] ([phone]), at 12/29/2022 6:05 PM Narrative 12/29/2022 6:05 PM EDT EXAMINATION: [place] PET CT CARDIAC PHARMACOLOGIC STRESS AND REST, [place] PET CT CARDIAC PHARMACOLOGIC STRESS CT COMPONENT [...] Note Ventura Abbasi MD - 12/29/2022 EXAMINATION: [place] PET CT CARDIAC PHARMACOLOGIC STRESS AND REST, IA PET CTCARDIAC PHARMACOLOGIC STRESS CT COMPONENT CLINICAL [...] patients who have questions please contactthe health child care centre manager that requested your imaging first. Dexter Mullen MD IMG PET ORDERABLES documented [...] Arm documented in this encounter Care Teams High Tension Tester Relationship Specialty Start Date End Date Ben Nevarez MD [address] [place] [address] PCP - General Pediatrics 11/20/15 documented as of this encounter
--- OUTSIDE RECORDS SUMMARY | 2024-01-17 22:06 | XMS_ITS | Encounter Summary ---
Author Organization [facility] Address [facility] [place] [address] Care Team Providers Care Coremaker Floor Name Role Phone Ben Nevarez MD Primary Care Provider [phone] Reason for Referral * Consultation (Routine) - Closed Specialty Diagnoses / Procedures Referred By Contac t Referred To Contact Neurology Diagnoses Hypermobility arthralgia Arpit Cormier MD [facility] [place] [address] Referral ID Status Reason Start Date Expiration Date V isits Requested Visits Authorized [id number] Closed Consult, Test & Treat 04/15/2023 10/12/2023 1 1 * Physical Therapy (Routine) - Closed Specialty Diagnoses / Procedures Referred By Contnoreen t Referred To Contact Physical Therapy Diagnoses Hypermobility arthralgia Arpit Cormier MD [facility] [place] [address] Referral ID Status Reason Start Date Expiration Date V isits Requested Visits Authorized [id number] Closed Evaluate and Treat 04/15/2023 10/12/2023 1 1 Encounter Details Date Type Department Care Team (Latest Contact Info) Description 04/15/2023 1:30 PM EST Office Visit Pediatric Rheumatology at [facility] [place] [address] Arpit Cormier MD [facility] [place] [address] Hypermobility arthralgia Social History Tobacco Use Types [...] [facility] a [facility] The [facility] is a 18-year-old female [...] and is scheduled for sleep study in [facility] My exam was notable for hypermobility since [...] physical therapy locally I referred her to [facility] for neurologic evaluation I think she either [...] unspecified documented in this encounter Care Teams Coremaker Floor Relationship Specialty Start Date End Date Ben Nevarez MD [address] [place] [address] PCP - General Pediatrics 11/20/15 documented as of this encounter
--- OUTSIDE RECORDS SUMMARY | 2024-01-17 22:06 | XMS_ITS | Encounter Summary ---
Author Organization [facility] Address [facility] [place] [address] Care Team Providers Care Mattress Filling Machine Tender Name Role Phone Ben Nevarez MD Primary Care Provider [phone] Reason for Visit * Reason Comments Medication Refill omeprazole Encounter Details Date Type Department Care Team (Late st Contact Info) Description 02/06/2023 Refill [place] [address] Kalyeigh Yee MD [facility] [place] [address] Mild intermittent asthma without complication Social History [...] asthma documented in this encounter Care Teams Mattress Filling Machine Tender Relationship Specialty Start Date End Date [place] [address] PCP - General Pediatrics 11/20/15 documented as of this encounter
--- OUTSIDE RECORDS SUMMARY | 2024-01-17 22:06 | XMS_ITS | Encounter Summary ---
Author Organization [facility] [place] [address] Care Team Providers Care Chrome Plater Name Role Phone Ben Nevarez MD Primary Care Provider [phone] Encounter Details Date Type Department Care Team (Late st Contact Info) Description 02/18/2023 Ancillary Procedure Radiology Library at [facility] [place] [address] Ben Nevarez MD [address] [place] [address] [address] [place], [place] [address] Social History Tobacco Use Types Packs/Day Years [...] Abdomen Pelvis (02/18/2023 12:00 AM EST) Narrative [facility] - 02/19/2023 2:56 AM EST This exam is auto-finalizing. It's purpose is for storage only. Ben Nevarez MD IMG FILM LIBRARY OR DERABLES [place], [place] documented in this encounter Visit Diagnoses Not on filedocumented in this encounter Care Teams Chrome Plater Relationship Specialty Start Date End Date Ben Nevarez MD [address] [place] [address] PCP - General Pediatrics 11/20/15 documented as of this encounter
--- OUTSIDE RECORDS SUMMARY | 2024-01-17 22:06 | XMS_ITS | Encounter Summary ---
Author Organization [facility] Address [facility] [place] [address] Care Team Providers Care Brine Supervisor Name Role Phone Ben Nevarez MD Primary Care Provider [phone] Encounter Details Date Type Department Care Team (Late st Contact Info) Description 05/06/2023 1:30 PM EST Office [place] [address] Jillian Valladares APRN [facility] [place] [address] Hand numbness; Behcet's syndrome; Hypermobility of joint [...] Elvia was followed by Arpit Cormier MD, [facility] pediatric [place]ology for many years with 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 Chronic constipation currently treated with Ex-Lax and MiraLAX. CT abdomen pelvis 12/2022 at [facility] for evaluation of extensive weight loss showed [...] for hypermobility. PT appointment next week at [facility] for her hands. Neuro eval at [facility] pending and I gave Arjun's mother a copy of the referral. The other AM woke with greyish ashy cold left hand. Painful, couldn't use it well. Fingers were swollen. 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 She is followed by pulmonology at [facility]. Recurrent UTIs but also some component of interstitial cystitis by history. Social history: Elvia is adopted and reports a large percentage . She graduated from high school and currently works for [employer]. She loves to swim. Review of Systems: [...] and she will get this done at [facility] at her convenience. Follow-up 4 months via [...] site documented in this encounter Care Teams Brine Supervisor Relationship Specialty Start Date End Date Ben Nevarez MD [address] [place] [address] PCP - General Pediatrics 11/20/15 documented as of this encounter
--- OUTSIDE RECORDS SUMMARY | 2024-01-17 22:06 | XMS_ITS | Encounter Summary ---
[place] [address] Care Team Providers Care Cyber Systems Administrator Name Role Phone Ben Nevarez MD Primary Care Provider Encounter Details Date Type Department Care Team (Late st Contact Info) Description 11/29/2023 [place] [id number] Dotty Kamara Social History Tobacco Use Types [...] on filedocumented in this encounter Care Teams Cyber Systems Administrator Relationship Specialty Start Date End [place] [address] PCP - General Pediatrics 11/20/15 documented as of this encounter
--- OUTSIDE RECORDS SUMMARY | 2024-01-17 22:06 | XMS_ITS | Encounter Summary ---
[place] [address] Care Team Providers Care Coatings Inspector Name Role Phone Ben Nevarez MD Primary Care Provider Encounter Details Date Type Department Care Team (Late st Contact Info) Description 05/25/2023 [place] [address] Irina Childers, RN Social History Tobacco Use [...] Order re-written again and epic chat to [facility] to resend. I spoke to [facility] radiology and patient rescheduled to another day. Jillian Valladares APRN * Telephone Encounter - Irina Childers RN - 05/25/2023 8:56 AM EST Copied from CRM #[id number]. Topic: Specialty Dept CRMs - Orders >> May 25, 2023 8:49 AM Phillip Yadav wrote: Orders Request Specialist: Jillian Valladares Relationship (if other than patient-full name): Radiology at [facility] Type of Request: [x] Input orders Type/Name of Order: Imaging If Labs and Imaging list name of specific test(s): XR cervical spine 4 to 5 views (per [facility] protocol) Date of Lab/Imaging/Testing Appt: NA Date of Provider Appt:09/14/23 Appt Type with Provider: JAYDA Patient Requesting to Have Orders Sent to Facility Outside of [facility]: Yes If Yes, Name of Facility: [facility] Address: [place], [place] Phone #: [phone] Fax #: [phone] Orders were written incorrectly as 6 or more views. Orders need to read XR cervical spine 4 to 5 views (per [facility] protocol). Please re-send as soon as [...] site documented in this encounter Care Teams Coatings Inspector Relationship Specialty Start Date End Date Ben Nevarez MD [address] [place] [address] PCP - General Pediatrics 11/20/15 documented as of this encounter
--- OUTSIDE RECORDS SUMMARY | 2024-01-17 22:06 | XMS_ITS | Encounter Summary ---
[place] [address] Care Team Providers Care Chore Worker Name Role Phone Ben Nevarez MD Primary Care Provider [phone] Reason for Visit * Reason Onset Date Comments Medication Problem 04/16/2023 Encounter Details Date Type Department Care Team (Late st Contact Info) Description 04/16/2023 Telephone [place] [address] Jose Angel Ferris electrophysiology scientist Problem Social History Tobacco Use Types Packs/Day [...] with Dr. Cormier and he feels that [place] would be best served in Adult Rheumatology. [...] referral will be reviewed by a new Critical Care Unit Nurse? I advised I do not know the answer to this question. * Telephone Encounter - Jose Angel Ferris RN - 04/16/2023 9:17 AM EST Copied from [facility] #[id number]. Topic: Specialty Dept CRMs - Medication Issues >> Apr 16, 2023 8:54 AM Norman Storey wrote: Medication Issues Specialist Arpit Cormier MD[facility] [place] Relationship (if other than patient-full name): Tino Rodrigues MOC with No [place] on file at this time, MOC was advised on [place] form information Reason for call: Medication Issue (if symptom based used Triage Subtopic) Message/information for the nurse: the FOC picked up the medication and didn't ask [employer] forpossible interaction matters also states Patient goes to a Methadone clinic in [facility] daily to get medication Name of Medication: pregabalin (Lyrica) 50 mg capsule [[id number]---- & Methadone 40 Mg from Issue with the medication: Patients and MOC states they are concerned that there may be a possible negative interaction are looking it up ++++++++++++++++++++++++++++++++++++++++++++++++++++++++++++++++++++++++++++++++ ++++++++++++++++++++ +++++++++++++++++++++++++++++++++++++++++++++++++++++++++++++++++++++++++++++ Reviewed EMR and [facility]. See below. Opioid Agonists: COTTON WASHER Depressants may enhance the COTTON WASHER depressant effect of Opioid Agonists. Management: Avoid concomitant use of opioid agonists and benzodiazepines or other COTTON WASHER depressants when possible. These agents should only [...] I advised I will need a personal agricultural sales representative form in EMR in order to do that. I will ask Electrophysiology Scientist to send form to Elvia via [facility] if this is possible. Advised I will [...] on filedocumented in this encounter Care Teams Chore Worker Relationship Specialty Start Date End Date Ben Nevarez MD [address] [place] [address] PCP - General Pediatrics 11/20/15 documented as of this encounter
--- OUTSIDE RECORDS SUMMARY | 2024-01-17 22:06 | XMS_ITS | Encounter Summary ---
Author Organization [facility] Address [place] [id number] Care Team Providers Care Textile Screen Printer Name Role Phone Ben Nevarez MD Primary Care Provider Reason for Referral * Diagnostic Test (Routine) - Closed Specialty Diagnoses / Procedures Referred By Contac t Referred To Contact Radiology Diagnoses Chest pain, unspecified type Procedures NM PET CT Cardiac Pharmacologic Stress and Rest Dexter Mullen MD [facility] [place] [address] [place] [address] Referral ID Status Reason Start Date Expiration Date V isits Requested Visits Authorized [id number] Closed Specialty Service Requested 11/26/2022 05/25/2024 1 1 * Diagnostic Test (Routine) - Closed Specialty Diagnoses / Procedures Referred By Contac t Referred To Contact Radiology Diagnoses Chest pain, unspecified type Procedures NM PET CT Cardiac Pharmacologic Stress CT Component Dexter Mullen MD [facility] [address] [facility] [place] [address] Referral ID Status Reason Start Date Expiration Date V isits Requested Visits Authorized [id number] Closed Specialty Service Requested 11/26/2022 05/25/2024 1 1 * Diagnostic Test (Routine) - Closed Specialty Diagnoses / Procedures Referred By Brendan moore Referred To Contact Cardiology Diagnoses Chest pain, unspecified type Procedures Nuclear Pharmacologic Stress Cardiology (PET CT Mobile) Dexter Mullen MD [facility] [address] [facility] [place] [address] Referral ID Status Reason Start Date Expiration Date V isits Requested Visits Authorized [id number] Closed Specialty Service Requested 11/26/2022 11/26/2023 1 1 Reason for Visit * Consultation (Urgent) - Closed Specialty Diagnoses / Procedures Referred By Brendan moore Referred To Contact Cardiology Diagnoses Chest pain 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 Arpit Cormier MD [facility] [address] [facility] Cardiology [address] [place] [phone] Referral ID Status Reason Start Date Expiration Date V isits Requested Visits Authorized [id number] Closed Consult, Test & Treat 11/05/2022 11/05/2023 1 1 Encounter Details Date Type Department Care Team (Late st Contact Info) Description 11/26/2022 1:00 PM EDT Office Visit Cardiology at [address] [address] Dexter Mullen MD [facility] [place] [address] Chest pain, unspecified type; Behcet's syndrome Social [...] from the original note were not included. [facility] [place] [address] CARDIOLOGY OUTPATIENT PROGRESS NOTE PRIMARY CARE PROVIDER: [...] Abdomen: Nondistended. Soft. Nontender. Extremities: No edema. PRINCIPAL PLANNER: Normal mentation. Psych: Appropriate affect. Labs: Lab [...] who have questions please contact the health disabilities caregiver that requested your imaging first. ? Electronically signed by: Ventura Abbasi MD, [facility] ([phone]), at 12/29/2022 6:05 PM Narrative 12/29/2022 6:05 [...] patients who have questions please contactthe health disabilities caregiver that requested your imaging first. Electronically signed by: Ventura Abbasi MD, [facility]([phone]), at 12/29/2022 6:05 PM Dexter Mullen MD [...] who have questions please contact the health disabilities caregiver that requested your imaging first. ? Electronically signed by: Ventura Abbasi MD, [facility] ([phone]), at 12/29/2022 6:05 PM Narrative 12/29/2022 6:05 [...] patients who have questions please contactthe health disabilities caregiver that requested your imaging first. Electronically signed by: Ventura Abbasi MD, [facility]([phone]), at 12/29/2022 6:05 PM Dexter Mullen MD IMG PET ORDERABLES * Nuclear Pharmacologic Stress Cardiology (PET CT Mobile) (12/29/2022 8:52 AM EDT) Anatomical Region Laterality Modality Other Dexter Mullen MD [facility] O RDERABLES documented in this encounter Visit Diagnoses Diagnosis Chest pain, unspecified type Behcet's syndrome Chest pain, unspecified type documented in this encounter Care Teams Textile Screen Printer Relationship Specialty Start Date End Date Ben Nevarez MD [address] [place] [address] PCP - General Pediatrics 11/20/15 documented as of this encounter
--- OUTSIDE RECORDS SUMMARY | 2024-01-17 22:06 | XMS_ITS | Encounter Summary ---
Author Organization [facility] Address [facility] [place] [address] Care Team Providers Care Dental Services Director Name Role Phone Ben Nevarez MD Primary Care Provider [phone] Encounter Details Date Type Department Care Team (Late st Contact Info) Description 01/20/2023 8:00 AM EDT Office Visit [place] [address] Arpit Cormier MD [facility] [place] [address] Behcet's disease Social History Tobacco Use Types [...] Is a follow-up appointment for [facility] The patient is a 18-year-old female [...] and is scheduled for sleep study in [facility] She has a cough that is mildly [...] Procedure Name Priority Date/Time Associated Diagnosis Comments DRAKE AB BY IFA Routine 01/20/2023 9:22 AM [...] 9:22 AM EDT) Neutrophil % 60.8 % [facility] Neutrophil Absolute 6.83(H) 1.70 - 6.10 x10(3)/[facility] Lymph % 28.9 % [facility] Lymphocytes Abs 3.2 0.9 - 3.2 x10(3)/[facility] LABOR[facility]ORY Monocyte % 7.2 % [facility] Monocyte Abs 0.8 0.3 - 0.9 x10(3)/[facility] LABORATORY Eos % 2.4 % [facility] Eosinophils Abs 0.3 0.0 - 0.4 x10(3)/[facility] LABOR[facility]ORY Basophil % 0.5 % [facility] Baso Absolute 0.1 0.0 - 0.1 x10(3)/[facility] LABORATORY Immature Gran % 0.20 % [facility] Comment: Immature granulocytes(IG's)percentage and absolute count will include metamyelocytes, myelocytes, and promyelocytes. Blood smears from CBCs yielding IG's will be scanned manually for concordance. If this scan disagrees with the automated IG or if promyelocytes are noted, a manual differential will be performed. Immature Gran Absolute 0.02 0.00 - 0.04 x10(3)/[facility] LAB[facility]ORY Blood 01/20/2023 9:22 AM EDT 01/20/2023 9:26 AM EDT Narrative Resulting Agency Comment Spec In Lab Arpit Cormier MD HEMATOLOGY ORDERABLE S [facility] [place] [address] * (ABNORMAL) Hemogram (01/20/2023 9:22 AM EDT) White Blood Cell 11.2(H) 4.0 - 9.5 x10(3)/ L [facility] Red Blood Cell 4.07 4.00 - 5.21 x10(6)/[facility] Hemoglobin 12.8 11.7 - 15.5 g/dL [facility] Hematocrit 37.4 35.7 - 45.8 % [facility] Mean Cell Volume 91.9 82.6 - 94.4 fL [facility] Mean Cell Hemoglobin 31.4 27.1 - 32.0 pg [facility] Mean Cell Hemoglobin Concentration 34.2 31.7 - 35.0 g/dL [facility] Platelet 341 145 - 357 x10(3)/mc L [facility] RDW Standard Deviation 40.7 37.0 - 46.0 fL [facility] RDW coefficient of variation 11.9 11.5 - 14.1 % [facility] Mean Platelet Volume 9.4 7.6 - 12.9 fL [facility] NRBC% auto 0.0 % [facility] NRBC Absolute 0.000 0.000 - 0.000 x10(3)/mc L [facility] Blood 01/20/2023 9:22 AM EDT 01/20/2023 9:26 AM EDT Narrative Resulting Agency Comment Spec In Lab Arpit Cormier MD HEMATOLOGY ORDERABLE S [facility] [place] [address] * Extractable Nuclear Antigen (MELISSA) Ab (01/20/2023 9:22 AM EDT) SS-A/Ro Ab 0.50 <=10.00 unit/mL [facility] Comment: <7 negative 7-10 equivocal >10 positive The SS-A antibody result was generated using fluoroenzyme immunoassay on the Litespritea 250 analyzer. the semi-quantitative test is designed to detect IgG antibodies in human serum that are reactive to the SS-A (Ro) protein. Please note that as of 02/03/2022 that this testing is performed by the Special [facility] Laboratory at [facility]. This change in testing location is associated with a change in testing method and reference intervals. Please review the results of this test in association with the posted reference intervals. SS-B/La Ab <0.40 <=10.00 unit/mL [facility] Comment: <7 negative 7-10 equivocal >10 positive The SS-B antibody result was generated using fluoroenzyme immunoassay on the Phadia 250 analyzer. the semi-quantitative test is designed to detect IgG antibodies in human serum that are reactive to the SS-B (La) protein. Please note that as of 02/03/2022 that this testing is performed by the [facility] Laboratory at [facility]. This change in testing location is associated with a change in testing method and reference intervals. Please review the results of this test in association with the posted reference intervals. Scl-70 Ab <0.60 <=10.00 unit/mL [facility] Comment: <7 negative 7-10 equivocal >10 positive The Scl-70 antibody result was generated using fluoroenzyme immunoassay on the Phadia 250 analyzer. the semi-quantitative test is designed to detect IgG antibodies in human serum that are reactive to the Scl-70 protein. Please note that as of 02/03/2022 that this testing is performed by the Special [facility] Laboratory at [facility]. This change in testing location is associated with a change in testing method and reference intervals. Please review the results of this test in association with the posted reference intervals. Sm (Hernández) Ab <0.70 <=10.00 unit/mL [facility] Comment: <7 negative 7-10 equivocal >10 positive The Sm antibody result was generated using fluoroenzyme immunoassay on the Phadia 250 analyzer. the semi-quantitative test is designed to detect IgG antibodies in human serum that are reactive to the Sm protein. Please note that as of 02/03/2022 that this testing is performed by the [facility] Laboratory at [facility]. This change in testing location is associated with a change in testing method and reference intervals. Please review the results of this test in association with the posted reference intervals. U1RNP Ab 1.20 <=10.00 unit/mL [facility] Comment: <5 negative 5-10 equivocal >10 positive The U1RNP antibody result was generated using fluoroenzyme immunoassay on the Phadia 250 analyzer. the semi-quantitative test is designed to detect IgG antibodies in human serum that are reactive to the U1RNP protein. Please note that as of 02/03/2022 that this testing is performed by the Special [facility] Laboratory at [facility]. This change in testing location is associated with a change in testing method and reference intervals. Please review the results of this test in association with the posted reference intervals. Centromere Ab 0.40 <=10.00 unit/mL [facility] Comment: <7 negative 7-10 equivocal >10 positive The CENP antibody result was generated using fluoroenzyme immunoassay on the Litespritea 250 analyzer. the semi-quantitative test is designed to detect IgG antibodies in human serum that are reactive to the Centromere B protein. Please note that as of 02/03/2022 that this testing is performed by the Special [facility] Laboratory at [facility]. This change in testing location is associated with a change in testing method and reference intervals. Please review the results of this test in association with the posted reference intervals. Sheila-1 Ab <0.30 <=10.00 unit/mL [facility] Comment: <7 negative 7-10 equivocal >10 positive The Sheila-1 antibody result was generated using fluoroenzyme immunoassay on the Litespritea 250 analyzer. the semi-quantitative test is designed to detect IgG antibodies in human serum that are reactive to the Sheila-1 protein. Please note that as of 02/03/2022 that this testing is performed by the Special Chemistry Laboratory at [facility]. This change in testing location is associated with a change in testing method and reference intervals. Please review the results of this test in association with the posted reference intervals. Blood 01/20/2023 9:22 AM EDT 01/20/2023 12:00 PM EDT Narrative Resulting Agency Comment Spec In Lab Arpit Cormier MD LAB SEND OUT ORDERAB LES [facility] [place] [address] * DRAKE Ab by IFA (01/20/2023 9:22 AM EDT) DRAKE Ab Screen Test ?Result ? Flag ??Unit ??RefValue Antinuclear Ab, HEp-2 ? <1:80 (Negative) ? <1:80 (Negative) ??Substrate, S ? ADDITIONAL INFORMATION --------- ?Method: Immunofluorescence using HEp-2 cellular substrate. ?Test Performed by: ?[facility] ?[address] [place] [address] ?Engineering Inspector: Alen Schmitt M.D. Ph.D.; CLIA# [id number] [facility] Blood 01/20/2023 9:22 AM EDT 01/20/2023 11:16 AM EDT Narrative Resulting Agency Comment Spec In Lab Arpit Cormier MD CHEMISTRY ORDERABLES Performing Organization Address [facility] Co de Phone Number [facility] [place] [address] * CRP, acute inflammation (01/20/2023 9:22 AM EDT) Pathologist [facility] C-Reactive Protein 4.1 <=4.9 mg/L [facility] Blood 01/20/2023 9:22 AM EDT 01/20/2023 9:26 AM EDT Narrative Resulting Agency Comment Spec In Lab Arpit Cormier MD CHEMISTRY ORDERABLES Performing Organization Address [facility] Co de Phone Number [facility] [place] [address] * Sedimentation rate (01/20/2023 9:22 AM EDT) Pathologist [facility] Sedimentation Rate Automated 12 2 - 37 mm/hr [facility] Comment: Effective March 22, 2019 new capillary photometric technology has resulted in a change in reference ranges. It is recommended that each ESR result be reviewed with its own age appropriate reference range. Blood 01/20/2023 9:22 AM EDT 01/20/2023 9:26 AM EDT Narrative Resulting Agency Comment Spec In Lab Arpit Cormier MD HEMATOLOGY ORDERABLE S [facility] [place] [address] * Iron and TIBC (01/20/2023 9:22 AM EDT) Iron 85 30 - 150 mcg/dL [facility] TIBC 267 250 - 450 mcg/dL [facility] Iron Saturation 32 20 - 50 % [facility] Blood 01/20/2023 9:22 AM EDT 01/20/2023 9:26 AM EDT Narrative Resulting Agency Comment Spec In Lab Arpit Cormier MD CHEMISTRY ORDERABLES Performing Organization Address [facility] Co de Phone Number [facility] [place] [address] * (ABNORMAL) Comprehensive metabolic panel (non-fasting) (01/20/2023 9:22 AM EDT) Glucose 106 65 - 199 mg/dL [facility] Comment:Diabetes: >=200 mg/d L plus symptoms Blood Urea Nitrogen 8 8 - 18 mg/dL [facility] Creatinine 0.64(L) 0.70 - 1.20 mg/dL [facility] Sodium 136 135 - 145 mmol/L [facility] Potassium 3.5 3.5 - 5.0 mmol/L [facility] Comment: Please note: ??Patients with WBC >100,000 may have falsely elevated Potassium levels. ??For accurate Potassium quantification in these patients send serum separator tube (gold top) for subsequent determinations. ??Contact the Clinical Chemistry Laboratory if there are any questions. Chloride 100 98 - 107 mmol/L [facility] Carbon Dioxide 24 22 - 31 mmol/L [facility] Anion Gap 12 5 - 15 mmol/L [facility] Calcium 9.4 8.5 - 10.5 mg/dL [facility] Protein, Total 6.9 6.1 - 8.0 g/dL [facility] Albumin 4.6 3.2 - 5.2 g/dL [facility] Aspartate Aminotransferase 12 0 - 30 unit/L [facility] Alanine Aminotransferase 9 0 - 30 unit/L [facility] Alkaline Phosphatase 79 35 - 105 unit/L [facility] Bilirubin, Total 0.5 0.2 - 1.3 mg/dL [facility] Est Glomerular Filtration Rate 130 >=60 mL/min/1. 73 m?? [facility] Comment: This patient's estimated GFR [...] Cormier MD CHEMISTRY ORDERABLES Performing Organization Address City/State/[facility] Co de Phone Number [facility] [place] [address] * XR Chest PA & Lateral (Generic) [...] who have questions please contact the health attending ambulatory care that requested your imaging first. ? Electronically signed by: Cheri Colorado MD, [facility] ??([phone]), at 01/20/2023 10:19 AM Narrative 01/20/2023 10:19 [...] patients who have questions please contactthe health attending ambulatory care that requested your imaging first. Electronically signed by: Cheri Colorado MD, [facility]([phone]), at 01/20/2023 10:19 AM Arpit Cormier MD IMG DX ORDERABLES documented in this encounter Visit Diagnoses Diagnosis Behcet's disease Behcet's syndrome Behcet's disease Behcet's syndrome documented in this encounter Care Teams Dental Services Director Relationship Specialty Start Date End Date Ben Nevarez MD [address] [place] [address] [place] [address] PCP - General Pediatrics 11/20/15 documented as of this encounter
--- OUTSIDE RECORDS SUMMARY | 2024-01-17 22:06 | XMS_ITS | Clinical Summary ---
Author Organization [facility] Address [facility] [place] [address] Care Team Providers Care Research And Development Scientist Name Role Phone Ben Nevarez MD Primary [...] of GERD Asthma 05/12/2011 Nasal congestion 05/12/2011 Encounters Date Type Department Care Team Description 11/29/2023 [place] [address] Dotty Kamara from Last 3 Months Immunizations Name Administration Dates Next Due Influenza [...] Hepatitis B vaccine (0-59 yrs) (1) 2022 Tetanus/Diphtheria/Pertussis Vaccines (1 - Tdap) 2022 Covid-19 Vaccine (1 - 2022- season) 2023 Influenza (Flu) vaccine (1 o f 1 - Influenza standard series) 12/12/2023 01/01/2012, 04/28/2011 PAP Smear 01/09/2024 Care Teams Research And Development Scientist Relationship Specialty Start Date End Date [place] [address] PCP - General Pediatrics 11/20/15
--- OUTSIDE RECORDS SUMMARY | 2024-01-17 22:07 | XMS_ITS | Encounter Summary ---
Author Organization [facility] [place] [address] Care Team Providers Care Atlassian Administrator Name Role Phone Ben Nevarez MD Primary Care Provider [phone] Reason for Visit * Consultation (Routine) - Closed Specialty Diagnoses / Procedures Referred By Brendan moore Referred To Contact Pediatric Nephrology Diagnoses Behcet's disease Arpit Cormier MD [facility] [place] [address] [facility] [address] [place] [address] Referral ID Status Reason Start Date Expiration Date V isits Requested Visits Authorized [id number] Closed Consult, Test & Treat 11/27/2020 11/27/2021 1 1 Encounter Details Date Type Department Care Team (Late st Contact Info) Description 04/08/2021 9:30 AM EST Office Visit [place] [address] Jim Moses, DO [address] [facility] [place] [address] Behcets syndrome Social History Tobacco Use Types [...] 04/08/2021 9:2 4 AM EST Growth Chart: [facility] (Girls, 2- 20 Years) documented in this [...] flax seed to it to add the Rice 3???s. We can discuss the elimination diet [...] 1 tsp of the oil. KiddOmega from [place], 1 tsp a day, from [employer] or [employer], Key[employer]urotek Pharmaceuticalsome[employer]vision Rice-3 (350 mg of EPA and 230 mg of DHA per packet) are ones I commonly used in children. Also consider Barleans flavored omega 3???s or Larr[employer]ee [employer]atur[employer] Jorge chewables. If you choose to [...] http://www.mindfulnesstapes.com/ Dr Ignacio George's mindfulness meditation tapes http://www.Novel SuperTV.Luma International/pmr.htm Guide to progressive muscle relaxation http://www.Post.Bid.Ship.Luma International/health/yoga/IC56031 5 Yoga poses for stress management http://www.Primedicchinetwork.org/ Connecting students with teachers in the area. www.Goko.com Search for meditation, relaxation, guided visualization or yoga. Keep sifting through until you find what you like and then write it down so you can revisit. http://www.[facility].edu/files/webfm-uploads/documents/outreach/im/module_medi tation_patient.pdf Handout on types of meditation/CDs: [...] chewable. I commonly use Immune Z from [employer] Recommend iron levels and possible Iron 2 mg/kg per day with Vitamin C 250-500 mg a day based on Ferritin and transferrin saturation Recommend: L-Theanine, 100-400 mg twice a day. I commonly use Calm by eEvent [employer] as a fruit punch flavored spray. or If you want to consider CBD oil, I typically start with a low dose. For younger children it's about2-1/2-5 mg twice a day and increase from there. For older children I start with 5-10 mg twice a day. Two of the more common ones I use are called Ankota or Quantum Health. You need to give it some time, at least 1-2 weeks to see the response, and then adjust the dose accordingly. A website that I use as a straightforward teaching website on CBD/hemp is below. https://www.WDT Acquisition.com/articles/iidb-odf-dtor-and-benefits Or Valerian root, hops lemon balm and chamomile tea can be helpful. For a Valerian root combination, Iwould recommend Good Night or Ex stress by Natures Way at [employer]. Start with 1/2 the adult dose. For a tincture I commonly use Hop to Bed from [employer] documented in this encounter Progress Notes * [...] conventional medicine, whole systems such as traditional Urdu medicine, Ayurvedic medicine, Western medicine and homeopathy, [...] flax seed to it to add the Rice 3???s. We can discuss the elimination diet [...] 1 tsp of the oil. KiddOmega from [place], 1 tsp a day, from [employer] or [employer], THE MELT Rice-3 (350 mg of EPA and 230 mg of DHA per packet) are ones I commonly used in children. Also consider Barleans flavored omega 3???s or [employer] Jorge chewables. If you choose to [...] http://www.mindfulnesstapes.com/ Dr Ignacio George's mindfulness meditation tapes http://www.Novel SuperTV.Luma International/pmr.htm Guide to progressive muscle relaxation http://www.Novica United/health/yoga/GY25724 5 Yoga poses for stress management http://www.Coolture.org/ Connecting students with teachers in the area. www.Goko.com Search for meditation, relaxation, guided visualization or yoga. Keep sifting through until you find what you like and then write it down so you can revisit. http://www.[facility].edu/files/webfm-uploads/documents/outreach/im/module_medi tation_patient.pdf Handout on types of meditation/CDs: [...] commonly use Immune Z from [employer] Recommend iron levels and possible Iron 2 mg/kg per day with Vitamin C 250-500 mg a day based on Ferritin and transferrin saturation Recommend: L-Theanine, 100-400 mg twice a day. I commonly use Calm by [employer] as a fruit punch flavored spray. or If you want to consider CBD oil, I typically start with a low dose. For younger children it's about2-1/2-5 mg twice a day and increase from there. For older children I start with 5-10 mg twice a day. Two of the more common ones I use are called Ankota or Quantum Health. You need to give it some time, at least 1-2 weeks to see the response, and then adjust the dose accordingly. A website that I use as a straightforward teaching website on CBD/hemp is below. https://www.WDT [employer]quisition.Luma International/articles/anck-dcr-qqhf-and-benefits Or Valerian root, hops lemon balm and chamomile tea can be helpful. For a Valerian root combination, Iwould recommend Good Night or Ex stress by Natures Way at [employer]. Start with 1/2 the adult dose. For a tincture I commonly use Hop to Bed from [employer] I had an extensive visit (90 minutes) [...] FLEXITEST 2 MRI PELVIS SOFT TISSUE (GI SECRETARY RECEPTIONIST) WWO CONTRAST Unknown Rpt FILM LIBRARY STORAGE [...] Agency Comment Spec In Lab Jim Jauregui [employer] CHEMISTRY ORDERABLES Performing Organization Address [facility] Co de Phone Number [facility] [place] [address] * (ABNORMAL) Ferritin (04/08/2021 10:53 AM EST) Pathologist [facility] Ferritin 116(H) 36 - 92 ng/mL [facility] Comment: Pediatric reference ranges not verified at [facility], interpret with caution. Reference ranges for females greater than 50 years of age approach values for men, i.e., 30-400 ng/mL. Blood 04/08/2021 10:5 3 AM EST 04/08/2021 11:13 AM EST Narrative Resulting Agency Comment Spec In Lab Jim Jauregui Chatwala CHEMISTRY ORDERABLES Performing Organization Address [facility] Co de Phone Number [facility] [place] [address] * Comprehensive metabolic panel (non-fasting) (04/08/2021 10:53 AM EST) Pathologist [facility] Glucose 79 65 - 199 mg/dL [facility] [...] Moses DO CHEMISTRY ORDERABLES [facility] [place] [address] documented in this encounter Visit Diagnoses Diagnosis Behcets syndrome Behcet's syndrome documented in this encounter Care Teams Atlassian Administrator Relationship Specialty Start Date End Date Ben Nevarez MD [address] [place] [address] PCP - General Pediatrics 11/20/15 documented as of this encounter
--- OUTSIDE RECORDS SUMMARY | 2024-01-17 22:07 | XMS_ITS | Encounter Summary ---
Author Organization [facility] Address [place] [id number] Care Team Providers Care Mold Laminator Name Role Phone Ben Nevarez MD Primary Care Provider +[phone] Reason for Referral * Diagnostic Test (Routine) - Closed Specialty Diagnoses / Procedures Referred By Contac t Referred To Contact Radiology Diagnoses Genital ulcer, female Procedures MRI Pelvis Soft Tissue (GI OFFBEARER) wwo Contrast MRI Pelvis Soft Tissue (GI OFFBEARER) w Contrast Arpit Cormier MD [facility] [place] [address] [place] [address] Referral ID Status Reason Start Date Expiration Date V isits Requested Visits Authorized [id number] Closed Specialty Service Requested 04/30/2020 10/28/2021 1 1 Reason for Visit * Diagnostic Test (Routine) - Closed Specialty Diagnoses / Procedures Referred By Contac t Referred To Contact Radiology Diagnoses Genital ulcer, female Procedures MRI Pelvis Soft Tissue (GI OFFBEARER) wwo Contrast MRI Pelvis Soft Tissue (GI OFFBEARER) w Contrast Arpit Cormier MD [facility] [place] [address] [facility] [place] [address] Referral ID Status Reason Start Date Expiration Date V isits Requested Visits Authorized [id number] Closed Specialty Service Requested 04/30/2020 10/28/2021 1 1 Encounter Details Date Type Department Care Team (Latest Contact Info) Description 05/10/2020 5:32 PM EST - 05/10/2020 11:59 PM EST Hospital Encounter MRI at [facility] [place] [address] Arpit Cormier MD [facility] [place] [address] Genital ulcer, female Discharge Disposition: Home Social [...] Sig Dispensed Refills Start Date End Date triamcinolone acetonide (KENALOG) 0.1 % Paste Place 1 each onto teeth 2 times daily. 5 g 12 04/10/2020 acetaminophen (Tylenol) 500 mg Tablet Take 1,000 mg by mouth every 6 hours as needed for Pain. lidocaine (Xylocaine) 5 % Ointment Three times a day 04/24/2020 05/06/2023 melatonin 10 mg Tablet, Multiphasic Release Bedtime 02/08/2020 05/06/2023 predniSONE (Deltasone) 10 mg Tablet Take [...] Diagnosis Comments MRI PELVIS SOFT TISSUE (GI OFFBEARER) WWO CONTRAST Routine 05/10/2020 7:10 PM EST Genital ulcer, female documented in this encounter Results * MRI Pelvis Soft Tissue (GI OFFBEARER) wwo Contrast (05/10/2020 7:10 PM EST) Anatomical [...] ? Electronically signed by: Jim Live MD, [facility] ([phone]), at 05/13/2020 10:57 AM Narrative 05/13/2020 10:57 AM EST EXAMINATION: MRI PELVIS SOFT TISSUE (GI OFFBEARER) WWO CONTRAST CLINICAL HISTORY: back pain pelvic [...] 05/13/2020 EXAMINATION: MRI PELVIS SOFT TISSUE (GI OFFBEARER) WWO CONTRAST CLINICAL HISTORY: back pain pelvic [...] below. Electronically signed by: Jim Live MD, [facility]([phone]), at 05/13/2020 10:57 AM Arpit Cormier MD [facility] MRI ORDERABLES documented in this encounter Visit [...] mLs documented in this encounter Care Teams Mold Laminator Relationship Specialty Start Date End [place] [address] PCP - General Pediatrics 11/20/15 documented as of this encounter
--- OUTSIDE RECORDS SUMMARY | 2024-01-17 22:07 | XMS_ITS | Encounter Summary ---
Author Organization [facility] [place] [address] Care Team Providers Care Chuck Wagon Cook Name Role Phone Ben Nevarez MD Primary Care Provider [phone] Encounter Details Date Type Department Care Team (Latest Contact Info) Description 02/09/2020 6:01 PM EDT - 02/09/2020 11:59 PM EDT Hospital [place] [phone] Discharge Disposition: Home Social History Tobacco Use [...] on filedocumented in this encounter Care Teams Chuck Wagon Cook Relationship Specialty Start Date End Date Ben Nevarez MD [address] [place] [address] PCP - General Pediatrics 11/20/15 documented as of this encounter
--- OUTSIDE RECORDS SUMMARY | 2024-01-17 22:07 | XMS_ITS | Encounter Summary ---
[facility] Organization [facility] [place] [address] Care Team Providers Care Tipple Worker Name Role Phone Ben Nevarez MD Primary Care Provider [phone] Encounter Details Date Type Department Care Team (Latest Contact Info) Description 06/04/2020 1:00 PM EST TH Visit (TeleHealth) [place] [address] Arpit Cormier MD [facility] [place] [address] Behcet's disease; Chronic midline low back pain, [...] present documented in this encounter Care Teams Tipple Worker Relationship Specialty Start Date End Date Ben Nevarez MD [address] [facility] [address] PCP - General Pediatrics 11/20/15 documented as of this encounter
--- OUTSIDE RECORDS SUMMARY | 2024-01-17 22:07 | XMS_ITS | Encounter Summary ---
Author Organization [facility] Address [facility] [place] [address] Care Team Providers Care Property Claim Rep Name Role Phone Ben Nevarez MD Primary Care Provider [phone] Encounter Details Date Type Department Care Team (Latest Contact Info) Description 11/09/2022 12:15 PM EDT Ancillary Procedure Radiology Library at [facility] [place] [address] [facility] [place] [address] Behcet's disease Social History Tobacco Use Types [...] who have questions please contact the health care transport nurse that requested your imaging first. ? Electronically signed by: Dexter Sanchez MD, [facility] ??([phone]), at 11/09/2022 12:36 PM Narrative 11/09/2022 12:36 PM EDT EXAMINATION: REQUEST FOR 2ND READ CT CHEST CLINICAL HISTORY: CT chest negative for PE. 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 Electronically signed by: Dexter Sanchez MD, [facility]([phone]), at 11/09/2022 12:36 PM Kayleigh Joselito [facility] OUTSIDE INTERPRE TATION ORDERABLES documented in this encounter Visit Diagnoses Diagnosis Behcet's disease Behcet's syndrome documented in this encounter Care Teams Property Claim Rep Relationship Specialty Start Date End Date Ben Nevarez MD [address] [place] [address] PCP - General Pediatrics 11/20/15 documented as of this encounter
--- OUTSIDE RECORDS SUMMARY | 2024-01-17 22:07 | XMS_ITS | Encounter Summary ---
Author Organization [facility] [place] [address] Care Team Providers Care Import Export Agent Name Role Phone Ben Nevarez MD Primary Care Provider [phone] Reason for Visit * Reason Onset Date Comments Results 05/21/2020 Encounter Details Date Type Department Care Team (Late st Contact Info) Description 05/21/2020 Telephone [place] [address] Ventura Thakkar DO [facility] [address] Results Social History Tobacco Use Types Packs/Day [...] or concerns Betty Thakkar Pediatric Hematology/Oncology Pager: [phone] documented in this encounter Plan of Treatment Not on file documented as of this encounter Visit Diagnoses Not on filedocumented in this encounter Care Teams Import Export Agent Relationship Specialty Start Date End Date Ben Nevarez MD [address] [place] [address] PCP - General Pediatrics 11/20/15 documented as of this encounter
--- OUTSIDE RECORDS SUMMARY | 2024-01-17 22:07 | XMS_ITS | Encounter Summary ---
[place] [address] Care Team Providers Care Arm Rest Builder Name Role Phone Ben Nevarez MD Primary Care Provider [phone] Encounter Details Date Type Department Care Team (Late st Contact Info) Description 08/13/2020 Tele[place] [address] Zarina Silvestre Social History Tobacco Use Types [...] its only in her mouth CB # [phone] documented in this encounter Plan of Treatment Not on file documented as of this encounter Visit Diagnoses Not on filedocumented in this encounter Care Teams Arm Rest Builder Relationship Specialty Start Date End Date Ben Nevarez MD [address] [place] [address] PCP - General Pediatrics 11/20/15 documented as of this encounter
--- OUTSIDE RECORDS SUMMARY | 2024-01-17 22:07 | XMS_ITS | Encounter Summary ---
Author Organization [facility] [place] [address] Care Team Providers Care Cigar Maker Name Role Phone Ben Nevarez MD Primary Care Provider [phone] Encounter Details Date Type Department Care Team (Late st Contact Info) Description 11/10/2022 [place] [address] Kayleigh Yee MD [facility] [place] [address] Mild intermittent asthma without complication Social History [...] asthma documented in this encounter Care Teams Cigar Maker Relationship Specialty Start Date End Date Ben Nevarez MD [address] [place] [address] [place] [address] PCP - General Pediatrics 11/20/15 documented as of this encounter
--- OUTSIDE RECORDS SUMMARY | 2024-01-17 22:07 | XMS_ITS | Encounter Summary ---
Author Organization [facility] Address [facility] [place] [address] Care Team Providers Care Efficiency Clerk Name Role Phone Ben Nevarez MD Primary Care Provider [phone] Reason for Referral * Consultation (Routine) - Duplicate Referral Specialty Diagnoses / Procedures Referred By Contac t Referred To Contact Dermatology Diagnoses Genital ulcer, female Arpit Cormier MD [facility] [place] [address] Cierra López MD [facility] [address] [place] [address] Referral ID Status Reason Start Date Expiration Date Visits Requested Visits Authorized [id number] Duplicate Referral Consult, Test & Treat 0 03/22/2021 1 1 Encounter Details Date Type Department Care Team (Late st Contact Info) Description 03/22/2020 Orders [place] [address] Arpit Cormier MD [facility] [place] [address] Genital ulcer, female Social History Tobacco Use [...] organs documented in this encounter Care Teams Efficiency Clerk Relationship Specialty Start Date End Date Ben Nevarez MD [address] [place] [address] PCP - General Pediatrics 11/20/15 documented as of this encounter
--- OUTSIDE RECORDS SUMMARY | 2024-01-17 22:07 | XMS_ITS | Encounter Summary ---
[place] [address] Care Team Providers Care Machinist First Class Name Role Phone Ben Nevarez MD Primary Care Provider [phone] Encounter Details Date Type Department Care Team (Late st Contact Info) Description 04/15/2021 Telephone Pediatric Nephrology at [address] [address] Samantha Meek RN Social History [...] on filedocumented in this encounter Care Teams Machinist First Class Relationship Specialty Start Date End Date Ben Nevarez MD [address] [place] [address] PCP - General Pediatrics 11/20/15 documented as of this encounter
--- OUTSIDE RECORDS SUMMARY | 2024-01-17 22:07 | XMS_ITS | Encounter Summary ---
[place] [address] Care Team Providers Care Flight Dynamicist Name Role Phone Ben Nevarez MD Primary Care Provider [phone] Encounter Details Date Type Department Care Team (Late st Contact Info) Description 09/02/2021 Telephone Hematology [place] [address] Kelli Person RN Social History Tobacco Use [...] [address] Maico Nevarez from [facility] a call in regards to Elvia. She is needing her wisdom teeth out and he is looking for some guidance on her. He can be reached on his cell# [phone]. Thanks, Damien documented in this encounter Plan of Treatment Not on file documented as of this encounter Visit Diagnoses Not on filedocumented in this encounter Care Teams Flight Dynamicist Relationship Specialty Start Date End Date Ben Nevarez MD [address] [place] [address] [place] [address] PCP - General Pediatrics 11/20/15 documented as of this encounter
--- OUTSIDE RECORDS SUMMARY | 2024-01-17 22:07 | XMS_ITS | Encounter Summary ---
[place] [address] Care Team Providers Care Tight Barrel Inspector Name Role Phone Ben Nevarez MD Primary Care Provider [phone] Encounter Details Date Type Department Care Team (Late st Contact Info) Description 02/06/2021 Telephone Psychiatry [place] [address] Carolyn Magdaleno Social History Tobacco Use Types Packs/Day Years Used Date Smoking Tobacco: Never Smokeless Tobacco: Never Comments:no ETS exposure Sex and Gender Information Value Date Recorded Sex Assigned at Not on file Gender Identity Not on file Sexual Orientation Not on file documented as of this encounter Miscellaneous Notes * Telephone Encounter - Carolyn Magdaleno - 02/06/2021 2:53 PM EDT [facility] called to confirm that we received the intake packet via fax today. She was also interested in scheduling. Callback is [phone]. She is in a meeting until 4 this afternoon. Thank you documented in this encounter Plan of Treatment Not on file documented as of this encounter Visit Diagnoses Not on filedocumented in this encounter Care Teams Tight Barrel Inspector Relationship Specialty Start Date End Date Ben Nevarez MD [address] [place] [address] PCP - General Pediatrics 11/20/15 documented as of this encounter
--- OUTSIDE RECORDS SUMMARY | 2024-01-17 22:07 | XMS_ITS | Encounter Summary ---
[place] [address] Care Team Providers Care Customs Port Director Name Role Phone Ben Nevarez MD Primary Care Provider Reason for Visit * Reason Onset Date Comments Other 04/23/2020 Encounter Details Date Type Department Care Team (Late st Contact Info) Description 04/23/2020 Telephone [place] [address] Jose Angel Ferris RN Other Social History [...] needed to be seen today, running fever? [phone] the number, but hard to read her [...] her today then to please call the Outpatient Physical Therapist Assistant provider after 5:30 and they will contact Dr. Cormier. documented in this encounter Plan of Treatment Not on file documented as of this encounter Visit Diagnoses Not on filedocumented in this encounter Care Teams Customs Port Director Relationship Specialty Start Date End Date Ben Nevarez MD [address] [place] [address] [place] [address] PCP - General Pediatrics 11/20/15 documented as of this encounter
--- OUTSIDE RECORDS SUMMARY | 2024-01-17 22:07 | XMS_ITS | Encounter Summary ---
[place] [address] Care Team Providers Care Undercover Agent Name Role Phone Ben Nevarez MD Primary Care Provider [phone] Reason for Visit * Reason Onset Date Comments Other 11/10/2022 Pulmonary Rxs Encounter Details Date Type Department Care Team (Late st Contact Info) Description 11/10/2022 Telephone [place] [phone] Nae Reina RN Other (Pulmonary Rxs) Social [...] Nae Reina RN Department of Pulmonary 5C, [facility] / Pager: [phone] * Telephone Encounter - Nea Reina RN - 11/10/2022 4:33 PM EDT Copied from CRM #[id number]. Topic: Specialty Dept CRMs - Medication Issues [...] on filedocumented in this encounter Care Teams Undercover Agent Relationship Specialty Start Date End Date Ben Nevarez MD [address] [place] [address] PCP - General Pediatrics 11/20/15 documented as of this encounter
--- OUTSIDE RECORDS SUMMARY | 2024-01-17 22:07 | XMS_ITS | Encounter Summary ---
Author Organization [facility] Address [facility] [place] [address] Care Team Providers Care Student Loan Counselor Name Role Phone Ben Nevarez MD Primary Care Provider [phone] Encounter Details Date Type Department Care Team (Latest Contact Info) Description 05/14/2020 11:30 AM EST TH Visit (TeleHealth) [place] [address] Arpit Cormier MD [facility] [place] [address] Chronic midline low back pain, unspecified whether [...] present documented in this encounter Care Teams Student Loan Counselor Relationship Specialty Start Date End Date Ben Nevarez MD [address] [place] [address] PCP - General Pediatrics 11/20/15 documented as of this encounter
--- OUTSIDE RECORDS SUMMARY | 2024-01-17 22:07 | XMS_ITS | Encounter Summary ---
Author Organization [facility] Address [facility] [place] [address] Care Team Providers Care Nutrition Assistant Name Role Phone Ben Nevarez MD Primary Care Provider [phone] Reason for Visit * Consultation (Urgent) - Closed Specialty Diagnoses / Procedures Referred By Brendan moore Referred To Contact Pulmonology Diagnoses Behcet's disease Arpit Cormier MD [facility] [address] [facility] Pulmonology [address] [place] [address] Referral ID Status Reason Start Date Expiration Date V isits Requested Visits Authorized [id number] Closed Consult, Test & Treat 11/05/2022 11/05/2023 1 1 Encounter Details Date Type Department Care Team (Late st Contact Info) Description 11/09/2022 10:00 AM EDT Office [place] [address] Kayleigh Yee MD [facility] [place] [address] Behcet's disease; Mild intermittent asthma [...] NAME: Elvia Rodrigues : 2005 MEDICAL RECORD: [id number] DATE OF SERVICE: 11/09/2022 PRIMARY CARE PHYSICIAN: [...] MD Pulmonary and Critical Care PGY-4 Pager [phone] 11/09/2022 10:09 AM * Kayleigh Yee MD [...] / FVC LLN 78 % COMPAS PFT WXY36-32 Actual Pre-BD 4.32 L/s COMPAS PFT UVM57-48 Pre-BD % of Predicted 120 % COMPAS PFT MUH71-82 Predicted 3.59 L/s COMPAS PFT OKA03-68 Pre-BD Z-Score 0.92 COMPAS PFT FVC Actual [...] / FVC LLN 78 % COMPAS PFT OLK09-72 Actual Post-BD 4.94 L/s COMPAS PFT KZQ90-08 Post-BD % of Predicted 138 % COMPAS PFT YJU12-88 Post-BD Z-Score 1.66 COMPAS PFT DLCO Hb [...] who have questions please contact the health hearing care professional that requested your imaging first. ? Narrative 11/09/2022 12:36 PM EDT EXAMINATION: REQUEST FOR 2ND READ CT CHEST CLINICAL HISTORY: CT chest negative for PE. 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 Kayleigh Joselito [...] asthma documented in this encounter Care Teams Nutrition Assistant Relationship Specialty Start Date End Date Ben Nevarez MD [address] [place] [address] PCP - General Pediatrics 11/20/15 documented as of this encounter
--- OUTSIDE RECORDS SUMMARY | 2024-01-17 22:07 | XMS_ITS | Encounter Summary ---
Author Organization [facility] Address [facility] [place] [address] Care Team Providers Care Aeronautical Research Engineer Name Role Phone Ben Nevarez MD Primary Care Provider [phone] Encounter Details Date Type Department Care Team (Late st Contact Info) Description 11/27/2020 Orders [place] [address] Arpit Cormier MD [facility] [place] [address] Social History Tobacco Use Types Packs/Day Years [...] on filedocumented in this encounter Care Teams Aeronautical Research Engineer Relationship Specialty Start Date End Date Ben Nevarez MD [address] [place] [address] [address] [place], [place] [address] PCP - General Pediatrics 11/20/15 documented as of this encounter
--- OUTSIDE RECORDS SUMMARY | 2024-01-17 22:07 | XMS_ITS | Encounter Summary ---
Author Organization [facility] Address [facility] [place] [address] Care Team Providers Care Loan Documentation Specialist Name Role Phone Ben Nevarez MD Primary Care Provider [phone] Encounter Details Date Type Department Care Team (Latest Contact Info) Description 06/24/2021 9:00 AM EDT TH Visit (TeleHealth) Psychiatry [place] [address] Sinai Shepherd MD [facility] [place] [address] Depression, unspecified depression type Social History Tobacco Use Types Packs/Day Years Used Date Smoking Tobacco: Never Smokeless Tobacco: Never Comments:smokes marajuana Sex and Gender Information Value Date Recorded Sex Assigned at Not on file Gender Identity Not on file Sexual Orientation Not on file documented as of this encounter Progress Notes * Sinai Shepherd MD - 06/24/2021 9:00 AM EDT Prolonged Non Xqlf-lv-Crjo Services (CPT 09525 for first hour; CPT 65550 for each additional 30 minutes) Date of Service: 06/24/2021 Primary Service Date: (related shdc-sw-howv encounter) Visit date not found Start Time: 8:45am End Time: 10:am Total Time: [id number] Type of prolonged non wfxi-jr-dqku services: extensive record review, extensive telephone time (participant(s): Adoptive mom and family or caregiver meeting without patient present (attendee(s): adoptive mom Summary of Services Provided: Tin Stacker spoke to Elvia's mother today who explained [...] Because Elvia has missed two appointments, the publications writer discussed closes the case. Mom wanted Elvia to stay in the clinic however clinic policy is two missed appointments. Elvia is also 16 years old and would be [facility] served at [facility] with full wrap around services. Adult protective services was called and we filed a report #[id number] I certify that the these non tsnc-vb-kell services were medical necessary for the purposes [...] type documented in this encounter Care Teams Loan Documentation Specialist Relationship Specialty Start Date End Date [place] [address] PCP - General Pediatrics 11/20/15 documented as of this encounter
--- OUTSIDE RECORDS SUMMARY | 2024-01-17 22:07 | XMS_ITS | Encounter Summary ---
Author Organization [facility] [place] [address] Care Team Providers Care Research Anthropologist Name Role Phone Ben Nevarez MD Primary Care Provider [phone] Reason for Visit * Reason Onset Date Comments Abnormal Lab 02/16/2020 Encounter Details Date Type Department Care Team (Late st Contact Info) Description 02/16/2020 Telephone [place] [address] Jose Angel Ferris RN Abnormal Lab Social [...] to phone appointment. * Telephone Encounter - Jose Angel Ferris RN - 02/16/2020 11:29 AM EST Elvia Rodrigues G - 02/14/20 More Detail >> Arpit Cormier MD Sent: Thao February 15, 2020 12:32 PM To: Jose Angel Ferris RN ?? Message Take 81 mg ASA ----- Message ----- From: Alberto, Lab In [facility] Sent: 02/14/2020 ??11:48 AM EST To: Arpit Cormier MD dRVVT <=1.20 IU/mL 1.96High LM to RTC to Nurse. documented in this encounter Plan of Treatment Not on file documented as of this encounter Visit Diagnoses Not on filedocumented in this encounter Care Teams Research Anthropologist Relationship Specialty Start Date End Date Ben Nevarez MD [address] [place] [address] PCP - General Pediatrics 11/20/15 documented as of this encounter
--- OUTSIDE RECORDS SUMMARY | 2024-01-17 22:07 | XMS_ITS | Encounter Summary ---
Author Organization [facility] Address [facility] [place] [address] Care Team Providers Care Ssrs Developer Name Role Phone Ben Nevarez MD Primary Care Provider [phone] Encounter Details Date Type Department Care Team (Late st Contact Info) Description 10/13/2022 Ancillary Procedure Radiology Library at [facility] [place] [address] Kayleigh Yee MD [facility] [place] [address] Social History Tobacco Use Types Packs/Day Years [...] CT Chest (10/13/2022 12:00 AM EDT) Narrative [facility] - 11/06/2022 12:53 PM EDT This exam is auto-finalizing. It's purpose is for storage only. Kayleigh Yee MD IM FILM LIBRARY ORD ERABLES [place], [place] documented in this encounter Visit Diagnoses Not on filedocumented in this encounter Care Teams Ssrs Developer Relationship Specialty Start Date End Date Ben Nevarez MD [address] [place] [address] PCP - General Pediatrics 11/20/15 documented as of this encounter
--- OUTSIDE RECORDS SUMMARY | 2024-01-17 22:07 | XMS_ITS | Encounter Summary ---
Author Organization [facility] [place] [address] Care Team Providers Care Transportation Operations Manager Name Role Phone Ben Nevarez MD Primary Care Provider [phone] Reason for Referral * Consultation (Routine) - Closed Specialty Diagnoses / Procedures Referred By Brendan moore Referred To Contact Pediatric Nephrology Diagnoses Behcet's disease Arpit Cormier MD [facility] [place] [address] [facility] Pedi Nephrology [address] [place] [phone] Referral ID Status Reason Start Date Expiration Date V isits Requested Visits Authorized [id number] Closed Consult, Test & Treat 11/27/2020 11/27/2021 1 1 Encounter Details Date Type Department Care Team (Late st Contact Info) Description 11/27/2020 Orders [place] [address] Arpit Cormier MD [facility] [place] [address] Behcet's disease Social History Tobacco [...] syndrome documented in this encounter Care Teams Transportation Operations Manager Relationship Specialty Start Date End Date Ben Nevarez MD [address] [place] [address] PCP - General Pediatrics 11/20/15 documented as of this encounter
--- OUTSIDE RECORDS SUMMARY | 2024-01-17 22:07 | XMS_ITS | Encounter Summary ---
Author Organization [facility] [place] [address] Care Team Providers Care Papeterie Table Assembler Name Role Phone Ben Nevarez MD Primary Care Provider [phone] [phone] Encounter Details Date Type Department Care Team (Late st Contact Info) Description 04/10/2020 10:00 AM EST Office Visit [place] [address] Arpit Cormier MD [facility] [place] [address] Behcet's disease Social History Tobacco Use Types [...] EST documented in this encounter Results * [facility] Quest Test-Quest (04/10/2020 11:14 AM EST) [facility] Quest FLEXITEST 2 [facility] Comment: FLEXITEST 2 HLA-B51 [...] developed and their performance characteristics determined by [employer] [facility]. It has not been cleared or approved by the US Food and Drug Administration. This test is used for clinical purposes. It should not be regarded as investigational or for research. This laboratory is certified under the Clinical Laboratory Improvement Amendments (CLIA) as qualified to perform high complexity clinical laboratory testing. Test performed by: ? [facility] ? [address] ? [place] [address] ?[phone] ? Fax: ?? [phone] Histocompatibility Laboratory Michelle Siddiqui, [facility]), Tablet Coater Elisha Gallego, PhD, Diplomate([facility]), Director Jim Goldberg MD, PhD, Credit Union Field Examiner Test Reported by [facility], [facility], [address] [place] [address] Neptali Jacinto M.D., Ph.D., Director of Laboratories , [place] [id number] Blood specimen (specimen) Venous Draw / Unknown 04/10/2020 11:14 AM EST 04/11/2020 3:04 PM EST Narrative Resulting Agency Comment Spec In Lab Arpit Cormier MD LAB SEND OUT ORDERAB LES Performing Organization Address City/[facility]/ZIP Co de Phone Number [facility] [place] [address] * WBC (04/10/2020 11:14 AM EST) White Blood Cell 9.0 4.5 - 13.0 x10(3)/mcL [facility] Blood specimen (specimen) 04/10/2020 11:14 AM EST 04/10/2020 11:23 AM EST Narrative Resulting Agency Comment Spec In Lab Arpit Cormier MD HEMATOLOGY ORDERABLE S Performing Organization Address [facility] Co de Phone Number [facility] [place] [place] [address] * HLA-B27 (04/10/2020 11:14 AM EST) HLA-B27 Negative [facility] HLA B27 Interpretation HLA B27 antigen was not detected. Method: Flow Cytometry Reference: 1.Rodney DA, Braun FD, Gabrielle A, et al: Ankylosing spondylitis and HLA-27. Lancet 1973;1:904-907 2.Varun Swenson: HLA-B27 typing by use of flow cytofluorometr y. Clin Chem 1987;33:1619-1 623 [facility] White Blood Cell 9.0 4.5 - 13.0 x10(3)/m [facility] Blood specimen (specimen) 04/10/2020 11:14 AM EST 04/10/2020 11:23 AM EST Narrative Resulting Agency Comment Spec In Lab Arpit Cormier MD HEMATOLOGY ORDERABLE S Performing Organization Address City/[facility] Co de Phone Number [facility] [place] [place] [address] * Miscellaneous Lab request (04/10/2020 11:14 AM EST) Label Request received in lab. 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
--- OUTSIDE RECORDS SUMMARY | 2024-01-17 22:07 | XMS_ITS | Encounter Summary ---
[place] [address] Care Team Providers Care Cardiac Nurse Practitioner Name Role Phone Ben Nevarez MD Primary Care Provider [phone] Encounter Details Date Type Department Care Team (Late st Contact Info) Description 11/29/2020 Telephone Pediatric Nephrology at [address] [address] January Barnes RN Social History [...] her daughter. Tino can be reached at [phone]. Would really like to talk before the weekend wait documented in this encounter Plan of Treatment Not on file documented as of this encounter Visit Diagnoses Not on filedocumented in this encounter Care Teams Cardiac Nurse Practitioner Relationship Specialty Start Date End Date Ben Nevarez MD [place] [address] PCP - General Pediatrics 11/20/15 documented as of this encounter
--- OUTSIDE RECORDS SUMMARY | 2024-01-17 22:07 | XMS_ITS | Encounter Summary ---
Author Organization [facility] [place] [address] Care Team Providers Care Library Manager Name Role Phone Ben Nevarez MD Primary Care Provider [phone] Reason for Referral * Diagnostic Test (Routine) - Closed Specialty Diagnoses / Procedures Referred By Contac t Referred To Contact Cardiology Diagnoses Arthralgia, unspecified joint Procedures Echocardiogram Transthoracic([facility] Ventura Thakkar [facility] [address] [facility] [place] [address] Referral ID Status Reason Start Date Expiration Date V isits Requested Visits Authorized [id number] Closed Specialty Service Requested 03/13/2020 03/13/2021 1 1 Reason for Visit * Diagnostic Test (Routine) - Closed Specialty Diagnoses / Procedures Referred By Contac t Referred To Contact Cardiology Diagnoses Arthralgia, unspecified joint Procedures Echocardiogram Transthoracic([facility] or [place]) [place] Thakkar [facility] [address] [facility] [place] [address] Referral ID Status Reason Start Date Expiration Date V isits Requested Visits Authorized [id number] Closed Specialty Service Requested 03/13/2020 03/13/2021 1 1 Encounter Details Date Type Department Care Team (Latest Contact Info) Description 03/13/2020 1:00 PM EST - 03/13/2020 11:59 PM EST Hospital Encounter Non-Invasive Cardiology Lab [facility] [place] [phone] Ventura Thakkar, [place] [address] Arthralgia, unspecified joint Discharge Disposition: Home Social [...] Jama ?(Age): 2005(15y) ? Med Rec#: ? [id number] ?Sex: ?F ? Site Loc: ? DH ?Ht / Wt: ??152(cm)/65(kg) Pt. Loc: ?Echo Lab ?BSA: ?1.68 ([facility]) Study Date: ?? 03/13/2020 ?Pt. Type: Study Quality: ? Referring: JUNIE Reading: Giovani Campbell ([id number]) Seismic Computer: Corrie Flores RDCS, FASE Diagnosis: *Personal history [...] 03/15/2020 19:08:22 Images reviewed and interpretation verified [facility] Cardiac Ultrasound Laboratory Procedure Note Giovani Campbell DO - 03/15/2020 Procedure: Pediatric Echocardiogram Patient: ELODIA Jama (Age): 2005(15y) Med Rec#: [id number] Sex: F Site Loc: [facility] Ht / Wt: 152(cm)/65(kg) Pt. Loc: Echo Lab BSA: 1.68 ([facility]) Study Date: 03/13/2020 Pt. Type: Study Quality: Referring: JUNIE Reading: Giovani Campbell ([id number]) Seismic Computer: Corrie Flores RDCS, FASE Diagnosis: *Personal history [...] 03/15/2020 19:08:22 Images reviewed and interpretation verified [facility] Cardiac Ultrasound Laboratory Ventura Thakkar DO ECHO ORDERABLES documented in this encounter Visit Diagnoses Diagnosis Arthralgia, unspecified joint documented in this encounter Care Teams Library Manager Relationship Specialty Start Date End Date [place] [address] PCP - General Pediatrics 11/20/15 documented as of this encounter
--- OUTSIDE RECORDS SUMMARY | 2024-01-17 22:07 | XMS_ITS | Encounter Summary ---
[place] [address] Care Team Providers Care Chha Name Role Phone Ben Nevarez MD Primary Care Provider [phone] Encounter Details Date Type Department Care Team (Late st Contact Info) Description 05/14/2020 Telephone [place] [address] Jose Angel Ferris RN Social History Tobacco [...] To: Arpit Cormier MD I sent a [place] message to Dad. documented in this encounter Plan of Treatment Not on file documented as of this encounter Visit Diagnoses Not on filedocumented in this encounter Care Teams Chha Relationship Specialty Start Date End Date Ben Nevarez MD [address] [place] [address] PCP - General Pediatrics 11/20/15 documented as of this encounter
--- OUTSIDE RECORDS SUMMARY | 2024-01-17 22:07 | XMS_ITS | Encounter Summary ---
Author Organization [facility] Address [facility] [address] Care Team Providers Care Manager Supply Name Role Phone Ben Nevarez MD Primary Care Provider [phone] Encounter Details Date Type Department Care Team (Late st Contact Info) Description 02/09/2020 Notes Only [place] [address] Lianne Mera MD [facility] DR PEDIATRIC HEMATOLOGY/[place] [address] Social History Tobacco Use Types Packs/Day Years [...] Lianne Mera MD Pediatric Hematology/ Oncology Pager [phone] 02/09/20 3:00 PM documented in this encounter Plan of Treatment Not on file documented as of this encounter Visit Diagnoses Not on filedocumented in this encounter Care Teams Manager Supply Relationship Specialty Start Date End Date Ben Nevarez MD [address] [place] [address] PCP - General Pediatrics 11/20/15 documented as of this encounter
--- OUTSIDE RECORDS SUMMARY | 2024-01-17 22:07 | XMS_ITS | Encounter Summary ---
[place] [address] Care Team Providers Care Race Starter Name Role Phone Ben Nevarez MD Primary Care Provider [phone] Encounter Details Date Type Department Care Team (Late st Contact Info) Description 09/02/2021 Tele[place] [address] Emily Drake Social History Tobacco Use Types [...] on filedocumented in this encounter Care Teams Race Starter Relationship Specialty Start Date End Date Ben Nevarez MD [address] [place] [address] [place] [address] PCP - General Pediatrics 11/20/15 documented as of this encounter
--- OUTSIDE RECORDS SUMMARY | 2024-01-17 22:07 | XMS_ITS | Encounter Summary ---
Author Organization [facility] Address [facility] [place] [address] Care Team Providers Care Surgical Consultant Name Role Phone Ben Nevarez MD Primary Care Provider [phone] Reason for Visit * Reason Comments Allergy Testing Encounter Details Date Type Department Care Team (Late st Contact Info) Description 03/03/2021 4:00 PM EST Office [place] [address] Jillian Chew MD [facility] DR [address] [place] [address] Need for COVID-19 vaccine; Adverse effect of [...] she presented with mom to ED at [facility]. There, she reports ongoing palpitations and low [...] respiratory symptoms. Patient can receive booster at [facility] Allergy clinic or other site per preference (would recommend medical center with nursing and/or physician present), given low risk of severe reaction. Plan: - No contraindication to Pfizer booster. - Patient can schedule with vaccine clinic at [facility] Allergy if desired. - Otherwise can receive [...] encounter documented in this encounter Care Teams Surgical Consultant Relationship Specialty Start Date End Date Ben Nevarez MD [address] [place] [address] PCP - General Pediatrics 11/20/15 documented as of this encounter
--- OUTSIDE RECORDS SUMMARY | 2024-01-17 22:07 | XMS_ITS | Encounter Summary ---
[place] [address] Care Team Providers Care Saturator Tender Name Role Phone Ben Nevarez MD Primary Care Provider Encounter Details Date Type Department Care Team (Late st Contact Info) Description 11/06/2022 [place] [phone] Dotty Kamara Social History Tobacco Use Types [...] on filedocumented in this encounter Care Teams Saturator Tender Relationship Specialty Start Date End [place] [address] PCP - General Pediatrics 11/20/15 documented as of this encounter
--- OUTSIDE RECORDS SUMMARY | 2024-01-17 22:07 | XMS_ITS | Encounter Summary ---
[place] [address] Care Team Providers Care Horse Doctor Name Role Phone Ben Nevarez MD Primary Care Provider [phone] Encounter Details Date Type Department Care Team (Late st Contact Info) Description 06/25/2020 Telephone [place] [address] Zarina Silvestre Social History Tobacco Use Types [...] on filedocumented in this encounter Care Teams Horse Doctor Relationship Specialty Start Date End Date Ben Nevarez MD [address] [place], [place] [address] [address] PCP - General Pediatrics 11/20/15 documented as of this encounter
--- OUTSIDE RECORDS SUMMARY | 2024-01-17 22:07 | XMS_ITS | Encounter Summary ---
[place] [address] Care Team Providers Care Claims Auditor Name Role Phone Ben Nevarez MD Primary Care Provider [phone] Encounter Details Date Type Department Care Team (Late st Contact Info) Description 06/26/2020 Telephone [place] [address] Jose Angel Ferris RN Social History Tobacco [...] on filedocumented in this encounter Care Teams Claims Auditor Relationship Specialty Start Date End Date Ben Nevarez MD [address] [place], [place] [address] [address] PCP - General Pediatrics 11/20/15 documented as of this encounter
--- OUTSIDE RECORDS SUMMARY | 2024-01-17 22:07 | XMS_ITS | Encounter Summary ---
Author Organization [facility] [place] [address] Care Team Providers Care Snowsport Instructor Name Role Phone Ben Nevarez MD Primary Care Provider [phone] Reason for Referral * Diagnostic Test (Routine) - Closed Specialty Diagnoses / Procedures Referred By Contac t Referred To Contact Radiology Diagnoses Genital ulcer, female Procedures MRI Pelvis Soft Tissue ([facility] [facility]IL[facility]) wwo Contrast MRI Pelvis Soft Tissue ([facility] RAIL[facility]AY) w Contrast Arpit Cormier MD [facility] [place] [address] [place] [address] Referral ID Status Reason Start Date Expiration Date V isits Requested Visits Authorized [id number] Closed Specialty Service Requested 04/30/2020 10/28/2021 1 1 Encounter Details Date Type Department Care Team (Latest Contact Info) Description 04/30/2020 11:30 AM EST TH Visit (TeleHealth) [place] [address] Arpit Cormier MD [facility] [place] [address] Genital ulcer, female Social History [...] Results * MRI Pelvis Soft Tissue ([facility] RAILWAY) wwo Contrast (05/10/2020 7:10 PM EST) Anatomical [...] EST EXAMINATION: MRI PELVIS SOFT TISSUE (GI [facility] RAILWAY) WWO CONTRAST CLINICAL HISTORY: back pain pelvic [...] 05/13/2020 EXAMINATION: MRI PELVIS SOFT TISSUE ([facility] RAILWAY) WWO CONTRAST CLINICAL HISTORY: back pain pelvic [...] organs documented in this encounter Care Teams Snowsport Instructor Relationship Specialty Start Date End Date Ben Nevarez MD [address] [place] [address] [place] [address] PCP - General Pediatrics 11/20/15 documented as of this encounter
--- OUTSIDE RECORDS SUMMARY | 2024-01-17 22:07 | XMS_ITS | Encounter Summary ---
Author Organization [facility] [place] [address] Care Team Providers Care Rubber Liner Name Role Phone Ben eNvarez MD Primary Care Provider [phone] Reason for Visit * Reason Onset Date Comments Follow-up 11/27/2020 Encounter Details Date Type Department Care Team (Late st Contact Info) Description 11/27/2020 Tele[place] [address] Jose Angel Ferris, RN Follow-up Social History [...] needed. Would like Rx to go to [facility] in [place]. Mom will have her start right away [...] on filedocumented in this encounter Care Teams Rubber Liner Relationship Specialty Start Date End Date [place] [address] PCP - General Pediatrics 11/20/15 documented as of this encounter
--- OUTSIDE RECORDS SUMMARY | 2024-01-17 22:07 | XMS_ITS | Encounter Summary ---
[place] [address] Care Team Providers Care Livestock Judging Coach Name Role Phone Ben Nevarez MD Primary Care Provider [phone] Encounter Details Date Type Department Care Team [...] on filedocumented in this encounter Care Teams Livestock Judging Coach Relationship Specialty Start Date End Date [place] [address] PCP - General Pediatrics 11/20/15 documented as of this encounter
--- OUTSIDE RECORDS SUMMARY | 2024-01-17 22:07 | XMS_ITS | Encounter Summary ---
[place] [address] Care Team Providers Care Organ Installer Name Role Phone Ben Nevarez MD Primary Care Provider Encounter Details Date Type Department Care Team (Late st Contact Info) Description 06/16/2021 Telephone Psychiatry [place] [phone] Radha Ann Social History Tobacco Use Types [...] on filedocumented in this encounter Care Teams Organ Installer Relationship Specialty Start Date End Date [place] [address] PCP - General Pediatrics 11/20/15 documented as of this encounter
--- OUTSIDE RECORDS SUMMARY | 2024-01-17 22:07 | XMS_ITS | Encounter Summary ---
Author Organization [facility] Address [facility] [place] [address] Care Team Providers Care Cellular Equipment Installer Name Role Phone Ben Nevarez MD Primary Care Provider +1 [phone] Encounter Details Date Type Department Care Team (Late st Contact Info) Description 06/03/2021 9:00 AM EST TH Visit (TeleHealth) Psychiatry [place] [phone] Olivia Turner MD [facility] [place] [address] Trauma and stressor-related disorder; ADHD (attention deficit [...] had forgotten, were on their way to [place] (but still in [place]), and were unable to find a WiFi [...] their appointment with her. Olivia Turner MD [facility] Child and Adolescent Psychiatry Fellow This patient [...] SEEN documented in this encounter Care Teams Cellular Equipment Installer Relationship Specialty Start Date End Date Ben Nevarez MD [address] [place] [address] PCP - General Pediatrics 11/20/15 documented as of this encounter
--- OUTSIDE RECORDS SUMMARY | 2024-01-17 22:07 | XMS_ITS | Encounter Summary ---
Author Organization [facility] [place] [address] Care Team Providers Care Binder Stripper Machine Name Role Phone Ben Nevarez MD Primary Care Provider [phone] Reason for Referral * Diagnostic Test (Routine) - Closed Specialty Diagnoses / Procedures Referred By Contac t Referred To Contact Cardiology Diagnoses Arthralgia, unspecified joint Procedures Echocardiogram Transthoracic([facility] or [facility]) Ventura Thakkar DO [facility] [place] [address] [facility] [place] [address] Referral ID Status Reason Start Date Expiration Date V isits Requested Visits Authorized [id number] Closed Specialty Service Requested 03/13/2020 03/13/2021 1 1 Reason for Visit * Consultation (Urgent) - Closed Specialty Diagnoses / Procedures Referred By Contac t Referred To Contact Pediatric Oncology Diagnoses Single subsegmental thrombotic pulmonary embolism without acute cor pulmonale [place] [address] [facility] Pedi Hem/[place] [address] [place] [address] Referral ID Status Reason Start Date Expiration Date V isits Requested Visits Authorized [id number] Closed Consult, Test & Treat Connection Center PCP Updated and/or Approved 02/12/2020 02/11/2021 1 1 Encounter Details Date Type Department Care Team (Late st Contact Info) Description 03/13/2020 11:00 AM EST Office Visit Pediatric Oncology at [facility] [place] [address] Ventura Thakkar DO [facility] [place] [address] Kelli Person RN Arthralgia, unspecified joint (Primary [...] Encounter: Referral: Ben Nevarez MD [address] [place] [address] Chief Complaint: Zafar Rodrigues is a/an 15 y.o. female with pulmonary embolus that is currently on anticoagulation medication that presents for follow up visit. History Zafar is present with her mother for today's visit. She was diagnosed with PE after having imaging completed at [facility] that was read as, essentially negative [...] Visit from 03/13/2020 in Pediatric Oncology at [facility] Weight - Scale 65.4 kg (144 lb [...] PM EST Procedure: ?Pediatric Echocardiogram Patient: ?ELODIA BERNALCarrington Jama ?(Age): 2005(15y) ? Med Rec#: ? [id number] ?Sex: ?F ? Site Loc: ? [facility] ?Ht / Wt: ??152(cm)/65(kg) Pt. Loc: ?Echo Lab ?BSA: ?1.68 ([facility]) Study Date: ?? 03/13/2020 ?Pt. Type: Study Quality: ? Referring: JUNIE Reading: Giovani Campbell ([id number]) Newspaper Manager: Corrie Flores RDCS, FASE Diagnosis: *Personal history [...] 03/15/2020 19:08:22 Images reviewed and interpretation verified [facility] Cardiac Ultrasound Laboratory Procedure Note Giovani Campbell DO - 03/15/2020 Procedure: Pediatric Echocardiogram Patient: ELODIA Jama DOB(Age): 2005(15y) Med Rec#: [id number] Sex: F Site Loc: [facility] Ht / Wt: 152(cm)/65(kg) Pt. Loc: Echo Lab BSA: 1.68 ([facility]) Study Date: 03/13/2020 Pt. Type: Study Quality: Referring: [email or web address] Reading: Giovani Campbell ([id number]) Newspaper Manager: Corrie Flores RDCS, FASE Diagnosis: *Personal history [...] 03/15/2020 19:08:22 Images reviewed and interpretation verified [facility] Cardiac Ultrasound Laboratory Ventura Thakkar DO ECHO ORDERABLES documented in this encounter Visit Diagnoses Diagnosis Arthralgia, unspecified joint- Primary Arthralgia, unspecified joint documented in this encounter Care Teams Binder Stripper Machine Relationship Specialty Start Date End Date Ben Nevarez MD [address] [place] [address] [place] [address] PCP - General Pediatrics 11/20/15 documented as of this encounter
--- OUTSIDE RECORDS SUMMARY | 2024-01-17 22:07 | XMS_ITS | Encounter Summary ---
Author Organization [facility] Address 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 Ben Nevarez MD [address] [place] [address] [place] [address] [facility] Pedi Rheum [address] [place] [address] Referral ID Status Reason Start Date Expiration Date V isits Requested Visits Authorized [id number] Closed Consult, Test & Treat Connection Center PCP Updated and/or Approved 02/12/2020 02/11/2021 6 6 Encounter Details Date Type Department Care Team (Latest Contact Info) Description 02/14/2020 10:00 AM EST Office Visit [place] [address] Arpit Cormier MD [facility] [place] [address] Pulmonary embolism, unspecified chronicity, unspecified pulmonary embolism [...] 93.49% 02/13 10:10 AM EST Growth Chart: [facility] (Girls, 2- 20 Years) documented in this encounter Progress Notes * Arpit Cormier MD - 02/14/2020 10:00 AM EST Is a new patient consultation seen at the request of Ben Nevarez on [facility] birthdate 2005 The patient is a 15-year-old adopted female who is been cared for by her adoptive parents since age3 months with trust and estates attorney failure to thrive RSV and asthma but [...] and inflammation that is been followed by [employer] they treated her with Valtrex and Bactrim [...] 11:18 AM EST) Neutrophil % 52.9 % [facility] Neutrophil Absolute 4.63 1.50 - 8.00 x10(3)/mc L [facility] Lymph % 34.7 % [facility] Lymphocytes Abs 3.0 1.2 - 5.2 x10(3)/mc L [facility] Monocyte % 8.7 % [facility] Monocyte Abs 0.8 0.2 - 1.0 x10(3)/mc L [facility] Eos % 1.4 % [facility] Eosinophils Abs 0.1 0.0 - 0.4 x10(3)/mc L [facility] Basophil % 0.6 % [facility] Baso Absolute 0.0 0.0 - 0.1 x10(3)/mc L [facility] Immature Gran % 1.70 % [facility] Comment: Immature granulocytes(IG's)percentage and absolute count will include metamyelocytes, myelocytes, and promyelocytes. Blood smears from CBCs yielding IG's will be scanned manually for concordance. If this scan disagrees with the automated IG or if promyelocytes are noted, a manual differential will be performed. Immature Gran Absolute 0.15(H) 0.00 - 0.04 x10(3)/mc L [facility] Blood specimen (specimen) 02/14/2020 11:18 AM EST 02/14/2020 11:29 AM EST Narrative Resulting Agency Comment Spec In Lab Arpit Cormier MD HEMATOLOGY ORDERABLE S Performing Organization Address City/[facility]/ZIP Co de Phone Number [facility] [place] [address] * (ABNORMAL) Hemogram (02/14/2020 11:18 AM EST) White Blood Cell 8.7 4.5 - 13.0 x10(3)/mc L [facility] Red Blood Cell 4.18 4.10 - 5.10 x10(6)/mc L [facility] Hemoglobin 12.6 12.0 - 16.0 gm/dL [facility] Hematocrit 37.7 36.0 - 46.0 % [facility] Mean Cell Volume 90.2 76.0 - 98.0 fL [facility] Mean Cell Hemoglobin 30.1 25.0 - 35.0 pg [facility] Mean Cell Hemoglobin Concentration 33.4 32.0 - 36.5 gm/dL [facility] Platelet 420(H) 145 - 370 x10(3)/mc L [facility] RDW Standard Deviation 41.2 37.0 - 46.0 fL [facility] RDW coefficient of variation 12.7 0.0 - 14.5 % [facility] Mean Platelet Volume 8.6 7.6 - 12.9 fL [facility] NRBC% auto 0.0 % [facility] NRBC Absolute 0.000 0.000 - 0.000 x10(3)/mc L [facility] Blood specimen (specimen) 02/14/2020 11:18 AM EST 02/14/2020 11:29 AM EST Narrative Resulting Agency Comment Spec In Lab Arpit Cormier MD HEMATOLOGY ORDERABLE S [facility] [place] [address] * Silica Clotting Time (02/14/2020 11:18 AM EST) Silica Clotting Time 0.90 <=1.16 ratio [facility] Comment: A result greater than 1.16 [...] HEMATOLOGY ORDERABLE S Performing Organization Address City/[facility]/ZIP Co de Phone Number [facility] [place] [address] * (ABNORMAL) dRVVT (02/14/2020 11:18 AM EST) dRVVT 1.96(H) <=1.20 IU/mL [facility] Blood specimen (specimen) 02/14/2020 11:18 AM EST 02/14/2020 11:29 AM EST Narrative Resulting Agency Comment Spec In Lab Arpit Cormier MD HEMATOLOGY ORDERABLE S [facility] [place] [address] * Proteinase-3 Antibody (02/14/2020 11:18 AM EST) Proteinase 3 Antibody <2.0 <=20.0 unit(s) [facility] Blood specimen (specimen) 02/14/2020 11:18 AM EST 02/14/2020 2:00 PM EST Narrative Resulting Agency Comment Spec In Lab Arpit Cormier MD IMMUNOLOGY ORDERABLE S Performing Organization Address [facility] de Phone Number [facility] [place] [address] * Myeloperoxidase Ab (02/14/2020 11:18 AM EST) Myeloperoxidase Antibody <2.0 <=20.0 unit(s) [facility] Blood specimen (specimen) 02/14/2020 11:18 AM EST 02/14/2020 2:00 PM EST Narrative Resulting Agency Comment Spec In Lab Arpit Cormier MD IMMUNOLOGY ORDERABLE S Performing Organization Address [facility] de Phone Number [facility] [place] [address] * Cytoplasmic Neutrophilic Ab (02/14/2020 11:18 AM EST) C-Anca (AUGUST) Negative Negative [facility] Comment: Test Performed by: [facility] [place] [address] Pulmonary Care Nurse: Alen Schmitt M.D. Ph.D.; CLIA# [id number] P-Anca (AUGUST) Negative Negative [facility] Comment: Negative for cANCA and pANCA patterns by immunofluorescence. ADDITIONAL INFORMATION This test was developed and its performance characteristics determined by [facility] in a manner consistent with CLIA requirements. This test has not been cleared or approved by the U.S. Food and Drug Administration. Test Performed by: [facility] [place] [address] Pulmonary Care Nurse: Alen Schmitt M.D. Ph.D.; CLIA# [id number] Blood specimen (specimen) 02/14/2020 11:18 AM EST 02/14/2020 2:12 PM EST Narrative Resulting Agency Comment Spec In Lab Arpit Cormier MD LAB SEND OUT ORDERAB LES Performing Organization Address [facility] Co de Phone Number [facility] [place] [address] * C4 Complement (02/14/2020 11:18 AM EST) Complement C4 26 8 - 44 mg/dL [facility] Blood specimen (specimen) 02/14/2020 11:18 AM EST 02/14/2020 11:29 AM EST Narrative Resulting Agency Comment Spec In Lab Arpit Cormier MD CHEMISTRY ORDERABLES Performing Organization Address City/[facility]/ZIP Co de Phone Number [facility] [place] [address] * C3 Complement (02/14/2020 11:18 AM EST) Complement C3 155 90 - 161 mg/dL [facility] Blood specimen (specimen) 02/14/2020 11:18 AM EST 02/14/2020 11:29 AM EST Narrative Resulting Agency Comment Spec In Lab Arpit Cormier MD CHEMISTRY ORDERABLES Performing Organization Address [facility]/ZIP Co de Phone Number [facility] [place] [address] * CK (02/14/2020 11:18 AM EST) Creatine Kinase 44 0 - 250 unit/L [facility] Blood specimen (specimen) 02/14/2020 11:18 AM EST 02/14/2020 11:29 AM EST Narrative Resulting Agency Comment Spec In Lab Arpit Cormier MD CHEMISTRY ORDERABLES Performing Organization Address City/[facility]/ZIP Co de Phone Number [facility] [place] [address] * COVID-19 Antibody (02/14/2020 11:18 AM EST) SARS-CoV-2 Nucleocap Ab Not Detected Not Detected [facility] Comment: Results cannot be used to [...] due to past or present infection with ecs-EOAJ-FjK-2 coronavirus strains, such as coronavirus HKU1, NL63, OC43, or 229E. This test was performed using the Elecsys Ssge-UDEJ-CfC-2 total antibody test on the [employer] e801 analyzer. This serology test is available following FDA Emergency Use Authorization, however it has not been reviewed by the FDA, nor is it FDA cleared or approved. The performance characteristics of this test were determined by the Department of Pathology and Laboratory Medicine at [facility]. The laboratory is certified under the Clinical [...] MD CHEMISTRY ORDERABLES Performing Organization Address City/[facility]/ZIP Co de Phone Number [facility] [place] [address] * Lyme IgG & IgM Antibody (02/14/2020 11:18 AM EST) Lyme Antibody Neg Neg [facility] Blood specimen (specimen) 02/14/2020 11:18 AM EST 02/15/2020 7:55 AM EST Narrative Resulting Agency Comment Spec In Lab Arpit Cormier MD IMMUNOLOGY ORDERABLE S [facility] [place] [address] * (ABNORMAL) Cardiolipin Antibody Screen (02/14/2020 11:18 AM EST) Cardiolipin Antibody IgG <9.4 <=14.9 GPL unit(s) [facility] Comment: Ranges ?? GPL ------ ?? --- Negative ?? <=14.9 Indeterminate ??15.0 - 20.0 Low/Medium Positive 20.1 - 80.0 High Positive ??>80.0 Cardiolipin Antibody IgM 20.8(H) <=12.5 MPL unit(s) [facility] Comment: Ranges ?? MPL ------ ?? --- Negative ?? <=12.5 Indeterminate ??12.6 - 20.0 Low/Medium Positive 20.1 - 80.0 High Positive ??>80.0 Blood specimen (specimen) 02/14/2020 11:18 AM EST 02/14/2020 2:00 PM EST Narrative Resulting Agency Comment Spec In Lab Arpit Cormier MD IMMUNOLOGY ORDERABLE S [facility] [place] [address] * Extractable Nuclear Antigen (MELISSA) Ab (02/14/2020 11:18 AM EST) MELISSA Ab Test ?Result ?Flag ??Unit ??RefValue Ab to Extractable Nuclear Ag Eval,S ??SS-A/Ro Ab, IgG, S ?<0.2 ?U ? <1.0 (Negative) ??SS-B/La Ab, IgG, S ?<0.2 ?U ? <1.0 (Negative) ??Sm Ab, IgG, S ? <0.2 ?U ? <1.0 (Negative) ??CNC MILLING MACHINE OPERATOR Ab, IgG, S ?<0.2 ?U ? <1.0 (Negative) ??Scl 70 Ab, IgG, S ? <0.2 ?U ? <1.0 (Negative) ??Sheila 1 Ab, IgG, S ? <0.2 ?U ? <1.0 (Negative) ?Test Performed by: ?[facility] [address] ?[address] [place] [address] ?Pulmonary Care Nurse: Alen Schmitt M.D. Ph.D.; CLIA# [id number] [facility] Blood specimen (specimen) 02/14/2020 11:18 AM EST 02/14/2020 2:12 PM EST Narrative Resulting Agency Comment Spec In Lab Arpit Cormier MD LAB SEND OUT ORDERAB LES Performing Organization Address [facility]/State/ZIP Co de Phone Number [facility] [place] [address] * DRAKE (MC/CGP/APD/NLH) (02/14/2020 11:18 AM EST) DRAKE Neg Neg [facility] Comment:Anti-nuclear antibod ies were tested using an indirect immunofluorescent assay. Blood specimen (specimen) 02/14/2020 11:18 AM EST 02/14/2020 2:00 PM EST Narrative Resulting Agency Comment Spec In Lab Arpit Cormier MD LAB SEND OUT ORDERAB LES Performing Organization Address [facility] de [facility] Number [facility] [place] [address] * CRP, acute inflammation (02/14/2020 11:18 AM EST) C-Reactive Protein 4.2 <=4.9 mg/L [facility] Blood specimen (specimen) 02/14/2020 11:18 AM EST 02/14/2020 11:29 AM EST Narrative Resulting Agency Comment Spec In Lab Arpit Cormier MD CHEMISTRY ORDERABLES Performing Organization Address [facility] Number [facility] [place] [address] * Sedimentation rate (02/14/2020 11:18 AM EST) Sedimentation Rate Automated 29 2 - 37 mm/hr [facility] Comment: Effective March 22, 2019 new capillary photometric technology has resulted in a change in reference ranges. It is recommended that each ESR result be reviewed with its own age appropriate reference range. Blood specimen (specimen) 02/14/2020 11:18 AM EST 02/14/2020 11:29 AM EST Narrative Resulting Agency Comment Spec In Lab Arpit Cormier MD HEMATOLOGY ORDERABLE S Performing Organization Address [facility] Co de Phone Number [facility] [place] [address] * (ABNORMAL) Comprehensive metabolic panel (non-fasting) (02/14/2020 11:18 AM EST) Glucose 118 65 - 199 mg/dL [facility] Comment:Diabetes: >=200 mg/d L plus symptoms Blood Urea Nitrogen 16 10 - 20 mg/dL [facility] Creatinine 0.95(H) 0.50 - 0.89 mg/dL [facility] Sodium 136 135 - 145 mmol/L [facility] Potassium 4.2 3.5 - 5.0 mmol/L [facility] Comment: Please note: ??Patients with WBC >100,000 may have falsely elevated Potassium levels. ??For accurate Potassium quantification in these patients send serum separator tube (gold top) for subsequent determinations. ??Contact the Clinical Chemistry Laboratory if there are any questions. Chloride 104 98 - 107 mmol/L [facility] Carbon Dioxide 22 22 - 31 mmol/L [facility] Anion Gap 10 5 - 15 mmol/L [facility] Calcium 9.4 8.5 - 10.5 mg/dL [facility] Protein, Total 7.3 6.4 - 8.3 gm/dL [facility] Albumin 4.2 3.2 - 5.2 gm/dL [facility] Aspartate Aminotransferase 35(H) 5 - 30 unit/L [facility] Alanine Aminotransferase 64(H) 0 - 25 unit/L [facility] Alkaline Phosphatase 82 45 - 87 unit/L [facility] Bilirubin, Total 0.3 <=1.0 mg/dL [facility] Est Glomerular Filtration Rate See note >=60 mL/min/1. 73 m?? [facility] Comment: The eGFR for patients less [...] of body mass or the acutely ill. [email or web address] eGFR See note >=60 mL/min/1. 73 m?? [facility] Comment: The eGFR for patients less [...] of body mass or the acutely ill. [email or web address] Blood specimen (specimen) 02/14/2020 11:18 AM EST 02/14/2020 11:29 AM EST Narrative Resulting Agency Comment Spec In Lab Arpit Cormier MD CHEMISTRY ORDERABLES Performing Organization Address City/State/[facility] Co de Phone Number [facility] [place] [phone] documented in this encounter Visit Diagnoses Diagnosis Pulmonary embolism, unspecified chronicity, unspecified pulmonary embolism type, unspecified whether acute cor pulmonale present documented in this encounter Care Teams Supervisor Electronics Testing Relationship Specialty Start Date End Date Ben Nevarez MD [address] [place] [address] PCP - General Pediatrics 11/20/15 documented as of this encounter
--- OUTSIDE RECORDS SUMMARY | 2024-01-17 22:07 | XMS_ITS | Encounter Summary ---
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 Arpit Cormier MD [facility] [place] [address] [facility] Cardiology [address] [place] [phone] Referral ID Status Reason Start Date Expiration Date V isits Requested Visits Authorized [id number] Closed Consult, Test & Treat 11/05/2022 11/05/2023 1 1 Encounter Details Date Type Department Care Team (Late st Contact Info) Description 11/05/2022 4:00 PM EDT Office Visit [place] [phone] Arpit Cormier MD [facility] [place] [place] [address] Behcet's disease Social History Tobacco Use Types [...] 5:09 PM EDT) Neutrophil % 54.4 % [facility] Neutrophil Absolute 4.91 1.70 - 6.10 x10(3)/[facility] Lymph % 32.9 % [facility] Lymphocytes Abs 3.0 0.9 - 3.2 x10(3)/[facility] Monocyte % 7.2 % [facility] Monocyte Abs 0.6 0.3 - 0.9 x10(3)/[facility] Eos % 4.5 % [facility] Eosinophils Abs 0.4 0.0 - 0.4 x10(3)/[facility] Basophil % 0.7 % [facility] Baso Absolute 0.1 0.0 - 0.1 x10(3)/[facility] Immature Gran % 0.30 % [facility] Comment: Immature granulocytes(IG's)percentage and absolute count will include metamyelocytes, myelocytes, and promyelocytes. Blood smears from CBCs yielding IG's will be scanned manually for concordance. If this scan disagrees with the automated IG or if promyelocytes are noted, a manual differential will be performed. Immature Gran Absolute 0.03 0.00 - 0.04 x10(3)/[facility] Blood 11/05/2022 5:09 PM EDT 11/05/2022 5:16 PM EDT Narrative Resulting Agency Comment Spec In Lab Arpit Cormier MD HEMATOLOGY ORDERABLE S [facility] [place] [address] * Hemogram (11/05/2022 5:09 PM EDT) White Blood Cell 9.0 4.0 - 9.5 x10(3)/[facility] Red Blood Cell 4.39 4.00 - 5.21 x10(6)/[facility] Hemoglobin 14.0 11.7 - 15.5 g/dL [facility] Hematocrit 41.0 35.7 - 45.8 % [facility] Mean Cell Volume 93.4 82.6 - 94.4 fL [facility] Mean Cell Hemoglobin 31.9 27.1 - 32.0 pg [facility] Mean Cell Hemoglobin Concentration 34.1 31.7 - 35.0 g/dL [facility] Platelet 305 145 - 357 x10(3)/[facility] RDW Standard Deviation 41.8 37.0 - 46.0 fL [facility] RDW coefficient of variation 12.1 11.5 - 14.1 % [facility] Mean Platelet Volume 9.0 7.6 - 12.9 fL [facility] NRBC% auto 0.0 % [facility] NRBC Absolute 0.000 0.000 - 0.000 x10(3)/[facility] Blood 11/05/2022 5:09 PM EDT 11/05/2022 5:16 PM EDT Narrative Resulting Agency Comment Spec In Lab Arpit Cormier MD HEMATOLOGY ORDERABLE S Performing Organization Address City/[facility]/ZIP Co de Phone Number [facility] [place] [address] * Cardiolipin Antibody Screen (11/05/2022 5:09 PM EDT) Cardiolipin Antibody IgG <0.5 <=9.9 GPL-U/mL [facility] Cardiolipin Antibody IgM 4.5 <=9.9 MPL-U/mL [facility] Blood 11/05/2022 5:09 PM EDT 11/06/2022 7:28 AM EDT Narrative Resulting Agency Comment Spec In Lab Arpit Cormier MD IMMUNOLOGY ORDERABLE S [facility] [place] [address] * T4, free (11/05/2022 5:09 PM EDT) Free T4 1.08 0.93 - 1.70 ng/dL [facility] Comment: Reference Interval (ng/dL): Females: ??First Trimester: 0.97-1.68 ??Second Trimester: 0.77-1.51 ??Third Trimester: 0.77-1.49 Blood 11/05/2022 5:09 PM EDT 11/05/2022 5:16 PM EDT Narrative Resulting Agency Comment Spec In Lab Arpit Cormier MD CHEMISTRY ORDERABLES [facility] [place] [address] * TSH (11/05/2022 5:09 PM EDT) [facility] Thyroid Stimulating Hormone 0.68 0.27 - 4.20 mcIU/mL [facility] Comment: Reference Interval (mcIU/mL): Females: ??First Trimester: 0.23-3.88 ??Second Trimester: 0.22-3.90 ??Third Trimester: 0.44-4.66 Blood 11/05/2022 5:09 PM EDT 11/05/2022 5:16 PM EDT Narrative Resulting Agency Comment Spec In Lab Arpit Cormier MD CHEMISTRY ORDERABLES Performing Organization Address [facility] Co de Phone Number [facility] [place] [address] * CRP, acute inflammation (11/05/2022 5:09 PM EDT) [facility] C-Reactive Protein <3.0 <=4.9 mg/L [facility] Blood 11/05/2022 5:09 PM EDT 11/05/2022 5:16 PM EDT Narrative Resulting Agency Comment Spec In Lab Arpit Cormier MD CHEMISTRY ORDERABLES Performing Organization Address City/[facility]/ZIP Co de Phone Number [facility] [place] [address] * Sedimentation rate (11/05/2022 5:09 PM EDT) Sedimentation Rate Automated <3 2 - 37 mm/hr [facility] Comment: Effective March 22, 2019 new capillary photometric technology has resulted in a change in reference ranges. It is recommended that each ESR result be reviewed with its own age appropriate reference range. 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
--- OUTSIDE RECORDS SUMMARY | 2024-01-17 22:07 | XMS_ITS | Encounter Summary ---
[place] [address] Care Team Providers Care Molded Goods Spot Picker Name Role Phone Ben Nevarez MD Primary Care Provider [phone] Reason for Visit * Reason Onset Date Comments Follow-up 12/02/2020 Encounter Details Date Type Department Care Team (Late st Contact Info) Description 12/02/2020 [place] [phone] Jose Angel Ferris, RN Follow-up Social History [...] on filedocumented in this encounter Care Teams Molded Goods Spot Picker Relationship Specialty Start Date End Date Ben Nevarez MD [address] [place] [address] [place] [address] PCP - General Pediatrics 11/20/15 documented as of this encounter
--- OUTSIDE RECORDS SUMMARY | 2024-01-17 22:07 | XMS_ITS | Encounter Summary ---
Author Organization [facility] Address [facility] [place] [address] Care Team Providers Care Automation Tender Name Role Phone Ben Nevarez MD Primary Care Provider [phone] Encounter Details Date Type Department Care Team (Late st Contact Info) Description 07/02/2020 2:00 PM EDT TH Visit (TeleHealth) [place] [address] Arpit Cormier MD [facility] [place] [address] Behcet's disease Social History Tobacco Use Types [...] syndrome documented in this encounter Care Teams Automation Tender Relationship Specialty Start Date End Date Ben Nevarez MD [address] [place] [address] PCP - General Pediatrics 11/20/15 documented as of this encounter
--- OUTSIDE RECORDS SUMMARY | 2024-01-17 22:07 | XMS_ITS | Encounter Summary ---
Author Organization [facility] [place] [address] Care Team Providers Care Studio Assistant Name Role Phone Ben Nevarez MD Primary Care Provider [phone] Encounter Details Date Type Department Care Team (Latest Contact Info) Description 04/10/2020 2:41 PM EST - 04/10/2020 11:59 PM EST Hospital [place] [phone] Discharge Disposition: Home Social History Tobacco Use [...] on filedocumented in this encounter Care Teams Studio Assistant Relationship Specialty Start Date End Date [place] [address] PCP - General Pediatrics 11/20/15 documented as of this encounter
--- OUTSIDE RECORDS SUMMARY | 2024-01-17 22:07 | XMS_ITS | Encounter Summary ---
Author Organization [facility] Address [facility] [place] [address] Care Team Providers Care Labor Contractor Name Role Phone Ben Nevarez MD Primary Care Provider [phone] Reason for Visit * Reason Comments Skin Lesion * Consultation (FABIANA) - Closed Specialty Diagnoses / Procedures Referred By Contac t Referred To Contact Dermatology Diagnoses Other specified noninflammatory disorders of vulva and perineum Other specified dermatitis HX OF GENITAL ULCERATIONS- CLARIFY DIAGNOSIS AND TREATMENT, POSSIBLE BEHCETS Ben Nevarez MD [address] [place] [address] [place] [address] [facility] Dermatology [address] [place] [address] Referral ID Status Reason Start Date Expiration Date V isits Requested Visits Authorized [id number] Closed Consult, Test & Treat Connection Center PCP Updated and/or Approved 03/04/2020 03/04/2021 6 6 Encounter Details Date Type Department Care Team (Late Contact Info) Description 04/09/2020 10:45 AM EST Office Visit Dermatology at [facility] [address] [place] [address] Nae Almeida MD [facility] [address] [place] [address] Genital ulcer, female Social History [...] the genital area with swelling. Saw gynocologist [facility], where they did a culture and [...] CMV - Will send record requests for felt machine mechanic and OBGYN records. These records will help [...] by Nae Almeida MD Resident in Dermatology [facility] Patient seen in conjunction with staff civil design technician: Valencia Gupta MD Department of Dermatology [facility] * Valencia Gupta MD - 04/09/2020 10:45 [...] organs documented in this encounter Care Teams Labor Contractor Relationship Specialty Start Date End Date Ben Nevarez MD [address] [place] [address] [place] [address] PCP - General Pediatrics 11/20/15 documented as of this encounter
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
--- OUTSIDE RECORDS SUMMARY | 2024-01-17 22:07 | XMS_ITS | Encounter Summary ---
Author Organization [facility] Address [facility] [place] [address] Care Team Providers Care Venetian Blind Maker Name Role Phone Ben Nevarez MD Primary Care Provider [phone] Reason for Referral * Consultation (Urgent) - Closed Specialty Diagnoses / Procedures Referred By Contac t Referred To Contact Dermatology Diagnoses Genital ulcer, female Arpit Cormier MD [facility] [place] [address] Cierra López MD [facility] [address] [place] [address] Referral ID Status Reason Start Date Expiration Date V isits Requested Visits Authorized [id number] Closed Consult, Test & Treat 04/24/2020 04/24/2021 1 1 Encounter Details Date Type Department Care Team (Late st Contact Info) Description 04/24/2020 Orders [place] [address] Arpit Cormier MD [facility] [place] [address] Genital ulcer, female Social History Tobacco Use [...] organs documented in this encounter Care Teams Venetian Blind Maker Relationship Specialty Start Date End Date [place] [address] PCP - General Pediatrics 11/20/15 documented as of this encounter
--- OUTSIDE RECORDS SUMMARY | 2024-01-17 22:07 | XMS_ITS | Encounter Summary ---
Author Organization [facility] [place] [address] Care Team Providers Care Diesel Instructor Name Role Phone Ben Nevarez MD Primary Care Provider [phone] Encounter Details Date Type Department Care Team (Late st Contact Info) Description 11/22/2020 Ancillary Procedure Radiology Library at [facility] [place] [address] Ben Nevarez MD [address] [place] [address] [address] [place], [place] [address] Social History Tobacco Use Types Packs/Day Years [...] Ultrasound Study (11/22/2020 12:00 AM EDT) Narrative [facility] - 12/17/2020 4:18 PM EDT This exam is auto-finalizing. It's purpose is for storage only. Ben Nevarez MD IMG FILM LIBRARY OR DERABLES Performing Organization Address City/State/[facility] Co de Phone Number [place], [place] documented in this encounter Visit Diagnoses Not on filedocumented in this encounter Care Teams Diesel Instructor Relationship Specialty Start Date End Date Ben Nevarez MD [address] [place] [address] PCP - General Pediatrics 11/20/15 documented as of this encounter
--- OUTSIDE RECORDS SUMMARY | 2024-01-17 22:07 | XMS_ITS | Encounter Summary ---
Author Organization [facility] [place] [address] Care Team Providers Care Sail Finisher Machine Name Role Phone Ben Nevarez MD Primary Care Provider [phone] Encounter Details Date Type Department Care Team (Late st Contact Info) Description 02/09/2020 4:45 PM EDT Ancillary Procedure Radiology Library at [facility] [place] [address] Ben Nevarez MD [address] [place] [address] [place] [address] Social History Tobacco Use Types Packs/Day Years [...] Ultrasound Study (02/09/2020 4:44 PM EDT) Narrative [facility] - 02/09/2020 4:44 PM EDT This exam is auto-finalizing. It's purpose is for storage only. Ben Nevarez MD IMG FILM LIBRARY OR DERABLES [place], [place] documented in this encounter Visit Diagnoses Not on filedocumented in this encounter Care Teams Sail Finisher Machine Relationship Specialty Start Date End Date Ben Nevarez MD [address] [place] [address] PCP - General Pediatrics 11/20/15 documented as of this encounter
--- OUTSIDE RECORDS SUMMARY | 2024-01-17 22:08 | XMS_ITS | Encounter Summary ---
Author Organization [facility] Address [facility] [place] [address] Care Team Providers Care Hide Sorter Name Role Phone Anne-Marie Mendes MD Primary Care Provider [phone] Reason for Visit * Reason Comments Follow-up Encounter Details Date Type Department Care Team (Late st Contact Info) Description 06/16/2011 11:30 AM EST Follow-Up [place] [address] Gracie Levine MD [facility] [place] [address] Cough; History of asthma; Nasal congestion; History [...] 70.05% 06/15 11:35 AM EST Growth Chart: [facility] (Girls, 2- 20 Years) documented in [...] GRACIE LEVINE MD Elvia Rodrigues 6 y.o. [id number] ANNE-MARIE MENDES MD [phone] Anne-Marie Mendes Interval History: Elvia has done [...] IgG, 23 serotypes (06/16/2011 12:28 PM EST) [facility] S Pneumo IgG 23 (MAY) ?[place] ?Expected [...] interpretation with other immunodeficiency practices and the [facility] Practice Guidelines (on interpretation of pneumococcal [...] Immunology, 1998, 102: 215-21. Test Performed by: [facility] Dpt of Lab Med and Pathology [address] [place], [place] [id number] Chief Scientific Officer: Harpreet Whalen III, M.D. CERNER MILLENNIUM Blood [...] organs documented in this encounter Care Teams Hide Sorter Relationship Specialty Start Date End Date Anne-Marie [place] [address] PCP - General 03/04/10 11/19/15 documented as of this encounter
--- OUTSIDE RECORDS SUMMARY | 2024-01-17 22:08 | XMS_ITS | Encounter Summary ---
Author Organization [facility] Address [address] [place] [address] Care Team Providers Care Green Promotions Specialist Name Role Phone Unavailable Primary Care Provider Unavailabl e Encounter Details Date Type Department Care Team (Late st Contact Info) Description 03/06/2020 Lab Requisition [facility] Pathology & Laboratory Medicine - [facility] [address] [place] [address] Outr Resulting Lab, Provider Social History Tobacco [...] gonorrhoeae Result Negative Negative 04/09/2020 13:37 EST [facility] Chlamydia trachomatis Result Negative Negative 04/09/2020 13:37 EST [facility] Swab ENTIRE WALL OF CERVIX / Unknown 02/07/2020 16:20 EDT 03/29/2020 14:15 EST Provider Outr Resulting Lab MICROBIOLOGY - GENERAL ORDERABLES [facility] [address] [place] [address] documented in this encounter Visit Diagnoses Not on filedocumented in this encounter
--- OUTSIDE RECORDS SUMMARY | 2024-01-17 22:08 | XMS_ITS | Encounter Summary ---
Author Organization [facility] Address [address] [place] [address] Care Team Providers Care Steel Heater Name Role Phone Unavailable Primary Care Provider Unavailabl e Encounter Details Date Type Department Care Team (Late st Contact Info) Description 10/28/2022 Lab Requisition [facility] Pathology & Laboratory Medicine - [facility] [address] [place] [address] Outr Resulting Lab, Provider Social History Tobacco [...] DRAKE Interpretation Positive(A) Negative 10/29/2022 14:12 EDT [facility] DRAKE Titer and Pattern 1 1:80 Speckled 10/29/2022 14:12 EDT [facility] Blood VENOUS BLOOD / Unknown 10/28/2022 15:17 EDT 10/28/2022 21:12 EDT Narrative [facility] - 10/29/2022 14:12 EDT Results were obtained with the INOVA NOVA Lite HEp-2 DRAKE Kit by indirect immunofluorescence. Provider Outr Resulting Lab IMMUNOLOGY A ND SEROLOGY ORDERABLES Performing Organization Address City/State/[facility] Co de Phone Number [facility] [address] [place] [address] documented in this encounter Visit Diagnoses Not on filedocumented in this encounter
--- OUTSIDE RECORDS SUMMARY | 2024-01-17 22:08 | XMS_ITS | Encounter Summary ---
Author Organization [facility] [place] [address] Care Team Providers Care Remote Mortgage Underwriter Name Role Phone Anne-Marie Cruz MD Primary Care Provider [phone] Encounter Details Date Type Department Care Team (Late st Contact Info) Description 06/21/2005 Orders Only [place] [address] Gracie Levine MD [facility] [place] [address] Social History Tobacco Use Types Packs/Day Years [...] EST) 06/21/2005 12:0 5 PM EST Narrative [facility][NOTE 3] - 09/05/2013 1:43 PM EDT This is a non-reportable exam. Procedure Note Herrera Fernandez - 09/05/2013 This is a non-reportable exam. Gracie Levine MD [facility] FILM LIBRARY ORD ERABLES [facility] [address] [employer] [place] [address] documented in this encounter Visit Diagnoses Not on filedocumented in this encounter Care Teams Remote Mortgage Underwriter Relationship Specialty Start Date End Date Anne-Marie Cruz MD [address] [place] [address] PCP - General 03/04/10 11/19/15 documented as of this encounter
--- OUTSIDE RECORDS SUMMARY | 2024-01-17 22:08 | XMS_ITS | Encounter Summary ---
Author Organization [facility] Address [address] [place] [address] Care Team Providers Care Filter Tip Inspector Name Role Phone Unavailable Primary Care Provider Unavailabl e Encounter Details Date Type Department Care Team (Late st Contact Info) Description 10/18/2023 Lab Requisition [facility] Pathology & Laboratory Medicine - [facility] [address] [place] [address] Outr Resulting Lab, Provider Social History Tobacco [...] Syphilis Serology Negative Negative 10/19/2023 10:32 EDT [facility] Blood VENOUS BLOOD / Unknown 10/18/2023 11:35 EDT 10/18/2023 16:58 EDT Provider Outr Resulting Lab IMMUNOLOGY A ND SEROLOGY ORDERABLES [facility] [address] [place], [place] [address] documented in this encounter Visit Diagnoses Not on filedocumented in this encounter
--- OUTSIDE RECORDS SUMMARY | 2024-01-17 22:08 | XMS_ITS | Encounter Summary ---
Author Organization [facility] Address [address] [place] [address] Care Team Providers Care Energy Conservation Engineer Name Role Phone Unavailable Primary Care Provider Unavailabl e Encounter Details Date Type Department Care Team (Late st Contact Info) Description 10/30/2020 Lab Requisition [facility] Pathology & Laboratory Medicine - [facility] [address] [place] [address] Outr Resulting Lab, Provider Social History Tobacco [...] GENERAL ORDERABLES [facility] [address] [place] [address] documented in this encounter Visit Diagnoses Not on filedocumented in this encounter
--- OUTSIDE RECORDS SUMMARY | 2024-01-17 22:08 | XMS_ITS | Encounter Summary ---
Author Organization [facility] Address [address] [place] [address] Care Team Providers Care Extension Division Director Name Role Phone Unavailable Primary Care Provider Unavailabl e Encounter Details Date Type Department Care Team (Late st Contact Info) Description 12/22/2019 Lab Requisition [facility] Pathology & Laboratory Medicine - [facility] [address] [place] [address] Outr Resulting Lab, Provider Social History Tobacco [...] Lyme Ab Negative Negative 12/25/2019 11:42 EDT [facility] Comment:New 3rd generation a ssay in use 09/20/2019 Blood VENOUS BLOOD / Unknown 12/22/2019 17:10 EDT 12/24/2019 16:16 EDT Provider Outr Resulting Lab IMMUNOLOGY A ND SEROLOGY ORDERABLES [facility] [address] [place] [address] documented in this encounter Visit Diagnoses Not on filedocumented in this encounter
--- OUTSIDE RECORDS SUMMARY | 2024-01-17 22:08 | XMS_ITS | Encounter Summary ---
Author Organization [facility] Address [address] [place] [address] Care Team Providers Care Music Ministries Director Name Role Phone Unavailable Primary Care Provider Unavailabl e Encounter Details Date Type Department Care Team (Late st Contact Info) Description 10/11/2021 Lab Requisition [facility] Pathology & Laboratory Medicine - [facility] [address] [place] [address] Outr Resulting Lab, Provider Social History Tobacco [...] 18 See Note ug/dL 10/12/2021 19:37 EDT [facility] Comment: NOTE: Reference Ranges (from OCD IFU): Collected Before 10:00 AM: ??4 - 23 ug/dL Collected After 5:00 PM: ?2 - 14 ug/dL The results of this assay can be falsely elevated due to the consumption of Biotin. Blood VENOUS BLOOD / Unknown 10/11/2021 8:05 EDT 10/12/2021 18:29 EDT Provider Outr Resulting Lab CHEMISTRY & BLOOD GAS ORDERABLES [facility] [address] [place] [address] documented in this encounter Visit Diagnoses Not on filedocumented in this encounter
--- OUTSIDE RECORDS SUMMARY | 2024-01-17 22:08 | XMS_ITS | Encounter Summary ---
Author Organization [facility] [place] [address] Care Team Providers Care Computer Support Analyst Name Role Phone Ben Nevarez MD Primary Care Provider [phone] Encounter Details Date Type Department Care Team (Late st Contact Info) Description 02/08/2020 12:05 AM EDT Ancillary Procedure Radiology Library at [facility] [place] [address] Ben Nevarez MD [address] [place] [address] [place] [address] Social History Tobacco Use Types Packs/Day Years [...] DX Chest (02/08/2020 12:05 AM EDT) Narrative [facility] - 02/09/2020 1:06 PM EDT This exam is auto-finalizing. It's purpose is for storage only. Ben Nevarez MD IMG FILM LIBRARY OR DERABLES [place], [place] documented in this encounter Visit Diagnoses Not on filedocumented in this encounter Care Teams Computer Support Analyst Relationship Specialty Start Date End Date Ben Nevarez MD [address] [place] [address] PCP - General Pediatrics 11/20/15 documented as of this encounter
--- OUTSIDE RECORDS SUMMARY | 2024-01-17 22:08 | XMS_ITS | Encounter Summary ---
Author Organization [facility] Address [facility] [place] [address] Care Team Providers Care Jail Guard Name Role Phone Anne-Marie Mendes MD Primary Care Provider [phone] Reason for Visit * Reason Comments Cough tired, wheezing Encounter Details Date Type Department Care Team (Late st Contact Info) Description 05/12/2011 2:00 PM EST Office Visit [place] [address] Bladimir Levine MD [facility] [address] [place] [address] Asthma (Primary Dx); Nasal congestion; History of [...] 05/12/2011 1:2 7 PM EST Growth Chart: [facility] (Girls, 2- 20 Years) documented in [...] BLADIMIR LEVINE MD Zafar Clifton 6 y.o. [phone] ANNE-MARIE MENDES MD [phone] Anne-Marie Mendes CC: Chronic Cough HPI: Zafar [...] or need for formula changes as an infant. She does sometimes snore and often wakes [...] 05/19/2011 07:21 Ref. Range 05/12/2011 15:25 Tetanus Ab,IgG-[place] No range found 0.27 Assessment: Chronic cough [...] Wait and see if there is a watermelon inspector benefit from the ranitidine--if she stays well [...] Ragweed 05/16 2. Saline Control 05/15 10. [place] Mix 06/12 3. Birch 08/16 11. Grass [...] Ragweed 2/4 2. ??Saline Control 2/3 ?10. ??[place] Mix 3/3 3. ??Birch 5/7 ?11. ??Grass [...] Ragweed 05/16 2. Saline Control 05/15 10. [place] Mix 06/12 3. Birch 08/16 11. Grass [...] PROCEDURE/MINOR SURG ICAL ORDERABLES * Immunoglobulin E (IgE)-[place] (05/12/2011 3:25 PM EST) IgE, Total 30.1 kU/L [facility] Comment: -- REFERENCE VALUE -- Mean ??18.0 +1SD ??71.0 +2SD 280.0 Test Performed by: [facility] Dpt of Lab Med and Pathology [address] [place] [address] Preparator: Harpreet Whalen III, M.D. Blood specimen (specimen) 05/12/2011 3:25 PM EST 05/12/2011 4:52 PM EST Bladimir Levine MD IMMUNOLOGY ORDERABLE S Performing Organization Address [facility] de Phone Number [facility] * Tetanus Toxoid Antibody, IgG (05/12/2011 3:25 PM EST) Pathologist [facility] Tetanus Ab,IgG (MAY) 0.27 IU/mL [facility] Comment: Research Use Only The minimum level of protective antibody in the normal population is between 0.01 and 0.15 IU/mL. The majority of vaccinated individuals should demonstrate protective levels of antibody > 0.15 IU/mL. Test Performed by: [facility] Dpt of Lab Med and Pathology [address] [place] [address] Preparator: Harpreet Whalen III, M.D. Blood specimen (specimen) 05/12/2011 3:25 PM EST 05/12/2011 4:52 PM EST Bladimir Levine MD LAB SEND OUT ORDERAB LES Performing Organization Address [facility] de Phone Number [facility] * S pneumoniae Antibody IgG, 23 serotypes (05/12/2011 3:25 PM EST) [facility] S Pneumo IgG 23 (MAY) ?HI ?Expected [...] interpretation with other immunodeficiency practices and the [facility] Practice Guidelines (on interpretation of pneumococcal [...] Immunology, 1998, 102: 215-21. Test Performed by: [facility] Dpt of Lab Med and Pathology [address] [place] [address] Preparator: Harpreet Whalen III, M.D. CERNER MILLENNIUM Blood specimen (specimen) 05/12/2011 3:25 PM EST 05/12/2011 4:52 PM EST Bladimir Levine MD LAB SEND OUT ORDERAB LES Performing Organization Address [facility] de Phone Number [facility]ILA ME[facility]ERI[facility] * IgM (05/12/2011 3:25 PM EST) IgM 117 31 - 208 mg/dL CERNER MILLENNIUM Blood specimen (specimen) 05/12/2011 3:25 PM EST 05/12/2011 3:29 PM EST Bladimir Levine MD CHEMISTRY ORDERABLES Performing Organization Address [facility] Co de Phone Number CERKERVIN MEYERIUM * IgA (05/12/2011 3:25 PM EST) IgA 114 34 - 305 mg/dL CERNER MILLENNIUM Blood specimen (specimen) 05/12/2011 3:25 PM EST 05/12/2011 3:29 PM EST Bladimir Levine MD CHEMISTRY ORDERABLES Performing Organization Address [facility] Phone Number CERKERVIN MEYERIUM * IgG (05/12/2011 3:25 PM EST) Immunoglobulin G 683 572 - 1474 mg/dL CERNER MILLENNIUM Blood specimen (specimen) 05/12/2011 3:25 PM EST 05/12/2011 3:29 PM EST Bladimir Levine MD CHEMISTRY ORDERABLES [facility] documented in this encounter Visit Diagnoses Diagnosis Asthma- Primary Unspecified asthma Nasal congestion Other diseases of nasal cavity and sinuses History of asthma Personal history of other diseases of respiratory system Cough documented in this encounter Care Teams Jail Guard Relationship Specialty Start Date End Date Anne-Marie Mendes MD [address] [place] [address] PCP - General 03/04/10 11/19/15 documented as of this encounter
--- OUTSIDE RECORDS SUMMARY | 2024-01-17 22:08 | XMS_ITS | Encounter Summary ---
Author Organization [facility] Address [address] [place] [address] Care Team Providers Care Quantometer Operator Name Role Phone Unavailable Primary Care Provider Unavailabl e Encounter Details Date Type Department Care Team (Late st Contact Info) Description 03/06/2020 Lab Requisition [facility] Pathology & Laboratory Medicine - [facility] [address] [place] [address] Outr Resulting Lab, Provider Social History Tobacco [...] 1, PCR Negative Negative 04/02/2020 16:16 EST [facility] Herpes Simplex Virus Molecular Detection 2, PCR Negative Negative 04/02/2020 16:16 EST [facility] Swab ENTIRE VULVA / Unknown 02/07/2020 16:20 EDT 03/29/2020 14:16 EST Provider Outr Resulting Lab MICROBIOLOGY - GENERAL ORDERABLES [facility] [address] [place] [address] documented in this encounter Visit Diagnoses Not on filedocumented in this encounter
--- OUTSIDE RECORDS SUMMARY | 2024-01-17 22:08 | XMS_ITS | Encounter Summary ---
Author Organization [facility] Address [facility] [place] [address] Care Team Providers Care Media Production Support Manager Name Role Phone Anne-Marie Mendes MD Primary Care Provider Reason for Visit * Reason Comments Follow-up Encounter Details Date Type Department Care Team (Late st Contact Info) Description 01/12/2012 4:30 PM EDT Follow-[place] [address] Gracie Levine MD [facility] [place] [address] Asthma; History of migraine headaches; Nasal congestion; [...] 01/12/2012 4:1 8 PM EDT Growth Chart: [facility] (Girls, 2- 20 Years) documented in this encounter Patient Instructions * Patient Instructions* Gracie Levine MD - 01/12/2012 4:59 PM EDT Continue current Asthma Action Plan Hope for the best this winter! documented in this encounter Progress Notes * Gracie Levine MD - 01/12/2012 4:58 PM EDT 01/12/2012 GRACIE LEVINE MD Elvia Rodrigues 7 y.o. [phone] ANNE-MARIE MENDES MD [phone] Anne-Marie Mendes Reason for Visit: Follow up [...] reflux documented in this encounter Care Teams Media Production Support Manager Relationship Specialty Start Date End Date Anne-Marie Mendes MD [address] [place] [address] PCP - General 03/04/10 11/19/15 documented as of this encounter
--- OUTSIDE RECORDS SUMMARY | 2024-01-17 22:08 | XMS_ITS ---
Author Organization [facility] Address [address] [place] [address] Care Team Providers Care Federal Air Marshal Name Role Phone Unavailable Primary Care Provider Unavailabl e Addiction Medicine Status:Discharged (Closed) Start date:07/29/2023 Enrollment date:07/29/2023 Enrollment reason:Referred by provider End date:08/27/2023 Close reason:Unable to reach patient Linked medications:buprenorphine (Active) Linked problems:Opioid use disorder (Active) Overview Toby [facility] Family Medicine: [phone] Continued Care and Services Coordination
--- OUTSIDE RECORDS SUMMARY | 2024-01-17 22:08 | XMS_ITS | Encounter Summary ---
Author Organization [facility] Address [address] [place] [address] Care Team Providers Care Mortgage Manager Name Role Phone Unavailable Primary Care Provider Unavailabl e Encounter Details Date Type Department Care Team (Latest Contact Info) Description 07/29/[address] [facility] [address] [place] [address] Carolyn Azul RPH Set up initial fill [...] information: Prescriber: Natalie Luis Prescriber Contact Info: [facility], Clinic note in Epic scans: No, Care [...] Patient will be administered the medication at [facility]. To contact the clinic call: [phone] Baseline labs: LFTs WNL 01/20/23 Current medications: [...] Interactions and Management Plan: Medication list source: [facility] chart review, [employer] information, and [facility] DDI with current medication list checked Drug-drug interactions identified: bupropion, hydroxyzine, pregabalin, vyvanse, zolpidem - provideraware Comorbidities: reviewed Assessment: Female of childbearing potential: N/A Coinfection/Vaccination Assessment: Vaccine Date Result HCV N/A HBV N/A HIV 10/28/22 Negative Baseline Outcome: Number of admissions at [facility] related to OUD in last 6 months: 0 Cezar RussellD (she/her) Final Assembler Pharmacist [facility] Specialty Pharmacy 07/29/2023 documented in this encounter [...]
--- OUTSIDE RECORDS SUMMARY | 2024-01-17 22:08 | XMS_ITS | Encounter Summary ---
Author Organization [facility] Address [address] [place] [address] Care Team Providers Care Virtual Reality Specialist Name Role Phone Unavailable Primary Care Provider Unavailabl e Encounter Details Date Type Department Care Team (Late st Contact Info) Description 12/02/2022 Lab Requisition [facility] Pathology & Laboratory Medicine - [facility] [address] [place] [address] Outr Resulting Lab, Provider Social History Tobacco [...] * QUANTIFERON INTERPRETATION (PERFORMABLE) (12/01/2022 14:50 EDT) [facility] Quantiferon Interpretation Negative Negative 12/03/2022 12:48 EDT [facility] Comment:No interferon-gamma response to M. tuberculosis antigens was detected. ??Infection with M. tuberculosis is unlikely. A single negative result does not exclude infection with M. tuberculosis. ??In patients at high risk for M. tuberculosis infection, a second test should be considered. TB1 Ag minus Nil 0.00 IU/ml 12/04/19 12:48 EDT [facility] TB2 Ag minus Nil 0.00 IU/mL 12/04/19 12:48 EDT [facility] Blood VENOUS BLOOD / Unknown 12/01/2022 14:50 EDT 12/03/2022 12:13 EDT Narrative [facility] - 12/03/2022 12:48 EDT Results were obtained with the Qiagen QuantiFERON-TB Gold Plus CLIA. New platform in use 12/18/2020 Provider Outr Resulting Lab IMMUNOLOGY A ND SEROLOGY ORDERABLES Performing Organization Address [facility] Co de Phone Number [facility] [address] [place] [address] * QUANTIFERON MITOGEN (PERFORMABLE) (12/01/2022 14:50 EDT) Blood VENOUS BLOOD / Unknown 12/01/2022 14:50 EDT 12/02/2022 17:37 EDT Provider Outr Resulting Lab IMMUNOLOGY A ND SEROLOGY ORDERABLES Performing Organization Address City/[facility]/ZIP Co de Phone Number [facility] [address] [place] [address] * QUANTIFERON TB2 (PERFORMABLE) (12/01/2022 14:50 EDT) Blood VENOUS BLOOD / Unknown 12/01/2022 14:50 EDT 12/02/2022 17:37 EDT Provider Outr Resulting Lab IMMUNOLOGY A ND SEROLOGY ORDERABLES Performing Organization Address City/[facility] Co de Phone Number [facility] [address] [place] [address] * QUANTIFERON TB1 (PERFORMABLE) (12/01/2022 14:50 EDT) Blood VENOUS BLOOD / Unknown 12/01/2022 14:50 EDT 12/02/2022 17:37 EDT Provider Outr Resulting Lab IMMUNOLOGY A ND SEROLOGY ORDERABLES Performing Organization Address [facility] Co de Phone Number [facility] [address] [place] [address] * QUANTIFERON NIL (PERFORMABLE) (12/01/2022 14:50 EDT) Blood VENOUS BLOOD / Unknown 12/01/2022 14:50 EDT 12/02/2022 17:37 EDT Provider Outr Resulting Lab IMMUNOLOGY A ND SEROLOGY ORDERABLES Performing Organization Address [facility] Co de Phone Number [facility] [address] [place] [address] documented in this encounter Visit Diagnoses Not on filedocumented in this encounter
--- OUTSIDE RECORDS SUMMARY | 2024-01-17 22:08 | XMS_ITS | Encounter Summary ---
Author Organization [facility] Address [facility] [place] [address] Care Team Providers Care Induction Brazer Name Role Phone Anne-Marie Mendes MD Primary Care Provider [phone] Reason for Visit * Reason Comments Follow-up Encounter Details Date Type Department Care Team (Late st Contact Info) Description 09/08/2011 4:30 PM EDT Follow-Up [place] [address] Gracie Levine MD [facility] [place] [address] Nasal congestion; Cough; History of migraine headaches; [...] 09/08/2011 4:1 6 PM EDT Growth Chart: [facility] (Girls, 2- 20 Years) documented in [...] LEVINE MD Elvia Jama Lilia 6 y.o. [phone] ANNE-MARIE MENDES MD [phone] Anne-Marie Mendes Interval History: Since she was [...] asthma documented in this encounter Care Teams Induction Brazer Relationship Specialty Start Date End Date Anne-Marie Mendes MD [address] [place] [address] PCP - General 03/04/10 11/19/15 documented as of this encounter
--- OUTSIDE RECORDS SUMMARY | 2024-01-17 22:08 | XMS_ITS | Encounter Summary ---
Author Organization [facility] Address [address] [place] [address] Care Team Providers Care Wet Press Tender Name Role Phone Unavailable Primary Care Provider Unavailabl e Encounter Details Date Type Department Care Team (Late st Contact Info) Description 10/11/2021 Lab Requisition [facility] Pathology & Laboratory Medicine - [facility] [address] [place] [address] Outr Resulting Lab, Provider Social History Tobacco [...] 4th Generation Negative Negative 10/13/2021 10:22 EDT [facility] Comment:If acute HIV-1 infec tion is suspected in a high risk patient, submit plasma specimen for HIV-1 RNA quantitation test. Blood VENOUS BLOOD / Unknown 10/10/2021 18:21 EDT 10/12/2021 18:29 EDT Narrative [facility] - 10/13/2021 10:22 EDT Fourth Generation assay performed on the Siemens Centaur XPT. Provider Outr Resulting Lab IMMUNOLOGY A ND SEROLOGY ORDERABLES [facility] [address] [place] [address] documented in this encounter Visit Diagnoses Not on filedocumented in this encounter
--- OUTSIDE RECORDS SUMMARY | 2024-01-17 22:08 | XMS_ITS | Encounter Summary ---
Author Organization [facility] Address [address] [place] [address] Care Team Providers Care Cyber Ops Planner Name Role Phone Unavailable Primary Care Provider Unavailabl e Encounter Details Date Type Department Care Team (Late st Contact Info) Description 10/11/2021 Lab Requisition [facility] Pathology & Laboratory Medicine - [facility] [address] [place] [address] Outr Resulting Lab, Provider Social History Tobacco [...] Anti-Thyroglobulin <15 <=60 U/mL 2021 9:14 EDT [facility] Thyroperoxidase Ab <28 <=60 U/mL 2021 9:14 EDT [facility] Blood VENOUS BLOOD / Unknown 10/11/2021 8:05 EDT 10/12/2021 18:29 EDT Provider Outr Resulting Lab CHEMISTRY & BLOOD GAS ORDERABLES [facility] [address] [place] [address] documented in this encounter Visit Diagnoses Not on filedocumented in this encounter
--- OUTSIDE RECORDS SUMMARY | 2024-01-17 22:08 | XMS_ITS | Encounter Summary ---
Author Organization [facility] Address [address] [place] [address] Care Team Providers Care Bungy Jump Master Name Role Phone Unavailable Primary Care Provider Unavailabl e Encounter Details Date Type Department Care Team (Late st Contact Info) Description 10/12/2022 Lab Requisition [facility] Pathology & Laboratory Medicine - [facility] [address] [place] [address] Outr Resulting Lab, Provider Social History Tobacco [...] 13:08 EDT) Hold Hold 10/12/2022 22:31 EDT [facility] Blood VENOUS BLOOD / Unknown 10/12/2022 13:08 EDT 10/12/2022 21:20 EDT Provider Outr Resulting Lab LAB INFO SER VICE AND SUPPORT & PHONE RESULT Performing Organization Address [facility] Co de Phone Number [facility] [address] [place] [address] * HOLD SST (10/12/2022 13:08 EDT) Hold Hold 10/12/2022 22:31 EDT [facility] Blood VENOUS BLOOD / Unknown 10/12/2022 13:08 EDT 10/12/2022 21:20 EDT Provider Outr Resulting Lab LAB INFO SER VICE AND SUPPORT & PHONE RESULT Performing Organization Address [facility] Co de Phone Number [facility] [address] [place] [address] * LYME AB (10/12/2022 13:08 EDT) Pathologist [facility] Lyme Ab Negative Negative 10/13/2022 10:57 EDT [facility] Blood VENOUS BLOOD / Unknown 10/12/2022 13:08 EDT 10/12/2022 21:20 EDT Provider Outr Resulting Lab IMMUNOLOGY A ND SEROLOGY ORDERABLES Performing Organization Address [facility] Co de Phone Number [facility] [address] [place] [address] * RHEUMATOID FACTOR (10/12/2022 13:08 EDT) Pathologist [facility] Rheumatoid Factor <8.6 <12.0 IU/mL 10/12/2022 21:56 EDT [facility] Blood VENOUS BLOOD / Unknown 10/12/2022 13:08 EDT 10/12/2022 21:20 EDT Provider Outr Resulting Lab CHEMISTRY & BLOOD GAS ORDERABLES Performing Organization Address [facility] Co de Phone Number [facility] [address] [place] [address] * ANTI NUCLEAR AB (DRAKE), IFA (10/12/2022 13:08 EDT) DRAKE Interpretation Negative Negative 2022 15:54 EDT [facility] Comment:No titer performed, DRAKE Screen is negative. Blood VENOUS BLOOD / Unknown 10/12/2022 13:08 EDT 10/12/2022 21:20 EDT Narrative [facility] - 10/13/2022 15:54 EDT Results were obtained with the INOVA NOVA Lite HEp-2 DRAKE Kit by indirect immunofluorescence. Provider Outr Resulting Lab IMMUNOLOGY A ND SEROLOGY ORDERABLES Performing Organization Address [facility] Co de Phone Number [facility] [address] [place] [address] documented in this encounter Visit Diagnoses Not on filedocumented in this encounter
--- OUTSIDE RECORDS SUMMARY | 2024-01-17 22:08 | XMS_ITS | Encounter Summary ---
Author Organization [facility] Address [address] [place] [address] Care Team Providers Care Motor Vehicle Assembly Supervisor Name Role Phone Unavailable Primary Care Provider Unavailabl e Encounter Details Date Type Department Care Team (Late st Contact Info) Description 10/11/2021 Lab Requisition [facility] Pathology & Laboratory Medicine - [facility] [address] [place] [address] Outr Resulting Lab, Provider Social History Tobacco [...] Neg and Giardia Antigen Neg 13:30 EDT [facility] Feces SPECIMEN FROM RECTUM / Unknown Stool Collect / Unknown 10/11/2021 2:05 EDT 10/12/2021 22:39 EDT Provider Outr Resulting Lab MICROBIOLOGY - GENERAL ORDERABLES [facility] [address] [place] [address] documented in this encounter Visit Diagnoses Not on filedocumented in this encounter
--- OUTSIDE RECORDS SUMMARY | 2024-01-17 22:08 | XMS_ITS | Encounter Summary ---
Author Organization [facility] Address [address] [place] [address] Care Team Providers Care Supervisor Toy Parts Former Name Role Phone Unavailable Primary Care Provider Unavailabl e Encounter Details Date Type Department Care Team (Late st Contact Info) Description 10/10/2021 Lab Requisition [facility] Pathology & Laboratory Medicine - [facility] [address] [place] [address] Outr Resulting Lab, Provider Social History Tobacco [...] Factor 12.9(H) <12.0 IU/mL 10/10/2021 22:18 EDT [facility] Blood VENOUS BLOOD / Unknown 10/10/2021 13:42 EDT 10/10/2021 21:56 EDT Provider Outr Resulting Lab CHEMISTRY & BLOOD GAS ORDERABLES Performing Organization Address [facility] Co de Phone Number [facility] [address] [place] [address] * ANTI NUCLEAR AB (DRAKE), IFA (10/10/2021 13:42 EDT) DRAKE Interpretation Negative Negative 2021 15:36 EDT [facility] Comment:No titer performed, DRAKE Screen is negative. Blood VENOUS BLOOD / Unknown 10/10/2021 13:42 EDT 10/10/2021 21:56 EDT Narrative [facility] - 10/14/2021 15:36 EDT Results were obtained with the INOVA NOVA Lite HEp-2 DRAKE Kit by indirect immunofluorescence. Provider Outr Resulting Lab IMMUNOLOGY A ND SEROLOGY ORDERABLES Performing Organization Address [facility] Co de Phone Number [facility] [address] [place] [address] documented in this encounter Visit Diagnoses Not on filedocumented in this encounter
--- OUTSIDE RECORDS SUMMARY | 2024-01-17 22:08 | XMS_ITS | Encounter Summary ---
Author Organization [facility] Address [address] [place] [address] Care Team Providers Care Leather Coater Name Role Phone Unavailable Primary Care Provider Unavailabl e Encounter Details Date Type Department Care Team (Late st Contact Info) Description 10/11/[address] [facility] Pathology & Laboratory Medicine - [facility] [address] [place] [address] Outr Resulting Lab, Provider Social History Tobacco [...] Lyme Ab Negative Negative 10/13/2021 11:19 EDT [facility] Blood VENOUS BLOOD / Unknown 10/10/2021 18:21 EDT 10/12/2021 18:29 EDT Provider Outr Resulting Lab IMMUNOLOGY A ND SEROLOGY ORDERABLES [facility] [address] [place] [address] documented in this encounter Visit Diagnoses Not on filedocumented in this encounter
--- OUTSIDE RECORDS SUMMARY | 2024-01-17 22:08 | XMS_ITS | Encounter Summary ---
Author Organization [facility] Address [address] [place] [address] Care Team Providers Care Molecular Spectroscopist Name Role Phone Unavailable Primary Care Provider Unavailabl e Encounter Details Date Type Department Care Team ([facility] st Contact Info) Description 07/29/2023 Telephone [facility] [address] [place], [place] [address] Carolyn Azul RPH Social History Tobacco Use [...]
--- OUTSIDE RECORDS SUMMARY | 2024-01-17 22:08 | XMS_ITS | Encounter Summary ---
Author Organization [facility] Address [address] [place] [address] Care Team Providers Care Casino Host Name Role Phone Unavailable Primary Care Provider Unavailabl e Encounter Details Date Type Department Care Team (Late st Contact Info) Description 08/03/2023 Specialty Pharmacy [facility] [address] [place] [address] Carolyn Azul RPH Social History Tobacco Use [...] was prescribed Brixadi, which was filled by [facility]. This patient will be discharged from [facility] Special[facility] pharmacy services because patient was lost to follow up. Thank you for allowing us to care for this patient. CAROLYN AZUL RPH documented in this encounter Plan of Treatment Not on file documented as of this encounter Visit Diagnoses Not on filedocumented in this encounter
--- OUTSIDE RECORDS SUMMARY | 2024-01-17 22:08 | XMS_ITS | Clinical Summary ---
Author Organization [facility] Address [address] [place] [address] Care Team Providers Care Spray Painting Machine Operator Name Role Phone Unavailable Primary [...] Department Care Team Description 10/28/2023 Specialty Pharmacy [facility] [address] [place] [address] Carolyn Azul RPH 10/18/2023 Lab Requisition [facility] Pathology & Laboratory [facility] [address] [place] [address] Outr Resulting Lab, Provider 10/18/2023 Lab Requisition [facility] [place] [facility] [address] [address] Outr Resulting Lab, Provider from Last 3 Months Social History Tobacco [...] Positive( A) <1 ng/mL 10/19/2023 15:04 EDT [facility] Comment: Trazodone is known to cross react with the Fentanyl immunoassay and may cause a false positive Urine URINE / Unknown 10/18/2023 1 1:35 EDT 10/18/2023 16:57 EDT Narrative [facility] - 10/19/2023 15:04 EDT Testing performed by: [facility] [address] [place] [address], [facility] [address] [address] Piece Dye Worker: Willie Fowler MD; CLIA # [id number] Provider Outr Resulting Lab URINALYSIS O RDERABLES Performing Organization Address City/[facility]/ZIP Co de Phone Number [facility] [address] [place] [address] * SYPHILIS SEROLOGY (10/18/2023 11:35 EDT) Syphilis Serology Negative Negative 10/19/2023 10:32 EDT [facility] Blood VENOUS BLOOD / Unknown 10/18/2023 11:35 EDT 10/18/2023 16:58 EDT Provider Outr Resulting Lab IMMUNOLOGY A ND SEROLOGY ORDERABLES [facility] [address] [place] [address] * (ABNORMAL) FENTANYL AND METABOLITE CONFIRMATION PANEL (10/18/2023 11:35 EDT) Fentanyl Confirmation >40(A) <2 ng/mL 10/20/2023 11:26 EDT [facility] Norfentanyl Confirmation >200(A) <10 ng/mL 10/20/2023 11:26 EDT [facility] Urine URINE / Unknown 10/18/2023 1 1:35 EDT 10/18/2023 16:57 EDT Narrative [facility] - 10/20/2023 11:26 EDT Testing performed by: [facility] [address] [address], [address], [place] [address] Piece Dye Worker: Willie Fowler MD; CLIA # [id number] Provider Outr Resulting Lab GEN LAB UNIT COLLECT ORDERABLES [facility] [address], [address] [place] [address], [facility] [phone] from Last 3 Months
--- OUTSIDE RECORDS SUMMARY | 2024-01-17 22:08 | XMS_ITS | Encounter Summary ---
Author Organization [facility] Address [address] [place] [address] Care Team Providers Care Fur Buyer Name Role Phone Unavailable Primary Care Provider Unavailabl e Encounter Details Date Type Department Care Team (Late st Contact Info) Description 10/16/2022 Lab Requisition [facility] Pathology & Laboratory Medicine - [facility] [address] [place] [address] Outr Resulting Lab, Provider Social History Tobacco [...] 90 - 200 mg/dL 10/19/2022 9:59 EDT [facility] Blood VENOUS BLOOD / Unknown 10/13/2022 13:10 EDT 10/16/2022 19:13 EDT Provider Outr Resulting Lab CHEMISTRY & BLOOD GAS ORDERABLES [facility] [address] [place] [address] documented in this encounter Visit Diagnoses Not on filedocumented in this encounter
--- OUTSIDE RECORDS SUMMARY | 2024-01-17 22:08 | XMS_ITS | Encounter Summary ---
Author Organization [facility] [place] [address] Care Team Providers Care Basin Operator Name Role Phone Ben Nevarez MD Primary Care Provider [phone] Encounter Details Date Type Department Care Team (Late st Contact Info) Description 02/08/2020 Ancillary Procedure Radiology Library [place] [address] Ben Nevarez MD [address] [place] [address] [address] [place], [place] [address] Social History Tobacco Use Types Packs/Day Years [...] EDT) SARS-CoV-2 RNA Not Detected Not Detected [facility] Comment: This result should be interpreted [...] diagnosis of COVID-19 is performed using the [employer] RealTime SARS-CoV-2 Assay as authorized by the FDA Emergency Use Authorization (EUA). This EUA assay is intended for In-vitro Diagnostic (IVD) use with respiratory specimens such as nasopharyngeal swabs collected from individuals during the acute phase of infection. This assay is performed based on the instructions for use provided by [employer]. and additional guidance provided by [facility] and FDA. Testing is performed in the Clinical Genomics and Advanced Technology Laboratory within the Department of Pathology and Laboratory Medicine at [facility], certified under the Clinical Laboratory Improvement [...] fact sheets at the following FDA website: https://www.fda.gov/medical-devices/bnrwluavlco-ldwhvtb-7624-eiodc-93-pakbmhwyz- use-a uhmhmnhonzofe-znbqqki-rapqzcu/tflog-vembzisavmr-mxrj SARS-CoV-2 RNA Source BIOMETRICS EXPERIMENTALIST Swab [facility] Nasopharyngeal swab (specimen) Other / Unknown 02/09/2020 6:30 AM EDT 02/12/2020 1:36 PM EST Narrative Resulting Agency Comment Spec In Lab Ben Nevarez MD MOLECULAR ORDERABLE S Performing Organization Address [facility] Co de Phone Number [facility] [place] [address] * Film Library- Storage Only CT Chest (02/08/2020 12:00 AM EDT) Narrative RAD - 02/09/2020 1:05 PM EDT This exam is auto-finalizing. It's purpose is for storage only. Ben Nevarez MD IMG FILM LIBRARY OR DERABLES Performing Organization Address [facility] Co de Phone Number [place], [place] documented in this encounter Visit Diagnoses Not on filedocumented in this encounter Care Teams Basin Operator Relationship Specialty Start Date End Date Ben Nevarez MD [address] [place] [address] PCP - General Pediatrics 11/20/15 documented as of this encounter
--- OUTSIDE RECORDS SUMMARY | 2024-01-17 22:08 | XMS_ITS | Encounter Summary ---
Author Organization [facility] Address [address] [place] [address] Care Team Providers Care Plate And Weld Inspector Name Role Phone Unavailable Primary Care Provider Unavailabl e Encounter Details Date Type Department Care Team (Late st Contact Info) Description 03/06/2020 Lab Requisition [facility] Pathology & Laboratory Medicine - [facility] [address] [place] [address] Outr Resulting Lab, Provider Social History Tobacco [...] 1 Ab, IgG Positive(A) Negative 04/02/2020 13:17 [facility] Comment:Indicates the presen ce of detectable IGG Antibody to HSV1 HSV Type 2 Ab, IgG Negative Negative 04/02/2020 13:17 [facility] Comment: No detectable antibodies to [...] Resulting Lab IMMUNOLOGY A ND SEROLOGY ORDERABLES [facility] [address] [place] [address] documented in this encounter Visit Diagnoses Not on filedocumented in this encounter
--- OUTSIDE RECORDS SUMMARY | 2024-01-17 22:08 | XMS_ITS | Encounter Summary ---
Author Organization [facility] [place] [address] Care Team Providers Care Service Transformer Repair Supervisor Name Role Phone Anne-Marie Cruz MD Primary Care Provider [phone] Encounter Details Date Type Department Care Team (Late st Contact Info) Description 03/08/2007 Orders Only [place] [address] Gracie Levine MD [facility] [place] [address] Social History Tobacco Use Types Packs/Day Years [...] EST) 03/08/2007 10:5 0 AM EST Narrative [facility] - 09/05/2013 1:43 PM EDT This is a non-reportable exam. Procedure Note Herrera Fernandez - 09/05/2013 This is a non-reportable exam. Gracie Levine MD [facility] FILM LIBRARY ORD ERABLES [facility] [address] [employer] [place] [address] documented in this encounter Visit Diagnoses Not on filedocumented in this encounter Care Teams Service Transformer Repair Supervisor Relationship Specialty Start Date End Date Anne-Marie Cruz MD [address] [place] [address] PCP - General 03/04/10 11/19/15 documented as of this encounter
--- OUTSIDE RECORDS SUMMARY | 2024-01-17 22:08 | XMS_ITS | Encounter Summary ---
Author Organization [facility] Address [address] [place] [address] Care Team Providers Care Moshgiach Name Role Phone Unavailable Primary Care Provider Unavailabl e Encounter Details Date Type Department Care Team (Late st Contact Info) Description 01/16/2020 Lab Requisition [facility] Pathology & Laboratory Medicine - [facility] [address] [place] [address] Outr Resulting Lab, Provider Social History Tobacco [...] 11:55 EDT) Hold Hold 01/16/2020 18:01 EDT [facility] Blood VENOUS BLOOD / Unknown 01/16/2020 11:55 EDT 01/16/2020 16:56 EDT Provider Outr Resulting Lab LAB INFO SER VICE AND SUPPORT & PHONE RESULT [facility] [address] [place] [address] * HOLD SST (01/16/2020 11:55 EDT) Hold Hold 01/16/2020 18:01 EDT [facility] Blood VENOUS BLOOD / Unknown 01/16/2020 11:55 EDT 01/16/2020 16:56 EDT Provider Outr Resulting Lab LAB INFO SER VICE AND SUPPORT & PHONE RESULT Performing Organization Address [facility] Co de Phone Number [facility] [address] [place] [address] * (ABNORMAL) KEVIN-DOUGLAS PANEL (01/16/2020 11:55 EDT) Pathologist [facility] EBV VCA IgM, Antibody Negative Negative 01/17/2020 10:29 EDT [facility] Comment:Absence of detectabl e VCA IgM antibodies. EBV VCA IgG, Antibody Positive(A) Negative 01/17/2020 10:29 EDT [facility] Comment:Presence of detectab le VCA IgG antibodies. EBNA IgG Antibody Positive(A) Negative 2019 10:29 EDT [facility] Comment:Presence of detectab le EBNA IgG antibodies. EBV Interpretation Results would indicate past infection with Kevin-Douglas virus 01/17/2020 10:29 EDT [facility] Blood VENOUS BLOOD / Unknown 01/16/2020 11:55 EDT 01/16/2020 16:56 EDT Provider Outr Resulting Lab IMMUNOLOGY A ND SEROLOGY ORDERABLES Performing Organization Address City/[facility]/ZIP Co de Phone Number [facility] [address] [place] [address] * CMV IGG (01/16/2020 11:55 EDT) CMV Antibody, IgG Negative See Note 01/17/2020 10:25 EDT [facility] Comment:Absence of detectabl e CMV IgG antibodies. A negative result generally indicates that the patient is susceptible to CMV. Blood VENOUS BLOOD / Unknown 01/16/2020 11:55 EDT 01/16/2020 16:56 EDT Provider Outr Resulting Lab CHEMISTRY & BLOOD GAS ORDERABLES Performing Organization Address [facility] Co de Phone Number [facility] [address] [place] [address] * ANTI NUCLEAR AB (DRAKE), IFA (01/16/2020 11:55 EDT) DRAKE Interpretation Negative Negative 2019 15:16 EDT [facility] Blood VENOUS BLOOD / Unknown 01/16/2020 11:55 EDT 01/16/2020 16:56 EDT Narrative [facility] - 01/17/2020 15:16 EDT Results were obtained with the INOVA NOVA Lite HEp-2 DRAKE Kit by indirect immunofluorescence. Provider Outr Resulting Lab IMMUNOLOGY A ND SEROLOGY ORDERABLES Performing Organization Address [facility] Co de Phone Number [facility] [address] [place] [address] documented in this encounter Visit Diagnoses Not on filedocumented in this encounter
--- OUTSIDE RECORDS SUMMARY | 2024-01-17 22:08 | XMS_ITS | Encounter Summary ---
Author Organization [facility] Address [address] [place] [address] Care Team Providers Care Physician Vice President Name Role Phone Unavailable Primary Care Provider Unavailabl e Encounter Details Date Type Department Care Team (Late st Contact Info) Description 07/20/2020 Results Only Imaging [facility] [address] [place], [place] [id number] Brannon Curiel MD [address] [place] [address] Social History Tobacco Use Types [...] 16:28 EDT) 07/20/2020 16:2 8 EDT Narrative [facility] - 07/20/2020 16:28 EDT ? [facility] ? Test Date: ?2020-07-20 16:28:44 Pat Name: ? ZAFAR HAMELIN ? Department: ?Room: ? Gender: ? F ?Senior Game Advisor: ?? WG : ?2005 ? Requested By: Order Number: ?Reading MD: ?? Janusz Lischke, MD ? Measurements Intervals ?Reserve ? Rate: ? 78 ? P: ?45 [place]: ? 108 ?QRS: ?24 QRSD: ? 78 ? T: ?23 QT: ? 366 ? QTc: ?417 ? Interpretive Statements Sinus rhythm with short [place] without pre-excitation Otherwise normal ECG No previous ECG available for comparison Electronically Signed On 07-21-2020 18:21:55 EDT by Janusz Avila MD [email or web address] [email or web address] Procedure Note Janusz Avila MD - 07/22/2020 [facility] Test Date: 2020-07-20 16:28:44 Pat Name: ZAFAR RODRIGUES Department: Room: Gender: F Senior Game Advisor: : 2005 Requested By: Order Number: Reading MD: Janusz Avila MD Measurements Intervals Reserve Rate: 78 P: 45 [place]: 108 QRS: 24 QRSD: 78 T: 23 QT: 366 QTc: 417 Interpretive Statements Sinus rhythm with short [place] without pre-excitation Otherwise normal ECG No previous ECG available for comparison Electronically Signed On 07-21-2020 18:21:55 EDT by Janusz Avila MD [email or web address] [email or web address] Brannon Curiel MD CARDIAC ECG ORDERABL ES [facility] [address] [place] [address] documented in this encounter Visit Diagnoses Not on filedocumented in this encounter
--- OUTSIDE RECORDS SUMMARY | 2024-01-17 22:08 | XMS_ITS ---
Author Organization [facility] Address [address] [place] [address] Care Team Providers Care Pnp Name Role Phone Unavailable Primary Care Provider Unavailabl e Addiction Medicine Status:Discharged (Closed) Start date:09/01/2023 Enrollment date:09/01/2023 End date:10/28/2023 Close reason:Unable to reach patient Linked medications:buprenorphine (Active) Linked problems:Opioid use disorder (Active) Overview [facility]: [phone] Continued Care and Services Coordination
--- OUTSIDE RECORDS SUMMARY | 2024-01-17 22:08 | XMS_ITS | Encounter Summary ---
Author Organization [facility] Address [address] [place] [address] Care Team Providers Care Refrigeration Houseman Name Role Phone Unavailable Primary Care Provider Unavailabl e Encounter Details Date Type Department Care Team (Late st Contact Info) Description 10/18/2023 Lab Requisition [facility] Pathology & Laboratory Medicine - [facility] [address] [place] [address] Outr Resulting Lab, Provider Social History Tobacco [...] Confirmation >40(A) <2 ng/mL 10/20/2023 11:26 EDT [facility] Norfentanyl Confirmation >200(A) <10 ng/mL 10/20/2023 11:26 EDT [facility] Urine URINE / Unknown 10/18/2023 1 1:35 EDT 10/18/2023 16:57 EDT [facility] 10/20/2023 11:26 EDT [facility] performed by: [facility] [address] [place] [address] [address] [address] Vocational Rehabilitation Administrator: Willei Fowler MD; CLIA # [id number] Provider Outr Resulting Lab GEN LAB UNIT COLLECT ORDERABLES Performing Organization Address City/[facility] Co de Phone Number [facility] [address] [place] [address] [phone] * (ABNORMAL) FENTANYL SCREEN WITH REFLEX TO CONFIRMATION, U (10/18/2023 11:35 EDT) Fentanyl Screen with Reflex to Confirmation, U Positive( A) <1 ng/mL 10/19/2023 15:04 EDT [facility] Comment: Trazodone is known to cross react with the Fentanyl immunoassay and may cause a false positive Urine URINE / Unknown 10/18/2023 1 1:35 EDT 10/18/2023 16:57 EDT [facility]ative [facility] - 10/19/2023 15:04 EDT Testing performed by: [facility] [address] [place] [address] [address] [address] Vocational Rehabilitation Administrator: Willie Fowler MD; CLIA # [id number] Provider Outr Resulting Lab URINALYSIS O RDERABLES Performing Organization Address City/[facility]/ZIP Co de Phone Number [facility] [address] [place] [address] [phone] documented in this encounter Visit Diagnoses Not on filedocumented in this encounter
--- OUTSIDE RECORDS SUMMARY | 2024-01-17 22:08 | XMS_ITS | Encounter Summary ---
Author Organization [facility] Address [address] [place] [address] Care Team Providers Care Process Steward Name Role Phone Unavailable Primary Care Provider Unavailabl e Encounter Details Date Type Department Care Team (Late st Contact Info) Description 08/08/2021 Lab Requisition [facility] Pathology & Laboratory Medicine - [facility] [address] [place] [address] Outr Resulting Lab, Provider Social History Tobacco [...] 0.36 See Note mg/L 08/08/2021 21:37 EDT [facility] Comment: Reference Range: ??Low Risk: ? <1.0 mg/L ??Average Risk: ?? 1.0 - 3.0 mg/L ??High Risk: ?>3.0 mg/L ??Indeterminate*: >10.0 mg/L ??*May be an indication of another source of inflammation or infection Blood VENOUS BLOOD / Unknown 08/08/2021 11:27 EDT 08/08/2021 21:21 EDT Provider Outr Resulting Lab CHEMISTRY & BLOOD GAS ORDERABLES Performing Organization Address [facility] Co de Phone Number [facility] [address] [place] [address] * CELIAC DISEASE PANEL (08/08/2021 11:27 EDT) Tissue Transglutaminase Antibody IGA <1.2 <4.0 U/mL 08/11/2021 12:16 EDT [facility] Comment: A negative result may be due to IgA deficiency and does not rule out celiac disease. ? Negative: ??<4.0 U/mL ? Weak Positive: ??4.0 - 10.0 U/mL ? Positive: ??>10.0 U/mL Results were obtained with the RedaptA Lite R h-tTG IgA KIKE assay on the Acompli DSX. IgA 184 85 - 499 mg/dL 08/11/2021 12:16 EDT [facility] Celiac Disease Interpretation Negative Serology. Celiac disease unlikely. Approximately 10% of patients with celiac disease are seronegative. Patients who are already adhering to a gluten-free diet may also be seronegative. If celiac disease is highly clinically suspected, referral to gastroenterology for additional evaluation is recommended. 08/11/2021 12:16 EDT [facility] Blood VENOUS BLOOD / Unknown 08/08/2021 11:27 EDT 08/08/2021 21:21 EDT Provider Outr Resulting Lab IMMUNOLOGY A ND SEROLOGY ORDERABLES Performing Organization Address [facility]/ZIP Co de Phone Number [facility] [address] [place] [address] documented in this encounter Visit Diagnoses Not on filedocumented in this encounter
--- OUTSIDE RECORDS SUMMARY | 2024-01-17 22:08 | XMS_ITS | Encounter Summary ---
Author Organization [facility] Address [address] [place] [address] Care Team Providers Care Military Personnel Specialist Name Role Phone Unavailable Primary Care Provider Unavailabl e Encounter Details Date Type Department Care Team ([facility] st Contact Info) Description 07/29/2023 Telephone [facility] [address] [place], [place] [address] Carolyn Azul RPH Social History Tobacco Use [...]
--- OUTSIDE RECORDS SUMMARY | 2024-01-17 22:08 | XMS_ITS | Referral Summary ---
Author Organization [facility] Address [address] [place] [address] Care Team Providers Care Ship Washer Name Role Phone Unavailable Primary Care Provider Unavailabl e Encounters Date Type Department Care Team Description 10/28/2023 Specialty Pharmacy [facility] [address] [place] [address] Carolyn Azul RPH 10/18/2023 Lab Requisition [facility] Pathology & Laboratory [facility] [address] [place] [address] Outr Resulting Lab, Provider 10/18/2023 Lab Requisition [facility] Pathology & Laboratory [facility] [address] [place] [address] Outr Resulting Lab, Provider from Last 3 Months Allergies Active Allergy [...] Positive( A) <1 ng/mL 10/19/2023 15:04 EDT [facility] Comment: Trazodone is known to cross react with the Fentanyl immunoassay and may cause a false positive Urine URINE / Unknown 10/18/2023 1 1:35 EDT 10/18/2023 16:57 EDT [facility] - 10/19/2023 15:04 EDT Testing performed by: [facility] [address] [place] [address] Inside Sales Account Executive: Willie Fowler MD; CLIA # [id number] Provider Outr Resulting Lab URINALYSIS O RDERABLES Performing Organization Address [facility] Co de Phone Number [facility] [address] [place] [address] * SYPHILIS SEROLOGY (10/18/2023 11:35 EDT) Pathologist [facility] Syphilis Serology Negative Negative 10/19/2023 10:32 EDT [facility] Blood VENOUS BLOOD / Unknown 10/18/2023 11:35 EDT 10/18/2023 16:58 EDT Provider Outr Resulting Lab IMMUNOLOGY A ND SEROLOGY ORDERABLES Performing Organization Address [facility] Co de Phone Number [facility] [address] [place] [address] * (ABNORMAL) FENTANYL AND METABOLITE CONFIRMATION PANEL (10/18/2023 11:35 EDT) Pathologist [facility] Fentanyl Confirmation >40(A) <2 ng/mL 10/20/2023 11:26 EDT [facility] Norfentanyl Confirmation >200(A) <10 ng/mL 10/20/2023 11:26 EDT [facility] Urine URINE / Unknown 10/18/2023 1 1:35 EDT 10/18/2023 16:57 EDT Narrative [facility] - 10/20/2023 11:26 EDT Testing performed by: [facility] [address] [place] [address], [facility] [address] [address] Inside Sales Account Executive: Willie Fowler MD; CLIA # [id number] Provider Outr Resulting Lab GEN LAB UNIT COLLECT ORDERABLES Performing Organization Address [facility]/State/ZIP Co de Phone Number [facility] [address] [facility], [address] [place] [address], [facility] [phone] from Last 3 Months [address] [place] [address] Elvia Rodrigues Personal/Family Self [phone] [address] Elvia Rodrigues Personal/Family Self [phone] [address] Elvia Rodrigues Personal/Family Self [address] [place] [address]
--- OUTSIDE RECORDS SUMMARY | 2024-01-17 22:08 | XMS_ITS | Encounter Summary ---
Author Organization [facility] [place] [address] Care Team Providers Care Senior Java Ui Developer Name Role Phone Anne-Marie Cruz MD Primary Care Provider [phone] Reason for Visit * Reason Onset Date Comments Results 06/24/2011 Encounter Details Date Type Department Care Team (Late st Contact Info) Description 06/24/2011 Telephone [place] [id number] Gracie Levine MD [facility] [address] [place] [address] Results Social History Tobacco Use Types Packs/Day [...] on filedocumented in this encounter Care Teams Senior Java Ui Developer Relationship Specialty Start Date End Date Anne-Marie Cruz MD [address] [place] [address] [place] [address] PCP - General 03/04/10 11/19/15 documented as of this encounter
--- OUTSIDE RECORDS SUMMARY | 2024-01-17 22:08 | XMS_ITS | Encounter Summary ---
Author Organization [facility] Address [address] [place] [address] Care Team Providers Care Grease Press Helper Name Role Phone Unavailable Primary Care Provider Unavailabl e Encounter Details Date Type Department Care Team (Late st Contact Info) Description 03/06/2020 Lab Requisition [facility] Pathology & Laboratory Medicine - [facility] [address] [place] [address] Outr Resulting Lab, Provider Social History Tobacco [...] Syphilis Serology Negative Negative 04/02/2020 13:16 EST [facility] Blood VENOUS BLOOD / Unknown 02/07/2020 16:20 EDT 03/29/2020 14:15 EST Provider Outr Resulting Lab IMMUNOLOGY A ND SEROLOGY ORDERABLES [facility] [address] [place] [address] documented in this encounter Visit Diagnoses Not on filedocumented in this encounter
--- OUTSIDE RECORDS SUMMARY | 2024-01-17 22:08 | XMS_ITS | Encounter Summary ---
Author Organization [facility] Address [facility] [place] [address] Care Team Providers Care Chemistry Laboratory Technician Name Role Phone Anne-Marie Cruz MD Primary Care Provider [phone] Encounter Details Date Type Department Care Team (Late st Contact Info) Description 05/06/2011 External Results XRay at [address] [place] [address] Roosevelt Shahid MD EMERGENCY DEPT [address] [place], [place] [address] [address] Social History Tobacco Use Types Packs/Day Years [...] on filedocumented in this encounter Care Teams Chemistry Laboratory Technician Relationship Specialty Start Date End Date Anne-Marie Cruz MD [address] [facility] [place] [address] PCP - General 03/04/10 11/19/15 documented as of this encounter
--- OUTSIDE RECORDS SUMMARY | 2024-01-17 22:08 | XMS_ITS | Encounter Summary ---
Author Organization [facility] Address [address] [place] [address] Care Team Providers Care Accounting Tutor Name Role Phone Unavailable Primary Care Provider Unavailabl e Encounter Details Date Type Department Care Team (Late st Contact Info) Description 10/28/2022 Lab Requisition [facility] Pathology & Laboratory Medicine - [facility] [address] [place] [address] Outr Resulting Lab, Provider Social History Tobacco [...] 4th Generation Negative Negative 10/29/2022 9:50 EDT [facility] Comment:If acute HIV-1 infec tion is suspected in a high risk patient, submit plasma specimen for HIV-1 RNA quantitation test. Blood VENOUS BLOOD / Unknown 10/28/2022 15:17 EDT 10/28/2022 21:12 EDT Narrative [facility] - 10/29/2022 9:50 EDT Fourth Generation assay performed on the Siemens Centaur XPT. Provider Outr Resulting Lab IMMUNOLOGY A ND SEROLOGY ORDERABLES [facility] [address] [place] [address] documented in this encounter Visit Diagnoses Not on filedocumented in this encounter
--- OUTSIDE RECORDS SUMMARY | 2024-01-17 22:08 | XMS_ITS | Encounter Summary ---
Author Organization [facility] Address [address] [place] [address] Care Team Providers Care Territory Sales Manager Medical Name Role Phone Unavailable Primary Care Provider Unavailabl e Encounter Details Date Type Department Care Team (Latest Contact Info) Description 08/31/[address] [facility] [address] [place] [address] Carolyn Azul RPH Set up initial fill [...]
--- OUTSIDE RECORDS SUMMARY | 2024-01-17 22:08 | XMS_ITS | Encounter Summary ---
Author Organization [facility] Address [address] [place] [address] Care Team Providers Care Welding Teacher Name Role Phone Unavailable Primary Care Provider Unavailabl e Encounter Details Date Type Department Care Team (Late st Contact Info) Description 10/11/2021 Lab Requisition [facility] Pathology & Laboratory Medicine - [facility] [address] [place] [address] Outr Resulting Lab, Provider Social History Tobacco [...] Salmonella PCR Negative Negative 10/13/2021 10:39 EDT [facility] Shigella/Enteroin vasive E. coli Negative Negative 10/13/2021 10:39 EDT [facility] HN LAB CAMPYLOBACTER PCR Negative Negative 10/13/2021 10:39 EDT [facility] Shiga Toxin PCR Negative Negative 10:39 EDT [facility] Feces SPECIMEN FROM RECTUM / Unknown Stool Collect / Unknown 10/11/2021 2:05 EDT 10/12/2021 22:39 EDT Provider Outr Resulting Lab MICROBIOLOGY - GENERAL ORDERABLES Performing Organization Address City/[facility] Co de Phone Number [facility] [address] [place] [address] * OVA/PARASITE EXAM (10/11/2021 2:05 EDT) Parasite No ova and parasites seen. 10/14/2021 10:50 EDT [facility] Feces SPECIMEN FROM RECTUM / Unknown Stool Collect / Unknown 10/11/2021 2:05 EDT 10/12/2021 22:39 EDT Narrative [facility] - 10/14/2021 10:50 EDT (If Cryptosporidium, Cyclospora, or Microsporidium are suspected, specific tests must be requested.) Single negative specimen does not rule out the possibility of a parasitic infection. Provider Outr Resulting Lab MICROBIOLOGY - GENERAL ORDERABLES Performing Organization Address City/[facility] Co de Phone Number [facility] [address] [place] [address] documented in this encounter Visit Diagnoses Not on filedocumented in this encounter
--- OUTSIDE RECORDS SUMMARY | 2024-01-17 22:08 | XMS_ITS | Encounter Summary ---
Author Organization [facility] Address [address] [place] [address] Care Team Providers Care Public Area Attendant Name Role Phone Unavailable Primary Care Provider Unavailabl e Encounter Details Date Type Department Care Team (Late st Contact Info) Description 04/24/2020 Lab Requisition [facility] Pathology & Laboratory Medicine - [facility] [address] [place] [address] Outr Resulting Lab, Provider Social History Tobacco [...] Outr Resulting Lab MICROBIOLOGY - GENERAL ORDERABLES [facility] [address] [place] [address] * COVID-19 TESTING (04/23/2020 19:45 EST) COVID-19 rt-PCR Result Negative Negative 04/25/2020 15:02 EST [facility] Comment: Negative results do not preclude 2019-nCoV infection and should not be used as the sole basis for treatment or other patient management decisions. Negative results must be combined with clinical observations, patient history, and epidemiological information. This test was developed and its performance characteristics determined by [facility]. It has not been cleared or approved [...] testing. This test is based on the [facility] COVID-19 Emergency Use Authorization (EUA) assay, with minor modification as defined by the FDA Performed on the Stootie 7 Flex. Performing Lab [facility] Lab 04/25/2020 15:02 EST [facility] Swab 04/23/2020 19:4 5 EST 04/24/2020 15:42 EST Provider Outr Resulting Lab MICROBIOLOGY - GENERAL ORDERABLES [facility] [address] [place] [address] documented in this encounter Visit Diagnoses Not on filedocumented in this encounter
--- OUTSIDE RECORDS SUMMARY | 2024-01-17 22:08 | XMS_ITS | Encounter Summary ---
Author Organization [facility] Address [address] [place] [address] Care Team Providers Care Acid Changer Name Role Phone Unavailable Primary Care Provider Unavailabl e Encounter Details Date Type Department Care Team (Late st Contact Info) Description 10/28/2023 Specialty Pharmacy [facility] [address] [place] [address] Carolyn Azul RPH Social History Tobacco Use [...]
--- OUTSIDE RECORDS SUMMARY | 2024-01-17 22:08 | XMS_ITS | Encounter Summary ---
Author Organization [facility] [place] [address] Care Team Providers Care Electronics Processor Name Role Phone Anne-Marie Cruz MD Primary Care Provider [phone] Encounter Details Date Type Department Care Team (Late st Contact Info) Description 04/23/2011 Orders Only [place] [address] Gracie Levine MD [facility] [place] [address] Social History Tobacco Use Types Packs/Day Years [...] EST) 04/23/2011 11:3 5 AM EST Narrative [facility] - 09/05/2013 1:43 PM EDT This is a non-reportable exam. Procedure Note Herrera Fernandez - 09/05/2013 This is a non-reportable exam. Gracie Levine MD [facility] ORD ERABLES [facility] [address] [email or web address] [address] documented in this encounter Visit Diagnoses Not on filedocumented in this encounter Care Teams Electronics Processor Relationship Specialty Start Date End Date Anne-Marie Cruz MD [address] [place] [address] PCP - General 03/04/10 11/19/15 documented as of this encounter
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
== END 2024-01-17 22:26 | disposition home or self-care (01) ==
PROVIDERS: Emergency Provider Nurse Practitioner Family; PCP Pediatrics
DX: M53.3 Sacrococcygeal disorders, not elsewhere classified (principal); W08.XXXA Fall from other furniture, initial encounter
CPT/HCPCS: 99282; 99283